=== PATIENT | female | born 1935 | race Caucasian/White ===

== ENCOUNTER 2024-03-31 12:39 | Outpatient (CLI) | payer MEDICARE, SELFPAY ==
--- NOTE | ~2024-03-31 | XR_ITS ---
XR ankle RT min 3V Ordering provider: Sheryl Castañeda MD History: . MEDIAL RIGHT ANKLE PAIN WITH SWELLING FOR 3 WEEKS NO TRAUMA . Comparison: None. FINDINGS: BONES: Highly suggestive lucency in the distal fibula. Calcaneus patent. JOINT SPACES: Normal. SOFT TISSUES: Soft tissue swelling over the medial and lateral malleoli. IMPRESSION: Possible fracture in the distal fibula. Follow-up advised. Reviewed, dictated and finalized at location A.
== END 2024-03-31 12:40 | disposition home or self-care (01) ==
PROVIDERS: PCP Family Medicine; Visit Provider Family Medicine
DX: M25.571 Pain in right ankle and joints of right foot (principal)
CPT/HCPCS: 73610

== ENCOUNTER 2024-10-17 13:27 | Emergency (ER) | payer MEDICARE, SELFPAY ==
--- NOTE | ~2024-10-17 | XR_ITS ---
XR chest 1V portable Ordering provider: Dedrick Bhatt MD History: 88 years Female with . Fall . Comparison: None. FINDINGS: MEDIASTINUM: The cardiac silhouette is slightly enlarged. Soft tissue density is seen in the lower me diastinum most likely a sliding hiatus hernia is seen. Slightly congestive lalita. LUNGS: No infiltrates, effusions or pneumothorax. Bilateral interstitial thickening which may be due to lumbar fibrosis. Edema and infection is less likely. OTHER: No free air under the diaphragm. Levoscoliosis. IMPRESSION: No acute cardiopulmonary pathology. Sliding hiatus hernia. Reviewed, dictated and finalized at location A.
--- NOTE | ~2024-10-17 | CT_ITS ---
EXAMINATION: CT cervical spine wo con DATE: 10/17/2024 15:39 INDICATION: Neck pain post fall TECHNIQUE: Computed tomography (CT) of the cervical spine was performed without intravenous contrast. Automated exposure control and iterative reconstruction technique were employed. The dose-length pro duct was 250.76 mGy-cm. COMPARISON: None FINDINGS: 10 degrees cervicothoracic levocurvature and 8 degrees cervical dextrocurvature. Sagittal alignment i s normal. Moderate osteoarthritis at the atlantoaxial articulation. Vertebral body heights are normal . Schmorl's nodes along the inferior endplate of C6 and T1. No acute fracture. Mild disc height loss at C5-C6 through T4-T5. Severe uncovertebral osteoarthritis on the right at C6-C7, moderate uncoverte bral osteoarthritis on the left at C3-C4 with additional mild scattered uncovertebral osteoarthritis throughout the remainder of the cervical spine. There is multilevel severe cervical and upper thoraci c facet osteoarthritis. This includes 2 mild multilevel neural foraminal stenosis in the cervical and upper thoracic spine. Disc bulges contributing to mild central canal stenosis at C2-C3 and C3-C4. At herosclerotic calcific lesions at the bilateral carotid bulbs. 1.9 x 1.5 x 1.3 cm left submandibular effusion with high attenuation appear to layer posteriorly suggesting a complex cystic lesion with la yering blood, proteinaceous fluid or milk of calcium. Mosaic attenuation in the visualized upper lung s likely related to expiratory phase of imaging with mild atelectasis. IMPRESSION: 1. Mild cervical and upper thoracic spondylosis. No acute osseous abnormality. 2. Indeterminate 1.9 x 1.5 x 1.3 cm likely complex cystic left submandibular lesion which is of indet erminate etiology or significance. Could consider follow-up ultrasound for further evaluation. Reviewed, dictated and finalized at location A. IMPRESSION: 1. Mild cervical and upper thoracic spondylosis. No acute osseous abnormality. 2. Indeterminate 1.9 x 1.5 x 1.3 cm likely complex cystic left submandibular le becky which is of indeterminate etiology or significance. Could consider follow- up ultrasound for further evaluation.
--- NOTE | ~2024-10-17 | XR_ITS ---
EXAMINATION: XR clavicle LT DATE: 10/17/2024 14:34 INDICATION: Left clavicle pain post fall TECHNIQUE: AP and cephalad angled AP views of the left clavicle were obtained. COMPARISON: None. FINDINGS: Alignment is normal. No fracture. Moderate to severe osteoarthritis at the left acromioclavicular joshua nt. Visualized apices of the lungs are clear. Atherosclerotic calcifications at the aortic arch. IMPRESSION: 1. No acute osseous abnormality. Reviewed, dictated and finalized at location A.
--- NOTE | ~2024-10-17 | XR_ITS ---
AP view of the pelvis and AP and lateral views of the left hip Clinical history: Pain Findings: No acute fracture or dislocation is seen. Osseous alignment is anatomic. Bilateral hip and SI joint spaces are preserved. Soft tissues are unremarkable. Impression: No significant abnormality is seen. Reviewed, dictated and finalized at [facility]. Impression: No significant abnormality is seen.
--- NOTE | ~2024-10-17 | CT_ITS ---
Non-contrast Head CT History: Status post fall Technique: Axial non-contrast imaging of the brain was performed. Dose reduction technique was used on this scan by utilizing automated exposure control and iterative reconstruction technique. The dose -length product (DLP) was 605.33 mGy-cm. Findings: There is no evidence of intracranial hemorrhage, mass lesion, or acute infarct. Brain par enchyma appears normal. The ventricles and subarachnoid spaces are normal in size. The calvarium ap pears normal. The visualized paranasal sinuses and mastoid air cells are clear. Impression: No significant abnormality seen. Reviewed, dictated and finalized at location . Impression: No significant abnormality seen.
--- NOTE | ~2024-10-17 | CT_ITS ---
EXAMINATION: CT pelvis wo con DATE: 10/17/2024 15:39 INDICATION: Severe pelvic pain post fall TECHNIQUE: Computed tomography (CT) of the pelvis was performed without intravenous contrast. Automat ed exposure control and iterative reconstruction technique were employed.The dose-length product was 362.34 mGy-cm. COMPARISON: None FINDINGS: Severe lower lumbar spondylosis with mild lower lumbar levocurvature, 5 mm anterolisthesis L4 on L5 a nd 3 mm retrolisthesis L5 on S1. Bone alignment is otherwise normal. No acute fracture. Moderate bila teral hip osteoarthritis with posterior predominant nonuniform joint space narrowing. No hip joint ef fusions. Moderate osteoarthritis at the bilateral sacroiliac joints. There is stranding in the subcut aneous fat overlying the left greater trochanter consistent with a bone contusion. Chronic bilateral partial tears of the gluteus medius tendons with proximal retraction of the myotendinous junctions an d secondary moderate fatty atrophy of the chest is portions of mild fatty atrophy of the remaining mu sculature of the pelvis and visualized proximal thighs. There is a 10 x 3 x 2.7 cm submucosal lipoma in the ascending colon. Numerous scattered colonic diverticula without adjacent from trace stranding to suggest diverticulitis. Visualized lower pole the right kidney is unremarkable. Bladder is normal. The uterus is not identified and has likely been surgically resected. Small amount of nonspecific fr ee fluid in the deep pelvis. IMPRESSION: 1. No acute osseous abnormality. 2. Severe lower lumbar spondylosis and moderate bilateral hip and sacroiliac osteoarthritis. 3. Chronic partial tears of the bilateral gluteus medius tendons with moderate secondary fatty atroph y of both muscle bellies. 4. Extensive diverticulosis. 5. 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 Reviewed, dictated and finalized at location A. IMPRESSION: 1. No acute osseous abnormality. 2. Severe lower lumbar spondylosis and moderate bilateral hip and sacroiliac os teoarthritis. 3. Chronic partial tears of the bilateral gluteus medius tendons with moderate secondary fatty atrophy of both muscle bellies. 4. Extensive diverticulosis. 5. 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
--- OUTSIDE RECORDS SUMMARY | 2024-10-17 13:31 | XMS_ITS | Clinical Summary ---
Author Organization [facility] Address [address] [place] [address] Care Team Providers Care Taxi Truck Driver Name Role Phone Unavailable Primary Care Provider Unavailabl e Source Comments [facility],non-owned Affiliates and Associated Physician Practices is amultiple site organization consisting of ambulatory clinics and hospital sitesin [place], [place], [place] and [place]. This disclosure is being madepursuant to the Care Everywhere program and may not contain all information available regarding this patient. Last updated 18.[facility] [employer] Social History Tobacco Use Types Packs/Day Years Used Date Smoking Tobacco: Never Assessed Sex and Gender Information Value Date Recorded Sex Assigned at Not on file Gender Identity Not on file Sexual Orientation Not on file Plan of Treatment Health Maintenance Due Date Last Done Comments BONE DENSITY TESTING 1937 DTAP/TDAP/TD VACCINES (1 - Tdap) 1956 PNEUMOCOCCAL VACCINE 50+ (1 of 1 - PCV) 10/24/1987 ZOSTER VACCINE (1 of 2) 10/24/1987 Respiratory Syncytial Virus (RSV) Vaccine Pt: or over 60 yrs (1 - 1-dose 75+ series) 2012 COVID-19 VACCINE (2023-2 5 season) 2024 DEPRESSION SCREENING 07/09/2024 MEDICARE AWV CALENDAR YEAR 2024 INFLUENZA VACCINE (Season Ended) 2025 HEPATITIS B VACCINE Aged Out No longe r eligible based on patient's age to complete this topic HIB VACCINE Aged Out No longer eligi ble based on patient's age to complete this topic HPV VACCINE Aged Out No longer eligi ble based on patient's age to complete this topic MENINGOCOCCAL (Group B) VACC INE SHARED DECISION-MAKING Aged Out No longer eligibl e based on patient's age to complete this topic MENINGOCOCCAL GROUPS A/C/Y/W VACCINE Aged Out No longer eligible b ased on patient's age to complete this topic
--- OUTSIDE RECORDS SUMMARY | 2024-10-17 13:32 | XMS_ITS | Encounter Summary ---
Author Organization [facility] Address [facility] [place] [address] Care Team Providers Care Gang Worker Name Role Phone Brittney Levy [facility] Primary Care Provider + Encounter Details Date Type Department Care Team (Late st Contact Info) Description 02/20/2023 Prep for Procedure [facility], [facility] [address] [place], [place] [id number] Abdirahman Salas MD [address] [facility]. 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
--- OUTSIDE RECORDS SUMMARY | 2024-10-17 13:32 | XMS_ITS | Encounter Summary ---
Author Organization [facility] Address [address] [place] [address] Care Team Providers Care Paralegal Legal Secretary Name Role Phone Unavailable Primary Care Provider Unavailabl e Encounter Details Date Type Department Care Team (Late st Contact Info) Description 02/10/2020 Lab Requisition [facility] DermPath Lab [address] [facility] [place] [address] Nel Clement DO [address] [facility] [address]L [place] [address] Social History Tobacco Use Types Packs/Day Years Used Date Smoking Tobacco: Never Assessed Sex and Gender Information Value Date Recorded Sex Assigned at Not on file Gender Identity Not on file Sexual Orientation Not on file documented as of this encounter Plan of Treatment Not on file documented as of this encounter Procedures Procedure Name Priority Date/Time Associated Diagnosis Comments DERMATOPATHOLOGY Routine 02/09/2020 12:0 0 AM CDT documented in this encounter Results * DERMATOPATHOLOGY (02/09/2020 12:00 AM CDT) Case Report Dermatopathology Report Case: [id number] Authorizing Provider: Nel Clement DO Collected: 02/09/2020 12:00 AM Ordering Location: [facility] DermPath Lab Received: 02/10/2020 06:11 AM Pathologist: Kendal Hodge MD Specimens: A) - Skin, right back B) - Skin, left FH 0 4:05 PM CDT DERMATOPATHOLOGY LABORATORY Final Diagnosis Specimen A. SKIN, right back: SEBORRHEIC KERATOSIS, IRRITATED AND INFLAMED (L82.0) Specimen B. SKIN, left FH: BASAL CELL CARCINOMA, NODULAR TYPE (C44.319) (see microscopic description) 0 4:05 PM CDT DERMATOPATHOLOGY LABORATORY Clinical History A: SK R/O atypia B: IDN R/O BCC 0 4:05 PM T DERMATOPATHOLOGY LABORATORY Gross Description Specimen A: Received is one formalin filled container labeled with the patient's name and designated right back. The specimen consists of a shave biopsy measuring 7x5x1 mm. Jar 0. Specimen B: Received is one formalin filled container labeled with the patient's name and designated left FH. The specimen consists of a shave biopsy measuring 4x3x1 mm. Jar 0. 0 4:05 PM CDT DERMATOPATHOLOGY LABORATORY Microscopic Description Specimen A. SKIN, right back: Sections show acanthosis, papillomatosis, hyperkeratosis, and squamous eddies. There is a lymphohistiocytic infiltrate within the papillary dermis. Specimen B. SKIN, left FH: Within the dermis there are aggregates of basaloid cells with a high nuclear to cytoplasmic ratio and peripheral palisading. Additional deeper sections were obtained and reviewed. 0 4:05 PM T DERMATOPATHOLOGY LABORATORY Disclaimer An external and internal positive and negative controls are appropriate for the histochemical, immunohistochemical and immunofluorescence stain(s) in this case (if any), except where stated explicitly. The performance characteristics of the stain(s) cited in this report were developed and its performance characteristic determined by the Dermatopathology Laboratory at [facility], directed by Dr. Félix Mcgill. These tests need not be, and therefore are not, approved by the [place] Food and Drug Administration. The tests are used for clinical purposes. Billing Codes Specimen Charges Stain Charges 31453 [id number] 1 1 0 4:05 PM CDT DERMATOPATHOLOGY LABORATORY Embedded Images 0 4:05 PM CDT DERMATOPATHOLOGY LABORATORY Pathology/Cytology TISSUE SPECIMEN FROM SKIN / Unknown 02/09/2020 02/10/2020 6:11 AM CDT Miscellaneous samples (specimen) TISSUE SPECIMEN FROM SKIN / Unknown 02/09/2020 02/10/2020 6:11 AM CDT Nel Clement DO LAB - PATHOLOGY/C YTOLOGY ORDERABLES DERMATOPATHOLOGY LABORATORY [facility] - Department of Dermatology [facility] [address] [place] [address], [facility] [phone] documented in this encounter Visit Diagnoses Not on filedocumented in this encounter
--- OUTSIDE RECORDS SUMMARY | 2024-10-17 13:32 | XMS_ITS | Encounter Summary ---
Author Organization [facility] Address [facility] [place] [address] Care Team Providers Care Pigment Processor Name Role Phone Arabella Rojo MD Primary Care Provider [phone] Brittney Levy [facility] Primary Care Provider + Encounter Details Date Type Department Care Team (Late st Contact Info) Description 12/14/2018 Abstract [facility] CONVERSION [address] [place] [address] , Generic MD Ashok Social History Tobacco Use Types Packs/Day Years Used Date Smoking Tobacco: Never Assessed Comments Unknown Sex and Gender Information Value Date Recorded Sex Assigned at Not on file Legal Sex Female 10:22 PM OFFICE ASST Gender Identity Not on file Sexual Orientation Not on file documented as of this encounter Plan of Treatment Not on file documented as of this encounter Visit Diagnoses Not on filedocumented in this encounter Care Teams Pigment Processor Relationship Specialty Start Date End Date Arabella Rojo MD [address] [place] [address] PCP - General FAMILY PRACTICE 12/29/21 01/04/23 Brittney Levy, [facility] [address] [place] [address] PCP - General NURSE PRACTITIONER 01/05/23 documented as of this encounter
--- OUTSIDE RECORDS SUMMARY | 2024-10-17 13:32 | XMS_ITS | Clinical Summary ---
Author Organization [facility] Address [address] [place] [address] Care Team Providers Care Manager Deli Name Role Phone Brittney Levy [facility] Primary Care Provider + Allergies Active Allergy Reactions Criticality Noted Date Comments Codeine Hallucinations 01/05/2023 Sulfa Antibiotics Unknown 02/21/2023 Medications EQ ASPIRIN ADULT LOW DOSE 81 MG tablet Take 1 tablet (81 mg total) by mouth daily. 2 Active gabapentin (NEURONTIN) 600 MG tablet Take 1 tablet (600 mg total) by mouth daily. 3 Active multi vitamin/minerals (THERA-M ENHANCED) tablet Take 1 tablet by mouth daily. Active Multiple Vitamins-Minerals (EYE HEALTH + LUTEIN) Tab Active Carboxymethylcellu l-Glycerin (CLEAR EYES FOR DRY EYES) 1-0.25 % Solution Ac tive atorvastatin (LIPITOR) 40 MG tabletIndications: Mixed hyperlipidemia Take 1 tablet (40 mg total) by mouth nightly. 90 tablet 1 3 Active citalopram (CELEXA) 20 MG tabletIndications: Anxiety Take 1 tablet (20 mg total) by mouth daily. 90 tablet 1 3 Active levothyroxine (SYNTHROID) 75 MCG tabletIndications: Hypothyroidism, unspecified type Take 1 tablet (75 mcg total) by mouth before breakfast. 90 tablet 1 3 Active lisinopril-hydroCH LOROthiazide (ZESTORETIC) 10-12.5 MG tabletIndications: Essential (primary) hypertension take 1 tablet by mouth once daily in the morning for 90 days 90 tablet 1 3 Active omeprazole (PRILOSEC) 40 MG capsuleIndications :Gastroesophageal reflux disease without esophagitis Take 1 capsule (40 mg total) by mouth daily. 90 capsule 1 3 Active isosorbide mononitrate ER (IMDUR) 30 MG 24 hr tablet Take 1 tablet (30 mg total) by mouth daily. 3 Active triamcinolone (KENALOG) 0.1 % creamIndications:S kin lesion of left leg Apply topically 2 (two) times daily. 80 g 1 3 Active Active Problems Problem Noted Date Diagnosed Date Varicose veins of lower extremity with pain, rig ht 02/20/2023 Overview (02/20/2023): Added automatically from request for surgery [id number] Immunizations Name Administration Dates Next Due Fluzone High Dose - >Age 65 (Prefilled Syringe) 04/13/2020 Tdap (Generic) 02/22/2021 Family History Medical History Relation Comments No Known Problems Brother 1 drowned No Known Problems Brother 2 car wreck No Known Problems Daughter 1 Skin cancer Daughter 2 No Known Problems Daughter 3 fell asleep an d didnt wake up Hip fracture Daughter 4 Cancer Daughter 5 Heart Attack Father No Known Problems Mother Breast Cancer Sister 1 Melanoma Sister 2 Cancer Sister 3 No Known Problems Son Relation Status Comments Brother 1 Brother 2 Daughter 1 Alive Daughter 2 Alive Daughter 3 Daughter 4 Alive Daughter 5 Father Mother Sister 1 Sister 2 Sister 3 Son Alive Social History Tobacco Use Types Packs/Day Years Used Date Smoking Tobacco: Never Smokeless Tobacco: Never Tobacco Cessation:Counseling Given: No Alcohol Use Standard Drinks/Week Comments Never 0 (1 standard drink = 0.6 oz pur e alcohol) PHQ-2 Answer Date Recorded Patient Health Questionnaire-2 Score 0 02/23/2023 Comments No Sex and Gender Information Value Date Recorded Sex Assigned at Not on file 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 Gender Identity Not on file Sexual Orientation Not on file Last Filed Vital Signs Vital Sign Reading Time Taken Comments Blood Pressure 152/84 03/13/2023 10:41 AM CDT Pulse 56 02/23/2023 8:34 AM CDT Temperature 36.6 C (97.8 F) 02/23/2023 8:34 AM CDT Respiratory Rate 18 02/23/2023 8:34 AM CDT Oxygen Saturation 99% 02/23/2023 8:34 AM CDT Inhaled Oxygen Concentration - - Weight 71.3 kg (157 lb 3.2 oz) 02/23/2023 8:34 A M CDT Height 153.7 cm (5' 0.5 ) 02/23/2023 8:34 AM CDT Body Mass Index 30.2 02/23/2023 8:34 AM CDT Plan of Treatment Health Maintenance Due Date Last Done Comments Zoster Vaccines (1 of 2) 10/24/1987 Annual Medicare Wellness Visit 2002 Pneumococcal Vaccine: 65+ Ye ars (1 of 1 - PCV) 2002 RSV Immunization or 60+ Years (1 - 1-dose 75+ series) 2012 COVID-19 Vaccine (1 - 2023-2 5 season) 2024 PHQ-2 (Physician [place]) 07/09/2024 02/23/2023 DTaP, Tdap and Td Vaccines ( 2 - Td or Tdap) 02/22/2031 02/22/2021 Meningococcal B Vaccine Aged Out No l onger eligible based on patient's age to complete this topic Meningococcal Vaccine Aged Out No joseph levi eligible based on patient's age to complete this topic RSV Immunizations Under 20 Months Aged Out No longer eligible based on patient's age to complete this topic Insurance [facility] Care Teams Manager Deli Relationship Specialty Start Date End Date Brittney Levy, CIVIL DESIGNER-YURI [address] [address] PCP - General NURSE PRACTITIONER 01/05/23
[2024-10-17 13:43] VITALS: BP 168/72; PULSE 64; RESP 20; O2SAT 100
[2024-10-17 13:46] VITALS: PULSE 64; RESP 20; TEMP 36.6; O2SAT 100
--- OUTSIDE RECORDS SUMMARY | 2024-10-17 14:36 | XMS_ITS | Encounter Summary ---
Author Organization [facility] Address [facility] [place] [address] Care Team Providers Care Wood Milling Machine Tender Name Role Phone Arabella Rojo MD Primary Care Provider [phone] Brittney Levy [facility] Primary Care Provider + Encounter Details Date Type Department Care Team (Late st Contact Info) Description 12/14/2018 Abstract [facility] CONVERSION [address] [place] [address] , Generic MD Ashok Social History Tobacco Use Types Packs/Day Years Used Date Smoking Tobacco: Never Assessed Comments Unknown Sex and Gender Information Value Date Recorded Sex Assigned at Not on file 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
--- OUTSIDE RECORDS SUMMARY | 2024-10-17 14:36 | XMS_ITS | Encounter Summary ---
Author Organization [facility] Address [facility] [place] [address] Care Team Providers Care Photolettering Machine Operator Name Role Phone Brittney Levy [facility] Primary Care Provider + Encounter Details Date Type Department Care Team (Late st Contact Info) Description 02/20/2023 Prep for Procedure [facility] [address] [facility], [facility] [address] [place], [place] [id number] Abdirahman Salas MD Three [facility]. [facility] [address] [place], [place] [id number] Social History Tobacco Use Types Packs/Day Years Used Date Smoking Tobacco: Never Smokeless Tobacco: Never Alcohol Use Standard Drinks/Week Comments Never 0 (1 standard drink = 0.6 oz pur e alcohol) PHQ-2 Answer Date Recorded Patient Health Questionnaire-2 Score 0 02/23/2023 Comments No Sex and Gender Information Value Date Recorded Sex Assigned at Not on file Legal Sex Female 10:22 PM TELEPHONE SURVEYOR Gender Identity Not on file Sexual Orientation Not on file documented as of this encounter Plan of Treatment Not on file documented as of this encounter Visit Diagnoses Diagnosis Varicose veins of lower extremity with pain, right- Primary documented in this encounter Care Teams Photolettering Machine Operator Relationship Specialty Start Date End Date Brittney Levy, [facility] [address] [place] [address] PCP - General NURSE PRACTITIONER 01/05/23 documented as of this encounter
--- OUTSIDE RECORDS SUMMARY | 2024-10-17 14:36 | XMS_ITS | Encounter Summary ---
Author Organization [facility] Address [address] [facility] [place] [address] Care Team Providers Care Plate Glass Installer Helper Name Role Phone Unavailable Primary Care Provider Unavailabl e Encounter Details Date Type Department Care Team (Late st Contact Info) Description 02/10/2020 Lab Requisition [facility] DermPath Lab [address] [facility] [place] [address] Nel Clement DO [address] [facility] [address]L [place] [address] Social History Tobacco Use Types Packs/Day Years [...] AM CDT) Case Report Dermatopathology Report Case: [id number] Authorizing Provider: Nel Clement DO Collected: 02/09/2020 12:00 AM Ordering Location: [facility] DermPath Lab Received: 02/10/2020 06:11 AM Pathologist: [...] characteristic determined by the Dermatopathology Laboratory at [facility], directed by Dr. Félix Mcgill. These tests need not be, and therefore are not, approved by the [place] Food and Drug Administration. The tests are used for clinical purposes. Billing Codes Specimen Charges Stain Charges [id number] 1 1 0 4:05 PM CDT DERMATOPATHOLOGY LABORATORY Embedded Images 0 4:05 PM CDT DERMATOPATHOLOGY LABORATORY Pathology/Cytology TISSUE SPECIMEN FROM SKIN / Unknown 02/09/2020 02/10/2020 6:11 AM CDT Miscellaneous samples (specimen) TISSUE SPECIMEN FROM SKIN / Unknown 02/09/2020 02/10/2020 6:11 AM CDT Nel Clement DO LAB - PATHOLOGY/C YTOLOGY ORDERABLES DERMATOPATHOLOGY LABORATORY [facility] - Department of Dermatology [facility] [address] [facility] [place] [address], [facility] [phone] documented in this encounter Visit Diagnoses Not on filedocumented in this encounter
--- OUTSIDE RECORDS SUMMARY | 2024-10-17 14:36 | XMS_ITS | Clinical Summary ---
Author Organization [facility] Address [address] [place] [address] Care Team Providers Care Contract Administration Coordinator Name Role Phone Unavailable Primary Care Provider Unavailabl e Source Comments [facility],non-owned Affiliates and Associated Physician Practices is amultiple site organization consisting of ambulatory clinics and hospital sitesin [place], [place], [place] and [place]. This disclosure is being madepursuant to the Care Everywhere program and may not contain all information available regarding this patient. Last updated 18.[employer] Social History Tobacco Use Types Packs/Day Years [...]
--- OUTSIDE RECORDS SUMMARY | 2024-10-17 14:36 | XMS_ITS | Clinical Summary ---
Author Organization [facility] Address [address] [place] [address] Care Team Providers Care Line Repairer Name Role Phone Brittney Levy [facility] Primary Care Provider + Allergies Active [...] (02/20/2023): Added automatically from request for surgery [id number] Immunizations Name Administration Dates Next Due Fluzone [...] on file Legal Sex Female 10:22 PM HAND VIOLIN MAKER Gender Identity Not on file Sexual Orientation [...] - 2023-2 5 season) 2024 PHQ-2 (Physician [place]) 07/09/2024 02/23/2023 DTaP, Tdap and Td Vaccines [...] patient's age to complete this topic Insurance [facility] Care Teams Line Repairer Relationship Specialty Start Date End Date Brittney Levy, SPECIAL EQUIPMENT TECHNICIAN-YURI [address] [address] PCP - General NURSE PRACTITIONER 01/05/23
--- NOTE | 2024-10-17 16:26 | ED.GENADULT ---
HPI - General Adult General Chief complaint: Fall Stated complaint: Fall, injury to head, left shoulder and hip Time Seen by Provider: 10/17/24 14:32 History of Present Illness HPI narrative: This is 88-year-old female presenting after a ground level fall patient was trying to get out of her car while holding soda and her cane and fell forward hitting the left side of her head. She denies loss of consciousness. She denies use of blood thinners. She was able to get up with some help but is now having pain in her head neck left arm and left hip urine Related Data Home Medications ?Medication ?Instructions ?Recorded ?Confirmed ?Last Taken ?Type aspirin 81 mg tablet,delayed 81 mg PO DAILY 02/18/24 04/23/24 Unknown History release gabapentin 600 mg tablet 600 mg PO DAILY 02/18/24 04/23/24 Unknown History levothyroxine 25 mcg capsule 25 mcg PO DAILY 02/18/24 04/23/24 Unknown History lisinopril 10 mg tablet 10 mg PO DAILY 02/18/24 04/23/24 Unknown History omeprazole 20 mg capsule,delayed 20 mg PO DAILY 02/18/24 04/23/24 Unknown History release Allergies Allergy/AdvReac Type Severity Reaction Status Date / Time codeine AdvReac Severe Hallucinati Verified 10/17/24 13:29 ng Sulfa (Sulfonamide AdvReac Unknown Hives Verified 10/17/24 13:29 Antibiotics) [facility] Past Medical History Medical History ) Allergies Arthritis Constipation Cystocele with rectocele Frequent urination GERD (gastroesophageal reflux disease) Hearing loss History of skin cancer Osteoporosis Posterior tibial tendinitis of right lower extremity Skin cancer Swollen ankles Thyroid disorder Traumatic arthritis of right ankle Vision changes Surgical History Surgical History ) H/O rectocele repair H/O: hysterectomy History of anterior colporrhaphy History of colonoscopy History of endoscopy History of heart artery stent Family History Family History ) Father Heart disease Sibling Cancer Hypertension Sibling Heart disease Unknown No problems noted. Social History Social History ) Smoking status: Never smoker Second hand tobacco smoke exposure: No Alcohol intake: never Substance use: never Substance use type: does not use Do You Feel Safe in your Home?: Yes Lack of Transportation: No Lack of Food: Never True Current Housing: I Have Housing Concerned About Future Housing: No Difficulty Paying Gas/Electric Bills: No Difficulty Paying for Meds: No Currently Unemployed: No Occupation/Education: retired Gender identity (if verbalized by the patient): Female Sexual Orientation (if Verbalized by the Patient): Straight or Heterosexual Spiritual care concerns: No Agree to blood products: No Exam Narrative: APPEARANCE: No apparent distress. Head: atraumatic. EYES: EOMI, NOSE: Atraumatic NECK: Midline cervical tenderness, left paracervical muscle tenderness RESPIRATORY: No increased rate of breathing CTAB CARDIOVASCULAR: RRR, no peripheral edema, +2 pulses all extremities ABDOMINAL: Non-distended soft nontender MUSCULOSKELETAl: Tenderness palpation over the left clavicle without crepitus or deformity. Tenderness palpation over the left greater trochanter with pain on active and passive range of motion of the hip. NEURO: Alert. Cranial nerves 2-12 grossly intact. Sensation light touch, motor function cerebellar function intact for 4 extremities. Gait exam was normal. SKIN:: Warm, dry. Normal color PSYCHIATRIC: Normal affect Course Vital Signs Vital signs: Vital Signs Pulse Rate 64 10/17/24 13:43 Respiratory Rate 20 10/17/24 13:43 Blood Pressure 168/72 H 10/17/24 13:43 Pulse Oximetry 100 10/17/24 13:43 Temperature 97.9 F 10/17/24 13:46 Pulse Rate 64 10/17/24 13:46 Respiratory Rate 20 10/17/24 13:46 Blood Pressure 168/72 H 10/17/24 13:43 Pulse Oximetry 100 10/17/24 13:46 Oxygen Delivery Room Air 10/17/24 13:46 Medical Decision Making MDM Narrative Medical decision making narrative: -Course: A 8-year-old female presenting after ground level fall. CT imaging of the head, C-spine, and pelvis was unremarkable. X-rays negative for fracture. Patient was given pain medication and was able to ambulate around ED at her baseline. She will be discharged with pain medication and return precautions. -DDX includes but is not limited to: Hip fracture, clavicle fracture, intracranial hemorrhage, TBI Vital Signs Vital Signs: Vital Signs Pulse Rate 64 10/17/24 13:43 Respiratory Rate 20 10/17/24 13:43 Blood Pressure 168/72 H 10/17/24 13:43 Pulse Oximetry 100 10/17/24 13:43 Temperature 97.9 F 10/17/24 13:46 Pulse Rate 64 10/17/24 13:46 Respiratory Rate 20 10/17/24 13:46 Blood Pressure 168/72 H 10/17/24 13:43 Pulse Oximetry 100 10/17/24 13:46 Oxygen Delivery Room Air 10/17/24 13:46 Discharge Plan Discharge Clinical Impression: Fall Patient Disposition: Home Condition: Stable Instructions: Antibiotic Form, Fall Prevention for Older Adults (ED) Additional Instructions: Please use Tylenol for pain. Please return to ED if develops any new or worsening symptoms. Please practice fall prevention. Follow up with primary care physician for further management. Patient Language: Georgian Prescriptions: New acetaminophen 500 mg capsule 500 mg PO Q6H PRN (Reason: pain) Qty: 60 0RF No Action lisinopril 10 mg tablet 10 mg PO DAILY omeprazole 20 mg capsule,delayed release(DR/EC) 20 mg PO DAILY levothyroxine 25 mcg capsule 25 mcg PO DAILY gabapentin 600 mg tablet 600 mg PO DAILY aspirin 81 mg tablet,delayed release (DR/EC) 81 mg PO DAILY Follow-up/Referrals: Sheryl Castañeda MD [Primary Care Provider] - 1 Week (ED f/u. fall )
[2024-10-17 17:24] VITALS: BP 150/60; PULSE 61; RESP 18; TEMP 36.6; O2SAT 100
== END 2024-10-17 17:24 | disposition home or self-care (01) ==
PROVIDERS: Emergency Provider Emergency Medicine; PCP Family Medicine
DX: S09.90XA Unspecified injury of head, initial encounter (principal); S79.912A Unspecified injury of left hip, initial encounter; S49.92XA Unspecified injury of left shoulder and upper arm, initial encounter; S19.9XXA Unspecified injury of neck, initial encounter; E07.9 Disorder of thyroid, unspecified; K21.9 Gastro-esophageal reflux disease without esophagitis; M19.90 Unspecified osteoarthritis, unspecified site; M81.0 Age-related osteoporosis without current pathological fracture; Z95.5 Presence of coronary angioplasty implant and graft; Z85.828 Personal history of other malignant neoplasm of skin; Z90.710 Acquired absence of both cervix and uterus; M47.812 Spondylosis without myelopathy or radiculopathy, cervical region; M47.814 Spondylosis without myelopathy or radiculopathy, thoracic region; K11.6 Mucocele of salivary gland; W17.89XA Other fall from one level to another, initial encounter
CPT/HCPCS: 70450; 71045; 72125; 72192; 73000; 73502; 99284

== ENCOUNTER 2024-11-13 20:59 | Inpatient (IN) | payer MEDICARE, SELFPAY ==
--- NOTE | ~2024-11-13 | CT_ITS ---
CLINICAL INDICATION: Rectal bleeding COMPARISON: Reference is made to a CT examination of the pelvis dated 10/17/2024 TECHNIQUE: Computed tomography angiography (CTA) of the abdomen and pelvis was performed with 100 mL Omnipaque-350 intravenous contrast timed to evaluate the abdominal aorta and mesenteric vasculature. Coronal maximum intensity projection 3D-reconstructions were created by the technologist. The dose-le ngth product (DLP) was 952 mGy-cm. Automated exposure control and iterative reconstruction technique were employed. FINDINGS/OBSERVATIONS: Visualized lower thorax: Trace bibasilar atelectasis. The remainder of the lungs are clear. The heart is enlarged, without pericardial effusion. Large hiatal hernia is present. Liver: Punctate calcifications identified within the hepatic parenchyma, suggesting prior granulomato us disease. The remainder of the liver demonstrates otherwise homogeneous enhancement and is not enlarged. Gallbladder and biliary system: The gallbladder is only minimally distended, with multiple calcified stones and is otherwise unremark able. Pancreas: The pancreas enhances homogeneously without ductal dilatation. Spleen: Punctate calcifications identified within the splenic parenchyma, suggesting prior granulomat ous disease. The remainder of the spleen otherwise enhances homogeneously and is not enlarged. Kidneys: The bilateral kidneys enhance symmetrically without hydronephrosis or renal calculi. Adrenal glands: Unremarkable. Gastrointestinal tract: Redemonstration of a submucosal lipoma within the ascending colon. Colonic diverticulosis is identified without surrounding inflammatory change. Appendix: The appendix is not definitively visualized. However, no pericecal inflammatory change is identified suggest the presence of acute appendicitis. Vasculature: Densely calcified atherosclerotic disease. The celiac axis is patent demonstrating conventional anatomy. The superior mesenteric artery is also patent, without filling defect or aneurysmal dilatation. The inferior mesenteric artery is also patent, without a filling defect or significant stenosis. Lymph nodes: No pathologically enlarged or morphologically suspicious lymph nodes within the retroperitoneum or at the root of the mesentery. Pelvic structures: The bladder is only minimally distended, and otherwise unremarkable. The uterus is either surgically absent or markedly atrophic. Body wall and musculoskeletal: Age appropriate degenerative disease within the lumbosacral spine. IMPRESSION: No contrast extravasation to suggest acute hemorrhage. No filling defect within the mesenteric vasculature. Colonic diverticulosis without surrounding inflammatory change. Findings suggesting prior granulomatous disease. Reviewed, dictated and finalized at location A.
--- NOTE | ~2024-11-13 | NM_ITS ---
EXAMINATION: NM GI bleeding DATE: 11/15/2024 12:18 INDICATION: Lower gastrointestinal bleed COMPARISON: CT dated 11/23/2024 TECHNIQUE: 21.8 mCi Tc 99m in vitro labeled red cells administered intravenously. Scintigraphic imag es of the abdomen were obtained through one hour. FINDINGS: There is a J-shaped configuration of bowel activity respiratory apparent on the 55 minute i mage and increased on the subsequent 60 minute image. This corresponds in location and configuration to the transverse colon on the prior CT. The origin of the bleed appears to localize to a focal regio n of wall thickening at the proximal transverse colon. IMPRESSION: 1. Active gastrointestinal bleed which appears to originate at the site of focal wall thickening at the proximal transverse colon on prior CT. This could be due to a focal colitis, diverticulitis or ma lignancy and would recommend colonoscopy for further evaluation. Reviewed, dictated and finalized at location A. IMPRESSION: 1. Active gastrointestinal bleed which appears to originate at the site of foc al wall thickening at the proximal transverse colon on prior CT. This could be due to a focal colitis, diverticulitis or malignancy and would recommend colono scopy for further evaluation.
--- OUTSIDE RECORDS SUMMARY | 2024-11-13 21:00 | XMS_ITS | Encounter Summary ---
Author Organization [facility] Address [address] [place] [address] Care Team Providers Care Fruit Tester Name Role Phone Unavailable Primary Care Provider Unavailabl e Encounter Details Date Type Department Care Team (Late st Contact Info) Description 02/10/2020 Lab Requisition [facility] [address] [place] [address] Nel Clement DO [address] [facility] [address] [place] [address] Social History Tobacco Use Types Packs/Day Years Used Date Smoking Tobacco: Never Assessed Comments Unknown Sex and Gender Information Value Date Recorded Sex Assigned at Not on file Legal Sex Female 11:06 AM CDT Gender Identity Not on file Sexual Orientation Not on file documented as of this encounter Plan of Treatment Not on file documented as of this encounter Procedures Procedure Name Priority Date/Time Associated Diagnosis Comments DERMATOPATHOLOGY Routine 02/09/2020 12:0 0 AM CDT documented in this encounter Results * DERMATOPATHOLOGY (02/09/2020 12:00 AM CDT) Case Report Dermatopathology Report Case: [id number] Authorizing Provider: Nel Clement DO Collected: 02/09/2020 12:00 AM Ordering Location: [facility] Received: 02/10/2020 06:11 AM Pathologist: Kendal Hodge MD Specimens: A) - Skin, right back B) - Skin, left FH 0 4:05 PM CDT DERMATOPATHOLOGY LABORATORY Final Diagnosis Specimen A. SKIN, right back: SEBORRHEIC KERATOSIS, IRRITATED AND INFLAMED (L82.0) Specimen B. SKIN, left FH: BASAL CELL CARCINOMA, NODULAR TYPE (C44.319) (see microscopic description) 0 4:05 PM T DERMATOPATHOLOGY LABORATORY Clinical History A: SK R/O atypia B: IDN R/O BCC 0 4:05 PM CDT DERMATOPATHOLOGY LABORATORY Gross Description Specimen A: Received [...] 4x3x1 mm. Jar 0. 0 4:05 PM T DERMATOPATHOLOGY LABORATORY Microscopic Description Specimen A. SKIN, right back: Sections show acanthosis, papillomatosis, hyperkeratosis, and squamous eddies. There is a lymphohistiocytic infiltrate within the papillary dermis. Specimen B. SKIN, left FH: Within the dermis there are aggregates of basaloid cells with a high nuclear to cytoplasmic ratio and peripheral palisading. Additional deeper sections were obtained and reviewed. 0 4:05 PM CDT DERMATOPATHOLOGY LABORATORY Disclaimer An external and internal positive and negative controls are appropriate for the histochemical, immunohistochemical and immunofluorescence stain(s) in this case (if any), except where stated explicitly. The performance characteristics of the stain(s) cited in this report were developed and its performance characteristic determined by the Dermatopathology Laboratory at [facility], directed by Dr. Félix Mcgill. These tests need not be, and therefore are not, approved by the [place] Food and Drug Administration. The tests are used for clinical purposes. Billing Codes Specimen Charges Stain Charges 59343 62050 1 1 0 4:05 PM CDT DERMATOPATHOLOGY LABORATORY Embedded Images 0 4:05 PM CDT DERMATOPATHOLOGY LABORATORY Pathology/Cytology TISSUE SPECIMEN FROM SKIN / Unknown 02/09/2020 02/10/2020 6:11 AM CDT Miscellaneous samples (specimen) TISSUE SPECIMEN FROM SKIN / Unknown 02/09/2020 02/10/2020 6:11 AM CDT Nel Clement DO LAB - PATHOLOGY/CYTOLOGY ORDERABLES Final Result DERMATOPATHOLOGY LABORATORY [facility] - Department of Dermatology [facility]/[address] [phone] documented in this encounter Visit Diagnoses Not on filedocumented in this encounter
--- OUTSIDE RECORDS SUMMARY | 2024-11-13 21:00 | XMS_ITS | Clinical Summary ---
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 Gender Identity Not on file Sexual Orientation [...] Health Maintenance Due Date Last Done Comments Pneumococcal Vaccine: 50+ Ye ars (1 of 1 - PCV) 10/24/1987 Zoster Vaccines (1 of 2) 10/24/1987 Annual Medicare Wellness Visit 2002 RSV Immunization or 60+ Years (1 - 1-dose 75+ series) 2012 COVID-19 Vaccine ( - 2023-2 5 season) 2024 PHQ-2 (Physician [place] [employer] [place]) 07/09/2024 02/23/2023 DTaP, Tdap and Td Vaccines [...] patient's age to complete this topic Insurance [facility] Care Teams Clinical Business Manager Relationship Specialty Start Date End Date Brittney Levy, SYSTEMS [employer] [address] [address] PCP - General NURSE PRACTITIONER 01/05/23
--- OUTSIDE RECORDS SUMMARY | 2024-11-13 21:00 | XMS_ITS | Encounter Summary ---
Author Organization [facility] Address [facility] [place] [address] Care Team Providers Care Public Safety Dispatcher Name Role Phone Arabella Rojo MD Primary Care Provider [phone] Brittney Levy [facility] Primary Care Provider + Encounter Details Date Type Department Care Team (Late st Contact Info) Description 12/14/2018 Abstract [facility] CONVERSION [address] [place] [address] , Generic MD Ashok Social History Tobacco Use Types Packs/Day Years Used Date Smoking Tobacco: Never Assessed Comments Unknown Sex and Gender Information Value Date Recorded Sex Assigned at Not on file 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
--- OUTSIDE RECORDS SUMMARY | 2024-11-13 21:00 | XMS_ITS | Encounter Summary ---
Author Organization [facility] Address [facility] [place] [address] Care Team Providers Care Sales Training Representative Name Role Phone Brittney Levy [facility] Primary Care Provider + Encounter Details Date Type Department Care Team (Late st Contact Info) Description 02/20/2023 Prep for Procedure [facility], [facility] [address] [place], [place] [phone] Abdirahman Salas MD [facility]. 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 Question Answer Date of Assessment Author Status Little interest or pleasure in doing things Not at all 02/23/2023 8:34 AM PINOT Jalyn Goodson Active Feeling down, depressed, or hopeless Not at all 02/23/2023 8:34 AM PINOT Jalyn Goodson Active Patient Health Questionnaire-2 Score 0 02/23/2023 8:34 AM PINOT Jalyn Goodson A ctive documented as of this encounter Plan of Treatment Not on file documented as of this encounter Visit Diagnoses Diagnosis Varicose veins of lower extremity with pain, right- Primary documented in this encounter Care Teams Sales Training Representative Relationship Specialty Start Date End Date Brittney Levy, WOODWORKING MACHINE FEEDER- [address] [address] PCP - General NURSE PRACTITIONER 01/05/23 documented as of this encounter
--- OUTSIDE RECORDS SUMMARY | 2024-11-13 21:00 | XMS_ITS | Clinical Summary ---
Author Organization [facility] Address [address] [place] [address] Care Team Providers Care Dye Weigher Name Role Phone Unavailable Primary Care Provider Unavailabl e Source Comments [facility],non-owned Affiliates and Associated Physician Practices is amultiple site organization consisting of ambulatory clinics and hospital sitesin [place], [place], [place] and [place]. This disclosure is being madepursuant to the Care Everywhere program and may not contain all information available regarding this patient. Last updated 18.[facility] Fresh ! Social History Tobacco Use Types Packs/Day Years [...] - 1-dose 75+ series) 2012 COVID-19 VACCINE ( - 2023-2 5 season) 2024 DEPRESSION SCREENING 07/09/2024 INFLUENZA VACCINE (Season Ended) 2025 HEPATITIS B [...] patient's age to complete this topic Insurance [employer] MANAGED MEDICARE ADV
[2024-11-13 21:07] VITALS: BP 93/46; PULSE 57; RESP 20; TEMP 36.9; O2SAT 99
[2024-11-13 21:27] LABS: Basophils Percent Auto 0.2 % (0.2-1.2); Eosinophils Absolute Auto 0.1 K/mm3 (0-0.3); Eosinophils Percent Auto 0.9 % (0-4.4); Hematocrit 23.8 % (37.0-47.0); Hemoglobin 7.2 g/dL (12.0-15.0); Immature Granulocyte Absolute 0.04 K/mm3 (0.00-0.031); Immature Granulocyte Percent A 0.5 % (0-0.5); Lymphocytes Absolute Auto 1.39 K/mm3 (0.9-3.2); Lymphocytes Percent Auto 15.9 % (18.3-44.2); Mean Corpuscular HGB Conc 30.3 g/dl (32-36); Mean Corpuscular Hemoglobin 23.8 pg (26-34); Mean Corpuscular Volume 78.8 fl (80-100); Mean Platelet Volume 10.5 fl (7.4-10.4); Monocytes Absolute Auto 0.5 K/mm3 (0.1-0.6); Monocytes Percent Auto 5.3 % (2.6-8.5); Neutrophils Absolute Auto 6.8 K/mm3 (1.3-6.7); Neutrophils Percent Auto 77.2 % (45.5-73.1); Platelet Count Result 187 k/mm3 (150-375); Red Blood Count 3.02 M/mm3 (4.2-5.4); Red Cell Distribution Width 20.4 % (11.5-14.5); White Blood Count 8.8 K/mm3 (4.5-10.0)
[2024-11-13 21:37] LABS: Alanine Aminotransferase 16 U/L (6-35); Albumin Level 3.2 g/dL (3.5-5.1); Alkaline Phosphatase 78 U/L (38-126); Anion Gap 6 mmol/L (4-12); Aspartate Amino Transferase 23 U/L (14-36); Bilirubin,Total 0.2 mg/dL (0.2-1.3); Blood Urea Nitrogen 34 mg/dL (7-17); Calcium 8.3 mg/dL (8.4-10.2); Carbon Dioxide 23 mmol/L (22-30); Chloride 104 mmol/L (98-107); Estimated Glomerular Filt Rate 46; Glucose 174 mg/dL (65-110); Potassium 3.8 mmol/L (3.4-5.0); Sodium 133 mmol/L (137-145)
[2024-11-13 21:43] LABS: Prothrombin Time 13.8 Seconds (11.1-14.7)
[2024-11-13 21:44] LABS: Partial Thromboplastin Time 33.5 Seconds (22.3-36.8)
--- OUTSIDE RECORDS SUMMARY | 2024-11-13 22:28 | XMS_ITS | Encounter Summary ---
Author Organization [facility] Address [address] [facility] [place] [address] Care Team Providers Care Marketing Financial Analyst Name Role Phone Unavailable Primary Care Provider Unavailabl e Encounter Details Date Type Department Care Team (Late st Contact Info) Description 02/10/2020 Lab Requisition [facility] Lab [address] [facility] [place] [address] Nel Clement DO [address] [facility] [address] [place] [address] Social History Tobacco Use Types Packs/Day Years [...] AM CDT) Case Report Dermatopathology Report Case: [id number] Authorizing Provider: Nel Clement DO Collected: 02/09/2020 [...] characteristic determined by the Dermatopathology Laboratory at [facility], directed by Dr. Félix Mcgill. These tests need not be, and therefore are not, approved by the [place] Food and Drug Administration. The tests are used for clinical purposes. Billing Codes Specimen Charges Stain Charges [id number] 1 1 0 4:05 PM CDT DERMATOPATHOLOGY LABORATORY Embedded Images 0 4:05 PM CDT DERMATOPATHOLOGY LABORATORY Pathology/Cytology TISSUE SPECIMEN FROM SKIN / Unknown 02/09/2020 02/10/2020 6:11 AM CDT Miscellaneous samples (specimen) TISSUE SPECIMEN FROM SKIN / Unknown 02/09/2020 02/10/2020 6:11 AM CDT Nel Clement DO LAB - PATHOLOGY/CYTOLOGY ORDERABLES Final Result DERMATOPATHOLOGY LABORATORY [facility] - Department of Dermatology [facility]/[address] [phone] documented in this encounter Visit Diagnoses Not on filedocumented in this encounter
--- OUTSIDE RECORDS SUMMARY | 2024-11-13 22:28 | XMS_ITS | Clinical Summary ---
Author Organization [facility] Address [address] [place] [address] Care Team Providers Care Needle Molder Name Role Phone Unavailable Primary Care Provider Unavailabl e Source Comments [facility],non-owned Affiliates and Associated Physician Practices is amultiple site organization consisting of ambulatory clinics and hospital sitesin [place], [place], [place] and [place]. This disclosure is being madepursuant to the Care Everywhere program and may not contain all information available regarding this patient. Last updated 18.[facility] [place] Social History Tobacco Use Types Packs/Day Years [...]
--- OUTSIDE RECORDS SUMMARY | 2024-11-13 22:28 | XMS_ITS | Encounter Summary ---
Author Organization [facility] Address [facility] [place] [address] Care Team Providers Care Electrolysis Needle Operator Name Role Phone Arabella Rojo MD Primary Care Provider [phone] Brittney Levy [facility] Primary Care Provider + Encounter Details Date Type Department Care Team (Late st Contact Info) Description 12/14/2018 Abstract [facility] CONVERSION [address] [place] [address] , Generic MD Ashok Social History Tobacco Use Types Packs/Day Years Used Date Smoking Tobacco: Never Assessed Comments Unknown Sex and Gender Information Value Date Recorded Sex Assigned at Not on file 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
--- OUTSIDE RECORDS SUMMARY | 2024-11-13 22:28 | XMS_ITS | Encounter Summary ---
Author Organization [facility] Address [facility] [place] [address] Care Team Providers Care Baker Paint Name Role Phone Brittney Levy [facility] Primary Care Provider + Encounter Details Date Type Department Care Team (Late st Contact Info) Description 02/20/2023 Prep for Procedure [facility] [address] [place], [place] [id number] Abdirahman Salas MD [facility]. 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
--- OUTSIDE RECORDS SUMMARY | 2024-11-13 22:28 | XMS_ITS | Clinical Summary ---
Author Organization [facility] Address [address] [place] [address] Care Team Providers Care Assortment Planner Name Role Phone Brittney Levy 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
[2024-11-13] MEDS: SODIUM CHLORIDE 0.9% IV 1,000 ML 999 ML IV CONT (23:05)
[2024-11-13 23:31] VITALS: BP 100/54; PULSE 79; RESP 16; O2SAT 100
--- NOTE | 2024-11-13 23:36 | ED.GIBLEED ---
HPI - GI Bleed General Chief complaint: GI Bleed Stated complaint: rectal bleeding, weakness, low bp Time Seen by Provider: 11/13/24 21:59 Source: patient Mode of arrival: ambulatory Limitations: no limitations History of Present Illness HPI Narrative: 89-year-old with a history of diverticulitis, GI bleed presents to the ER with a complains of having maroon color stool since this morning. Patient states that she had 3 such episodes since this morning has occasional abdominal cramping, she denies being lightheaded she is not on any anticoagulant. Patient states that she had a similar episode years ago when she was in [place]. complaint: gross hematochezia Onset (ago): day(s) (1) Pain Consistency: intermittent Severity: moderate Relieving factors: none Exacerbating factors: none Context: history of GI bleed Associated symptoms: denies other symptoms Related Data Home Medications ?Medication ?Instructions ?Recorded ?Confirmed ?Last Taken ?Type aspirin 81 mg tablet,delayed 81 mg PO DAILY 02/18/24 11/03/24 Unknown History release gabapentin 600 mg tablet 600 mg PO DAILY 02/18/24 11/03/24 Unknown History levothyroxine 25 mcg capsule 25 mcg PO DAILY 02/18/24 11/03/24 Unknown History lisinopril 10 mg tablet 10 mg PO DAILY 02/18/24 11/03/24 Unknown History omeprazole 20 mg capsule,delayed 20 mg PO DAILY 02/18/24 11/03/24 Unknown History release Allergies Allergy/AdvReac Type Severity Reaction Status Date / Time codeine AdvReac Severe Hallucinati Verified 10/28/24 08:51 ng Sulfa (Sulfonamide AdvReac Unknown Hives Verified 10/28/24 08:51 Antibiotics) Review of Systems Review of Systems: All systems reviewed & are unremarkable except as noted in HPI and below Constitutional: Constitutional: Reports no additional constitutional complaints Eyes: Eyes: Reports no additional eye complaints ENT: Reports system reviewed and no additional complaints, except as documented Cardiovascular: Cardiovascular: Reports no additional cardiovascular complaints Respiratory: Respiratory: Reports no additional respiratory complaints Gastrointestinal: Gastrointestinal: Reports as per HPI Genitourinary: Genitourinary: Reports no additional female genitourinary complaints Musculoskeletal: Musculoskeletal: Reports no additional musculoskeletal complaints Integumentary/Breasts: Skin/Breast: Reports system reviewed and no additional complaints, except as docu Neurologic: Reports system reviewed and no additional complaints, except as documented Endocrine: Endocrine: Reports no additional endocrine complaints PMFSH Past Medical History Medical History Hypertension History of skin cancer Frequent urination Constipation Hearing loss Vision changes Traumatic arthritis of right ankle Posterior tibial tendinitis of right lower extremity Swollen ankles Cystocele with rectocele Thyroid disorder Osteoporosis GERD (gastroesophageal reflux disease) Skin cancer Arthritis Allergies Surgical History Surgical History H/O rectocele repair History of anterior colporrhaphy History of colonoscopy History of endoscopy History of heart artery stent H/O: hysterectomy Family History Family History Father Heart disease Sibling Cancer Hypertension Sibling Heart disease Unknown No problems noted. Mother Patient's mother is , Onset Age: 99 Father Family history of coronary artery disease Social History Social History Smoking status: Never smoker Second hand tobacco smoke exposure: No Alcohol intake: never Substance use: never Substance use type: does not use Do You Feel Safe in your Home?: Yes Lack of Transportation: No Lack of Food: Never True Current Housing: I Have Housing Concerned About Future Housing: No Difficulty Paying Gas/Electric Bills: No Difficulty Paying for Meds: No Currently Unemployed: No Occupation/Education: retired Gender identity (if verbalized by the patient): Female Sexual Orientation (if Verbalized by the Patient): Straight or Heterosexual Spiritual care concerns: No Agree to blood products: No Exam Narrative: GENERAL: Well-appearing, well-nourished, and in no acute distress. HEAD: Normocephalic, atraumatic. EYES: PERRLA and EOMI. ENT: Nares clear, no rhinorrhea or epistaxis. Mucous membranes moist. NECK: Supple. CHEST: Clear to auscultation. No respiratory distress. HEART: Regular rate and rhythm. No murmur heard. Normal peripheral pulses. ABDOMEN: Soft, nontender, nondistended, normal active bowel sounds. Rectum No active bleed EXTREMITIES: Normal range of motion. No edema. SKIN: Warm, dry, no rash. NEURO: No focal deficits. Alert and oriented x3. PSYCH: Normal mood and affect. Course Course Emergency Course: Informed patient about her lab work. She had no further episodes of rectal bleeding while she is here in the ER. Vital Signs Vital signs: Vital Signs Temperature 36.9 C 11/13/24 21:07 Pulse Rate 57 L 11/13/24 21:07 Respiratory Rate 20 11/13/24 21:07 Blood Pressure 93/46 L 11/13/24 21:07 Pulse Oximetry 99 11/13/24 21:07 Oxygen Delivery Room Air 11/13/24 21:07 Temperature 36.9 C 11/13/24 21:07 Pulse Rate 67 11/14/24 00:36 Respiratory Rate 16 11/14/24 00:36 Blood Pressure 104/65 11/14/24 00:36 Pulse Oximetry 97 11/14/24 00:36 Oxygen Delivery Room Air 11/13/24 21:07 MDM - GI Bleed MDM Narrative Medical decision making narrative: 89-year-old with a history of diverticulosis had 3 episodes maroon-colored stools this morning however no active bleeding at this time do lab work , CTA abd and pelvis , she is Hypotensive will start IV fluids ,if HB is low will transfuse. Differential Diagnosis Differential diagnosis: Likely hemorrhoids, Lower gastrointestinal hemorrhage and anal fissure Medical Records Attestation: I reviewed the patient's medical records. Lab Data Attestation: I reviewed the patient's lab results. 11/13/24 21:17 11/13/24 21:17 Labs: Lab Results 11/13/24 11/13/24 Range/Units 21:17 22:09 WBC 8.8 (4.5-10.0) K/mm3 RBC 3.02 L (4.2-5.4) M/mm3 Hgb 7.2 L (12.0-15.0) g/dL Hct 23.8 L (37.0-47.0) % MCV 78.8 L (80-100) fl MCH 23.8 L (26-34) pg MCHC 30.3 L (32-36) g/dl RDW 20.4 H (11.5-14.5) % Plt Count 187 (150-375) k/mm3 MPV 10.5 H (7.4-10.4) fl Immature Gran % (Auto) 0.5 (0-0.5) % Neut % (Auto) 77.2 H (45.5-73.1) % Lymph % (Auto) 15.9 L (18.3-44.2) % [place] % (Auto) 5.3 (2.6-8.5) % Eos % (Auto) 0.9 (0-4.4) % Baso % (Auto) 0.2 (0.2-1.2) % Lymph # (Auto) 1.39 (0.9-3.2) K/mm3 [place] # (Auto) 0.5 (0.1-0.6) K/mm3 Eos # (Auto) 0.1 (0-0.3) K/mm3 Baso # (Auto) 0.0 (0.0-0.1) K/mm3 Abs Immat Gran (auto) 0.04 H (0.00-0.031) K/mm3 Absolute Neuts (auto) 6.8 H (1.3-6.7) K/mm3 Absolute Nucleated RBC 0.000 (0.0-0.012) K/mm3 Nucleated RBC % 0.0 (0.0-0.2) % PT 13.8 (11.1-14.7) Seconds INR 1.0 APTT 33.5 (22.3-36.8) Seconds Sodium 133 L (137-145) mmol/L Potassium 3.8 (3.4-5.0) mmol/L Chloride 104 (98-107) mmol/L Carbon Dioxide 23 (22-30) mmol/L Anion Gap 6 (4-12) mmol/L BUN 34 H (7-17) mg/dL Creatinine 1.11 H (0.7-1.0) mg/dL Estim Creat Clear Calc Not Reportable Estimated GFR 46 L (59 - ) Glucose 174 H (65-110) mg/dL Calcium 8.3 L (8.4-10.2) mg/dL Total Bilirubin 0.2 (0.2-1.3) mg/dL AST 23 (14-36) U/L ALT 16 (6-35) U/L Alkaline Phosphatase 78 (38-126) U/L Total Protein 6.0 L (6.3-8.2) g/dL Albumin 3.2 L (3.5-5.1) g/dL Blood Type O Positive Antibody Screen Positive Antibody Identification Pending Antigen Identification Pending ZANA, IgG Interpret Neg ZANA, Poly Interpret Positive ZANA, Complement Interp Pending Imaging Data Radiologist's impression: ITS Impressions Abdomen/Pelvis CTA 11/13/24 23:55 IMPRESSION: No contrast extravasation to suggest acute hemorrhage. No filling defect within the mesenteric vasculature. Colonic diverticulosis without surrounding inflammatory change. Findings suggesting prior granulomatous disease. Critical Care Time Critical Care Time Critical Care Time: Yes Total Critical Care Time: 45 Discharge Plan Discharge Clinical Impression: GI (gastrointestinal hemorrhage) Qualifiers: GI bleed type/associated pathology: unspecified gastrointestinal hemorrhage type Qualified Code(s): K92.2 - Gastrointestinal hemorrhage, unspecified Patient Disposition: Still a Patient Condition: Stable Patient Language: Macanese Prescriptions: No Action lisinopril 10 mg tablet 10 mg PO DAILY omeprazole 20 mg capsule,delayed release(DR/EC) 20 mg PO DAILY levothyroxine 25 mcg capsule 25 mcg PO DAILY gabapentin 600 mg tablet 600 mg PO DAILY aspirin 81 mg tablet,delayed release (DR/EC) 81 mg PO DAILY meloxicam 15 mg tablet 15 mg PO DAILY Qty: 10 0RF acetaminophen 500 mg capsule 500 mg PO Q6H PRN (Reason: pain) Qty: 60 0RF (DME) Light weight walker-darvin walker See Rx Instructions .Route .MEDSUPPLY Qty: 1 0RF Rx Instructions: As directed daily Follow-up/Referrals: Sheryl Castañeda MD [Primary Care Provider] - Time of Disposition: 01:49
[2024-11-14] VITALS (33 sets, daily range): BP systolic 92–146; BP diastolic 35–65; PULSE 59–84; RESP 13–24; TEMP 36–37; O2SAT 95–100; BMI 28.8
--- NOTE | 2024-11-14 00:08 | PC.NURSE ---
[phone] norris - contact number
[2024-11-14] MEDS: SODIUM CHLORIDE 0.9% IV 1,000 ML 999 ML IV CONT (00:09)
[2024-11-14] MEDS: SODIUM CHLORIDE 0.9% IV 1,000 ML 125 ML IV CONT ×2 (02:23→12:28)
--- NOTE | 2024-11-14 04:09 | ADMGEN ---
This patient, Crystal Mcmahan, was admitted to IMU Room 204-01 at 0345. Patient/family oriented to hospital policies and general routines including ID bracelet, bed and alarms, visiting hours, pain management, procedures, bathroom and other care routines, personal items, smoking policy, room service/diet, and visiting hours. Information on how to activate the Rapid Response Team has been discussed. Patient/Family are encouraged to report perceived risks to care and to ask questions if they do not understand what they are told or what they should do.
--- NOTE | 2024-11-14 06:02 | PC.NURSE ---
[address] Lamonte PARISI aware that blood transfusion is delayed due to antibodies. Will call if patient becomes hemodynamically unstable, altered, or has large bloody output.
[2024-11-14 06:05] LABS: Anion Gap 5 mmol/L (4-12); Blood Urea Nitrogen 33 mg/dL (7-17); Calcium 7.6 mg/dL (8.4-10.2); Carbon Dioxide 21 mmol/L (22-30); Chloride 110 mmol/L (98-107); Estimated Glomerular Filt Rate > 60; Glucose 112 mg/dL (65-110); Potassium 3.7 mmol/L (3.4-5.0); Sodium 136 mmol/L (137-145)
--- NOTE | 2024-11-14 07:15 | PC.NURSE ---
Dr Goddard contacted for 3 small bloody stool with clots immediately following one another. Stat H&H ordered.
--- NOTE | 2024-11-14 07:41 | PC.NURSE ---
Spoke with son and Marco. Both aware of plan of care and room number.
--- NOTE | 2024-11-14 07:50 | PM.IMHP ---
H&P: HPI History of Present Illness Date/Time: 11/14/24 07:50 Chief Complaint: GI bleed Narrative: 89-year-old female with a past medical history of diverticulitis, hypertension, hearing loss, urinary incontinence, constipation, GERD presented to the ED due to GI bleed. As per ED notes the patient complains of maroon stool since yesterday morning which is accompanied by occasional abdominal cramping. Home medication review indicates no evidence of blood thinner. Patient had the similar episode year ago when she was living in [place]. Pertinent ED labs: WBC 8.8, hemoglobin 7.2, hematocrit 23.8, platelet 187, sodium 136, potassium 3.7, chloride 110, carbon dioxide 21, BUN 33, creatinine 0.8, glucose 112 Abdomen/pelvis CTA:No contrast extravasation to suggest acute hemorrhage. No filling defect within the mesenteric vasculature. Colonic diverticulosis without surrounding inflammatory change. Findings suggesting prior granulomatous disease. Patient is admitted in the setting of GI bleed. Pending GI evaluation. Continue monitoring H&H Q 8 hours. Patient hemoglobin dropped to 5.4. Patient has antibodies and advised nursing team to explained the benefits and risk of transfusion and if the patient accepts the risk will transfuse PRBC.Patient had a similar episode last June when she was in [place] and underwent Endoscopy and Colonoscopy and no significant finding other than polyps. Review of Systems Review of Systems: All systems reviewed & are unremarkable except as noted in HPI and below Constitutional: Constitutional: Reports no additional constitutional complaints Eyes: Eyes: Reports no additional eye complaints ENT: Reports system reviewed and no additional complaints, except as documented Cardiovascular: Cardiovascular: Reports no additional cardiovascular complaints Respiratory: Respiratory: Reports no additional respiratory complaints Gastrointestinal: Gastrointestinal: Reports as per HPI Genitourinary: Genitourinary: Reports no additional female genitourinary complaints Musculoskeletal: Musculoskeletal: Reports no additional musculoskeletal complaints Integumentary/Breasts: Skin/Breast: Reports system reviewed and no additional complaints, except as docu Neurologic: Reports system reviewed and no additional complaints, except as documented Endocrine: Endocrine: Reports no additional endocrine complaints [facility] Past Medical History Medical History Hypertension History of skin cancer Frequent urination Constipation Hearing loss Vision changes Traumatic arthritis of right ankle Posterior tibial tendinitis of right lower extremity Swollen ankles Cystocele with rectocele Thyroid disorder Osteoporosis GERD (gastroesophageal reflux disease) Skin cancer Arthritis Allergies Surgical History Surgical History H/O rectocele repair History of anterior colporrhaphy History of colonoscopy History of endoscopy History of heart artery stent H/O: hysterectomy Family History Family History Father Heart disease Sibling Cancer Hypertension Sibling Heart disease Unknown No problems noted. Mother Patient's mother is , Onset Age: 99 Father Family history of coronary artery disease Social History Social History Smoking status: Never smoker Second hand tobacco smoke exposure: Yes Alcohol intake: never Substance use: never Substance use type: does not use Do You Feel Safe in your Home?: Yes Lack of Transportation: No Lack of Food: Never True Current Housing: I Have Housing Concerned About Future Housing: No Difficulty Paying Gas/Electric Bills: No Difficulty Paying for Meds: No Currently Unemployed: No Education: Trade/Vocational Certificate Difficulty w/ Childcare or Family Care: No Occupation/Education: retired Gender identity (if verbalized by the patient): Female Sexual Orientation (if Verbalized by the Patient): Straight or Heterosexual Spiritual care concerns: No Agree to blood products: No Meds Home Medications and Allergies Home Medications ?Medication ?Instructions ?Recorded ?Confirmed ?Type gabapentin 600 mg tablet 600 mg PO HS 02/18/24 11/14/24 History levothyroxine 25 mcg capsule 75 mcg PO DAILY 02/18/24 11/14/24 History omeprazole 20 mg capsule,delayed 40 mg PO DAILY 02/18/24 11/14/24 History release acetaminophen 500 mg capsule 500 mg PO Q6H PRN pain #60 caps 10/17/24 11/14/24 Rx Light weight walker-darvin walker #1 ea 10/29/24 11/14/24 Rx atorvastatin 40 mg tablet 40 mg PO HS 11/14/24 11/14/24 History citalopram 20 mg tablet 10 mg PO QPM 11/14/24 11/14/24 History docusate sodium 50 mg capsule 100 mg PO BID 11/14/24 11/14/24 History (Stool Softener) lisinopril 10 1 tablet PO DAILY 11/14/24 11/14/24 History mg-hydrochlorothiazide 12.5 mg tablet synokrmy-jlvrpue-pmyn-lutein tablet 1 tablet PO DAILY 11/14/24 11/14/24 History nitroglycerin 0.3 mg sublingual 0.3 mg sublingual Q5-15M PRN chest 11/14/24 11/14/24 History tablet pain Allergies Allergy/AdvReac Type Severity Reaction Status Date / Time codeine AdvReac Severe Hallucinati Verified 11/14/24 14:36 ng Sulfa (Sulfonamide AdvReac Unknown Hives Verified 11/14/24 14:36 Antibiotics) Vital Signs Vital Signs - 24 hr 11/13/24 21:07 11/13/24 23:31 11/14/24 00:36 Temperature 98.5 F Pulse Rate 57 L 79 67 Respiratory Rate 20 16 16 Blood Pressure 93/46 L 100/54 L 104/65 Pulse Oximetry 99 100 97 Oxygen Delivery Room Air 11/14/24 02:24 11/14/24 02:27 11/14/24 02:28 Temperature Pulse Rate 66 66 Respiratory Rate 13 Blood Pressure 97/49 L Pulse Oximetry 99 100 Oxygen Delivery Room Air 11/14/24 03:29 11/14/24 03:45 11/14/24 04:00 Temperature 97.9 F Pulse Rate 65 61 Respiratory Rate 19 18 Blood Pressure 94/56 L 113/51 L Pulse Oximetry 97 100 Oxygen Delivery Room Air 11/14/24 04:00 11/14/24 06:00 Temperature Pulse Rate 59 L 63 Respiratory Rate Blood Pressure Pulse Oximetry Oxygen Delivery Exam Narrative: GENERAL: Well-appearing, well-nourished, and in no acute distress. HEAD: Normocephalic, atraumatic. EYES: PERRLA and EOMI. ENT: Nares clear, no rhinorrhea or epistaxis. Mucous membranes moist. NECK: Supple. CHEST: Clear to auscultation. No respiratory distress. HEART: Regular rate and rhythm. No murmur heard. Normal peripheral pulses. ABDOMEN: Soft, nontender, nondistended, normal active bowel sounds. Rectum No active bleed EXTREMITIES: Normal range of motion. No edema. SKIN: Warm, dry, no rash. NEURO: No focal deficits. Alert and oriented x3. PSYCH: Normal mood and affect. H&P: Results Labs Labs: Short CBC 11/13/24 Range/Units 21:17 WBC 8.8 (4.5-10.0) K/mm3 Hgb 7.2 L (12.0-15.0) g/dL Hct 23.8 L (37.0-47.0) % Plt Count 187 (150-375) k/mm3 BMP 11/13/24 11/14/24 21:17 05:38 Sodium 133 L 136 L Potassium 3.8 3.7 Chloride 104 110 H Carbon Dioxide 23 21 L BUN 34 H 33 H Creatinine 1.11 H 0.86 Glucose 174 H 112 H Calcium 8.3 L 7.6 L Liver Function 11/13/24 Range/Units 21:17 Total Bilirubin 0.2 (0.2-1.3) mg/dL AST 23 (14-36) U/L ALT 16 (6-35) U/L Alkaline Phosphatase 78 (38-126) U/L Albumin 3.2 L (3.5-5.1) g/dL Assessment and Plan Assessment and plan (1) Depression: Code(s): F32.A - Depression, unspecified Status: Acute (2) Hypertension: Code(s): I10 - Essential (primary) hypertension Status: Acute (3) CAD (coronary artery disease): Code(s): I25.10 - Atherosclerotic heart disease of [place] coronary artery without angina pectoris Status: Acute (4) Hypothyroidism: Code(s): E03.9 - Hypothyroidism, unspecified Status: Acute (5) GERD (gastroesophageal reflux disease): Code(s): K21.9 - Gastro-esophageal reflux disease without esophagitis Status: Acute (6) GI (gastrointestinal hemorrhage): Qualifiers: GI bleed type/associated pathology: unspecified gastrointestinal hemorrhage type Qualified Code(s): K92.2 - Gastrointestinal hemorrhage, unspecified Code(s): K92.2 - Gastrointestinal hemorrhage, unspecified Status: Acute Plan GI bleed Continue monitor H&H S/P 2 U PRBC Transfuse if hemoglobin if symptomatic As per patient underwent Endoscopy and Colonoscopy in June 2024 and no significant finding other than polyps. Pending GI evaluation Admit on tele CTA abdomen/pelvis: No contrast extravasation to suggest acute hemorrhage. No filling defect within the mesenteric vasculature. Colonic diverticulosis without surrounding inflammatory change. Findings suggesting prior granulomatous disease. Hypothyroidism Continue levothyroxine Hypertension Hold home med lisinopril/hydrochlorothiazide Depression Continue citalopram Quality VTE Prophylaxis VTE prophylaxis: mechanical ordered Hospitalist MIPS Advance Care Plan I have confirmed that the patient's Advanced Care Plan is present, code status is documented, or surrogate decision maker is listed in patient medical record.: Yes Medication Reconciliation I have utilized all available resources to obtain, update and review the patients current medications (includes all prescriptions, OTC, herbals, cannabis, and nutritional supplements).: Yes
[2024-11-14 07:53] LABS: Hemoglobin 5.4 g/dL (12.0-15.0)
[2024-11-14] MEDS: PANTOPRAZOLE SODIUM IV 40 MG VIAL IV PUSH (08:07)
[2024-11-14] MEDS: SODIUM CHLORIDE 0.9% IV 250 ML 30 ML IV CONT ×2 (08:08→12:27)
--- NOTE | 2024-11-14 08:10 | P.CONGI_ITS ---
Assessment and Plan Assessment and plan (1) GI (gastrointestinal hemorrhage): Qualifiers: GI bleed type/associated pathology: unspecified gastrointestinal hemorrhage type Qualified Code(s): K92.2 - Gastrointestinal hemorrhage, unspecified Code(s): K92.2 - Gastrointestinal hemorrhage, unspecified Status: Acute (2) ABLA (acute blood loss anemia): Code(s): D62 - Acute posthemorrhagic anemia Status: Acute Plan 1. Hematochezia/acute blood loss anemia: Per patient she had a colonoscopy performed earlier this year in [place], results unknown. Family history negative for CRC or IBD. on admission HGB 7.2, HCT 24, MCV 78, platelets 187, INR 1.0. Labs tissue today show HGB 5.4 and HCT 18. sodium 136, potassium 3.7, calcium 7.6. Patient is currently receiving 1 unit of PRBCs with 3 total units ordered. Vital signs show BP 92/40 with pulse 65. But she states that the colonoscopy was performed for similar complaints of GI bleeding. Patient was previously on meloxicam and baby aspirin which she states she discontinued approximately a year ago. She states that a.m. around 230 she started having bright red blood per rectum states she had 3 episodes before admission. She states that she had bright red blood per rectum this morning without a bowel movement nurse stating that there was clots noted. She has had no food or drink over the past day. Prior to admission she was having 1-2 bowel movements daily with the use of stool softeners. DDX: Diverticular bleed versus hemorrhoid versus polyp versus AVM versus neoplasm. * The risk and benefit of colonoscopy reviewed with the patient and she verbalized understanding and agrees to proceed with colonoscopy. Risk including holes in the bowel that could require bladder surgery, infection, reaction to medicine, or were discussed. * NPO diet * Colonoscopy today with Dr. Pizano * Further recommendations to follow endoscopy Thank you very much for allowing me to share in the care of this very nice patient. This report may have been done utilizing a voice recognition system. Attempts have been made to correct errors. However, there may be uncorrected grammatical, spelling, and recognition errors present. GI Consult Note Consult date/time: 11/14/24 08:10 Reason for consult: Lower GI bleed HPI: Crystal Amber Mcmahan is a 89 year old female history of CAD, stents, hysterectomy, history of diverticulitis, HTN, history of skin cancer, history of cystocele and rectocele status post rectocele repair repair, arthritis, and GERD. She presented to the ER yesterday with complaints of maroon-colored stools. GI has been consulted for lower GI bleed. Patient states that on morning around 2:00 a.m. she started having bright red blood per rectum stating that she had approximately 3 episodes. She states that this morning she had bright red blood per rectum without bowel movement. Per nurse there was clots noted in the blood. Prior to admission patient was on omeprazole 40 mg daily and states that reflux is well controlled. She denies any abdominal pain, nausea, vomiting, bloating, odynophagia, dysphagia, reflux, regurgitation, early satiety, appetite or weight loss. With the use of stool softener she is typically having 1-2 formed on urgent bowel movements daily. Denies chronic diarrhea, constipation, or melena. She was previously on meloxicam and aspirin which she states she has not taken for over a year. Family history negative for CRC or IBD. She is a nondrinker nonsmoker and denies marijuana use. ENDOSCOPY HISTORY: EGD: Denies prior EGD history COLONOSCOPY: per patient's last colonoscopy performed earlier this year in [place] to investigate similar GI bleeding. Patient states that they found a lot . Endoscopy records not available at time of visit LABS AND STOOL STUDIES: Labs 11/14/2024: HGB 5.4, HCT 18 Sodium 136, potassium 3.7, BUN 33, creatinine 0.86, calcium 7.6 Labs 11/13/2024: WBCs 9, HGB 7.2, HCT 24, MCV 79, platelets 187, INR 1.0 Sodium 133, potassium 3.8, BUN 34, creatinine 1.11, GFR 46, calcium 8.3 Total bilirubin 0.2, AST 23, ALT 16, alkaline phosphatase 78, albumin 3.2 IMAGING: CTA abd/pelvis w/contrast 11/13/2024: IMPRESSION: No contrast extravasation to suggest acute hemorrhage. No filling defect within the mesenteric vasculature. Colonic diverticulosis without surrounding inflammatory change. Findings suggesting prior granulomatous disease. CT pelvis 10/17/2024: IMPRESSION: 1. No acute osseous abnormality. 2. Severe lower lumbar spondylosis and moderate bilateral hip and sacroiliac osteoarthritis. 3. Chronic partial tears of the bilateral gluteus medius tendons with moderate secondary fatty atrophy of both muscle bellies. 4. Extensive diverticulosis. 5. 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 Review of Systems 2 Constitutional: Constitutional: Reports as per HPI ENT: Reports as per HPI Cardiovascular: Cardiovascular: Reports as per HPI, Denies chest pain and Denies dyspnea Respiratory: Respiratory: Denies cough and Denies dyspnea Gastrointestinal: Gastrointestinal: Reports as per HPI Musculoskeletal: Musculoskeletal: Reports as per HPI Integumentary/Breasts: Skin/Breast: Reports as per HPI Psychiatric: Psychiatric: Reports as per HPI Endocrine: Endocrine: Reports no additional endocrine complaints Hematologic/Lymphatic: Hematologic/Lymphatic: Reports no additional hematologic/lymphatic complaints [facility] Past Medical History Medical History Hypertension History of skin cancer Frequent urination Constipation Hearing loss Vision changes Traumatic arthritis of right ankle Posterior tibial tendinitis of right lower extremity Swollen ankles Cystocele with rectocele Thyroid disorder Osteoporosis GERD (gastroesophageal reflux disease) Skin cancer Arthritis Allergies Surgical History Surgical History H/O rectocele repair History of anterior colporrhaphy History of colonoscopy History of endoscopy History of heart artery stent H/O: hysterectomy Family History Family History Father Heart disease Sibling Cancer Hypertension Sibling Heart disease Unknown No problems noted. Mother Patient's mother is , Onset Age: 99 Father Family history of coronary artery disease Social History Social History Smoking status: Never smoker Second hand tobacco smoke exposure: Yes Alcohol intake: never Substance use: never Substance use type: does not use Do You Feel Safe in your Home?: Yes Lack of Transportation: No Lack of Food: Never True Current Housing: I Have Housing Concerned About Future Housing: No Difficulty Paying Gas/Electric Bills: No Difficulty Paying for Meds: No Currently Unemployed: No Education: Trade/Vocational Certificate Difficulty w/ Childcare or Family Care: No Occupation/Education: retired Gender identity (if verbalized by the patient): Female Sexual Orientation (if Verbalized by the Patient): Straight or Heterosexual Spiritual care concerns: No Agree to blood products: No Meds Home Medications and Allergies Home Medications ?Medication ?Instructions ?Recorded ?Confirmed ?Type gabapentin 600 mg tablet 600 mg PO DAILY 02/18/24 11/14/24 History levothyroxine 25 mcg capsule 75 mcg PO DAILY 02/18/24 11/14/24 History omeprazole 20 mg capsule,delayed 40 mg PO DAILY 02/18/24 11/14/24 History release acetaminophen 500 mg capsule 500 mg PO Q6H PRN pain #60 caps 10/17/24 11/14/24 Rx Light weight walker-darvin walker #1 ea 10/29/24 11/14/24 Rx atorvastatin 40 mg tablet 40 mg PO HS 11/14/24 11/14/24 History citalopram 20 mg tablet 10 mg PO QPM 11/14/24 11/14/24 History docusate sodium 50 mg capsule 100 mg PO BID 11/14/24 11/14/24 History (Stool Softener) lisinopril 10 1 tablet PO DAILY 11/14/24 11/14/24 History mg-hydrochlorothiazide 12.5 mg tablet tgicbziv-hgxhgxq-wpmu-lutein tablet 1 tablet PO DAILY 11/14/24 11/14/24 History nitroglycerin 0.3 mg sublingual 0.3 mg sublingual Q5-15M PRN chest 11/14/24 11/14/24 History tablet pain Allergies Allergy/AdvReac Type Severity Reaction Status Date / Time codeine AdvReac Severe Hallucinati Verified 10/28/24 08:51 ng Sulfa (Sulfonamide AdvReac Unknown Hives Verified 10/28/24 08:51 Antibiotics) Vital Signs Vital Signs - 24 hr 11/13/24 21:07 11/13/24 23:31 11/14/24 00:36 Temperature 98.5 F Pulse Rate 57 L 79 67 Respiratory Rate 20 16 16 Blood Pressure 93/46 L 100/54 L 104/65 Pulse Oximetry 99 100 97 Oxygen Delivery Room Air 11/14/24 02:24 11/14/24 02:27 11/14/24 02:28 Temperature Pulse Rate 66 66 Respiratory Rate 13 Blood Pressure 97/49 L Pulse Oximetry 99 100 Oxygen Delivery Room Air 11/14/24 03:29 11/14/24 03:45 11/14/24 04:00 Temperature 97.9 F Pulse Rate 65 61 Respiratory Rate 19 18 Blood Pressure 94/56 L 113/51 L Pulse Oximetry 97 100 Oxygen Delivery Room Air 11/14/24 04:00 11/14/24 06:00 Temperature Pulse Rate 59 L 63 Respiratory Rate Blood Pressure Pulse Oximetry Oxygen Delivery Exam 2 Const: General: cooperative, healthy appearing, comfortable, no acute distress and well developed Orientation/consciousness: oriented to person, oriented to place, oriented to time and patient oriented x3 HENMT: Head: normal to inspection, normocephalic and atraumatic Mouth: Yes Normal oral and palatal mucosa present and Yes moist mucous membranes Eyes: General: appearance normal, both eyes and all related structures C onjunctivae: conjunctivae normal Sclera: sclerae normal Pupils: Equal, round and reactive pupils present Neck: Neck: normal visual inspection Chest: Chest palpation & inspection: normal inspection of the chest Resp: Effort & Inspection: normal respiratory effort and able to speak in complete sentences Auscultation: clear to auscultation bilaterally Cardio: Jugular venous distension: no JVD Rate: regular rate Rhythm: r egular rhythm Heart sounds: S1 normal heart sound present and S2 normal heart sound present GI: Inspection: normal to inspection GI Palp: Yes Soft to palpation and Yes No hepatosplenomegaly present Auscultation: normal bowel sounds Rectal Exam: deferred Skin: General skin exam: normal color and no rashes or lesions noted Neuro: General: oriented to person, oriented to place, oriented to time and patient oriented x3 Cranial nerves: Yes Equal, round and reactive pupils present Speech: normal speech Extrem: General: normal to inspection and no clubbing, cyanosis or edema Psych: Appearance: grossly normal and well kempt Affect: normal affect Results Labs 11/14/24 07:35 11/14/24 05:38 Labs: Short CBC 11/13/24 11/14/24 Range/Units 21:17 07:35 WBC 8.8 (4.5-10.0) K/mm3 Hgb 7.2 L 5.4 L* (12.0-15.0) g/dL Hct 23.8 L 18.0 L* (37.0-47.0) % Plt Count 187 (150-375) k/mm3 BMP 11/13/24 11/14/24 21:17 05:38 Sodium 133 L 136 L Potassium 3.8 3.7 Chloride 104 110 H Carbon Dioxide 23 21 L BUN 34 H 33 H Creatinine 1.11 H 0.86 Glucose 174 H 112 H Calcium 8.3 L 7.6 L Liver Function 11/13/24 Range/Units 21:17 Total Bilirubin 0.2 (0.2-1.3) mg/dL AST 23 (14-36) U/L ALT 16 (6-35) U/L Alkaline Phosphatase 78 (38-126) U/L Albumin 3.2 L (3.5-5.1) g/dL
[2024-11-14] MEDS: LEVOTHYROXINE SODIUM 75 MCG TABLET PO (09:05)
[2024-11-14] MEDS: BISACODYL 5 MG TABLET EC PO (10:07)
[2024-11-14] MEDS: MAGNESIUM CITRATE 300 ML BTL PO (10:11)
[2024-11-14] MEDS: ACETAMINOPHEN 325 MG TABLET 650 MG PO (10:26)
[2024-11-14 11:32] LABS: Hematocrit 21.1 % (37.0-47.0)
[2024-11-14 11:40] LABS: Hemoglobin 6.6 g/dL (12.0-15.0)
[2024-11-14] MEDS: LACTATED RINGERS 1,000 ML 150 ML IV CONT (14:41)
--- NOTE | 2024-11-14 14:42 | P.PNAN_ITS ---
Anes - Initial Pre Proc Eval Procedure: Operation Date: 11/14/24 16:30 Proposed Procedures p Colonoscopy - Miguel Angel Quinonez MD Date/Time: 11/14/24 14:42 Surgeon: Bernadine Goddard DO Pre Op Diagnosis: Lower GI Bleed Patient Data Age: 89 Gender: F Height: 1.47 m Weight: 62.7 kg Last Vital Signs Temp 96.8 F L 11/14/24 14:39 Pulse 65 11/14/24 14:39 Resp 18 11/14/24 14:39 BP 128/46 L 11/14/24 14:39 Pulse Ox 100 11/14/24 14:39 O2 Del Method Room Air 11/14/24 14:39 Allergies Allergy/AdvReac Type Severity Reaction Status Date / Time codeine AdvReac Severe Hallucinati Verified 11/14/24 14:36 ng Sulfa (Sulfonamide AdvReac Unknown Hives Verified 11/14/24 14:36 Antibiotics) Home Medications ?Medication ?Instructions ?Recorded ?Confirmed ?Type gabapentin 600 mg tablet 600 mg PO HS 02/18/24 11/14/24 History levothyroxine 25 mcg capsule 75 mcg PO DAILY 02/18/24 11/14/24 History omeprazole 20 mg capsule,delayed 40 mg PO DAILY 02/18/24 11/14/24 History release acetaminophen 500 mg capsule 500 mg PO Q6H PRN pain #60 caps 10/17/24 11/14/24 Rx Light weight walker-darvin walker #1 ea 10/29/24 11/14/24 Rx atorvastatin 40 mg tablet 40 mg PO HS 11/14/24 11/14/24 History citalopram 20 mg tablet 10 mg PO QPM 11/14/24 11/14/24 History docusate sodium 50 mg capsule 100 mg PO BID 11/14/24 11/14/24 History (Stool Softener) lisinopril 10 1 tablet PO DAILY 11/14/24 11/14/24 History mg-hydrochlorothiazide 12.5 mg tablet jmtkzbdy-fsbmfsa-xlwf-lutein tablet 1 tablet PO DAILY 11/14/24 11/14/24 History nitroglycerin 0.3 mg sublingual 0.3 mg sublingual Q5-15M PRN chest 11/14/24 11/14/24 History tablet pain Laboratory Tests 0511/13/24 11/14/24 21:17 22:09 05:38 WBC 8.8 K/mm3 (4.5-10.0) RBC 3.02 L M/mm3 (4.2-5.4) Hgb 7.2 L g/dL (12.0-15.0) Hct 23.8 L % (37.0-47.0) MCV 78.8 L fl (80-100) MCH 23.8 L pg (26-34) MCHC 30.3 L g/dl (32-36) RDW 20.4 H % (11.5-14.5) Plt Count 187 k/mm3 (150-375) MPV 10.5 H fl (7.4-10.4) Immature Gran % (Auto) 0.5 % (0-0.5) Neut % (Auto) 77.2 H % (45.5-73.1) Lymph % (Auto) 15.9 L % (18.3-44.2) Allen % (Auto) 5.3 % (2.6-8.5) Eos % (Auto) 0.9 % (0-4.4) Baso % (Auto) 0.2 % (0.2-1.2) Lymph # (Auto) 1.39 K/mm3 (0.9-3.2) Allen # (Auto) 0.5 K/mm3 (0.1-0.6) Eos # (Auto) 0.1 K/mm3 (0-0.3) Baso # (Auto) 0.0 K/mm3 (0.0-0.1) Abs Immat Gran (auto) 0.04 H K/mm3 (0.00-0.031) Absolute Neuts (auto) 6.8 H K/mm3 (1.3-6.7) Absolute Nucleated RBC 0.000 K/mm3 (0.0-0.012) Nucleated RBC % 0.0 % (0.0-0.2) PT 13.8 Seconds (11.1-14.7) INR 1.0 APTT 33.5 Seconds (22.3-36.8) Sodium 133 L mmol/L 136 L mmol/L (137-145) (137-145) Potassium 3.8 mmol/L 3.7 mmol/L (3.4-5.0) (3.4-5.0) Chloride 104 mmol/L 110 H mmol/L (98-107) (98-107) Carbon Dioxide 23 mmol/L 21 L mmol/L (22-30) (22-30) Anion Gap 6 mmol/L 5 mmol/L (4-12) (4-12) BUN 34 H mg/dL 33 H mg/dL (7-17) (7-17) Creatinine 1.11 H mg/dL 0.86 mg/dL (0.7-1.0) (0.7-1.0) Estim Creat Clear Calc Not Reportable Not Reportable Estimated GFR 46 L > 60 (59 - ) (59 - ) Glucose 174 H mg/dL 112 H mg/dL (65-110) (65-110) Calcium 8.3 L mg/dL 7.6 L mg/dL (8.4-10.2) (8.4-10.2) Total Bilirubin 0.2 mg/dL (0.2-1.3) AST 23 U/L (14-36) ALT 16 U/L (6-35) Alkaline Phosphatase 78 U/L (38-126) Total Protein 6.0 L g/dL (6.3-8.2) Albumin 3.2 L g/dL (3.5-5.1) Blood Type O Positive Antibody Screen Positive Antibody Identification Anti-Ruiz A Antigen Identification Ruiz A Antigen - NEGATIVE ZANA, IgG Interpret Neg ZANA, Poly Interpret Positive ZANA, Complement Interp Negative Enhanced Crossmatch See Detail 11/14/24 11/14/24 07:35 11:23 WBC RBC Hgb 5.4 L* g/dL 6.6 L* g/dL (12.0-15.0) (12.0-15.0) Hct 18.0 L* % 21.1 L % (37.0-47.0) (37.0-47.0) MCV MCH MCHC RDW Plt Count MPV Immature Gran % (Auto) Neut % (Auto) Lymph % (Auto) Allen % (Auto) Eos % (Auto) Baso % (Auto) Lymph # (Auto) Allen # (Auto) Eos # (Auto) Baso # (Auto) Abs Immat Gran (auto) Absolute Neuts (auto) Absolute Nucleated RBC Nucleated RBC % PT INR APTT Sodium Potassium Chloride Carbon Dioxide Anion Gap BUN Creatinine Estim Creat Clear Calc Estimated GFR Glucose Calcium Total Bilirubin AST ALT Alkaline Phosphatase Total Protein Albumin Blood Type Antibody Screen Antibody Identification Antigen Identification ZANA, IgG Interpret ZANA, Poly Interpret ZANA, Complement Interp Enhanced Crossmatch Patient hx anesthesia problems: none Family hx anesthesia problems: none Results Review: All pre-operative results and documents have been reviewed as part of the pre- operative evaluation. [facility] Past Medical History Medical History Hypertension History of skin cancer Frequent urination Constipation Hearing loss Vision changes Traumatic arthritis of right ankle Posterior tibial tendinitis of right lower extremity Swollen ankles Cystocele with rectocele Thyroid disorder Osteoporosis GERD (gastroesophageal reflux disease) Skin cancer Arthritis Allergies Surgical History Surgical History H/O rectocele repair History of anterior colporrhaphy History of colonoscopy History of endoscopy History of heart artery stent H/O: hysterectomy Family History Family History Father Heart disease Sibling Cancer Hypertension Sibling Heart disease Unknown No problems noted. Mother Patient's mother is , Onset Age: 99 Father Family history of coronary artery disease Social History Social History Smoking status: Never smoker Second hand tobacco smoke exposure: Yes Alcohol intake: never Substance use: never Substance use type: does not use Do You Feel Safe in your Home?: Yes Lack of Transportation: No Lack of Food: Never True Current Housing: I Have Housing Concerned About Future Housing: No Difficulty Paying Gas/Electric Bills: No Difficulty Paying for Meds: No Currently Unemployed: No Education: Trade/Vocational Certificate Difficulty w/ Childcare or Family Care: No Occupation/Education: retired Gender identity (if verbalized by the patient): Female Sexual Orientation (if Verbalized by the Patient): Straight or Heterosexual Spiritual care concerns: No Agree to blood products: No Anes - Eval Final PreProcedure Day of Procedure 11/14/24 14:42 Patient weight: normal Heart: regular rate and rhythm Lungs: clear to auscultation Airway: Mallampati scale class III Neurological: alert and oriented Last oral intake: >/= 8 hours ASA classification: IV Emergent: no Anesthetic plan: proceed Anesthesia type and monitoring: general GIVS and standard monitoring Results Review: All pre-operative results and documents have been reviewed as part of the pre- operative evaluation. Informed Consent: The patient's anesthetic plan and its attendant risks and benefits were discussed with the patient/family/POA. Questions were solicited and answers provided to the satisfaction of the patient/family/POA.
--- NOTE | 2024-11-14 14:51 | PC.NURSE ---
to GI lab vi stretcher for colonoscopy- accompanied by RN and spouse
[2024-11-14 16:58] LABS: Hematocrit 25.8 % (37.0-47.0); Hemoglobin 8.1 g/dL (12.0-15.0)
--- NOTE | 2024-11-14 17:27 | PC.NURSE ---
2530- returned to room post procedure - alert / oriented - denies pain, VSS- monitor SR
[2024-11-14] MEDS: CITALOPRAM HYDROBROMIDE 10 MG TABLET PO (18:09)
[2024-11-14] MEDS: ATORVASTATIN 40 MG TABLET PO (20:19)
[2024-11-14] MEDS: GABAPENTIN 300 MG CAPSULE 600 MG PO (20:20)
[2024-11-15] VITALS (19 sets, daily range): BP systolic 99–122; BP diastolic 40–58; PULSE 58–86; RESP 12–24; TEMP 36.7–37.1; O2SAT 91–100
[2024-11-15 04:23] LABS: Mean Corpuscular HGB Conc 31.1 g/dl (32-36); Mean Corpuscular Hemoglobin 25.6 pg (26-34); Mean Corpuscular Volume 82.1 fl (80-100); Mean Platelet Volume 11.9 fl (7.4-10.4); Platelet Count Result 123 k/mm3 (150-375); Red Blood Count 2.23 M/mm3 (4.2-5.4); Red Cell Distribution Width 19.2 % (11.5-14.5); White Blood Count 9.4 K/mm3 (4.5-10.0)
[2024-11-15 04:26] LABS: Hemoglobin 5.7 g/dL (12.0-15.0)
[2024-11-15 04:27] LABS: Hematocrit 18.3 % (37.0-47.0)
[2024-11-15 04:34] LABS: Alanine Aminotransferase 14 U/L (6-35); Albumin Level 2.1 g/dL (3.5-5.1); Alkaline Phosphatase 53 U/L (38-126); Anion Gap 4 mmol/L (4-12); Aspartate Amino Transferase 21 U/L (14-36); Bilirubin,Total 0.1 mg/dL (0.2-1.3); Blood Urea Nitrogen 41 mg/dL (7-17); Calcium 7.4 mg/dL (8.4-10.2); Carbon Dioxide 21 mmol/L (22-30); Chloride 111 mmol/L (98-107); Estimated Glomerular Filt Rate 60; Glucose 114 mg/dL (65-110); Potassium 3.9 mmol/L (3.4-5.0); Sodium 136 mmol/L (137-145)
[2024-11-15] MEDS: LEVOTHYROXINE SODIUM 75 MCG TABLET PO (06:20)
[2024-11-15] MEDS: SODIUM CHLORIDE 0.9% IV 250 ML 50 ML (06:26)
[2024-11-15] MEDS: TUBING, BLOOD PLUM PUMP TUBING 1 EACH XX ×2 (06:26→09:27)
[2024-11-15 09:03] LABS: Immature Reticulocyte Fraction 20.9 % (3.0-15.9); Reticulocyte Hemoglobin Conten 27.1 pg (28.2-36.6); Reticulocyte Percent 2.08 % (0.7-4.3); Reticulocytes Absolute 0.05 10^6/uL (0.02-0.10)
[2024-11-15 09:09] LABS: Iron 41 ug/dL (37-170)
[2024-11-15 09:18] LABS: Percent Iron Saturation 16 % (20-50)
[2024-11-15] MEDS: PANTOPRAZOLE SODIUM IV 40 MG VIAL IV PUSH (09:27)
[2024-11-15 09:45] LABS: Ferritin 8.47 ng/mL (11.1-264)
[2024-11-15 10:16] LABS: Lactate Dehydrogenase 118 U/L (120-246)
[2024-11-15 10:27] LABS: Transferrin 169 mg/dL (206-381)
[2024-11-15 11:26] LABS: Folic Acid > 20.0 ng/mL (2.76->20)
--- NOTE | 2024-11-15 11:33 | WPDGIPROGNO ---
Progress Note: A&P Assessment and Plan (1) LGI bleed: Code(s): K92.2 - Gastrointestinal hemorrhage, unspecified Status: Acute Assessment and Plan: noted more bleeding could be from either diverticular disease or linear ulcer near polyp in cecum will get RBC GI bleeding scan surgery to evaluate patient if more bleeding another alternative is to transfer patient for consideration of IR embolization to find source of bleeding (2) Hematochezia: Code(s): K92.1 - Melena Status: Acute Assessment and Plan: keep hgb>7, more blood transfusion (3) ABLA (acute blood loss anemia): Code(s): D62 - Acute posthemorrhagic anemia Status: Acute (4) Colon, diverticulosis: Code(s): K57.30 - Diverticulosis of large intestine without perforation or abscess without bleeding Status: Acute (5) Polyp, colonic: Code(s): K63.5 - Polyp of colon Status: Acute Subjective Date/time seen: 11/15/24 11:33 Interval history: colonoscopy yesterday with evidence of recent bleeding, noted several diverticula but could not find culprit, also noted linear ulcer in cecum near large polyp- could not tell for sure which was source of bleeding- polyp not removed in setting of significant LGIB and did not want to cause potential risk of more bleeding after polypectomy noted more hematochezia this morning and required more blood transfusion Review of Systems Review of Systems: All systems reviewed & are unremarkable except as noted in HPI and below Exam Const: General: comfortable and no acute distress HENMT: Face/Nose/Sinus: Normal nares present Eyes: General: appearance normal, both eyes and all related structures Neck: Neck: supple Resp: Auscultation: clear to auscultation bilaterally Cardio: Rate: regular rate Rhythm: regular rhythm GI: Inspection: non-distended GI Palp: Yes Soft to palpation and No Tenderness to palpation present (GI) Auscultation: normal bowel sounds Skin: Other: pale Neuro: Speech: normal speech Motor exam (neuro): 5/5 motor strength present throughout Extrem: General: normal to inspection Psych: Mental Status: mental status grossly normal Objective Data Vital Signs Vital Signs: Vital Signs - 24 hr 11/14/24 11:48 11/14/24 12:00 11/14/24 12:30 Temperature 98.4 F 98.1 F Pulse Rate 65 69 72 Respiratory Rate 18 20 Blood Pressure 102/39 L 113/45 L Pulse Oximetry 97 100 Oxygen Delivery 11/14/24 12:51 11/14/24 12:51 11/14/24 13:51 Temperature 97.8 F 97.8 F 98.4 F Pulse Rate 69 69 71 Respiratory Rate 20 20 20 Blood Pressure 107/39 L 107/39 L 109/56 L Pulse Oximetry 100 100 99 Oxygen Delivery 11/14/24 14:00 11/14/24 14:39 11/14/24 14:51 Temperature 96.8 F L 96.9 F L Pulse Rate 72 65 66 Respiratory Rate 18 18 Blood Pressure 128/46 L 126/47 L Pulse Oximetry 100 100 Oxygen Delivery Room Air 11/14/24 15:05 11/14/24 15:58 11/14/24 16:08 Temperature 97.0 F L Pulse Rate 69 70 64 Respiratory Rate 18 24 H 14 Blood Pressure 120/44 L 130/54 L 128/48 L Pulse Oximetry 100 100 100 Oxygen Delivery Room Air Room Air 11/14/24 16:18 11/14/24 16:35 11/14/24 16:45 Temperature 98.1 F Pulse Rate 65 66 66 Respiratory Rate 20 20 Blood Pressure 134/60 146/46 H Pulse Oximetry 100 Oxygen Delivery Room Air 11/14/24 18:00 11/14/24 19:46 11/14/24 20:00 Temperature 97.6 F Pulse Rate 70 80 Respiratory Rate 18 Blood Pressure 110/50 L Pulse Oximetry 98 Oxygen Delivery Room Air 11/14/24 20:00 11/14/24 22:17 11/14/24 23:20 Temperature 98.6 F Pulse Rate 82 84 82 Respiratory Rate 18 Blood Pressure 108/49 L Pulse Oximetry 95 Oxygen Delivery 11/15/24 00:00 11/15/24 00:00 11/15/24 02:00 Temperature Pulse Rate 81 86 Respiratory Rate Blood Pressure Pulse Oximetry Oxygen Delivery Room Air 11/15/24 04:00 11/15/24 04:00 11/15/24 05:07 Temperature 98.2 F Pulse Rate 76 58 L Respiratory Rate 16 Blood Pressure 112/42 L Pulse Oximetry 98 Oxygen Delivery Room Air 11/15/24 05:08 11/15/24 05:23 11/15/24 06:00 Temperature 98.2 F 98.3 F Pulse Rate 58 L 80 75 Respiratory Rate 16 16 Blood Pressure 112/42 L 119/40 L Pulse Oximetry 98 100 Oxygen Delivery 11/15/24 06:23 11/15/24 07:23 11/15/24 07:26 Temperature 98.4 F 98.4 F 98.4 F Pulse Rate 80 73 73 Respiratory Rate 18 12 12 Blood Pressure 120/42 L 99/46 L 99/46 L Pulse Oximetry 98 97 97 Oxygen Delivery 11/15/24 09:17 11/15/24 09:33 11/15/24 09:39 Temperature 98.4 F 98.2 F 98.3 F Pulse Rate 72 74 75 Respiratory Rate 16 16 16 Blood Pressure 118/42 L 122/44 L 121/41 L Pulse Oximetry 94 94 95 Oxygen Delivery 11/15/24 09:39 11/15/24 10:39 Temperature 98.1 F Pulse Rate 71 Respiratory Rate 16 Blood Pressure 116/42 L Pulse Oximetry 95 100 Oxygen Delivery Room Air Intake/Output Intake/Output: Intake & Output 11/12/24 11/13/24 11/14/24 11/15/24 23:59 23:59 23:59 23:59 Intake Total 1000 3142.1 550 Output Total 0 225 Balance 1000 3142.1 325 Meds/Results Medications: Active Medications Generic Name Dose Route Start Last Admin Trade Name Freq PRN Reason Stop Dose Admin Acetaminophen 500 mg 11/14/24 07:56 Acetaminophen 500 Mg Tablet PO Q6H PRN pain Atorvastatin Calcium 40 mg 11/14/24 21:00 11/14/24 20:19 Atorvastatin 40 Mg Tablet PO 40 mg HS LISA Administration Citalopram Hydrobromide 10 mg 11/14/24 18:00 11/14/24 18:09 Citalopram Hydrobromide 10 Mg Tablet PO 10 mg QPM LISA Administration Gabapentin 600 mg 11/14/24 21:00 11/14/24 20:20 Gabapentin 300 Mg Capsule PO 600 mg HS LISA Administration Levothyroxine Sodium 75 mcg 11/14/24 08:10 11/15/24 06:20 Levothyroxine Sodium 75 Mcg Tablet PO 75 mcg DAILY@0630 LISA Administration Nitroglycerin 0.4 mg 11/14/24 08:11 Nitroglycerin Sl 0.4 Mg Tablet SUBLINGUAL Q5MIN PRN Chest Pain Ondansetron HCl 4 mg 11/14/24 01:50 Ondansetron Inj 4 Mg/2 Ml Vial IV PUSH Q4H PRN Nausea Pantoprazole Sodium 40 mg 11/14/24 09:00 11/15/24 09:27 Pantoprazole Sodium Iv 40 Mg Vial IV PUSH 40 mg QAM LISA Administration Radiology Results: ITS Impressions Abdomen/Pelvis CTA 11/13/24 23:55 IMPRESSION: No contrast extravasation to suggest acute hemorrhage. No filling defect within the mesenteric vasculature. Colonic diverticulosis without surrounding inflammatory change. Findings suggesting prior granulomatous disease. Labs Labs: Laboratory Results - last 24 hr 11/13/24 11/14/24 11/14/24 22:09 11:23 16:53 WBC RBC Hgb 6.6 L* 8.1 L Hct 21.1 L 25.8 L MCV MCH MCHC RDW Plt Count MPV Absolute Retic Percent Retic Immature Retic Fraction Retic Hgb Content Sodium Potassium Chloride Carbon Dioxide Anion Gap BUN Creatinine Estim Creat Clear Calc Estimated GFR Glucose Calcium Iron TIBC % Saturation Transferrin Ferritin Total Bilirubin Direct Bilirubin AST ALT Alkaline Phosphatase Lactate Dehydrogenase Total Protein Albumin Vitamin B12 Folate TSH (Reflex) Blood Type O Positive Antibody Screen Positive Antibody Identification Anti-Ruiz A Antigen Identification Ruiz A Antigen - NEGATIVE ZANA, IgG Interpret Neg ZANA, Poly Interpret Positive ZANA, Complement Interp Negative Enhanced Crossmatch See Detail 11/15/24 11/15/24 03:43 03:46 WBC 9.4 RBC 2.23 L Hgb 5.7 L* Hct 18.3 L* MCV 82.1 MCH 25.6 L D MCHC 31.1 L RDW 19.2 H Plt Count 123 L MPV 11.9 H Absolute Retic 0.05 Percent Retic 2.08 Immature Retic Fraction 20.9 H Retic Hgb Content 27.1 L Sodium 136 L Potassium 3.9 Chloride 111 H Carbon Dioxide 21 L Anion Gap 4 BUN 41 H Creatinine 0.89 Estim Creat Clear Calc Not Reportable Estimated GFR 60 Glucose 114 H Calcium 7.4 L Iron 41 TIBC 264 % Saturation 16 L Transferrin 169 L Ferritin 8.47 L Total Bilirubin 0.1 L Direct Bilirubin 0.0 AST 21 ALT 14 Alkaline Phosphatase 53 Lactate Dehydrogenase 118 L Total Protein 4.0 L Albumin 2.1 L Vitamin B12 887.0 Folate > 20.0 H TSH (Reflex) 0.890 Blood Type Antibody Screen Antibody Identification Antigen Identification ZANA, IgG Interpret Not Performed ZANA, Poly Interpret Negative ZANA, Complement Interp Not Performed Enhanced Crossmatch
--- NOTE | 2024-11-15 13:04 | P.CONGS_ITS ---
Assessment and Plan Assessment and plan (1) LGI bleed: Code(s): K92.2 - Gastrointestinal hemorrhage, unspecified Status: Acute Assessment and Plan: Patient transfused today for continued bleeding, tagged scan suggestive of bleed in transverse colon, discussed with patient in full detail regarding emergent surgical procedure including subtotal colectomy verses IR procedure of coil embolization, they would prefer embolization at this point, we will transfer to a tertiary care facility with IR capabilities for embolization History of Present Illness Consult details Consult date: 11/15/24 Reason for consult: other (Lower GI bleed) Requesting physician: Miguel Angel Quinonez MD Narrative: The patient is an 89-year-old female that presented to the hospital with lower GI bleed. The patient has had continued bleeding and has received a total of 4 units so far. The patient did have colonoscopy yesterday and they were unable to identify the area of bleeding. The patient was noted to have diverticular disease throughout the entirety of her colon. She was also noted to have an ulcer and polyp in her cecal area. She continued to have bleeding overnight and has gotten 2 units today. Tagged red blood cell scan shows some bleeding in the transverse colon today. Review of Systems 2 Review of Systems: All systems reviewed & are unremarkable except as noted in HPI and below PMFSH Past Medical History Medical History Polyp, colonic Colon, diverticulosis Hematochezia LGI bleed Hypertension History of skin cancer Frequent urination Constipation Hearing loss Vision changes Traumatic arthritis of right ankle Posterior tibial tendinitis of right lower extremity Swollen ankles Cystocele with rectocele Thyroid disorder Osteoporosis GERD (gastroesophageal reflux disease) Skin cancer Arthritis Allergies Surgical History Surgical History H/O rectocele repair History of anterior colporrhaphy History of colonoscopy History of endoscopy History of heart artery stent H/O: hysterectomy Family History Family History Father Heart disease Sibling Cancer Hypertension Sibling Heart disease Unknown No problems noted. Mother Patient's mother is , Onset Age: 99 Father Family history of coronary artery disease Social History Social History Smoking status: Never smoker Second hand tobacco smoke exposure: Yes Alcohol intake: never Substance use: never Substance use type: does not use Do You Feel Safe in your Home?: Yes Lack of Transportation: No Lack of Food: Never True Current Housing: I Have Housing Concerned About Future Housing: No Difficulty Paying Gas/Electric Bills: No Difficulty Paying for Meds: No Currently Unemployed: No Education: Trade/Vocational Certificate Difficulty w/ Childcare or Family Care: No Occupation/Education: retired Gender identity (if verbalized by the patient): Female Sexual Orientation (if Verbalized by the Patient): Straight or Heterosexual Spiritual care concerns: No Agree to blood products: No Meds Home Medications and Allergies Home Medications ?Medication ?Instructions ?Recorded ?Confirmed ?Type gabapentin 600 mg tablet 600 mg PO HS 02/18/24 11/14/24 History levothyroxine 25 mcg capsule 75 mcg PO DAILY 02/18/24 11/14/24 History omeprazole 20 mg capsule,delayed 40 mg PO DAILY 02/18/24 11/14/24 History release acetaminophen 500 mg capsule 500 mg PO Q6H PRN pain #60 caps 10/17/24 11/14/24 Rx Light weight walker-darvin walker #1 ea 10/29/24 11/14/24 Rx atorvastatin 40 mg tablet 40 mg PO HS 11/14/24 11/14/24 History citalopram 20 mg tablet 10 mg PO QPM 11/14/24 11/14/24 History docusate sodium 50 mg capsule 100 mg PO BID 11/14/24 11/14/24 History (Stool Softener) lisinopril 10 1 tablet PO DAILY 11/14/24 11/14/24 History mg-hydrochlorothiazide 12.5 mg tablet cwbfdlga-uocbena-rrog-lutein tablet 1 tablet PO DAILY 11/14/24 11/14/24 History nitroglycerin 0.3 mg sublingual 0.3 mg sublingual Q5-15M PRN chest 11/14/24 11/14/24 History tablet pain Allergies Allergy/AdvReac Type Severity Reaction Status Date / Time codeine AdvReac Severe Hallucinati Verified 11/14/24 14:36 ng Sulfa (Sulfonamide AdvReac Unknown Hives Verified 11/14/24 14:36 Antibiotics) Vital Signs Vital Signs - 24 hr 11/14/24 13:51 11/14/24 14:00 11/14/24 14:39 Temperature 36.9 C 36.0 C L Pulse Rate 71 72 65 Respiratory Rate 20 18 Blood Pressure 109/56 L 128/46 L Pulse Oximetry 99 100 Oxygen Delivery Room Air 11/14/24 14:51 11/14/24 15:05 11/14/24 15:58 Temperature 36.1 C L 36.1 C L Pulse Rate 66 69 70 Respiratory Rate 18 18 24 H Blood Pressure 126/47 L 120/44 L 130/54 L Pulse Oximetry 100 100 100 Oxygen Delivery Room Air 11/14/24 16:08 11/14/24 16:18 11/14/24 16:35 Temperature 36.7 C Pulse Rate 64 65 66 Respiratory Rate 14 20 20 Blood Pressure 128/48 L 134/60 146/46 H Pulse Oximetry 100 100 Oxygen Delivery Room Air Room Air 11/14/24 16:45 11/14/24 18:00 11/14/24 19:46 Temperature 36.4 C Pulse Rate 66 70 80 Respiratory Rate 18 Blood Pressure 110/50 L Pulse Oximetry 98 Oxygen Delivery 11/14/24 20:00 11/14/24 20:00 11/14/24 22:17 Temperature Pulse Rate 82 84 Respiratory Rate Blood Pressure Pulse Oximetry Oxygen Delivery Room Air 11/14/24 23:20 11/15/24 00:00 11/15/24 00:00 Temperature 37.0 C Pulse Rate 82 81 Respiratory Rate 18 Blood Pressure 108/49 L Pulse Oximetry 95 Oxygen Delivery Room Air 11/15/24 02:00 11/15/24 04:00 11/15/24 04:00 Temperature Pulse Rate 86 76 Respiratory Rate Blood Pressure Pulse Oximetry Oxygen Delivery Room Air 11/15/24 05:07 11/15/24 05:08 11/15/24 05:23 Temperature 36.8 C 36.8 C 36.8 C Pulse Rate 58 L 58 L 80 Respiratory Rate 16 16 16 Blood Pressure 112/42 L 112/42 L 119/40 L Pulse Oximetry 98 98 100 Oxygen Delivery 11/15/24 06:00 11/15/24 06:23 11/15/24 07:23 Temperature 36.9 C 36.9 C Pulse Rate 75 80 73 Respiratory Rate 18 12 Blood Pressure 120/42 L 99/46 L Pulse Oximetry 98 97 Oxygen Delivery 11/15/24 07:26 11/15/24 09:17 11/15/24 09:33 Temperature 36.9 C 36.9 C 36.8 C Pulse Rate 73 72 74 Respiratory Rate 12 16 16 Blood Pressure 99/46 L 118/42 L 122/44 L Pulse Oximetry 97 94 94 Oxygen Delivery 11/15/24 09:39 11/15/24 09:39 11/15/24 10:39 Temperature 36.8 C 36.7 C Pulse Rate 75 71 Respiratory Rate 16 16 Blood Pressure 121/41 L 116/42 L Pulse Oximetry 95 95 100 Oxygen Delivery Room Air 11/15/24 12:00 Temperature 36.9 C Pulse Rate 78 Respiratory Rate 18 Blood Pressure 116/58 L Pulse Oximetry 96 Oxygen Delivery Exam 2 Const: General: cooperative, comfortable and no acute distress HENMT: Head: normal to inspection, normocephalic and atraumatic Eyes: General: appearance normal, both eyes and all related structures Neck: Neck: normal visual inspection, full ROM and no lymphadenopathy Resp: Auscultation: clear to auscultation bilaterally Cardio: Rate: regular rate Rhythm: regular rhythm GI: Inspection: normal to inspection GI Palp: No abdominal tenderness and Yes Soft to palpation Skin: General skin exam: normal color and no rashes or lesions noted Neuro: General: patient oriented x3 and CN's II-XI intact bilaterally Extrem: General: normal to inspection and full ROM Results Labs 11/15/24 03:46 11/15/24 03:46 Labs: Abnormal lab results 11/13/24 11/14/24 11/15/24 Range/Units 22:09 16:53 03:43 RBC (4.2-5.4) M/mm3 Hgb 8.1 L (12.0-15.0) g/dL Hct 25.8 L (37.0-47.0) % MCH (26-34) pg MCHC (32-36) g/dl RDW (11.5-14.5) % Plt Count (150-375) k/mm3 MPV (7.4-10.4) fl Immature Retic Fraction 20.9 H (3.0-15.9) % Retic Hgb Content 27.1 L (28.2-36.6) pg Sodium (137-145) mmol/L Chloride (98-107) mmol/L Carbon Dioxide (22-30) mmol/L BUN (7-17) mg/dL Glucose (65-110) mg/dL Calcium (8.4-10.2) mg/dL % Saturation 16 L (20-50) % Transferrin 169 L (206-381) mg/dL Ferritin 8.47 L (11.1-264) ng/mL Total Bilirubin (0.2-1.3) mg/dL Lactate Dehydrogenase 118 L (120-246) U/L Total Protein (6.3-8.2) g/dL Albumin (3.5-5.1) g/dL Folate > 20.0 H (2.76->20) ng/mL Enhanced Crossmatch See Detail 11/15/24 Range/Units 03:46 RBC 2.23 L (4.2-5.4) M/mm3 Hgb 5.7 L* (12.0-15.0) g/dL Hct 18.3 L* (37.0-47.0) % MCH 25.6 L D (26-34) pg MCHC 31.1 L (32-36) g/dl RDW 19.2 H (11.5-14.5) % Plt Count 123 L (150-375) k/mm3 MPV 11.9 H (7.4-10.4) fl Immature Retic Fraction (3.0-15.9) % Retic Hgb Content (28.2-36.6) pg Sodium 136 L (137-145) mmol/L Chloride 111 H (98-107) mmol/L Carbon Dioxide 21 L (22-30) mmol/L BUN 41 H (7-17) mg/dL Glucose 114 H (65-110) mg/dL Calcium 7.4 L (8.4-10.2) mg/dL % Saturation (20-50) % Transferrin (206-381) mg/dL Ferritin (11.1-264) ng/mL Total Bilirubin 0.1 L (0.2-1.3) mg/dL Lactate Dehydrogenase (120-246) U/L Total Protein 4.0 L (6.3-8.2) g/dL Albumin 2.1 L (3.5-5.1) g/dL Folate (2.76->20) ng/mL Enhanced Crossmatch Diabetes panel 11/15/24 Range/Units 03:46 Sodium 136 L (137-145) mmol/L Potassium 3.9 (3.4-5.0) mmol/L Chloride 111 H (98-107) mmol/L Carbon Dioxide 21 L (22-30) mmol/L BUN 41 H (7-17) mg/dL Creatinine 0.89 (0.7-1.0) mg/dL Glucose 114 H (65-110) mg/dL Calcium 7.4 L (8.4-10.2) mg/dL AST 21 (14-36) U/L ALT 14 (6-35) U/L Alkaline Phosphatase 53 (38-126) U/L Total Protein 4.0 L (6.3-8.2) g/dL Albumin 2.1 L (3.5-5.1) g/dL Calcium panel 11/15/24 Range/Units 03:46 Calcium 7.4 L (8.4-10.2) mg/dL Albumin 2.1 L (3.5-5.1) g/dL Pituitary panel 11/15/24 Range/Units 03:46 Sodium 136 L (137-145) mmol/L Potassium 3.9 (3.4-5.0) mmol/L Chloride 111 H (98-107) mmol/L Carbon Dioxide 21 L (22-30) mmol/L BUN 41 H (7-17) mg/dL Creatinine 0.89 (0.7-1.0) mg/dL Glucose 114 H (65-110) mg/dL Calcium 7.4 L (8.4-10.2) mg/dL Adrenal panel 11/15/24 Range/Units 03:46 Sodium 136 L (137-145) mmol/L Potassium 3.9 (3.4-5.0) mmol/L Chloride 111 H (98-107) mmol/L Carbon Dioxide 21 L (22-30) mmol/L BUN 41 H (7-17) mg/dL Creatinine 0.89 (0.7-1.0) mg/dL Glucose 114 H (65-110) mg/dL Calcium 7.4 L (8.4-10.2) mg/dL Total Bilirubin 0.1 L (0.2-1.3) mg/dL AST 21 (14-36) U/L ALT 14 (6-35) U/L Alkaline Phosphatase 53 (38-126) U/L Total Protein 4.0 L (6.3-8.2) g/dL Albumin 2.1 L (3.5-5.1) g/dL All other labs normal. Imaging Abdomen CT scan report/results: report reviewed and image reviewed Additional studies: Colonoscopy and tagged red blood cell scan reviewed
[2024-11-15 13:20] LABS: Hematocrit 27.5 % (37.0-47.0); Hemoglobin 8.6 g/dL (12.0-15.0)
--- NOTE | 2024-11-15 15:37 | PM.IMPN ---
Progress Note: A&P Assessment and Plan (1) Depression: Code(s): F32.A - Depression, unspecified Status: Acute (2) Hypertension: Code(s): I10 - Essential (primary) hypertension Status: Acute (3) CAD (coronary artery disease): Code(s): I25.10 - Atherosclerotic heart disease of [place] coronary artery without angina pectoris Status: Acute (4) Hypothyroidism: Code(s): E03.9 - Hypothyroidism, unspecified Status: Acute (5) GERD (gastroesophageal reflux disease): Code(s): K21.9 - Gastro-esophageal reflux disease without esophagitis Status: Acute (6) GI (gastrointestinal hemorrhage): Qualifiers: GI bleed type/associated pathology: unspecified gastrointestinal hemorrhage type Qualified Code(s): K92.2 - Gastrointestinal hemorrhage, unspecified Code(s): K92.2 - Gastrointestinal hemorrhage, unspecified Status: Acute Plan GI bleed Continue monitor H&H S/P 4 U PRBC Transfuse if hemoglobin if symptomatic As per patient underwent Endoscopy and Colonoscopy in June 2024 and no significant finding other than polyps. Patient underwent Colonoscopy on 11/14/2024: Diverticulosis without perforation or abscess without bleeding, colonic polyps, colonic ulcer, luminal colonic blood. As per GI unable to find the culprit but noted several diverticula throughout the colon and noted large polyp in the cecum with a linear ulcer, that could tab in source of bleeding On 11/15/2024 patient hemoglobin again to dropped to 5.7 and transfused 2 units Performed tagged RBC scan which shows active gastrointestinal bleed which appears to was Kristi at the site of focal wall thickening at the proximal transverse colon on prior CT. This could be due to focal colitis, diverticulitis or malignancy and would recommend colonoscopy for further evaluation Surgery offered subtotal colectomy verses IR procedure of coil embolization Patient opted IR procedure of coil embolization Patient is accepted at [facility] Admit on tele CTA abdomen/pelvis: No contrast extravasation to suggest acute hemorrhage. No filling defect within the mesenteric vasculature. Colonic diverticulosis without surrounding inflammatory change. Findings suggesting prior granulomatous disease. Hypothyroidism Continue levothyroxine Hypertension Hold home med lisinopril/hydrochlorothiazide Depression Continue citalopram Subjective Date/time seen: 11/15/24 15:37 Interval history: Patient is accepted at [facility] by .Patient transfused today for continued bleeding, tagged scan suggestive of bleed in transverse colon, surgery discussed with patient in full detail regarding emergent surgical procedure including subtotal colectomy verses IR procedure of coil embolization, they would prefer embolization at this point. Patient confirmed that she wanted IR procedure of coil embolization and not colectomy. Review of Systems Review of Systems: All systems reviewed & are unremarkable except as noted in HPI and below Constitutional: Constitutional: Reports no additional constitutional complaints Eyes: Eyes: Reports no additional eye complaints ENT: Reports system reviewed and no additional complaints, except as documented Cardiovascular: Cardiovascular: Reports no additional cardiovascular complaints Respiratory: Respiratory: Reports no additional respiratory complaints Gastrointestinal: Gastrointestinal: Reports as per HPI Genitourinary: Genitourinary: Reports no additional female genitourinary complaints Musculoskeletal: Musculoskeletal: Reports no additional musculoskeletal complaints Integumentary/Breasts: Skin/Breast: Reports system reviewed and no additional complaints, except as docu Neurologic: Reports system reviewed and no additional complaints, except as documented Endocrine: Endocrine: Reports no additional endocrine complaints Exam Narrative: GENERAL: Well-appearing, well-nourished, and in no acute distress. HEAD: Normocephalic, atraumatic. EYES: PERRLA and EOMI. ENT: Nares clear, no rhinorrhea or epistaxis. Mucous membranes moist. NECK: Supple. CHEST: Clear to auscultation. No respiratory distress. HEART: Regular rate and rhythm. No murmur heard. Normal peripheral pulses. ABDOMEN: Soft, nontender, nondistended, normal active bowel sounds. Rectum No active bleed EXTREMITIES: Normal range of motion. No edema. SKIN: Warm, dry, no rash. NEURO: No focal deficits. Alert and oriented x3. PSYCH: Normal mood and affect. Objective Data Vital Signs Vital Signs: Vital Signs - 24 hr 11/14/24 15:58 11/14/24 16:08 11/14/24 16:18 Temperature Pulse Rate 70 64 65 Respiratory Rate 24 H 14 20 Blood Pressure 130/54 L 128/48 L 134/60 Pulse Oximetry 100 100 100 Oxygen Delivery Room Air Room Air Room Air 11/14/24 16:35 11/14/24 16:45 11/14/24 18:00 Temperature 98.1 F Pulse Rate 66 66 70 Respiratory Rate 20 Blood Pressure 146/46 H Pulse Oximetry Oxygen Delivery 11/14/24 19:46 11/14/24 20:00 11/14/24 20:00 Temperature 97.6 F Pulse Rate 80 82 Respiratory Rate 18 Blood Pressure 110/50 L Pulse Oximetry 98 Oxygen Delivery Room Air 11/14/24 22:17 11/14/24 23:20 11/15/24 00:00 Temperature 98.6 F Pulse Rate 84 82 Respiratory Rate 18 Blood Pressure 108/49 L Pulse Oximetry 95 Oxygen Delivery Room Air 11/15/24 00:00 11/15/24 02:00 11/15/24 04:00 Temperature Pulse Rate 81 86 Respiratory Rate Blood Pressure Pulse Oximetry Oxygen Delivery Room Air 11/15/24 04:00 11/15/24 05:07 11/15/24 05:08 Temperature 98.2 F 98.2 F Pulse Rate 76 58 L 58 L Respiratory Rate 16 16 Blood Pressure 112/42 L 112/42 L Pulse Oximetry 98 98 Oxygen Delivery 11/15/24 05:23 11/15/24 06:00 11/15/24 06:23 Temperature 98.3 F 98.4 F Pulse Rate 80 75 80 Respiratory Rate 16 18 Blood Pressure 119/40 L 120/42 L Pulse Oximetry 100 98 Oxygen Delivery 11/15/24 07:23 11/15/24 07:26 11/15/24 08:00 Temperature 98.4 F 98.4 F Pulse Rate 73 73 74 Respiratory Rate 12 12 Blood Pressure 99/46 L 99/46 L Pulse Oximetry 97 97 Oxygen Delivery 11/15/24 09:17 11/15/24 09:33 11/15/24 09:39 Temperature 98.4 F 98.2 F 98.3 F Pulse Rate 72 74 75 Respiratory Rate 16 16 16 Blood Pressure 118/42 L 122/44 L 121/41 L Pulse Oximetry 94 94 95 Oxygen Delivery 11/15/24 09:39 11/15/24 10:00 11/15/24 10:39 Temperature 98.1 F Pulse Rate 71 71 Respiratory Rate 16 Blood Pressure 116/42 L Pulse Oximetry 95 100 Oxygen Delivery Room Air 11/15/24 12:00 11/15/24 12:00 11/15/24 14:00 Temperature 98.4 F Pulse Rate 78 68 79 Respiratory Rate 18 Blood Pressure 116/58 L Pulse Oximetry 96 Oxygen Delivery Intake/Output Intake/Output: Intake & Output 11/12/24 11/13/24 11/14/2411/15/25 23:59 23:59 23:59 23:59 Intake Total 1000 3142.1 900 Output Total 0 225 Balance 1000 3142.1 675 Meds/Results Medications: Active Medications Generic Name Dose Route Start Last Admin Trade Name Freq PRN Reason Stop Dose Admin Acetaminophen 500 mg 11/14/24 07:56 Acetaminophen 500 Mg Tablet PO Q6H PRN pain Atorvastatin Calcium 40 mg 11/14/24 21:00 11/14/24 20:19 Atorvastatin 40 Mg Tablet PO 40 mg HS LISA Administration Citalopram Hydrobromide 10 mg 11/14/24 18:00 11/14/24 18:09 Citalopram Hydrobromide 10 Mg Tablet PO 10 mg QPM LISA Administration Gabapentin 600 mg 11/14/24 21:00 11/14/24 20:20 Gabapentin 300 Mg Capsule PO 600 mg HS LISA Administration Levothyroxine Sodium 75 mcg 11/14/24 08:10 11/15/24 06:20 Levothyroxine Sodium 75 Mcg Tablet PO 75 mcg DAILY@0630 LISA Administration Nitroglycerin 0.4 mg 11/14/24 08:11 Nitroglycerin Sl 0.4 Mg Tablet SUBLINGUAL Q5MIN PRN Chest Pain Ondansetron HCl 4 mg 11/14/24 01:50 Ondansetron Inj 4 Mg/2 Ml Vial IV PUSH Q4H PRN Nausea Pantoprazole Sodium 40 mg 11/14/24 09:00 11/15/24 09:27 Pantoprazole Sodium Iv 40 Mg Vial IV PUSH 40 mg QAM LISA Administration Radiology Results: ITS Impressions Abdomen/Pelvis CTA 11/13/24 23:55 IMPRESSION: No contrast extravasation to suggest acute hemorrhage. No filling defect within the mesenteric vasculature. Colonic diverticulosis without surrounding inflammatory change. Findings suggesting prior granulomatous disease. GI Bleed Scan Nuclear Medicine 11/15/24 12:29 IMPRESSION: 1. Active gastrointestinal bleed which appears to originate at the site of focal wall thickening at the proximal transverse colon on prior CT. This could be due to a focal colitis, diverticulitis or malignancy and would recommend colonoscopy for further evaluation. Labs Labs: Laboratory Results - last 24 hr 11/13/24 11/14/24 11/15/24 22:09 16:53 03:43 WBC RBC Hgb 8.1 L Hct 25.8 L MCV MCH MCHC RDW Plt Count MPV Absolute Retic 0.05 Percent Retic 2.08 Immature Retic Fraction 20.9 H Retic Hgb Content 27.1 L Sodium Potassium Chloride Carbon Dioxide Anion Gap BUN Creatinine Estim Creat Clear Calc Estimated GFR Glucose Calcium Iron 41 TIBC 264 % Saturation 16 L Transferrin 169 L Ferritin 8.47 L Total Bilirubin Direct Bilirubin 0.0 AST ALT Alkaline Phosphatase Lactate Dehydrogenase 118 L Total Protein Albumin Vitamin B12 887.0 Folate > 20.0 H TSH (Reflex) 0.890 Blood Type O Positive Antibody Screen Positive Antibody Identification Anti-Ruiz A Antigen Identification Ruiz A Antigen - NEGATIVE ZANA, IgG Interpret Neg Not Performed ZANA, Poly Interpret Positive Negative ZANA, Complement Interp Negative Not Performed Enhanced Crossmatch See Detail 11/15/24 11/15/24 03:46 13:16 WBC 9.4 RBC 2.23 L Hgb 5.7 L* 8.6 L Hct 18.3 L* 27.5 L MCV 82.1 MCH 25.6 L D MCHC 31.1 L RDW 19.2 H Plt Count 123 L MPV 11.9 H Absolute Retic Percent Retic Immature Retic Fraction Retic Hgb Content Sodium 136 L Potassium 3.9 Chloride 111 H Carbon Dioxide 21 L Anion Gap 4 BUN 41 H Creatinine 0.89 Estim Creat Clear Calc Not Reportable Estimated GFR 60 Glucose 114 H Calcium 7.4 L Iron TIBC % Saturation Transferrin Ferritin Total Bilirubin 0.1 L Direct Bilirubin AST 21 ALT 14 Alkaline Phosphatase 53 Lactate Dehydrogenase Total Protein 4.0 L Albumin 2.1 L Vitamin B12 Folate TSH (Reflex) Blood Type Antibody Screen Antibody Identification Antigen Identification ZANA, IgG Interpret ZANA, Poly Interpret ZANA, Complement Interp Enhanced Crossmatch Quality VTE Prophylaxis VTE prophylaxis: mechanical ordered Hospitalist MIPS Advance Care Plan I have confirmed that the patient's Advanced Care Plan is present, code status is documented, or surrogate decision maker is listed in patient medical record.: Yes Medication Reconciliation I have utilized all available resources to obtain, update and review the patients current medications (includes all prescriptions, OTC, herbals, cannabis, and nutritional supplements).: Yes
--- NOTE | 2024-11-15 15:54 | P.TS_ITS ---
Transfer Discharge Sum: Prov Provider Date of admission: 11/14/24 01:51 Primary care physician: Sheryl Castañeda MD Admitting clinician: Bernadine Goddard DO Consults: 11/14/24 01:52 Consult to Physician Routine Comment: Consulting Provider: Miguel Angel Quinonez Reason for consultation: lower Gi bleed Has provider been notified: Yes 11/14/24 16:23 Consult to Physician Routine Comment: Called exchange and notified them of consult Consulting Provider: Devika Jordan banquet server on call/MD group to consult: surgery Reason for consultation: large cecal polyp with ulcer, diverticulosis with LGIB Has provider been notified: Yes 11/15/24 07:57 Consult to Physician Routine Comment: Consulting Provider: banquet server on call/MD group to consult: Reason for consultation: Anemia Has provider been notified: No DS: Admitting Diagnosis Discharge Date 11/15/2024 Admitting Diagnosis GI bleed DS: Discharge Diagnosis Discharge Diagnosis (1) Depression: Code(s): F32.A - Depression, unspecified Status: Acute (2) Hypertension: Code(s): I10 - Essential (primary) hypertension Status: Acute (3) CAD (coronary artery disease): Code(s): I25.10 - Atherosclerotic heart disease of [place] coronary artery without angina pectoris Status: Acute (4) Hypothyroidism: Code(s): E03.9 - Hypothyroidism, unspecified Status: Acute (5) GERD (gastroesophageal reflux disease): Code(s): K21.9 - Gastro-esophageal reflux disease without esophagitis Status: Acute (6) GI (gastrointestinal hemorrhage): Qualifiers: GI bleed type/associated pathology: unspecified gastrointestinal hemorrhage type Qualified Code(s): K92.2 - Gastrointestinal hemorrhage, unspecified Code(s): K92.2 - Gastrointestinal hemorrhage, unspecified Status: Acute Plan Condition guarded during the transfer GI bleed Continue monitor H&H S/P 4 U PRBC Transfuse if hemoglobin if symptomatic As per patient underwent Endoscopy and Colonoscopy in June 2024 and no significant finding other than polyps. Patient underwent Colonoscopy on 11/14/2024: Diverticulosis without perforation or abscess without bleeding, colonic polyps, colonic ulcer, luminal colonic blood. As per GI unable to find the culprit but noted several diverticula throughout the colon and noted large polyp in the cecum with a linear ulcer, that could tab in source of bleeding On 11/15/2024 patient hemoglobin again to dropped to 5.7 and transfused 2 units Performed tagged RBC scan which shows active gastrointestinal bleed which appears to was Kristi at the site of focal wall thickening at the proximal transverse colon on prior CT. This could be due to focal colitis, divert iculitis or malignancy and would recommend colonoscopy for further evaluation Surgery offered subtotal colectomy verses IR procedure of coil embolization Patient opted IR procedure of coil embolization Patient is accepted at [facility] Admit on tele CTA abdomen/pelvis: No contrast extravasation to suggest acute hemorrhage. No filling defect within the mesenteric vasculature. Colonic diverticulosis without surrounding inflammatory change. Findings suggesting prior granulomatous disease. Hypothyroidism Continue levothyroxine Hypertension Hold home med lisinopril/hydrochlorothiazide Depression Continue citalopram Transfer Discharge Sum: Med Medications Active and Home Medications: Home Medications gabapentin 600 mg tablet 600 mg PO HS 02/18/24 [History Confirmed 11/14/24] levothyroxine 25 mcg capsule 75 mcg PO DAILY 02/18/24 [History Confirmed 11/14/24] omeprazole 20 mg capsule,delayed release 40 mg PO DAILY 02/18/24 [History Confirmed 11/14/24] acetaminophen 500 mg capsule 500 mg PO Q6H PRN pain #60 caps 10/17/24 [Rx Confirmed 11/14/24] Light weight walker-darvin walker #1 ea 10/29/24 [Rx Confirmed 11/14/24] atorvastatin 40 mg tablet 40 mg PO HS 11/14/24 [History Confirmed 11/14/24] citalopram 20 mg tablet 10 mg PO QPM 11/14/24 [History Confirmed 11/14/24] docusate sodium 50 mg capsule (Stool Softener) 100 mg PO BID 11/14/24 [History Confirmed 11/14/24] lisinopril 10 mg-hydrochlorothiazide 12.5 mg tablet 1 tablet PO DAILY 11/14/24 [History Confirmed 11/14/24] cesxzodl-vpeljig-moco-lutein tablet 1 tablet PO DAILY 11/14/24 [History Confirmed 11/14/24] nitroglycerin 0.3 mg sublingual tablet 0.3 mg sublingual Q5-15M PRN chest pain 11/14/24 [History Confirmed 11/14/24] Active Medications Acetaminophen (Acetaminophen 500 Mg Tablet) 500 mg PO Q6H PRN PRN Reason: pain Atorvastatin Calcium (Atorvastatin 40 Mg Tablet) 40 mg PO [facility] Last Admin: 11/14/24 20:19 Dose: 40 mg Citalopram Hydrobromide (Citalopram Hydrobromide 10 Mg Tablet) 10 mg PO QPM COUNTS INCLUDE 234 BEDS AT THE [facility] Last Admin: 11/14/24 18:09 Dose: 10 mg Gabapentin (Gabapentin 300 Mg Capsule) 600 mg PO [facility] Last Admin: 11/14/24 20:20 Dose: 600 mg Levothyroxine Sodium (Levothyroxine Sodium 75 Mcg Tablet) 75 mcg PO DAILY@0630 COUNTS INCLUDE 234 BEDS AT THE [facility] Last Admin: 11/15/24 06:20 Dose: 75 mcg Nitroglycerin (Nitroglycerin Sl 0.4 Mg Tablet) 0.4 mg SUBLINGUAL Q5MIN PRN PRN Reason: Chest Pain Ondansetron HCl (Ondansetron Inj 4 Mg/2 Ml Vial) 4 mg IV PUSH Q4H PRN PRN Reason: Nausea Pantoprazole Sodium (Pantoprazole Sodium Iv 40 Mg Vial) 40 mg IV PUSH QAM COUNTS INCLUDE 234 BEDS AT THE [facility] Last Admin: 11/15/24 09:27 Dose: 40 mg Transfer Discharge Sum: Hosp Hospital Course Hospital course: Crystal Mcmahan is a 89-year-old female with a past medical history of diverticulitis, hypertension, hearing loss, urinary incontinence, constipation, GERD presented to the ED due to GI bleed. As per ED notes the patient complains of maroon stool since yesterday morning which is accompanied by occasional abdominal cramping. Home medication review indicates no evidence of blood thinner. Patient had the similar episode year ago when she was living in [place]. Pertinent ED labs: WBC 8.8, hemoglobin 7.2, hematocrit 23.8, platelet 187, sodium 136, potassium 3.7, chloride 110, carbon dioxide 21, BUN 33, creatinine 0.8, glucose 112 Abdomen/pelvis CTA:No contrast extravasation to suggest acute hemorrhage. No filling defect within the mesenteric vasculature. Colonic diverticulosis without surrounding inflammatory change. Findings suggesting prior granulomatous disease. Patient is admitted in the setting of GI bleed. Pending GI evaluation. Continue monitoring H&H Q 8 hours. Patient hemoglobin dropped to 5.4. Patient has antibodies and advised nursing team to explained the benefits and risk of transfusion and if the patient accepts the risk will transfuse PRBC.Patient had a similar episode last June when she was in [place] and underwent Endoscopy and Colonoscopy and no significant finding other than polyps. On 11/14/2024 patient underwent colonoscopy which shows Diverticulosis without perforation or abscess without bleeding, colonic polyps, colonic ulcer, luminal colonic blood. (please refer to full report) On 11/15/2024 patient a hemoglobin is dropped to 5.7. Underwent tagged RBC scan which shows active gastrointestinal bleed which appears to was Kristi at the site of focal wall thickening at the proximal transverse colon on prior CT. This could be due to focal colitis, diverticulitis or malignancy and would recommend colonoscopy for further evaluation. Surgery evaluated the patient offered surgical procedure including subtotal colectomy versus IR procedure of called embolization. Patient preferred coil embolization and to be transferred to the tertiary care hospital.Patient is accepted at [facility] and accepting physician Time Spent with Patient Time attestation: Total time spent providing and/or coordinating transfer services: 45 minutes Exam Narrative: GENERAL: Well-appearing, well-nourished, and in no acute distress. HEAD: Normocephalic, atraumatic. EYES: PERRLA and EOMI. ENT: Nares clear, no rhinorrhea or epistaxis. Mucous membranes moist. NECK: Supple. CHEST: Clear to auscultation. No respiratory distress. HEART: Regular rate and rhythm. No murmur heard. Normal peripheral pulses. ABDOMEN: Soft, nontender, nondistended, normal active bowel sounds. Rectum No active bleed EXTREMITIES: Normal range of motion. No edema. SKIN: Warm, dry, no rash. NEURO: No focal deficits. Alert and oriented x3. PSYCH: Normal mood and affect. DS: Data Data Completed and Pending Labs on day of discharge: Labs from last 24 hours 11/15/24 11/15/24 11/15/24 13:16 03:46 03:43 WBC 9.4 RBC 2.23 L Hgb 8.6 L 5.7 L* Hct 27.5 L 18.3 L* MCV 82.1 MCH 25.6 L D MCHC 31.1 L RDW 19.2 H Plt Count 123 L MPV 11.9 H Absolute Retic 0.05 Percent Retic 2.08 Immature Retic Fraction 20.9 H Retic Hgb Content 27.1 L Haptoglobin Sodium 136 L Potassium 3.9 Chloride 111 H Carbon Dioxide 21 L Anion Gap 4 BUN 41 H Creatinine 0.89 Estim Creat Clear Calc Not Reportable Estimated GFR 60 Glucose 114 H Calcium 7.4 L Iron 41 TIBC 264 % Saturation 16 L Transferrin 169 L Karey Transferrin Receptr Ferritin 8.47 L Total Bilirubin 0.1 L Direct Bilirubin 0.0 AST 21 ALT 14 Alkaline Phosphatase 53 Lactate Dehydrogenase 118 L Total Protein 4.0 L Albumin 2.1 L Byktp-0-Afocqirvx Zehnh-4-Tghjumsbj Wgax-3-Odcojfeo Pqah-1-Zahbiaay Gamma Globulins PEP Interpretation Vitamin B12 887.0 Folate > 20.0 H TSH (Reflex) 0.890 Blood Type Antibody Screen Antibody Identification Antigen Identification ZANA, IgG Interpret Not Performed ZANA, Poly Interpret Negative ZANA, Complement Interp Not Performed Enhanced Crossmatch 11/14/24 11/14/24 11/13/24 16:53 05:38 22:09 WBC RBC Hgb 8.1 L Hct 25.8 L MCV MCH MCHC RDW Plt Count MPV Absolute Retic Percent Retic Immature Retic Fraction Retic Hgb Content Haptoglobin Pending Sodium Potassium Chloride Carbon Dioxide Anion Gap BUN Creatinine Estim Creat Clear Calc Estimated GFR Glucose Calcium Iron TIBC % Saturation Transferrin Karey Transferrin Receptr Pending Ferritin Total Bilirubin Direct Bilirubin AST ALT Alkaline Phosphatase Lactate Dehydrogenase Total Protein Pending Albumin Pending Dckhv-4-Pifoflfat Pending Tujsl-5-Upsdfmkqx Pending Omsd-4-Focydumz Pending Wnmq-9-Ikhjwyte Pending Gamma Globulins Pending PEP Interpretation Pending Vitamin B12 Folate TSH (Reflex) Blood Type O Positive Antibody Screen Positive Antibody Identification Anti-Ruiz A Antigen Identification Ruiz A Antigen - NEGATIVE ZANA, IgG Interpret Neg ZANA, Poly Interpret Positive ZANA, Complement Interp Negative Enhanced Crossmatch See Detail Imaging Radiologist's impression: ITS Impressions Abdomen/Pelvis CTA 11/13/24 23:55 IMPRESSION: No contrast extravasation to suggest acute hemorrhage. No filling defect within the mesenteric vasculature. Colonic diverticulosis without surrounding inflammatory change. Findings suggesting prior granulomatous disease. GI Bleed Scan Nuclear Medicine 11/15/24 12:29 IMPRESSION: 1. Active gastrointestinal bleed which appears to originate at the site of focal wall thickening at the proximal transverse colon on prior CT. This could be due to a focal colitis, diverticulitis or malignancy and would recommend colonoscopy for further evaluation. Additional Comments Additional comments: Condition guarded during transfer
[2024-11-16 06:08] LABS: Haptoglobin 136 mg/dL (43-212)
[2024-11-16 07:13] LABS: Protein, Total 4.1 g/dL (6.1-8.1)
[2024-11-17 17:43] LABS: Albumin 2.3 g/dL (3.8-4.8); Alpha 1 Globulin 0.2 g/dL (0.2-0.3); Alpha 2 Globulin 0.6 g/dL (0.5-0.9); Beta 1 Globulin 0.3 g/dL (0.4-0.6); Gamma Globulin 0.5 g/dL (0.8-1.7)
[2024-11-20 14:44] LABS: Soluble Transferrin Receptor 1.17 mg/L (0.76-1.76)
== END 2024-11-15 18:03 | disposition short-term general hospital (02) | DRG 378 ==
LOC: ANHED 23:40 → ANHIMU 11-14 06:23
PROVIDERS: Internal Medicine Gastroenterology; Preventive Medicine Aerospace Medicine; Admitting Provider Internal Medicine; Emergency Provider Family Medicine; PCP Family Medicine; Visit Provider General Practice
PROC: 0DJD8ZZ Inspection of Lower Intestinal Tract, Via Natural or Artificial Opening Endoscopic (ICD-10-PCS; CPT 45378; principal; 2024-11-14 16:30)
DX: K92.2 Gastrointestinal hemorrhage, unspecified (principal); D62 Acute posthemorrhagic anemia; K63.3 Ulcer of intestine; K57.30 Diverticulosis of large intestine without perforation or abscess without bleeding; K63.5 Polyp of colon; I10 Essential (primary) hypertension; I25.10 Atherosclerotic heart disease of native coronary artery without angina pectoris; E03.9 Hypothyroidism, unspecified; K21.9 Gastro-esophageal reflux disease without esophagitis; M12.571 Traumatic arthropathy, right ankle and foot; M81.0 Age-related osteoporosis without current pathological fracture; F32.A Depression, unspecified; T14.90XS Injury, unspecified, sequela; Z79.82 Long term (current) use of aspirin
CPT/HCPCS: 36415; 36430; 74174; 78278; 80048; 80053; 82248; 82607; 82728; 82746; 83010; 83540; 83550; 83615; 84155; 84165; 84238; 84443; 84466; 85014; 85018; 85025; 85027; 85046; 85610; 85730; 86850; 86860; 86870; 86880; 86900; 86901; 86902; 86905; 86922; 86971; 86972; 96361; 96374; 99285; A9270; A9560; J2003; J2371; J2470; J2704; J7030; J7050; J7120; P9016; Q9967

== ENCOUNTER 2025-01-03 14:56 | Inpatient (IN) | payer MEDICARE, SELFPAY ==
[2025-01-03] VITALS (7 sets, daily range): BP systolic 71–102; BP diastolic 41–59; PULSE 74–105; RESP 14–19; TEMP 36.5; O2SAT 98–100
--- NOTE | ~2025-01-03 | XR_ITS ---
Portable chest x-ray Comparison: 10/17/2024 Clinical History: Line placement Findings: Right IJ line present, tip in the right atrium. Lungs are clear. No consolidation, effusio n, or pneumothorax. Cardiomediastinal silhouette is stable. Bones and soft tissues are unremarkable. Impression: Right IJ line in place, as above. Clear lungs. No pneumothorax. Probable mild cardiomegaly. Reviewed, dictated and finalized at location M. Impression: Right IJ line in place, as above. Clear lungs. No pneumothorax. Probable mild cardiomegaly.
--- NOTE | ~2025-01-03 | CT_ITS ---
Non-contrast CT scan of the Abdomen and Pelvis Clinical indication: Pain Technique: 2.5 mm axial scans were obtained through the abdomen and pelvis without intravenous or or al contrast. Dose reduction technique was used on this scan by utilizing automated exposure control a nd iterative reconstruction technique. The dose-length product (DLP) was 416.64 mGy-cm. COMPARISON: 11/13/2024 Findings: Images through the lung bases are clear. Moderate hiatal hernia present. There is no evidence of renal or ureteral calculi. The kidneys and the ureters are nondilated. The liver, spleen, pancreas, and adrenals appear normal. Small gallstone present. There is no aortic aneurysm. There is no evidence of bowel obstruction. Status post extensive partial colectomy with right lower q uadrant ileostomy present. Images through the pelvis were performed. There is no evidence of ascites or lymphadenopathy. Urinary bladder unremarkable. Status post hysterectomy. No pelvic mass seen. No ascites. Impression: No acute abnormality evident. Cholelithiasis. Moderate hiatal hernia. 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 Reviewed, dictated and finalized at [facility]. Impression: No acute abnormality evident. Cholelithiasis. Moderate hiatal hernia. 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
--- NOTE | ~2025-01-03 | XR_ITS ---
XR hip BI 2V w AP pelvis Ordering provider: Yari Corley MD History: . hip pain, PT STATES NO INJURY . Comparison: None. FINDINGS: BONES: No acute fracture or dislocation. HIP JOINT SPACES: Mild to moderate osteoarthritic changes. SACROILIAC JOINT SPACES/LUMBAR SPINE: The sacroiliac joint spaces are normal. Mild degenerative valles es of the visualized lower lumbar spine. PUBIC SYMPHYSIS: Pubic symphysitis. SOFT TISSUES: Normal. IMPRESSION: No acute osseous abnormality of the bilateral hips and pelvis. Reviewed, dictated and finalized at location A.
--- NOTE | ~2025-01-03 | US_ITS ---
Renal-Bladder ultrasound Clinical History: Acute renal injury Technique: Real-time sonographic imaging of the kidneys and urinary bladder was performed. Findings: The right kidney measures 9.0 cm in length and the left kidney measures 9.5 cm. There is no hydronephrosis or renal calculus identified. Renal cortical echogenicity is within normal limits. No renal mass lesion is identified. The urinary bladder is partially distended, with Ruiz catheter in place. Impression: Unremarkable ultrasound of the kidneys and urinary bladder. Reviewed, dictated and finalized at location M. Impression: Unremarkable ultrasound of the kidneys and urinary bladder.
--- NOTE | 2025-01-03 21:17 | ED_ITS ---
HPI - Abdominal Pain General Chief Complaint: Abdominal Pain Stated Complaint: b/l hip pain Time Seen by Provider: 01/03/25 20:06 Source: patient and family Limitations: no limitations History of Present Illness HPI narrative: Patient presents initially complaining of bilateral hip pain at triage. Patient states that they her proximal bilateral legs however she points superior to her bilateral inguinal creases, at the mons pubis, the left greater than right. She states the pain is worse at night and has been going on for awhile. Patient states she has a history of diverticulitis complicated with a bleed that required her to be transferred to [facility]; now status post colostomy. She states the output has been occasionally thin liquid but usually if she eats rice or pasta it will thicken up a bit. Not on any anticoagulation. She also points to her left lower quadrant. She took Tylenol prior to arrival which helped the reported leg pain. Denies any paresthesias. No acute trauma. Patient states she fell at a restaurant on 09/16/2024 and had bruises for awhile but did not break anything but thinks it might be related. No N/V. Related Data Home Medications ?Medication ?Instructions ?Recorded ?Confirmed ?Last Taken ?Type gabapentin 600 mg tablet 600 mg PO HS 02/18/24 01/04/25 Unknown History levothyroxine 25 mcg capsule 75 mcg PO DAILY 02/18/24 01/04/25 Unknown History omeprazole 20 mg capsule,delayed 40 mg PO DAILY 02/18/24 01/04/25 Unknown History release atorvastatin 40 mg tablet 40 mg PO HS 11/14/24 01/04/25 Unknown History citalopram 20 mg tablet 10 mg PO QPM 11/14/24 01/04/25 Unknown History lisinopril 10 1 tablet PO DAILY 11/14/24 01/04/25 Unknown History mg-hydrochlorothiazide 12.5 mg tablet nkdsdnaj-xmvrhhk-bqxc-lutein tablet 1 tablet PO DAILY 11/14/24 01/04/25 Unknown History nitroglycerin 0.3 mg sublingual 0.3 mg sublingual Q5-15M PRN chest 11/14/24 01/04/25 Unknown History tablet pain Allergies Allergy/AdvReac Type Severity Reaction Status Date / Time codeine AdvReac Severe Hallucinati Verified 01/03/25 15:03 ng Sulfa (Sulfonamide AdvReac Unknown Hives Verified 01/03/25 15:03 Antibiotics) [facility] Past Medical History Medical History (Updated 01/05/25 @ 18:05 by Livia King MD) Hypothyroidism Gastroesophageal reflux disease Polyp, colonic Colon, diverticulosis Hypertension Hearing loss Cystocele with rectocele Osteoporosis Skin cancer Arthritis Allergies Surgical History Surgical History (Updated 01/04/25 @ 05:21 by Anika Zamudio PA-C) History of partial colectomy (11/2024) with colostomy for lower GI bleed related to colonic ulcer History of repair of rectocele History of hysterectomy History of anterior colporrhaphy History of colonoscopy History of endoscopy History of heart artery stent Family History Family History Father Heart disease Sibling Cancer Hypertension Sibling Heart disease Unknown No problems noted. Mother Patient's mother is , Onset Age: 99 Father Family history of coronary artery disease Social History Social History (Updated 01/04/25 @ 05:22 by Anika Zamudio PA-C) Social History: Surrogate medical decision maker: Stephany Estrada, daughter. Code status: Full code. Smoking status: Never smoker Tobacco type: cigarettes Second hand tobacco smoke exposure: Yes Alcohol intake: never Substance use: never Substance use type: does not use Do You Feel Safe in your Home?: Yes Lack of Transportation: No Lack of Food: Never True Current Housing: I Have Housing Concerned About Future Housing: No Difficulty Paying Gas/Electric Bills: No Difficulty Paying for Meds: No Currently Unemployed: No Education: Trade/Vocational Certificate Difficulty w/ Childcare or Family Care: No Living arrangements: with family Occupation/Education: retired Spiritual care concerns: No Agree to blood products: No Exam 2 Narrative: GENERAL: well-nourished, and in no acute distress. HEAD: Normocephalic, atraumatic. EYES: Non injected, non icteric ENT: Nares clear, no rhinorrhea or epistaxis. Gross auditory acuity intact. NECK: Supple. No meningismus. CHEST: Speaking in full sentences. No respiratory distress. HEART: Regular rate and rhythm. . ABDOMEN: Soft, nondistended. No rigidity or guarding. Not peritoneal. Also pointing to LLQ but not TTP throughout including there. Ostomy in RLQ with appropriate no bloody appearing output and appropriate looking stoma. EXTREMITIES: Normal range of motion. No lower extremity edema. Pelvis: Stable to compression SKIN: Warm, dry, no rash. : Patient pointing to pelvis, superrior to bilateral inguinal creases along lateral mons pubis - no rash, ecchymosis, erythema NEURO: No focal deficits. Alert and oriented. Answering questions. Following commands. Normal speech without aphasia or dysarthria. PSYCH: Normal mood and affect. Procedures Central Line Placement Right IJ: Central Line Date: 01/04/25 Discussed w/ the patient/family/POA,the placement of a central venous catheter, including its clinical necessity/indication & associated potential risks, benifits and alternatives.: Yes The patient/family/POA understand(s) and acknowledge(s) the need to proceed with central venous catheter insertion as an important element of the patient's clinical management.: Yes Patient Placed on Monitor/Pulse Ox: Yes Max. Sterile Barrier Technique: Caps, large sterile sheet and hand hygiene Central Line Prep: 2% chlorhexidine scrub and sterile drapes applied Technique: US-Guided Local Anesthetic: lidocaine 1% Amount of anesthesia used (mL): 2 Ultrasound Used for Placement: Yes Central Line Lumen Inserted: triple Post Procedure: sutured in place, good blood return, all ports aspirated, flushed, capped and sterile dressing applied Post Procedure X-Ray: no pneumothorax seen Patient Tolerated Procedure: well and no complications Course Vital Signs Vital signs: Vital Signs Temperature 97.7 F 01/03/25 15:01 Pulse Rate 79 01/03/25 15:01 Respiratory Rate 16 01/03/25 15:01 Blood Pressure 102/57 L 01/03/25 15:01 Pulse Oximetry 100 01/03/25 15:01 Oxygen Delivery Room Air 01/03/25 15:01 Temperature 99.5 F 01/05/25 16:00 Pulse Rate 70 01/05/25 16:00 Respiratory Rate 12 01/05/25 16:00 Blood Pressure 127/60 01/05/25 16:00 Pulse Oximetry 96 01/05/25 16:00 Oxygen Delivery Room Air 01/05/25 08:00 MDM - Abdominal Pain MDM Narrative Medical decision making narrative: Patient presents with was initially reported to be bilateral hip/leg pain. She points along her pelvis and into her left lower quadrant. History of diverticulitis complicated by bleed and colostomy. In the emergency department she is afebrile with vital signs notable for mild hypotension, mean arterial pressure 72. WOrse on repeat though MAP 72. 1L IV fluids ordered. Acute renal failure given Cr nearly 3 today, 0.87 on previous (though 1.81 on 12/26 outpatient labs per review of EMR). 2nd L IV fluids ordered. Has a K of 6. Calcium gluconate and EKG ordered in addition to dextrose, renally dosed insulin (5U), bicarb pushes x3 given degree of acidosis, and high dose albuterol. Deferring Lasix given renal function and deferring Kayexalate given abdominal pain. Hyponatremia slightly worse from previous. Lactic acid normal. Normocytic anemia stable from previous. CT changed to without contrast due to renal function. 2nd L fluids ordered. Patient still complaining of pain. She lists an allergy of hallucinating to codeine. She does not know if she has ever received any other opiate therapy although she does not believe so. Will give 0.5 mg/kg (i.e. 3mg) morphine and observe carefully. With morphine, patient becomes hypotensive 70s/40s with MAP in the 50s. Advised additional 500cc fluids. Repeat BMP shows potassium has normalized. Kidney function remains poor although slightly improving. CT negative for acute surgical process as below. Patient remains hypotensive though mentating appropriately and otherwise with reassuring vital signs except for MAPs in the 50s-low 60s. Peripheral pressors are started after discussing with patient. In regards to her code status, she initially seems to indicate that she would not want to be a full code but then makes statesments indicating that she would want resuscitation attempted. Discussed with Dr Tarango; accepted to ICU. Discussed with procurement professional logistics hospitalist MANOJ Donaldson. Central catheter appears deep on my independent interpretation of chest x-ray but is read as in appropriate position on stat rad. Will keep it as it is but with low threshold to withdraw it a bit in the unit later this morning. Differential Diagnosis Differential diagnosis: Likely abdominal pain, calculus of kidney, diverticulitis and other (Urinary tract infection; fracture) Lab Data Attestation: I reviewed the patient's lab results. 01/05/25 11:27 01/05/25 05:48 Labs: Lab Results 01/03/25 01/03/25 01/03/25 Range/Units 21:34 21:39 22:42 WBC 5.4 (4.5-10.0) K/mm3 RBC 3.77 L (4.2-5.4) M/mm3 Hgb 10.2 L (12.0-15.0) g/dL Hct 33.4 L (37.0-47.0) % MCV 88.6 (80-100) fl MCH 27.1 (26-34) pg MCHC 30.5 L (32-36) g/dl RDW 16.0 H (11.5-14.5) % Plt Count 192 D (150-375) k/mm3 MPV 10.9 H (7.4-10.4) fl Immature Gran % (Auto) 0.6 H (0-0.5) % Neut % (Auto) 70.8 (45.5-73.1) % Lymph % (Auto) 19.6 (18.3-44.2) % [place] % (Auto) 7.5 (2.6-8.5) % Eos % (Auto) 1.1 (0-4.4) % Baso % (Auto) 0.4 (0.2-1.2) % Lymph # (Auto) 1.05 (0.9-3.2) K/mm3 [place] # (Auto) 0.4 (0.1-0.6) K/mm3 Eos # (Auto) 0.1 (0-0.3) K/mm3 Baso # (Auto) 0.0 (0.0-0.1) K/mm3 Abs Immat Gran (auto) 0.03 (0.00-0.031) K/mm3 Absolute Neuts (auto) 3.8 (1.3-6.7) K/mm3 Absolute Nucleated RBC 0.000 (0.0-0.012) K/mm3 Nucleated RBC % 0.0 (0.0-0.2) % PT 14.0 (11.1-14.7) Seconds INR 1.1 APTT 37.9 H (22.3-36.8) Seconds Sodium 129 L (137-145) mmol/L Potassium 6.0 H* (3.4-5.0) mmol/L Chloride 110 H (98-107) mmol/L Carbon Dioxide 7 L (22-30) mmol/L Anion Gap 12 (4-12) mmol/L BUN 56 H D (7-17) mg/dL Creatinine 2.69 H (0.7-1.0) mg/dL Estim Creat Clear Calc Not Reportable Estimated GFR 17 L (59 - ) Glucose 115 H (65-110) mg/dL POC Capillary Glucose 105 (65-105) mg/dl Lactic Acid 0.7 (0.7-2.0) mmol/L Calcium 10.1 (8.4-10.2) mg/dL Phosphorus (2.5-4.5) mg/dL Magnesium 2.4 H (1.6-2.3) mg/dL Total Bilirubin 0.3 (0.2-1.3) mg/dL AST 35 (14-36) U/L ALT 19 (6-35) U/L Alkaline Phosphatase 86 (38-126) U/L Total Creatine Kinase 53 (30-135) U/L Total Protein 7.5 (6.3-8.2) g/dL Albumin 4.0 (3.5-5.1) g/dL Lipase 229 (23-300) U/L TSH (Reflex) (0.465-4.68) uIU/mL Urine Color (Yellow) Urine Appearance (Clear) Urine pH (5.0-9.0) Ur Specific [place] (1.001-1.035) Urine Protein (Negative) mg/dL Urine Glucose (UA) (Negative) mg/dL Urine Ketones (Negative) mg/dL Ur Blood (Man) (Negative) Urine Nitrate (Negative) Urine Bilirubin (Negative) Urine Urobilinogen (<2.0) mg/dL Add Ur Microanalysis Leukocyte Esterase Rfl (Negative) RICKY/UL Urine RBC (0-2) /hpf Urine WBC (0-3) /hpf Ur Squamous Epith Cells (Few) /hpf Urine Bacteria /hpf Urine Casts Nasal MRSA (PCR) (NOT DETECTE) 01/03/25 01/03/25 01/03/25 Range/Units 22:45 23:19 23:59 WBC (4.5-10.0) K/mm3 RBC (4.2-5.4) M/mm3 Hgb (12.0-15.0) g/dL Hct (37.0-47.0) % MCV (80-100) fl MCH (26-34) pg MCHC (32-36) g/dl RDW (11.5-14.5) % Plt Count (150-375) k/mm3 MPV (7.4-10.4) fl Immature Gran % (Auto) (0-0.5) % Neut % (Auto) (45.5-73.1) % Lymph % (Auto) (18.3-44.2) % Motley % (Auto) (2.6-8.5) % Eos % (Auto) (0-4.4) % Baso % (Auto) (0.2-1.2) % Lymph # (Auto) (0.9-3.2) K/mm3 [place] # (Auto) (0.1-0.6) K/mm3 Eos # (Auto) (0-0.3) K/mm3 Baso # (Auto) (0.0-0.1) K/mm3 Abs Immat Gran (auto) (0.00-0.031) K/mm3 Absolute Neuts (auto) (1.3-6.7) K/mm3 Absolute Nucleated RBC (0.0-0.012) K/mm3 Nucleated RBC % (0.0-0.2) % PT (11.1-14.7) Seconds INR APTT (22.3-36.8) Seconds Sodium 134 L (137-145) mmol/L Potassium 3.8 (3.4-5.0) mmol/L Chloride 113 H (98-107) mmol/L Carbon Dioxide 13 L (22-30) mmol/L Anion Gap 8 (4-12) mmol/L BUN 52 H (7-17) mg/dL Creatinine 2.35 H (0.7-1.0) mg/dL Estim Creat Clear Calc Not Reportable Estimated GFR 20 L (59 - ) Glucose 78 (65-110) mg/dL POC Capillary Glucose 123 H (65-105) mg/dl Lactic Acid (0.7-2.0) mmol/L Calcium 9.2 (8.4-10.2) mg/dL Phosphorus (2.5-4.5) mg/dL Magnesium (1.6-2.3) mg/dL Total Bilirubin (0.2-1.3) mg/dL AST (14-36) U/L ALT (6-35) U/L Alkaline Phosphatase (38-126) U/L Total Creatine Kinase (30-135) U/L Total Protein (6.3-8.2) g/dL Albumin (3.5-5.1) g/dL Lipase (23-300) U/L TSH (Reflex) (0.465-4.68) uIU/mL Urine Color Yellow (Yellow) Urine Appearance Clear (Clear) Urine pH 5.0 (5.0-9.0) Ur Specific [place] 1.017 (1.001-1.035) Urine Protein Trace (Negative) mg/dL Urine Glucose (UA) Negative (Negative) mg/dL Urine Ketones Trace H (Negative) mg/dL Ur Blood (Man) Negative (Negative) Urine Nitrate Negative (Negative) Urine Bilirubin Negative (Negative) Urine Urobilinogen 0.2 (<2.0) mg/dL Add Ur Microanalysis Reviewed Leukocyte Esterase Rfl Negative (Negative) RICKY/UL Urine RBC 0-2 (0-2) /hpf Urine WBC 0-5 (0-3) /hpf Ur Squamous Epith Cells None seen (Few) /hpf Urine Bacteria None seen /hpf Urine Casts 6-10 Nasal MRSA (PCR) (NOT DETECTE) 01/04/25 01/04/25 Range/Units 00:36 05:39 WBC 7.5 (4.5-10.0) K/mm3 RBC 3.36 L (4.2-5.4) M/mm3 Hgb 9.0 L (12.0-15.0) g/dL Hct 29.3 L (37.0-47.0) % MCV 87.2 (80-100) fl MCH 26.8 (26-34) pg MCHC 30.7 L (32-36) g/dl RDW 15.9 H (11.5-14.5) % Plt Count 184 (150-375) k/mm3 MPV 10.7 H (7.4-10.4) fl Immature Gran % (Auto) (0-0.5) % Neut % (Auto) (45.5-73.1) % Lymph % (Auto) (18.3-44.2) % Motley % (Auto) (2.6-8.5) % Eos % (Auto) (0-4.4) % Baso % (Auto) (0.2-1.2) % Lymph # (Auto) (0.9-3.2) K/mm3 [place] # (Auto) (0.1-0.6) K/mm3 Eos # (Auto) (0-0.3) K/mm3 Baso # (Auto) (0.0-0.1) K/mm3 Abs Immat Gran (auto) (0.00-0.031) K/mm3 Absolute Neuts (auto) (1.3-6.7) K/mm3 Absolute Nucleated RBC (0.0-0.012) K/mm3 Nucleated RBC % (0.0-0.2) % PT (11.1-14.7) Seconds INR APTT (22.3-36.8) Seconds Sodium 135 L (137-145) mmol/L Potassium 4.2 (3.4-5.0) mmol/L Chloride 114 H (98-107) mmol/L Carbon Dioxide 12 L (22-30) mmol/L Anion Gap 9 (4-12) mmol/L BUN 49 H (7-17) mg/dL Creatinine 2.02 H (0.7-1.0) mg/dL Estim Creat Clear Calc Not Reportable Estimated GFR 23 L (59 - ) Glucose 151 H (65-110) mg/dL POC Capillary Glucose 102 (65-105) mg/dl Lactic Acid (0.7-2.0) mmol/L Calcium 9.2 (8.4-10.2) mg/dL Phosphorus 4.0 (2.5-4.5) mg/dL Magnesium 2.0 (1.6-2.3) mg/dL Total Bilirubin (0.2-1.3) mg/dL AST (14-36) U/L ALT (6-35) U/L Alkaline Phosphatase (38-126) U/L Total Creatine Kinase (30-135) U/L Total Protein (6.3-8.2) g/dL Albumin (3.5-5.1) g/dL Lipase (23-300) U/L TSH (Reflex) 1.650 (0.465-4.68) uIU/mL Urine Color (Yellow) Urine Appearance (Clear) Urine pH (5.0-9.0) Ur Specific [place] (1.001-1.035) Urine Protein (Negative) mg/dL Urine Glucose (UA) (Negative) mg/dL Urine Ketones (Negative) mg/dL Ur Blood (Man) (Negative) Urine Nitrate (Negative) Urine Bilirubin (Negative) Urine Urobilinogen (<2.0) mg/dL Add Ur Microanalysis Leukocyte Esterase Rfl (Negative) RICKY/UL Urine RBC (0-2) /hpf Urine WBC (0-3) /hpf Ur Squamous Epith Cells (Few) /hpf Urine Bacteria /hpf Urine Casts Nasal MRSA (PCR) Not detected (NOT DETECTE) ABG Data ABG results: 01/04/25 05:38 VBG pH 7.298 L VBG pCO2 31.5 L VBG pO2 47.2 H VBG HCO3 15.1 L O2 Delivery Device Room air O2 Liters/Min Not Reportable FiO2 21 Imaging Data Attestation: I personally reviewed and interpreted this imaging study as follows: My impression: Tip of central venous catheter does appear deep, in the right ventricle on my independent interpretation Radiologist's impression: ITS Impressions Abdomen/Pelvis CT 01/04/25 06:32 Impression: No acute abnormality evident. Cholelithiasis. Moderate hiatal hernia. 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 Chest X-Ray 01/04/25 06:58 Impression: Right IJ line in place, as above. Clear lungs. No pneumothorax. Probable mild cardiomegaly. Renal Ultrasound 01/04/25 11:29 Impression: Unremarkable ultrasound of the kidneys and urinary bladder. Hip/Pelvis X-Ray 01/05/25 14:23 IMPRESSION: No acute osseous abnormality of the bilateral hips and pelvis. CT Abd & Pelvis w/o Contrast Stat Rad: Comparison made with prior exam dated 11/13/2024. Mitral valve calcifications. Aortic valve calcification. Hiatal hernia. Postoperative changes partial colectomy with right lower quadrant colostomy. Diverticulosis without evidence of diverticulitis. No free air or intestinal obstruction. Cholelithiasis without evidence of acute cholecystitis. Calcified hepatic and splenic granuloma. CXR 1 view Stat Rad Post Procedure: Right-sided central venous catheter with its tip in the right atrium. No acute pulmonary pathology. Advanced degenerative changes of the right shoulder. Hiatal hernia has resolved since 10/17/2024. ECG Data EKG #1: Attestation: I personally reviewed and interpreted this ECG as follows: ECG completion date: 01/03/25 ECG completion time: 23:24 Interpretation: Normal sinus rhythm at a rate of 99 beats per minute. DE interval 176. QRS 93. QT/QTC 341/397. Good R-wave progression across the precordial leads. Baseline artifact but no obvious T-wave inversions are ST elevations or depressions. Discharge Plan Discharge Clinical Impression: Acute renal failure (ARF), Hyperkalemia, Hyponatremia, Normocytic anemia, Calcification of mitral valve, Aortic valve calcification, Bilateral lower abdominal pain, Hernia, hiatal, S/P partial colectomy, Colostomy in place, Diverticulosis, Cholelithiasis, Hypotension Patient Disposition: Still a Patient Condition: Serious
[2025-01-03] MEDS: SODIUM CHLORIDE 0.9% IV 1,000 ML 999 ML IV CONT ×2 (21:44→22:43)
[2025-01-03 21:46] LABS: Hematocrit 33.4 % (37.0-47.0); Hemoglobin 10.2 g/dL (12.0-15.0); Immature Granulocyte Percent A 0.6 % (0-0.5); Lymphocytes Absolute Auto 1.05 K/mm3 (0.9-3.2); Mean Corpuscular HGB Conc 30.5 g/dl (32-36); Mean Corpuscular Hemoglobin 27.1 pg (26-34); Mean Corpuscular Volume 88.6 fl (80-100); Nucleated Red Blood Cells Absolute Auto 0.000 K/mm3 (0.0-0.012); Nucleated Red Blood Cells Perc 0.0 % (0.0-0.2); Platelet Count Result 192 k/mm3 (150-375); Red Blood Count 3.77 M/mm3 (4.2-5.4); White Blood Count 5.4 K/mm3 (4.5-10.0)
[2025-01-03 21:55] LABS: Alanine Aminotransferase 19 U/L (6-35); Albumin Level 4.0 g/dL (3.5-5.1); Alkaline Phosphatase 86 U/L (38-126); Anion Gap 12 mmol/L (4-12); Aspartate Amino Transferase 35 U/L (14-36); Bilirubin,Total 0.3 mg/dL (0.2-1.3); Blood Urea Nitrogen 56 mg/dL (7-17); Calcium 10.1 mg/dL (8.4-10.2); Carbon Dioxide 7 mmol/L (22-30); Chloride 110 mmol/L (98-107); Estimated Glomerular Filt Rate 17; Glucose 115 mg/dL (65-110); Lipase 229 U/L (23-300); Potassium 6.0 mmol/L (3.4-5.0); Sodium 129 mmol/L (137-145); Total Protein 7.5 g/dL (6.3-8.2)
[2025-01-03 22:00] LABS: INR 1.1; Prothrombin Time 14.0 Seconds (11.1-14.7)
[2025-01-03 22:09] LABS: Partial Thromboplastin Time 37.9 Seconds (22.3-36.8)
--- NOTE | 2025-01-03 22:19 | ECG_ITS ---
Test Date: 2025-01-03 23:24:36 Measurements Intervals [place] Rate: 99 P: 71 [place]: 176 QRS: -1 QRSD: 93 T: 28 QT: 341 QTc: 439 Interpretive Statements SINUS RHYTHM EARLY PRECORDIAL R/S TRANSITION BASELINE ARTIFACT- I, II, III, AVR, AVL, AVF, V1, V4, V6 BORDERLINE ECG No previous ECG available for comparison Electronically Signed On 01-04-2025 07:56:52 CDT by Darion Ring D.O.
[2025-01-03 22:34] LABS: Magnesium 2.4 mg/dL (1.6-2.3)
[2025-01-03] MEDS: INSULIN HUMAN REGULAR (*BKC) 100 UNITS/ML IV PUSH (22:41)
[2025-01-03] MEDS: DEXTROSE 50% 25 GM/50 ML SYRINGE IV PUSH (22:44)
[2025-01-03] MEDS: CALCIUM GLUCONATE 1,000 MG/10 ML VIAL 1000 MG IV PUSH (22:44)
[2025-01-03] MEDS: SODIUM BICARBONATE 8.4% 50 MEQ/50 ML SYRINGE IV PUSH ×3 (22:44)
[2025-01-03] MEDS: ALBUTEROL SULFATE NEB 2.5 MG/3 ML INH 10 MG INHALATION (22:50)
[2025-01-03 22:58] LABS: Creatine Kinase 53 U/L (30-135)
[2025-01-03 23:09] LABS: Add Urine Microscopic? YES; Appearance Urine Clear (Clear); Glucose Urine UA Negative (Negative); Leukocyte Esterase Ur Negative LEU/UL (Negative); Need Manual Microscopic Reviewed; Nitrate Urine Negative (Negative); Specific Grav Ur 1.017 (1.001-1.035)
[2025-01-03] MEDS: MORPHINE SULFATE (*CRX) 2 MG/ML INJ 3 MG IV PUSH (23:23)
[2025-01-03] MEDS: SODIUM CHLORIDE 0.9% IV 500 ML 999 ML IV CONT (23:58)
[2025-01-04] VITALS (91 sets, daily range): BP systolic 69–149; BP diastolic 34–94; PULSE 71–112; RESP 10–24; TEMP 36.6–37.4; O2SAT 96–100; BMI 29.1
[2025-01-04 00:15] LABS: Anion Gap 8 mmol/L (4-12); Blood Urea Nitrogen 52 mg/dL (7-17); Calcium 9.2 mg/dL (8.4-10.2); Carbon Dioxide 13 mmol/L (22-30); Chloride 113 mmol/L (98-107); Estimated Glomerular Filt Rate 20; Glucose 78 mg/dL (65-110); Potassium 3.8 mmol/L (3.4-5.0); Sodium 134 mmol/L (137-145)
[2025-01-04] MEDS: SODIUM CHLORIDE 0.9% IV 500 ML 999 ML IV CONT (00:54)
[2025-01-04] MEDS: NOREPINEPHRINE 8 MG/D5W 250 ML 8 MG/250 ML BAG 9.38 MG IV CONT ×2 (01:35→12:46)
--- NOTE | 2025-01-04 03:10 | PC.NURSE ---
This RN took report from Corina BOWENS.
--- NOTE | 2025-01-04 04:00 | P.HP_ITS ---
H&P: HPI History of Present Illness Date/Time: 01/04/25 06:00 Chief Complaint: Abdominal pain. Narrative: This an 89-year-old female with history of coronary artery disease, hypertension, hypothyroidism, gastroesophageal reflux disease, diverticulitis, and bleeding colonic ulcer status post colectomy in November 2024 who presented to the emergency department via private vehicle with complaints of abdominal pain. She gives a several day history of lower abdominal pain and into the groin which she describes as cramping in nature. She has not noticed any significant aggravating or alleviating factors. It does not seem to be around her recent surgery or stoma. She has been taking acetaminophen which seems to help somewhat. It sounds as though she is more concerned that she continues to be very weak from her recent surgery. Her appetite has been poor with a significant decrease in oral intake. Her urine output has decreased. Stoma output has not been too significant. She has not noticed any blood in her stool. She denies fever, chills, sweats, chest pain, shortness of breath, cough, epigastric pain, bloating, belching, vomiting, melena, hematochezia, and dysuria. No syncope or near syncope. In the ED: Vital signs on arrival include a temperature of 97.7?, blood pressure 102/57, pulse 79, respiratory 16, SpO2 100% on room air. Labs were significant for a WBC count of 5.4, hemoglobin 10.2, platelet 192, sodium 129, potassium 6.0, chloride 110, carbon dioxide 7, anion gap 12, BUN 56, creatinine 2.69, glucose 115, lactic acid 0.7. Trace ketones on urinalysis. CT scan of the abdomen and pelvis did not show any acute findings. She received appropriate therapy for hyperkalemia, sodium bicarb, and 3L normal saline bolus. Her blood pressures unfortunately dropped despite the IV fluids and a central line was inserted and she was started on norepinephrine. She is being admitted to the ICU in this setting with refractory hypotension and acute kidney injury. Review of Systems Review of Systems: 12 systems were reviewed and are negativ e except for as per HPI. [facility] Past Medical History Medical History (Updated 01/04/25 @ 09:30 by Adelaide Tarango MD) Hypothyroidism Gastroesophageal reflux disease Polyp, colonic Colon, diverticulosis Hypertension Hearing loss Cystocele with rectocele Osteoporosis Skin cancer Arthritis Allergies Surgical History Surgical History (Updated 01/04/25 @ 05:21 by Anika Zamudio PA-C) History of partial colectomy (11/2024) with colostomy for lower GI bleed related to colonic ulcer History of repair of rectocele History of hysterectomy History of anterior colporrhaphy History of colonoscopy History of endoscopy History of heart artery stent Family History Family History Father Heart disease Sibling Cancer Hypertension Sibling Heart disease Unknown No problems noted. Mother Patient's mother is , Onset Age: 99 Father Family history of coronary artery disease Social History Social History (Updated 01/04/25 @ 05:22 by Anika Zamudio PA-C) Social History: Surrogate medical decision maker: Stephany Estrada, daughter. Code status: Full code. Smoking status: Never smoker Tobacco type: cigarettes Second hand tobacco smoke exposure: Yes Alcohol intake: never Substance use: never Substance use type: does not use Do You Feel Safe in your Home?: Yes Lack of Transportation: No Lack of Food: Never True Current Housing: I Have Housing Concerned About Future Housing: No Difficulty Paying Gas/Electric Bills: No Difficulty Paying for Meds: No Currently Unemployed: No Education: Trade/Vocational Certificate Difficulty w/ Childcare or Family Care: No Living arrangements: with family Occupation/Education: retired Spiritual care concerns: No Agree to blood products: No Meds Home Medications and Allergies Home Medications ?Medication ?Instructions ?Recorded ?Confirmed ?Type gabapentin 600 mg tablet 600 mg PO HS 02/18/24 01/04/25 History levothyroxine 25 mcg capsule 75 mcg PO DAILY 02/18/24 01/04/25 History omeprazole 20 mg capsule,delayed 40 mg PO DAILY 02/18/24 01/04/25 History release acetaminophen 500 mg capsule 500 mg PO Q6H PRN pain #60 caps 10/17/24 01/04/25 Rx atorvastatin 40 mg tablet 40 mg PO HS 11/14/24 01/04/25 History citalopram 20 mg tablet 10 mg PO QPM 11/14/24 01/04/25 History lisinopril 10 1 tablet PO DAILY 11/14/24 01/04/25 History mg-hydrochlorothiazide 12.5 mg tablet stdjkwuq-keenufd-aruf-lutein tablet 1 tablet PO DAILY 11/14/24 01/04/25 History nitroglycerin 0.3 mg sublingual 0.3 mg sublingual Q5-15M PRN chest 11/14/24 01/04/25 History tablet pain Light weight rollator #1 ea 12/16/24 01/04/25 Rx walker-davrin walker nystatin 100,000 unit/gram topical 1 applic topical BID #60 grams 12/23/24 01/04/25 Rx powder Allergies Allergy/AdvReac Type Severity Reaction Status Date / Time codeine AdvReac Severe Hallucinati Verified 01/03/25 15:03 ng Sulfa (Sulfonamide AdvReac Unknown Hives Verified 01/03/25 15:03 Antibiotics) Vital Signs Vital Signs - 24 hr 01/03/25 15:01 01/03/25 20:33 01/03/25 22:54 Temperature 97.7 F Pulse Rate 79 74 99 Respiratory Rate 16 16 19 Blood Pressure 102/57 L 92/59 L Pulse Oximetry 100 100 Oxygen Delivery Room Air 01/03/25 23:45 01/03/25 23:51 01/03/25 23:56 Temperature Pulse Rate 99 100 105 H Respiratory Rate 19 14 15 Blood Pressure 71/41 L Pulse Oximetry 100 98 Oxygen Delivery 01/03/25 23:59 01/04/25 00:00 01/04/25 00:01 Temperature Pulse Rate 101 H 100 101 H Respiratory Rate 14 14 15 Blood Pressure 76/41 L 76/47 L Pulse Oximetry 100 100 100 Oxygen Delivery 01/04/25 00:22 01/04/25 00:25 01/04/25 00:30 Temperature Pulse Rate 105 H 105 H 108 H Respiratory Rate 16 13 15 Blood Pressure 76/42 L 77/49 L Pulse Oximetry 100 100 99 Oxygen Delivery 01/04/25 00:31 01/04/25 00:35 01/04/25 00:38 Temperature Pulse Rate 108 H 104 H 101 H Respiratory Rate 16 16 13 Blood Pressure 84/40 L 78/35 L Pulse Oximetry 100 Oxygen Delivery 01/04/25 00:40 01/04/25 00:43 01/04/25 00:45 Temperature Pulse Rate 106 H 111 H 112 H Respiratory Rate 18 18 16 Blood Pressure 69/36 L 87/42 L 79/45 L Pulse Oximetry 100 100 100 Oxygen Delivery 01/04/25 00:46 01/04/25 00:50 01/04/25 00:51 Temperature Pulse Rate 109 H 108 H 107 H Respiratory Rate 13 14 14 Blood Pressure 74/41 L Pulse Oximetry 100 100 99 Oxygen Delivery 01/04/25 00:55 01/04/25 01:00 01/04/25 01:01 Temperature Pulse Rate 105 H 104 H 105 H Respiratory Rate 13 14 15 Blood Pressure 70/39 L 78/40 L Pulse Oximetry 97 96 98 Oxygen Delivery 01/04/25 01:05 01/04/25 01:10 01/04/25 01:15 Temperature Pulse Rate 104 H 105 H 107 H Respiratory Rate 14 15 17 Blood Pressure 75/41 L 86/49 L Pulse Oximetry 100 99 100 Oxygen Delivery 01/04/25 01:28 01/04/25 01:30 01/04/25 01:31 Temperature Pulse Rate 105 H 106 H 105 H Respiratory Rate 15 14 15 Blood Pressure 75/34 L 72/34 L Pulse Oximetry 100 97 100 Oxygen Delivery 01/04/25 01:35 01/04/25 01:35 01/04/25 01:40 Temperature Pulse Rate 106 H 106 H 107 H Respiratory Rate 19 Blood Pressure 76/43 L 76/43 L 76/53 L Pulse Oximetry 100 Oxygen Delivery 01/04/25 01:40 01/04/25 01:45 01/04/25 01:46 Temperature Pulse Rate 107 H 106 H 106 H Respiratory Rate 18 14 14 Blood Pressure 76/52 L 97/37 L Pulse Oximetry 100 100 100 Oxygen Delivery 01/04/25 01:50 01/04/25 01:50 01/04/25 01:55 Temperature Pulse Rate 103 H 106 H 102 H Respiratory Rate 19 16 Blood Pressure 93/39 L 93/39 L 111/45 L Pulse Oximetry 100 Oxygen Delivery 01/04/25 02:00 01/04/25 02:01 01/04/25 02:05 Temperature Pulse Rate 102 H 101 H 104 H Respiratory Rate 14 14 Blood Pressure 113/44 L 110/40 L Pulse Oximetry 100 100 Oxygen Delivery 01/04/25 02:05 01/04/25 02:06 01/04/25 02:10 Temperature Pulse Rate 101 H 102 H 104 H Respiratory Rate 15 17 17 Blood Pressure 110/40 L 111/43 L Pulse Oximetry 100 100 100 Oxygen Delivery 01/04/25 02:15 01/04/25 02:15 01/04/25 02:16 Temperature Pulse Rate 105 H 101 H 103 H Respiratory Rate 24 H 20 Blood Pressure 114/44 L 110/42 L Pulse Oximetry 100 100 Oxygen Delivery 01/04/25 02:20 01/04/25 02:25 01/04/25 02:30 Temperature Pulse Rate 105 H 103 H 104 H Respiratory Rate 19 19 20 Blood Pressure 115/46 L 119/41 L 115/47 L Pulse Oximetry 100 100 100 Oxygen Delivery 01/04/25 02:31 01/04/25 02:35 01/04/25 02:40 Temperature Pulse Rate 105 H 103 H 103 H Respiratory Rate 23 H 13 11 L Blood Pressure 115/50 L 108/49 L Pulse Oximetry 100 100 100 Oxygen Delivery 01/04/25 03:10 Temperature Pulse Rate 101 H Respiratory Rate Blood Pressure 111/44 L Pulse Oximetry 99 Oxygen Delivery Exam Narrative: General: Moderately ill-appearing elderly female in the semi-Donaldson position in bed. Weight: 65.4 kg. BMI: 29.1. HEENT: PERRL, EOMI. Sclera anicteric. Dry mucous membranes. Neck: Supple. Respiratory: Lungs are clear to auscultation bilaterally. Cardiovascular: Regular rate and rhythm with S1-S2. High-pitched systolic murmur at the apex. Gastrointestinal: Abdomen is soft, nontender, and nondistended with positive bowel sounds. Colostomy in the right side of the abdomen containing a small amount of soft, brown stool. No guarding or rebound tenderness. Skin: Warm and dry. Generalized pallor. Extremities: No cyanosis, clubbing, or edema. Radial and pedal pulses intact. Neurological: Alert. Cranial nerves grossly intact. Generalized weakness without gross focal findings. Psychiatric: Pleasant and cooperative with normal mood and affect. Judgment and insight intact. H&P: Results Labs Labs: Short CBC 01/03/25 Range/Units 21:39 WBC 5.4 (4.5-10.0) K/mm3 Hgb 10.2 L (12.0-15.0) g/dL Hct 33.4 L (37.0-47.0) % Plt Count 192 D (150-375) k/mm3 [facility] 01/03/25 01/03/25 21:39 23:59 Sodium 129 L 134 L Potassium 6.0 H* 3.8 Chloride 110 H 113 H Carbon Dioxide 7 L 13 L BUN 56 H D 52 H Creatinine 2.69 H 2.35 H Glucose 115 H 78 Calcium 10.1 9.2 Cardiac Enzymes 01/03/25 Range/Units 21:34 Total Creatine Kinase 53 (30-135) U/L Liver Function 01/03/25 Range/Units 21:39 Total Bilirubin 0.3 (0.2-1.3) mg/dL AST 35 (14-36) U/L ALT 19 (6-35) U/L Alkaline Phosphatase 86 (38-126) U/L Albumin 4.0 (3.5-5.1) g/dL Urine 01/03/25 Range/Units 22:45 Urine Color Yellow (Yellow) Urine Appearance Clear (Clear) Urine pH 5.0 (5.0-9.0) Ur Specific [place] 1.017 (1.001-1.035) Urine Protein Trace (Negative) mg/dL Urine Glucose (UA) Negative (Negative) mg/dL Impressions Abdomen/Pelvis CT 01/04/25 06:32 Impression: No acute abnormality evident. Cholelithiasis. Moderate hiatal hernia. 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 Chest X-Ray 01/04/25 06:58 Impression: Right IJ line in place, as above. Clear lungs. No pneumothorax. Probable mild cardiomegaly. Assessment and Plan Assessment and plan (1) Hypotension: Code(s): I95.9 - Hypotension, unspecified Status: Acute Assessment and Plan: Initial blood pressure on arrival was 102/57 but subsequent readings were consistently in the upper 60s to mid 80s systolic. This drop seemed to occur after she received morphine 3 mg IV for her pain. She was given a 3 L crystalloid bolus which had little effect. Central line was inserted and she has been started on norepinephrine. Wean vasopressors as tolerated. Noninvasive cardiac output monitoring indicates that she is fluid responsive and she does look profoundly dry on exam. Continue judicious IV fluid rehydration with close monitoring of volume status, renal function, and electrolytes. There are no signs or symptoms suggest underlying infection or sepsis thus no indication for antibiotics at this time. (2) Acute kidney injury: Code(s): N17.9 - Acute kidney failure, unspecified Status: Acute Assessment and Plan: The patient has an acute kidney injury with a creatinine of 2.69 (up from 0.89 about 6 weeks ago). Likely due to a combination of factors including hypovolemia from a significant decrease in oral intake and hypoperfusion from hypotension in the setting of ANDRE-inhibitor and thiazide diuretic use. Creatinine is improving with IV fluids. Hold lisinopril and hydrochlorothiazide for now. All medications will be renally dosed. Renal ultrasound has been ordered. (3) Metabolic acidosis: Code(s): E87.20 - Acidosis, unspecified Status: Acute Assessment and Plan: Metabolic acidosis is related to renal failure. Initial anion gap was 12 and serum carbon dioxide was 7. She received 3 amps of sodium bicarbonate at with with normalization of her anion gap and improvement in carbon dioxide to 13. She now appears to have a normal anion gap metabolic acidosis, possibly in part due to her ostomy though she denies high output. She has had at least 3 L of normal saline which could be contributing. (4) Abdominal pain: Code(s): R10.9 - Unspecified abdominal pain Status: Acute Assessment and Plan: Patient initially came in for diffuse lower abdominal pain of unclear etiology. May be related to postoperative changes. Workup thus far has been unrevealing with an unremarkable abdomen/pelvis CT and urinalysis. Symptoms have resolved with acetaminophen. She is afebrile with a normal WBC count and no signs of infection on imaging thus will monitor for now. (5) Anemia: Code(s): D64.9 - Anemia, unspecified Status: Acute Assessment and Plan: Hemoglobin and hematocrit are stable and actually improved compared to previous labs. Continue to monitor. Quality VTE Prophylaxis VTE prophylaxis: mechanical ordered If No VTE Prophylaxis Answer both mechanical and pharmacologic: Reason no pharmacologic proph: medical contraindication (recent GI bleed) The patient has been admitted under observation status. Hospitalist [facility] Advance Care Plan I have confirmed that the patient's Advanced Care Plan is present, code status is documented, or surrogate decision maker is listed in patient medical record.: Yes Medication Reconciliation I have utilized all available resources to obtain, update and review the patients current medications (includes all prescriptions, OTC, herbals, cannabis, and nutritional supplements).: Yes Critical Care Time Critical Care Time: Yes Total Critical Care Time: 60 Attestation: Due to a high probability of clinically significant, life threatening deterioration, the patient required my highest level of preparedness to intervene emergently and I personally spent this critical care time directly and personally managing the patient. This critical care time included obtaining a history; examining the patient; pulse oximetry; ordering and review of studies; arranging urgent treatment with development of a management plan; evaluation of patient's response to treatment; frequent reassessment; and discussions with other providers. It was exclusive of separately billable procedures and treating other patients and teaching time. Please see Assessment and Plan section and the rest of the note for further information on patient assessment and treatment.
--- NOTE | 2025-01-04 04:46 | ADMGEN ---
This patient, Crystal Mcmahan, was admitted to Intensive Care Unit-2 at 0430. Patient/family oriented to hospital policies and general routines including ID bracelet, bed and alarms, visiting hours, pain management, procedures, bathroom and other care routines, personal items, smoking policy, room service/diet, and visiting hours. Information on how to activate the Rapid Response Team has been discussed. Patient/Family are encouraged to report perceived risks to care and to ask questions if they do not understand what they are told or what they should do.
[2025-01-04 05:44] LABS: Fractional Inspired Oxygen 21 %; HCO3 VBG 15.1 mEq/l (24.0-30.0); PCO2 VBG 31.5 mmHg (42.0-48.0); PO2 VBG 47.2 mmHg (35.0-45.0); pH VBG 7.298 (7.300-7.400)
[2025-01-04 06:06] LABS: Hematocrit 29.3 % (37.0-47.0); Hemoglobin 9.0 g/dL (12.0-15.0); Mean Corpuscular HGB Conc 30.7 g/dl (32-36); Mean Corpuscular Hemoglobin 26.8 pg (26-34); Mean Corpuscular Volume 87.2 fl (80-100); Platelet Count Result 184 k/mm3 (150-375); Red Blood Count 3.36 M/mm3 (4.2-5.4); White Blood Count 7.5 K/mm3 (4.5-10.0)
[2025-01-04 06:21] LABS: Anion Gap 9 mmol/L (4-12); Blood Urea Nitrogen 49 mg/dL (7-17); Calcium 9.2 mg/dL (8.4-10.2); Carbon Dioxide 12 mmol/L (22-30); Chloride 114 mmol/L (98-107); Estimated Glomerular Filt Rate 23; Glucose 151 mg/dL (65-110); Magnesium 2.0 mg/dL (1.6-2.3); Potassium 4.2 mmol/L (3.4-5.0); Sodium 135 mmol/L (137-145)
[2025-01-04] MEDS: CENTRAL LINE FLUSH 10 ML IV PUSH ×3 (06:47→22:00)
[2025-01-04 06:51] LABS: Thyroid Stimulating Hormone Reflex 1.650 uIU/mL (0.465-4.68)
[2025-01-04 08:02] LABS: MRSA (PCR) NOT DETECTED (NOT DETECTE)
[2025-01-04] MEDS: SODIUM BICARBONATE 8.4% 150 MEQ in DEXTROSE 5% 1,000 ML 950 ML 75 MEQ IV CONT ×2 (08:46→23:07)
[2025-01-04 08:47] LABS: Fractional Inspired Oxygen 21 %; HCO3 VBG 15.7 mEq/l (24.0-30.0); PCO2 VBG 32.3 mmHg (42.0-48.0); PO2 VBG 45.3 mmHg (35.0-45.0); pH VBG 7.304 (7.300-7.400)
[2025-01-04] MEDS: ALBUMIN HUMAN 25% 25 GM/100 ML 100 ML IVPB ×4 (08:48→23:02)
[2025-01-04] MEDS: LEVOTHYROXINE SODIUM 75 MCG TABLET PO (08:52)
[2025-01-04] MEDS: MULTIVITAMINS /C LUTEIN (CENTRUM SILVER) TABLET *BKC 1 TAB PO (08:53)
[2025-01-04] MEDS: PANTOPRAZOLE 40 MG TABLET PO (08:53)
[2025-01-04] MEDS: metroNIDAZOLE 500 MG/ISO 100ML 500 MG/100 ML BAG 100 MG IVPB ×3 (08:55→23:11)
--- NOTE | 2025-01-04 09:07 | P.CONIN_ITS ---
Assessment and Plan Assessment and plan (1) Shock: Code(s): R57.9 - Shock, unspecified Status: Acute Assessment and Plan: Patient presented with abdominal pain, no nausea, vomiting. She also had acute kidney injury with hyperkalemia, dehydration likely due to continuous use of home medications losartan and hydrochlorothiazide -patient was found to be hypotensive in the ER -patient received 3 L IV fluid bolus -central line was inserted and patient started on Levophed, maintain MAP > 65 mmHg at all times for adequate end organ perfusion -will add albumin 25% q.6 hours x4 doses for intravascular volume expansion -check procalcitonin, CRP -01/04: started ceftriaxone and Flagyl since patient presented with abdominal pain -no CT evidence of any abnormality 01/04: CT abdomen and pelvis without contrast: No acute abnormality evident, cholelithiasis, moderate hiatal hernia, 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 (2) Hypotension: Code(s): I95.9 - Hypotension, unspecified Status: Acute Assessment and Plan: Hypotension could be related to dehydration, hypovolemia, metabolic acidosis -will obtain cultures -check echocardiogram (3) Acute kidney injury: Code(s): N17.9 - Acute kidney failure, unspecified Status: Acute Assessment and Plan: Patient presented with acute kidney injury and hyperkalemia -creatinine on admission was 2.69, (baseline creatinine 0.89, recently creatinine of 1.81 on 12/26/2024 on outpatient labs) -patient adequately fluid-resuscitated, -add albumin for intravascular volume expansion -check urine lytes and urine eosinophils -check renal ultrasound -hyperkalemia likely related to severe metabolic acidosis, initial potassium levels were 6.0 on admission, hyperkalemia was treated, repeat potassium this morning is 4.2, continue to monitor -started patient on bicarb infusion -nephrology to evaluate (4) Metabolic acidosis: Code(s): E87.20 - Acidosis, unspecified Status: Acute Assessment and Plan: severe non metabolic acidosis metabolic acidosis could be related to ileostomy. Though the patient stated she had decreased a ileostomy drainage -could be related to ileostomy, diarrhea if at all which patient denies, states she has low output in her ostomy bag -renal tubular acidosis is another possibility for non-anion gap metabolic acidosis -nephrology has been consulted (5) Abdominal pain: Code(s): R10.9 - Unspecified abdominal pain Status: Acute Assessment and Plan: The initial abdominal pain low could be related to severe metabolic acidosis -has resolved Plan DVT prophylaxis: Heparin subQ Stress ulcer prophylaxis: Protonix Nutrition: Full liquid diet Code Status: Full code Critical Care Time Spent: 48 minutes Due to a high probability of clinically significant, life threatening deterioration, the patient required my highest level of preparedness to intervene emergently and I personally spent this critical care time directly and personally managing the patient. This critical care time included obtaining a history; examining the patient; pulse oximetry; ordering and review of studies; arranging urgent treatment with development of a management plan; evaluation of patient's response to treatment; frequent reassessment; and discussions with other providers. It was exclusive of separately billable procedures and treating other patients and teaching time. Please see Assessment and Plan section and the rest of the note for further information on patient assessment and treatment This dictation may have been done utilizing a voice recognition system. Attempts have been made to correct errors. However, there may be uncorrected grammatical, spelling, and recognitions errors present. Care Consultant Consult Note Consult date: 01/04/25 Reason for consult: Hypotension, abdominal pain, shock requiring vasopressor, severe metabolic acidosis, acute kidney injury, hyperkalemia HPI: Crystal Mcmahan is a 89 year old female with past medical history of hypothyroidism, gastroesophageal reflux disease, colon polyp, diverticulosis status post partial colectomy with colostomy for lower GI bleed related to colonic ulcer, essential hypertension, hearing loss, cystocele with rectocele, osteoporosis, arthritis presented the ED 01/03/2025 with complains of abdominal pain. According to the records she complained of lower abdominal pain that radiated to the groin which she described as cramping in nature. She did not have any associated signs like nausea, vomiting, diarrhea. She has a right- sided colostomy which has been draining with brown stool. No aggravating or alleviating factors. She has been taking acetaminophen which somewhat helps her pain. Patient also complained of generalized weakness, decreased appetite with decrease in oral intake. Urine output has decreased. She has not noted any blood in her stools. Denies any fevers, chills, chest pain, shortness of breath, nausea vomiting. In the ER patient was found to have low blood pressures with systolic in the 70s after she was given morphine for abdominal pain. WBC count of 5.4, hemoglobin 10.2, platelets 192, sodium 129, potassium 6.0, CO2 7, anion gap 12, BUN 56, creatinine 2.69 (baseline creatinine of 0.6 creatinine baseline creatinine of 0.87 and 1.81 on 12/26/2024 on outpatient labs). Patient was treated for hyperkalemia with insulin, D50, bicarb pushes, albuterol. CT scan of the abdomen pelvis on admission did not show any acute findings. Chest x-ray was clear. Patient received 3 L of normal saline IV fluid bolus despite which her blood pressures remained low, central line was inserted and patient started epinephrine. 01/04/2025: Patient seen and examined the ICU this morning, is awake, alert, states he feels better, denies any nausea, vomiting, abdominal pain, shortness of breath, chest pain. No fevers or chills patient just feels weak, decreased appetite and oral intake. Has been taking her home medications despite not feeling well. CO2 remains low at 12, creatinine is trending down. Lactic acid 1.1 this morning he WBC 7.5, hemoglobin 9.0, platelets 184. Review of Systems 2 Review of Systems: All systems reviewed & are unremarkable except as noted in HPI and below PMFSH Past Medical History Medical History (Updated 01/04/25 @ 09:30 by Adelaide Tarango MD) Hypothyroidism Gastroesophageal reflux disease Polyp, colonic Colon, diverticulosis Hypertension Hearing loss Cystocele with rectocele Osteoporosis Skin cancer Arthritis Allergies Surgical History Surgical History (Updated 01/04/25 @ 05:21 by Anika Zamudio PA-C) History of partial colectomy (11/2024) with colostomy for lower GI bleed related to colonic ulcer History of repair of rectocele History of hysterectomy History of anterior colporrhaphy History of colonoscopy History of endoscopy History of heart artery stent Family History Family History Father Heart disease Sibling Cancer Hypertension Sibling Heart disease Unknown No problems noted. Mother Patient's mother is , Onset Age: 99 Father Family history of coronary artery disease Social History Social History (Updated 01/04/25 @ 05:22 by Anika G Gerling, PA-C) Social History: Surrogate medical decision maker: Stephany Estrada, daughter. Code status: Full code. Smoking status: Never smoker Tobacco type: cigarettes Second hand tobacco smoke exposure: Yes Alcohol intake: never Substance use: never Substance use type: does not use Do You Feel Safe in your Home?: Yes Lack of Transportation: No Lack of Food: Never True Current Housing: I Have Housing Concerned About Future Housing: No Difficulty Paying Gas/Electric Bills: No Difficulty Paying for Meds: No Currently Unemployed: No Education: Trade/Vocational Certificate Difficulty w/ Childcare or Family Care: No Living arrangements: with family Occupation/Education: retired Spiritual care concerns: No Agree to blood products: No Meds Home Medications and Allergies Home Medications ?Medication ?Instructions ?Recorded ?Confirmed ?Type gabapentin 600 mg tablet 600 mg PO HS 02/18/24 01/04/25 History levothyroxine 25 mcg capsule 75 mcg PO DAILY 02/18/24 01/04/25 History omeprazole 20 mg capsule,delayed 40 mg PO DAILY 02/18/24 01/04/25 History release acetaminophen 500 mg capsule 500 mg PO Q6H PRN pain #60 caps 10/17/24 01/04/25 Rx atorvastatin 40 mg tablet 40 mg PO HS 11/14/24 01/04/25 History citalopram 20 mg tablet 10 mg PO QPM 11/14/24 01/04/25 History lisinopril 10 1 tablet PO DAILY 11/14/24 01/04/25 History mg-hydrochlorothiazide 12.5 mg tablet okeskudc-bsegelv-wjjc-lutein tablet 1 tablet PO DAILY 11/14/24 01/04/25 History nitroglycerin 0.3 mg sublingual 0.3 mg sublingual Q5-15M PRN chest 11/14/24 01/04/25 History tablet pain Light weight rollator #1 ea 12/16/24 01/04/25 Rx walker-darvin walker nystatin 100,000 unit/gram topical 1 applic topical BID #60 grams 12/23/24 01/04/25 Rx powder Allergies Allergy/AdvReac Type Severity Reaction Status Date / Time codeine AdvReac Severe Hallucinati Verified 01/03/25 15:03 ng Sulfa (Sulfonamide AdvReac Unknown Hives Verified 01/03/25 15:03 Antibiotics) Vital Signs Vital Signs - 24 hr 01/03/25 15:01 01/03/25 20:33 01/03/25 22:54 Temperature 97.7 F Pulse Rate 79 74 99 Respiratory Rate 16 16 19 Blood Pressure 102/57 L 92/59 L Pulse Oximetry 100 100 Oxygen Delivery Room Air 01/03/25 23:45 01/03/25 23:51 01/03/25 23:56 Temperature Pulse Rate 99 100 105 H Respiratory Rate 19 14 15 Blood Pressure 71/41 L Pulse Oximetry 100 98 Oxygen Delivery 01/03/25 23:59 01/04/25 00:00 01/04/25 00:01 Temperature Pulse Rate 101 H 100 101 H Respiratory Rate 14 14 15 Blood Pressure 76/41 L 76/47 L Pulse Oximetry 100 100 100 Oxygen Delivery 01/04/25 00:22 01/04/25 00:25 01/04/25 00:30 Temperature Pulse Rate 105 H 105 H 108 H Respiratory Rate 16 13 15 Blood Pressure 76/42 L 77/49 L Pulse Oximetry 100 100 99 Oxygen Delivery 01/04/25 00:31 01/04/25 00:35 01/04/25 00:38 Temperature Pulse Rate 108 H 104 H 101 H Respiratory Rate 16 16 13 Blood Pressure 84/40 L 78/35 L Pulse Oximetry 100 Oxygen Delivery 01/04/25 00:40 01/04/25 00:43 01/04/25 00:45 Temperature Pulse Rate 106 H 111 H 112 H Respiratory Rate 18 18 16 Blood Pressure 69/36 L 87/42 L 79/45 L Pulse Oximetry 100 100 100 Oxygen Delivery 01/04/25 00:46 01/04/25 00:50 01/04/25 00:51 Temperature Pulse Rate 109 H 108 H 107 H Respiratory Rate 13 14 14 Blood Pressure 74/41 L Pulse Oximetry 100 100 99 Oxygen Delivery 01/04/25 00:55 01/04/25 01:00 01/04/25 01:01 Temperature Pulse Rate 105 H 104 H 105 H Respiratory Rate 13 14 15 Blood Pressure 70/39 L 78/40 L Pulse Oximetry 97 96 98 Oxygen Delivery 01/04/25 01:05 01/04/25 01:10 01/04/25 01:15 Temperature Pulse Rate 104 H 105 H 107 H Respiratory Rate 14 15 17 Blood Pressure 75/41 L 86/49 L Pulse Oximetry 100 99 100 Oxygen Delivery 01/04/25 01:28 01/04/25 01:30 01/04/25 01:31 Temperature Pulse Rate 105 H 106 H 105 H Respiratory Rate 15 14 15 Blood Pressure 75/34 L 72/34 L Pulse Oximetry 100 97 100 Oxygen Delivery 01/04/25 01:35 01/04/25 01:35 01/04/25 01:40 Temperature Pulse Rate 106 H 106 H 107 H Respiratory Rate 19 Blood Pressure 76/43 L 76/43 L 76/53 L Pulse Oximetry 100 Oxygen Delivery 01/04/25 01:40 01/04/25 01:45 01/04/25 01:46 Temperature Pulse Rate 107 H 106 H 106 H Respiratory Rate 18 14 14 Blood Pressure 76/52 L 97/37 L Pulse Oximetry 100 100 100 Oxygen Delivery 01/04/25 01:50 01/04/25 01:50 01/04/25 01:55 Temperature Pulse Rate 103 H 106 H 102 H Respiratory Rate 19 16 Blood Pressure 93/39 L 93/39 L 111/45 L Pulse Oximetry 100 Oxygen Delivery 01/04/25 02:00 01/04/25 02:01 01/04/25 02:05 Temperature Pulse Rate 102 H 101 H 104 H Respiratory Rate 14 14 Blood Pressure 113/44 L 110/40 L Pulse Oximetry 100 100 Oxygen Delivery 01/04/25 02:05 01/04/25 02:06 01/04/25 02:10 Temperature Pulse Rate 101 H 102 H 104 H Respiratory Rate 15 17 17 Blood Pressure 110/40 L 111/43 L Pulse Oximetry 100 100 100 Oxygen Delivery 01/04/25 02:15 01/04/25 02:15 01/04/25 02:16 Temperature Pulse Rate 105 H 101 H 103 H Respiratory Rate 24 H 20 Blood Pressure 114/44 L 110/42 L Pulse Oximetry 100 100 Oxygen Delivery 01/04/25 02:20 01/04/25 02:25 01/04/25 02:30 Temperature Pulse Rate 105 H 103 H 104 H Respiratory Rate 19 19 20 Blood Pressure 115/46 L 119/41 L 115/47 L Pulse Oximetry 100 100 100 Oxygen Delivery 01/04/25 02:31 01/04/25 02:35 01/04/25 02:40 Temperature Pulse Rate 105 H 103 H 103 H Respiratory Rate 23 H 13 11 L Blood Pressure 115/50 L 108/49 L Pulse Oximetry 100 100 100 Oxygen Delivery 01/04/25 02:45 01/04/25 03:00 01/04/25 03:05 Temperature Pulse Rate 102 H 100 100 Respiratory Rate 12 12 12 Blood Pressure 123/43 L 114/44 L 114/42 L Pulse Oximetry 100 100 100 Oxygen Delivery 01/04/25 03:10 01/04/25 03:10 01/04/25 03:15 Temperature Pulse Rate 101 H 101 H 99 Respiratory Rate 10 L 11 L Blood Pressure 111/44 L 111/44 L 110/43 L Pulse Oximetry 99 98 100 Oxygen Delivery 01/04/25 03:20 01/04/25 03:25 01/04/25 03:30 Temperature Pulse Rate 105 H 99 101 H Respiratory Rate 12 13 11 L Blood Pressure 106/40 L 99/41 L 110/42 L Pulse Oximetry 100 100 100 Oxygen Delivery 01/04/25 03:35 01/04/25 03:40 01/04/25 03:45 Temperature Pulse Rate 101 H 100 100 Respiratory Rate 12 10 L 12 Blood Pressure 107/42 L 108/41 L 108/41 L Pulse Oximetry 98 100 100 Oxygen Delivery 01/04/25 03:50 01/04/25 03:55 01/04/25 04:00 Temperature Pulse Rate 98 99 100 Respiratory Rate 11 L 11 L 13 Blood Pressure 108/40 L 105/40 L 102/44 L Pulse Oximetry 100 100 100 Oxygen Delivery 01/04/25 04:05 01/04/25 04:10 01/04/25 04:15 Temperature Pulse Rate 100 101 H 100 Respiratory Rate 11 L 12 12 Blood Pressure 112/41 L 110/42 L 114/43 L Pulse Oximetry 100 98 100 Oxygen Delivery 01/04/25 04:38 01/04/25 04:39 01/04/25 04:45 Temperature Pulse Rate 104 H 106 H Respiratory Rate 17 Blood Pressure 125/71 147/49 H 134/48 L Pulse Oximetry 97 Oxygen Delivery 01/04/25 05:00 01/04/25 05:15 01/04/25 05:32 Temperature Pulse Rate 105 H 99 Respiratory Rate 16 Blood Pressure 120/53 L 99/39 L Pulse Oximetry 97 98 Oxygen Delivery Room Air 01/04/25 05:45 01/04/25 06:00 01/04/25 06:00 Temperature Pulse Rate 97 97 Respiratory Rate 11 L Blood Pressure 107/41 L 114/44 L Pulse Oximetry 97 Oxygen Delivery 01/04/25 06:00 01/04/25 06:30 01/04/25 08:00 Temperature Pulse Rate 97 98 Respiratory Rate Blood Pressure 114/44 L 123/49 L 128/57 L Pulse Oximetry Oxygen Delivery 01/04/25 08:00 01/04/25 08:15 01/04/25 08:30 Temperature 97.9 F Pulse Rate 98 99 93 Respiratory Rate 17 Blood Pressure 121/70 143/64 H 126/52 L Pulse Oximetry 96 Oxygen Delivery 01/04/25 08:45 01/04/25 09:00 Temperature Pulse Rate 91 98 Respiratory Rate Blood Pressure 128/50 L 121/70 Pulse Oximetry Oxygen Delivery Exam 2 Narrative: General: Patient is alert, pleasant, hard of hearing, in no acute distress HEENT:? Pupils equal and reactive, sclera is clear, dry oral mucosa Neck:? Supple Respiratory:? Clear to auscultation bilaterally, decreased at bases, no wheezing Cardiac:? S1-S2 normal, regular rate and rhythm Abdomen:? Soft, nontender, nondistended, right ileostomy/colostomy in place with brown stool Extremities:? Trace edema, palpable pedal pulses Neuro:? Patient is awake, alert, oriented x3, hard of hearing but able to answer questions appropriately and follows simple commands. Skin:? Bruising noted Psych:? Depressed affect Results Labs 01/04/25 05:39 01/04/25 05:39 Labs: Short CBC 01/03/25 01/04/25 Range/Units 21:39 05:39 WBC 5.4 7.5 (4.5-10.0) K/mm3 Hgb 10.2 L 9.0 L (12.0-15.0) g/dL Hct 33.4 L 29.3 L (37.0-47.0) % Plt Count 192 D 184 (150-375) k/mm3 BMP 01/03/25 01/03/25 01/04/25 21:39 23:59 05:39 Sodium 129 L 134 L 135 L Potassium 6.0 H* 3.8 4.2 Chloride 110 H 113 H 114 H Carbon Dioxide 7 L 13 L 12 L BUN 56 H D 52 H 49 H Creatinine 2.69 H 2.35 H 2.02 H Glucose 115 H 78 151 H Calcium 10.1 9.2 9.2 Cardiac Enzymes 01/03/25 Range/Units 21:34 Total Creatine Kinase 53 (30-135) U/L Liver Function 01/03/25 Range/Units 21:39 Total Bilirubin 0.3 (0.2-1.3) mg/dL AST 35 (14-36) U/L ALT 19 (6-35) U/L Alkaline Phosphatase 86 (38-126) U/L Albumin 4.0 (3.5-5.1) g/dL Urine 01/03/25 Range/Units 22:45 Urine Color Yellow (Yellow) Urine Appearance Clear (Clear) Urine pH 5.0 (5.0-9.0) Ur Specific [place] 1.017 (1.001-1.035) Urine Protein Trace (Negative) mg/dL Urine Glucose (UA) Negative (Negative) mg/dL Quality VTE Prophylaxis VTE prophylaxis: pharmacologic ordered Hospitalist MIPS Advance Care Plan I have confirmed that the patient's Advanced Care Plan is present, code status is documented, or surrogate decision maker is listed in patient medical record.: Yes Medication Reconciliation I have utilized all available resources to obtain, update and review the patients current medications (includes all prescriptions, OTC, herbals, cannabis, and nutritional supplements).: Yes
--- NOTE | 2025-01-04 10:08 | P.PNNP_ITS ---
Progress Note: A&P Assessment and Plan (1) Acute kidney injury: Code(s): N17.9 - Acute kidney failure, unspecified Status: Acute Assessment and Plan: The patient has acute kidney injury. Her creatinine was normal in November. Her urinalysis is bland. CT scan showed normal kidneys without hydro The patient had somewhat voluminous liquid stools from her colostomy and was hardly drinking anything or eating anything in the last few days. In addition she was on hydrochlorothiazide blunting her kidneys ability to help prevent her dehydration. She was hypotensive on admission. Most likely the patient is dehydrated. She did receive IV fluids in the ER and since she has been in the ICU. And she continues to receive some IV fluids now. Her creatinine seems to improved over the last day or so The patient could have infection as well related to her abdominal pain. Infection can play a role in kidney disease as well. So she is on antibiotics. CT ruled out obstruction. Rhabdomyolysis is a possibility. CK is normal Other possibilities include glomerulonephritis or interstitial no for but I think these are less likely in this clinical scenario Will continue with IV fluids to help her dehydration. She is getting albumin as well to help with intravascular volume. Will check an albumin level again tomorrow. (2) Metabolic acidosis: Code(s): E87.20 - Acidosis, unspecified Status: Acute Assessment and Plan: The patient has a metabolic acidosis. Her anion gap last admission was around 6 and on admission it was 12. Her lactic acid level was normal. Perhaps she had an element of uremic poison related increase in anion gap but her gap has improved with fluids and improvement of renal function. The anion gap is not completely normal so she does have a small element of anion gap acidosis. The majority of the acidosis, however, is a normal anion gap metabolic acidosis. This is probably related to her liquid ostomy stool. In addition, her ammonia production might be low due to renal insufficiency. Hyperkalemia can blunt ammonia production as well contributing to non anion gap metabolic acidosis. Her hypotension and other aspects of her illness may make her hyper catabolic which can result in increase overall acid production. Her potassium has been corrected. She received several amps of sodium bicarbonate. She is getting a bicarbonate drip and her bicarbonate is improving. if the trend does not continue, we can give more amps of sodium bicarb. (3) Shock: Code(s): R57.9 - Shock, unspecified Status: Acute Assessment and Plan: Patient has hypovolemic shock. They are ruling out septic shock as well. Cultures are pending and she is on antibiotics. She is getting IV fluids (4) Gastroesophageal reflux disease: Code(s): K21.9 - Gastro-esophageal reflux disease without esophagitis Status: Acute Assessment and Plan: The patient is on pantoprazole (5) Colostomy in place: Code(s): Z93.3 - Colostomy status Status: Acute Assessment and Plan: Status post colectomy due to GI bleeding. She has had no more bleeding at home she said (6) Hyperkalemia: Code(s): E87.5 - Hyperkalemia Status: Acute Assessment and Plan: Potassium was high, likely due to losartan plus acidosis plus renal failure. Losartan has been held and the potassium is normal in a (7) Hyponatremia: Code(s): E87.1 - Hypo-osmolality and hyponatremia Status: Acute Assessment and Plan: Sodium level is mildly low. This is chronic. Possibly related to her hydrochlorothiazide. She should probably not start this again after discharge (8) Anemia: Code(s): D64.9 - Anemia, unspecified Status: Acute Assessment and Plan: Hemoglobin is up and down around 9-10. This is improved over last visit of course. (9) Hypertension: Code(s): I10 - Essential (primary) hypertension Status: Acute Assessment and Plan: Antihypertensives are on hold (10) CAD (coronary artery disease): Code(s): I25.10 - Atherosclerotic heart disease of [place] coronary artery without angina pectoris Status: Acute Assessment and Plan: No chest Subjective Date/time seen: 01/04/25 10:08 Interval history: Crystal is a very pleasant 89-year-old lady who has multiple medical problems including coronary artery disease, hypothyroidism, hypertension, recent GI bleed resulting in a colectomy and has a ileostomy, GERD, osteoporosis, skin cancer, arthritis. Back in November the patient came in with GI bleeding. Colonoscopy and EGD were negative. She continued to bleed and so a tagged red cell scan was done and this showed bleeding in the transverse colon. She was transferred to [facility]. He end up having to have a colectomy. Since discharge she has not done real well. She feels like she has not recovered very well. She has not been eating or drinking very much. In the last week she has been having more more abdominal discomfort. Mostly in the left and right lower quadrants. She hardly has eaten anything in the last few days. She has continued to take her medications, including losartan and hydrochlorothiazide. Her stool output has been consistent, liquid, and somewhat voluminous she says. Along with her belly pain she has not had any nausea or vomiting. She denies any bloody urine foamy urine kidney stones, or bladder infections. Review of Systems Constitutional: Constitutional: Reports no additional constitutional complaints Eyes: Eyes: Reports no additional eye complaints ENT: Reports system reviewed and no additional complaints, except as documented Cardiovascular: Cardiovascular: Reports no additional cardiovascular complaints Respiratory: Respiratory: Reports no additional respiratory complaints Gastrointestinal: Gastrointestinal: Reports no additional gastrointestinal complaints Genitourinary: Genitourinary: Reports no additional female genitourinary complaints Musculoskeletal: Musculoskeletal: Reports no additional musculoskeletal complaints Integumentary/Breasts: Skin/Breast: Reports system reviewed and no additional complaints, except as docu Neurologic: Reports system reviewed and no additional complaints, except as documented Psychiatric: Psychiatric: Reports no additional psychiatric complaints Endocrine: Endocrine: Reports no additional endocrine complaints Exam Narrative: Exam Narrative: Well developed well-nourished female in no acute distress Skin is warm and dry without rash Head normocephalic atraumatic Eyes normal sclerae and conjunctivae Mouth normal lips teeth and gums. Mucous membranes are mildly dry Neck no nodes no thyromegaly no carotid bruits Axillae no nodes Back no CVA tenderness Lungs symmetric and clear to auscultation and percussion Heart regular rate and rhythm without rub or gallop Abdomen bowel sounds positive soft nontender, no HSM, masses, or bruits. She has an ostomy. Extremities no cyanosis, clubbing, or edema Pulses 2+ equal in radial arteries Psychological not anxious or depressed Neuro alert and oriented x3 motor 5/5 cranial nerves 2-12 intact reflexes 2+ and equal in the biceps and patellar tendons cerebellar normal rapid alternating movements Objective Data Vital Signs Vital Signs: Vital Signs - 24 hr 01/03/25 15:01 01/03/25 20:33 01/03/25 22:54 Temperature 97.7 F Pulse Rate 79 74 99 Respiratory Rate 16 16 19 Blood Pressure 102/57 L 92/59 L Pulse Oximetry 100 100 Oxygen Delivery Room Air 01/03/25 23:45 01/03/25 23:51 01/03/25 23:56 Temperature Pulse Rate 99 100 105 H Respiratory Rate 19 14 15 Blood Pressure 71/41 L Pulse Oximetry 100 98 Oxygen Delivery 01/03/25 23:59 01/04/25 00:00 01/04/25 00:01 Temperature Pulse Rate 101 H 100 101 H Respiratory Rate 14 14 15 Blood Pressure 76/41 L 76/47 L Pulse Oximetry 100 100 100 Oxygen Delivery 01/04/25 00:22 01/04/25 00:25 01/04/25 00:30 Temperature Pulse Rate 105 H 105 H 108 H Respiratory Rate 16 13 15 Blood Pressure 76/42 L 77/49 L Pulse Oximetry 100 100 99 Oxygen Delivery 01/04/25 00:31 01/04/25 00:35 01/04/25 00:38 Temperature Pulse Rate 108 H 104 H 101 H Respiratory Rate 16 16 13 Blood Pressure 84/40 L 78/35 L Pulse Oximetry 100 Oxygen Delivery 01/04/25 00:40 01/04/25 00:43 01/04/25 00:45 Temperature Pulse Rate 106 H 111 H 112 H Respiratory Rate 18 18 16 Blood Pressure 69/36 L 87/42 L 79/45 L Pulse Oximetry 100 100 100 Oxygen Delivery 01/04/25 00:46 01/04/25 00:50 01/04/25 00:51 Temperature Pulse Rate 109 H 108 H 107 H Respiratory Rate 13 14 14 Blood Pressure 74/41 L Pulse Oximetry 100 100 99 Oxygen Delivery 01/04/25 00:55 01/04/25 01:00 01/04/25 01:01 Temperature Pulse Rate 105 H 104 H 105 H Respiratory Rate 13 14 15 Blood Pressure 70/39 L 78/40 L Pulse Oximetry 97 96 98 Oxygen Delivery 01/04/25 01:05 01/04/25 01:10 01/04/25 01:15 Temperature Pulse Rate 104 H 105 H 107 H Respiratory Rate 14 15 17 Blood Pressure 75/41 L 86/49 L Pulse Oximetry 100 99 100 Oxygen Delivery 01/04/25 01:28 01/04/25 01:30 01/04/25 01:31 Temperature Pulse Rate 105 H 106 H 105 H Respiratory Rate 15 14 15 Blood Pressure 75/34 L 72/34 L Pulse Oximetry 100 97 100 Oxygen Delivery 01/04/25 01:35 01/04/25 01:35 01/04/25 01:40 Temperature Pulse Rate 106 H 106 H 107 H Respiratory Rate 19 Blood Pressure 76/43 L 76/43 L 76/53 L Pulse Oximetry 100 Oxygen Delivery 01/04/25 01:40 01/04/25 01:45 01/04/25 01:46 Temperature Pulse Rate 107 H 106 H 106 H Respiratory Rate 18 14 14 Blood Pressure 76/52 L 97/37 L Pulse Oximetry 100 100 100 Oxygen Delivery 01/04/25 01:50 01/04/25 01:50 01/04/25 01:55 Temperature Pulse Rate 103 H 106 H 102 H Respiratory Rate 19 16 Blood Pressure 93/39 L 93/39 L 111/45 L Pulse Oximetry 100 Oxygen Delivery 01/04/25 02:00 01/04/25 02:01 01/04/25 02:05 Temperature Pulse Rate 102 H 101 H 104 H Respiratory Rate 14 14 Blood Pressure 113/44 L 110/40 L Pulse Oximetry 100 100 Oxygen Delivery 01/04/25 02:05 01/04/25 02:06 01/04/25 02:10 Temperature Pulse Rate 101 H 102 H 104 H Respiratory Rate 15 17 17 Blood Pressure 110/40 L 111/43 L Pulse Oximetry 100 100 100 Oxygen Delivery 01/04/25 02:15 01/04/25 02:15 01/04/25 02:16 Temperature Pulse Rate 105 H 101 H 103 H Respiratory Rate 24 H 20 Blood Pressure 114/44 L 110/42 L Pulse Oximetry 100 100 Oxygen Delivery 01/04/25 02:20 01/04/25 02:25 01/04/25 02:30 Temperature Pulse Rate 105 H 103 H 104 H Respiratory Rate 19 19 20 Blood Pressure 115/46 L 119/41 L 115/47 L Pulse Oximetry 100 100 100 Oxygen Delivery 01/04/25 02:31 01/04/25 02:35 01/04/25 02:40 Temperature Pulse Rate 105 H 103 H 103 H Respiratory Rate 23 H 13 11 L Blood Pressure 115/50 L 108/49 L Pulse Oximetry 100 100 100 Oxygen Delivery 01/04/25 02:45 01/04/25 03:00 01/04/25 03:05 Temperature Pulse Rate 102 H 100 100 Respiratory Rate 12 12 12 Blood Pressure 123/43 L 114/44 L 114/42 L Pulse Oximetry 100 100 100 Oxygen Delivery 01/04/25 03:10 01/04/25 03:10 01/04/25 03:15 Temperature Pulse Rate 101 H 101 H 99 Respiratory Rate 10 L 11 L Blood Pressure 111/44 L 111/44 L 110/43 L Pulse Oximetry 99 98 100 Oxygen Delivery 01/04/25 03:20 01/04/25 03:25 01/04/25 03:30 Temperature Pulse Rate 105 H 99 101 H Respiratory Rate 12 13 11 L Blood Pressure 106/40 L 99/41 L 110/42 L Pulse Oximetry 100 100 100 Oxygen Delivery 01/04/25 03:35 01/04/25 03:40 01/04/25 03:45 Temperature Pulse Rate 101 H 100 100 Respiratory Rate 12 10 L 12 Blood Pressure 107/42 L 108/41 L 108/41 L Pulse Oximetry 98 100 100 Oxygen Delivery 01/04/25 03:50 01/04/25 03:55 01/04/25 04:00 Temperature Pulse Rate 98 99 100 Respiratory Rate 11 L 11 L 13 Blood Pressure 108/40 L 105/40 L 102/44 L Pulse Oximetry 100 100 100 Oxygen Delivery 01/04/25 04:05 01/04/25 04:10 01/04/25 04:15 Temperature Pulse Rate 100 101 H 100 Respiratory Rate 11 L 12 12 Blood Pressure 112/41 L 110/42 L 114/43 L Pulse Oximetry 100 98 100 Oxygen Delivery 01/04/25 04:38 01/04/25 04:39 01/04/25 04:45 Temperature Pulse Rate 104 H 106 H Respiratory Rate 17 Blood Pressure 125/71 147/49 H 134/48 L Pulse Oximetry 97 Oxygen Delivery 01/04/25 05:00 01/04/25 05:15 01/04/25 05:32 Temperature Pulse Rate 105 H 99 Respiratory Rate 16 Blood Pressure 120/53 L 99/39 L Pulse Oximetry 97 98 Oxygen Delivery Room Air 01/04/25 05:45 01/04/25 06:00 01/04/25 06:00 Temperature Pulse Rate 97 97 Respiratory Rate 11 L Blood Pressure 107/41 L 114/44 L Pulse Oximetry 97 Oxygen Delivery 01/04/25 06:00 01/04/25 06:30 01/04/25 08:00 Temperature Pulse Rate 97 98 Respiratory Rate Blood Pressure 114/44 L 123/49 L 128/57 L Pulse Oximetry Oxygen Delivery 01/04/25 08:00 01/04/25 08:15 01/04/25 08:30 Temperature 97.9 F Pulse Rate 98 99 93 Respiratory Rate 17 Blood Pressure 121/70 143/64 H 126/52 L Pulse Oximetry 96 Oxygen Delivery 01/04/25 08:45 01/04/25 09:00 Temperature Pulse Rate 91 98 Respiratory Rate Blood Pressure 128/50 L 121/70 Pulse Oximetry Oxygen Delivery Intake/Output Intake/Output: Intake & Output 01/01/25 01/02/25 01/03/25 01/04/25 23:59 23:59 23:59 23:59 Intake Total 1999 1236.1 Output Total 200 Balance 1999 1036.1 Meds/Results Medications: Active Medications Generic Name Dose Route Start Last Admin Trade Name Freq PRN Reason Stop Dose Admin Acetaminophen 650 mg 01/04/25 03:26 Acetaminophen 325 Mg Tablet PO Q4H PRN Mild Pain (1-3) or Fever Atorvastatin Calcium 40 mg 01/04/25 21:00 Atorvastatin 40 Mg Tablet PO HS LISA Citalopram Hydrobromide 10 mg 01/04/25 18:00 Citalopram Hydrobromide 10 Mg Tablet PO QPM LISA Gabapentin 600 mg 01/04/25 21:00 Gabapentin 300 Mg Capsule PO HS [facility] Heparin Sodium (Porcine) 5,000 units 01/04/25 09:45 Heparin Sodium 5,000 Units/Ml Vial SUB-Q Q12HR LISA Norepinephrine Bitartrate 8 mg in 250 mls @ 18.75 mls/hr 01/04/25 01:15 01/04/25 09:00 Levophed 8 Mg/D5w 250 Ml IV CONT 10 mcg/min .[id number] LISA 18.75 mls/hr Titration Protocol 10 MCG/MIN Metronidazole 500 mg in 100 mls @ 100 mls/hr 01/04/25 08:00 01/04/25 08:55 Flagyl 500 Mg/Iso Soln 100 Ml IVPB 100 mls/hr Q8H LISA Administration Ceftriaxone Sodium 1 gm in 50 mls @ 100 mls/hr 01/04/25 09:00 01/04/25 08:55 Rocephin 1 Gm/Ns 50 Ml IVPB 100 mls/hr Q24H LISA Administration Sodium Bicarbonate 150 meq/ 1,100 mls @ 75 mls/hr 01/04/25 08:30 01/04/25 08:46 Dextrose IV CONT 01/04/25 21:49 75 mls/hr .[id number] LISA Administration Albumin Human 100 mls @ 60 mls/hr 01/04/25 07:23 01/04/25 08:48 Albutein IVPB 01/05/25 01:39 60 mls/hr Q6HR LISA Administration Levothyroxine Sodium 75 mcg 01/04/25 07:40 01/04/25 08:52 Levothyroxine Sodium 75 Mcg Tablet PO 75 mcg DAILY@0630 LISA Administration Miscellaneous Information 1 each 01/04/25 07:40 Nystatin Powsder In Subbed To Tolnaftate Powder. Tolnaftate Powder Is Not A Pharmacy Item. XX 01/05/25 07:39 DAILY LISA Multivitamins/Minerals 1 tab 01/04/25 09:00 01/04/25 08:53 Multivitamins /C Lutein (Centrum Silver) Tablet *Bkc PO 1 tab DAILY LISA Administration Ondansetron HCl 4 mg 01/04/25 03:26 Ondansetron Inj 4 Mg/2 Ml Vial IV PUSH Q4H PRN Nausea Pantoprazole Sodium 40 mg 01/04/25 09:00 01/04/25 08:53 Pantoprazole 40 Mg Tablet PO 40 mg QAM LISA Administration Perflutren Lipid Microsphere 0 ml 01/04/25 09:07 Perflutren Lipid Microspheres 1.5 Ml Vial Diluted To 10 Ml Total Volume IV PUSH 01/07/25 09:07 ONCE PRN adequate visualization Protocol Sodium Chloride 10 ml 01/04/25 06:00 01/04/25 06:47 Central Line Flush IV PUSH 10 ml Q8HR LISA Administration Sodium Chloride 20 ml 01/04/25 04:39 Central Line Flush IV PUSH PRN PRN after blood draws Radiology Results: ITS Impressions Abdomen/Pelvis CT 01/04/25 06:32 Impression: No acute abnormality evident. Cholelithiasis. Moderate hiatal hernia. 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 Chest X-Ray 01/04/25 06:58 Impression: Right IJ line in place, as above. Clear lungs. No pneumothorax. Probable mild cardiomegaly. Labs Labs: Laboratory Results - last 24 hr 01/03/25 01/03/25 01/03/25 21:34 21:39 22:42 WBC 5.4 RBC 3.77 L Hgb 10.2 L Hct 33.4 L MCV 88.6 MCH 27.1 MCHC 30.5 L RDW 16.0 H Plt Count 192 D MPV 10.9 H Immature Gran % (Auto) 0.6 H Neut % (Auto) 70.8 Lymph % (Auto) 19.6 [place] % (Auto) 7.5 Eos % (Auto) 1.1 Baso % (Auto) 0.4 Lymph # (Auto) 1.05 [place] # (Auto) 0.4 Eos # (Auto) 0.1 Baso # (Auto) 0.0 Abs Immat Gran (auto) 0.03 Absolute Neuts (auto) 3.8 Absolute Nucleated RBC 0.000 Nucleated RBC % 0.0 PT 14.0 INR 1.1 APTT 37.9 H VBG pH VBG pCO2 VBG pO2 VBG HCO3 O2 Delivery Device O2 Liters/Min FiO2 Sodium 129 L Potassium 6.0 H* Chloride 110 H Carbon Dioxide 7 L Anion Gap 12 BUN 56 H D Creatinine 2.69 H Estim Creat Clear Calc Not Reportable Estimated GFR 17 L Glucose 115 H POC Capillary Glucose 105 Lactic Acid 0.7 Calcium 10.1 Phosphorus Magnesium 2.4 H Total Bilirubin 0.3 AST 35 ALT 19 Alkaline Phosphatase 86 Total Creatine Kinase 53 Total Protein 7.5 Albumin 4.0 Lipase 229 TSH (Reflex) Urine Color Urine Appearance Urine pH Ur Specific [place] Urine Protein Urine Glucose (UA) Urine Ketones Ur Blood (Man) Urine Nitrate Urine Bilirubin Urine Urobilinogen Add Ur Microanalysis Leukocyte Esterase Rfl Urine RBC Urine WBC Ur Squamous Epith Cells Urine Bacteria Urine Casts Nasal MRSA (PCR) 01/03/25 01/03/25 01/03/25 22:45 23:19 23:59 WBC RBC Hgb Hct MCV MCH MCHC RDW Plt Count MPV Immature Gran % (Auto) Neut % (Auto) Lymph % (Auto) [place] % (Auto) Eos % (Auto) Baso % (Auto) Lymph # (Auto) [place] # (Auto) Eos # (Auto) Baso # (Auto) Abs Immat Gran (auto) Absolute Neuts (auto) Absolute Nucleated RBC Nucleated RBC % PT INR APTT VBG pH VBG pCO2 VBG pO2 VBG HCO3 O2 Delivery Device O2 Liters/Min FiO2 Sodium 134 L Potassium 3.8 Chloride 113 H Carbon Dioxide 13 L Anion Gap 8 BUN 52 H Creatinine 2.35 H Estim Creat Clear Calc Not Reportable Estimated GFR 20 L Glucose 78 POC Capillary Glucose 123 H Lactic Acid Calcium 9.2 Phosphorus Magnesium Total Bilirubin AST ALT Alkaline Phosphatase Total Creatine Kinase Total Protein Albumin Lipase TSH (Reflex) Urine Color Yellow Urine Appearance Clear Urine pH 5.0 Ur Specific [place] 1.017 Urine Protein Trace Urine Glucose (UA) Negative Urine Ketones Trace H Ur Blood (Man) Negative Urine Nitrate Negative Urine Bilirubin Negative Urine Urobilinogen 0.2 Add Ur Microanalysis Reviewed Leukocyte Esterase Rfl Negative Urine RBC 0-2 Urine WBC 0-5 Ur Squamous Epith Cells None seen Urine Bacteria None seen Urine Casts 6-10 Nasal MRSA (PCR) 01/04/25 01/04/25 01/04/25 00:36 05:38 05:39 WBC 7.5 RBC 3.36 L Hgb 9.0 L Hct 29.3 L MCV 87.2 MCH 26.8 MCHC 30.7 L RDW 15.9 H Plt Count 184 MPV 10.7 H Immature Gran % (Auto) Neut % (Auto) Lymph % (Auto) [place] % (Auto) Eos % (Auto) Baso % (Auto) Lymph # (Auto) [place] # (Auto) Eos # (Auto) Baso # (Auto) Abs Immat Gran (auto) Absolute Neuts (auto) Absolute Nucleated RBC Nucleated RBC % PT INR APTT VBG pH 7.298 L VBG pCO2 31.5 L VBG pO2 47.2 H VBG HCO3 15.1 L O2 Delivery Device Room air O2 Liters/Min Not Reportable FiO2 21 Sodium 135 L Potassium 4.2 Chloride 114 H Carbon Dioxide 12 L Anion Gap 9 BUN 49 H Creatinine 2.02 H Estim Creat Clear Calc Not Reportable Estimated GFR 23 L Glucose 151 H POC Capillary Glucose 102 Lactic Acid Calcium 9.2 Phosphorus 4.0 Magnesium 2.0 Total Bilirubin AST ALT Alkaline Phosphatase Total Creatine Kinase Total Protein Albumin Lipase TSH (Reflex) 1.650 Urine Color Urine Appearance Urine pH Ur Specific [place] Urine Protein Urine Glucose (UA) Urine Ketones Ur Blood (Man) Urine Nitrate Urine Bilirubin Urine Urobilinogen Add Ur Microanalysis Leukocyte Esterase Rfl Urine RBC Urine WBC Ur Squamous Epith Cells Urine Bacteria Urine Casts Nasal MRSA (PCR) Not detected 01/04/25 01/04/25 08:33 08:44 WBC RBC Hgb Hct MCV MCH MCHC RDW Plt Count MPV Immature Gran % (Auto) Neut % (Auto) Lymph % (Auto) [place] % (Auto) Eos % (Auto) Baso % (Auto) Lymph # (Auto) [place] # (Auto) Eos # (Auto) Baso # (Auto) Abs Immat Gran (auto) Absolute Neuts (auto) Absolute Nucleated RBC Nucleated RBC % PT INR APTT VBG pH 7.304 VBG pCO2 32.3 L VBG pO2 45.3 H VBG HCO3 15.7 L O2 Delivery Device Not Reportable O2 Liters/Min Not Reportable FiO2 21 Sodium Potassium Chloride Carbon Dioxide Anion Gap BUN Creatinine Estim Creat Clear Calc Estimated GFR Glucose POC Capillary Glucose Lactic Acid 1.1 Calcium Phosphorus Magnesium Total Bilirubin AST ALT Alkaline Phosphatase Total Creatine Kinase Total Protein Albumin Lipase TSH (Reflex) Urine Color Urine Appearance Urine pH Ur Specific [place] Urine Protein Urine Glucose (UA) Urine Ketones Ur Blood (Man) Urine Nitrate Urine Bilirubin Urine Urobilinogen Add Ur Microanalysis Leukocyte Esterase Rfl Urine RBC Urine WBC Ur Squamous Epith Cells Urine Bacteria Urine Casts Nasal MRSA (PCR)
[2025-01-04] MEDS: ACETAMINOPHEN 325 MG TABLET 650 MG PO ×2 (10:16→16:45)
[2025-01-04 10:45] LABS: CRP < 0.5 mg/dL (<1.0); Creatine Kinase 341 U/L (30-135)
[2025-01-04 10:54] LABS: Urine Eos QC 2nd Tech Confirmed
[2025-01-04 11:04] LABS: Procalcitonin 0.1 ng/mL
[2025-01-04 17:22] LABS: Anion Gap 7 mmol/L (4-12); Blood Urea Nitrogen 44 mg/dL (7-17); Calcium 9.0 mg/dL (8.4-10.2); Carbon Dioxide 18 mmol/L (22-30); Chloride 109 mmol/L (98-107); Estimated Glomerular Filt Rate 34; Glucose 110 mg/dL (65-110); Potassium 4.5 mmol/L (3.4-5.0); Sodium 134 mmol/L (137-145)
[2025-01-04] MEDS: CITALOPRAM HYDROBROMIDE 10 MG TABLET PO (17:24)
[2025-01-04] MEDS: [UNRECOGNIZED DRUG - REMARK] 1 EACH XX (17:27)
[2025-01-04] MEDS: GABAPENTIN 300 MG CAPSULE 600 MG PO (20:42)
[2025-01-04] MEDS: ATORVASTATIN 40 MG TABLET PO (20:42)
[2025-01-05] VITALS (13 sets, daily range): BP systolic 104–140; BP diastolic 47–89; PULSE 67–76; RESP 12–21; TEMP 36.8–37.6; O2SAT 94–97
--- NOTE | 2025-01-05 | ECHO_ITS ---
Patient Info Name: Crystal Mcmahan Age: 89 years : 1935 Gender: Female Ht: 59 in Wt: 144 lbs BSA: 1.67 m2 HR: 73 bpm BP: 136 / 57 mmHg Technical Quality: Good Exam Date: 01/05/2025 8:53 AM Patient Status: I Admit Date: 01/04/2025 Exam Type: CA echo doppler color flow Complete two-dimensional, color flow and Doppler transthoracic echocardiogram is performed. Staff Referring Physician: Yari Corley Terminal System Operator: Carissa Rae Attending Provider: Adelaide Tarango MD Summary 1. Complete two-dimensional, color flow and Doppler transthoracic echocardiogram is performed. 2. Left ventricular chamber dimension is normal. 3. Left ventricular systolic function is normal, estimated at 60-65. 4. The left ventricular diastolic function is grade I diastolic dysfunction. 5. E/e' 15 is elevated. 6. Left atrial chamber dimension is moderately enlarged. 7. Right atrial chamber dimension is mildly enlarged. 8. There is moderate aortic valve sclerosis. 9. There is mild aortic valve regurgitation. 10. The mitral valve has a moderately calcified annulus. 11. There is mild mitral valve regurgitation. 12. There is mild tricuspid valve regurgitation. 13. Moderate pulmonary hypertension, estimated pulmonary arterial systolic pressure is 57 mmHg. 14. Dilated inferior vena cava with >50% collapse upon inspiration consistent with elevated right atrial pressure, 10 mmHg. Left Ventricle E/e' 15 is elevated. Left ventricular chamber dimension is normal. Left ventricular systolic function is normal, estimated at 60-65. The left ventricular diastolic function is grade I diastolic dysfunction. Right Ventricle Right ventricular chamber dimension is normal. Right ventricular systolic function is normal and with normal TAPSE 2.8 cm. Left Atria Left atrial chamber dimension is moderately enlarged. Right Atria Right atrial chamber dimension is mildly enlarged. Aortic Valve The aortic valve is trileaflet. There is moderate aortic valve sclerosis. There is no aortic valve stenosis. There is mild aortic valve regurgitation. Pulmonic Valve There is no pulmonic regurgitation. Mitral Valve The mitral valve has a moderately calcified annulus. There is no mitral valve stenosis. There is mild mitral valve regurgitation. Tricuspid Valve There is mild tricuspid valve regurgitation. Moderate pulmonary hypertension, estimated pulmonary arterial systolic pressure is 57 mmHg. Pericardium/Pleural There is no pericardial effusion. Inferior Vena Cava Dilated inferior vena cava with >50% collapse upon inspiration consistent with elevated right atrial pressure, 10 mmHg. Aorta The aortic root size at the sinus of Valsalva is normal. Left Ventricular Outflow Tract Name Value Normal LVOT 2D LVOT Diameter 1.5 cm Pulmonic Valve Name Value Normal PV Doppler PV Peak Velocity 166 cm/s PV Peak Gradient 11 mmHg Mitral Valve Name Value Normal MV Doppler MV Peak Gradient 11 mmHg MV Mean Gradient 4 mmHg MV Regurgitation Doppler MR Peak Gradient 128 mmHg MV Diastolic Function MV E Peak Velocity 136 cm/s MV A Peak Velocity 144 cm/s MV E/A 0.9 MV Decel Time (PW) 240 ms MV Annular TDI MV E/e' (Septal) 16.2 MV E/e' (Lateral) 15.3 MV E/e' (Average) 15.8 Tricuspid Valve Name Value Normal TV Regurgitation Doppler TR Peak Velocity 343 cm/s TR Peak Gradient 36 mmHg Estimated PAP/RSVP RA Pressure 10 mmHg <=5 PA Systolic Pressure 57 mmHg <36 RV Systolic Pressure 57 mmHg <36 TV Annular TDI TV Lateral Aurea s' Velocity 17.3 cm/s >=9.5 Aortic Valve Name Value Normal AV 2D/MM AV Area (Planimetry) 2.3 cm2 AV Doppler AV Peak Velocity 352 cm/s AV Peak Gradient 44 mmHg AV Mean Gradient 24 mmHg AV VTI 75 cm AV Regurgitation 2D LVOT Area 1.8 cm2 Ventricles Name Value Normal LV Dimensions 2D/MM IVS Diastolic Thickness (2D) 1.0 cm 0.6-1.0 LVID Diastole (2D) 4.7 cm 3.8-5.2 LVIW Diastolic Thickness (2D) 0.9 cm 0.6-0.9 LVID Systole (2D) 3.4 cm 2.2-3.5 LVOT Diameter 1.5 cm LV Mass (2D Cubed) 155.36 g 67.00-162.00 LV Mass Index (2D Cubed) 93 g/m2 43-95 Relative Wall Thickness (2D) 0.38 <=0.42 LV Fractional Shortening/Ejection Fraction 2D/MM LV Fractional Shortening (2D) 28 % 27-45 LV EF (2D Teichholz) 54 % LV Diastolic Volume (4C MOD) 99 ml LV EF (4C MOD) 70 % LV Diastolic Volume (2C MOD) 67 ml LV EF (2C MOD) 58 % LV Diastolic Volume (BP MOD) 82 ml 46-106 LV Diastolic Volume Index (BP MOD) 49 ml/m2 29-61 LV Systolic Volume (BP MOD) 29 ml 14-42 LV Systolic Volume Index (BP MOD) 18 ml/m2 8-24 LV EF (BP MOD) 64 % 54-74 LV Diastolic Length (4C) 8.2 cm LV Systolic Length (4C) 6.4 cm LV Stroke Volume (4C MOD) 70 ml Atria Name Value Normal LA Dimensions LA Volume (4C A-L) 60 ml LA Volume (BP A-L) 70 ml RA Dimensions RA Systolic Major Ary Length (4C) 5.0 cm 2.2-2.8 RA Area (4C) 18.1 cm2 <=18.0 Report Signatures
[2025-01-05 06:05] LABS: Hematocrit 22.5 % (37.0-47.0); Hemoglobin 7.1 g/dL (12.0-15.0); Immature Granulocyte Percent A 0.7 % (0-0.5); Lymphocytes Absolute Auto 0.60 K/mm3 (0.9-3.2); Mean Corpuscular HGB Conc 31.6 g/dl (32-36); Mean Corpuscular Hemoglobin 26.9 pg (26-34); Mean Corpuscular Volume 85.2 fl (80-100); Nucleated Red Blood Cells Absolute Auto 0.000 K/mm3 (0.0-0.012); Nucleated Red Blood Cells Perc 0.0 % (0.0-0.2); Platelet Count Result 112 k/mm3 (150-375); Red Blood Count 2.64 M/mm3 (4.2-5.4); White Blood Count 3.0 K/mm3 (4.5-10.0)
[2025-01-05] MEDS: LEVOTHYROXINE SODIUM 75 MCG TABLET PO (06:23)
[2025-01-05] MEDS: CENTRAL LINE FLUSH 10 ML IV PUSH ×2 (06:24→20:56)
[2025-01-05 06:46] LABS: Alanine Aminotransferase 13 U/L (6-35); Albumin Level 3.4 g/dL (3.5-5.1); Alkaline Phosphatase 43 U/L (38-126); Anion Gap 6 mmol/L (4-12); Aspartate Amino Transferase 32 U/L (14-36); Bilirubin,Total 0.5 mg/dL (0.2-1.3); Blood Urea Nitrogen 33 mg/dL (7-17); Calcium 8.7 mg/dL (8.4-10.2); Carbon Dioxide 23 mmol/L (22-30); Chloride 105 mmol/L (98-107); Estimated Glomerular Filt Rate 43; Glucose 95 mg/dL (65-110); Magnesium 1.7 mg/dL (1.6-2.3); Potassium 4.2 mmol/L (3.4-5.0); Sodium 134 mmol/L (137-145); Total Protein 5.6 g/dL (6.3-8.2)
[2025-01-05] MEDS: metroNIDAZOLE 500 MG/ISO 100ML 500 MG/100 ML BAG 100 MG IVPB ×3 (08:39→23:20)
[2025-01-05] MEDS: MAGNESIUM SULF 2 GM/WATER 50ML 2 GM/50 ML BAG IVPB (08:40)
[2025-01-05] MEDS: PANTOPRAZOLE 40 MG TABLET PO (08:41)
[2025-01-05] MEDS: MULTIVITAMINS /C LUTEIN (CENTRUM SILVER) TABLET *BKC 1 TAB PO (08:41)
--- NOTE | 2025-01-05 09:35 | WPDINTPN ---
Progress Note: A&P Assessment and Plan (1) Shock: Code(s): R57.9 - Shock, unspecified Status: Acute Assessment and Plan: RESOLVED Patient presented with abdominal pain, no nausea, vomiting. She also had acute kidney injury with hyperkalemia, dehydration likely due to continuous use of home medications losartan and hydrochlorothiazide -patient was found to be hypotensive in the ER -patient received 3 L IV fluid bolus -currently OFF pressors with adequate SBP and MAP -status post IV fluids, albumin -procalcitonin and CRP within normal limits -01/04: started ceftriaxone and Flagyl since patient presented with abdominal pain -CT abdomen and pelvis with no evidence of any abnormality - 01/04: CT abdomen and pelvis without contrast: No acute abnormality evident, cholelithiasis, moderate hiatal hernia, 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 (2) Hypotension: Code(s): I95.9 - Hypotension, unspecified Status: Acute Assessment and Plan: Hypotension could be related to dehydration, hypovolemia, metabolic acidosis -01/03/2025: Blood cultures are negative x2 so far -01/04/2025: Urine cultures are pending Echocardiogram has been ordered and pending (3) Acute kidney injury: Code(s): N17.9 - Acute kidney failure, unspecified Status: Acute Assessment and Plan: Patient presented with acute kidney injury and hyperkalemia -creatinine on admission was 2.69, (baseline creatinine 0.89, recently creatinine of 1.81 on 12/26/2024 on outpatient labs) -patient adequately fluid-resuscitated, -status post albumin for intravascular volume expansion -urine lytes revealed pre renal condition, urine eosinophils were negative, almost normal CK level -01/04: renal ultrasound: Did not show any hydronephrosis or renal calculus no mass lesion -hyperkalemia likely related to severe metabolic acidosis, initial potassium levels were 6.0 on admission, hyperkalemia was treated, -potassium within normal limits -status post bicarb infusion, metabolic acidosis has resolved -appreciate Nephrology evaluation and recommendation (4) Metabolic acidosis: Code(s): E87.20 - Acidosis, unspecified Status: Acute Assessment and Plan: severe non metabolic acidosis metabolic acidosis could be related to ileostomy. Though the patient stated she had decreased a ileostomy drainage -could be related to ileostomy, diarrhea if at all which patient denies, states she has low output in her ostomy bag -renal tubular acidosis is another possibility for non-anion gap metabolic acidosis -metabolic acidosis has resolved, likely related to diarrhea, hypovolemia (5) Abdominal pain: Code(s): R10.9 - Unspecified abdominal pain Status: Acute Assessment and Plan: The initial abdominal pain low could be related to severe metabolic acidosis -has resolved Plan DVT prophylaxis: Heparin subQ Stress ulcer prophylaxis: Protonix Nutrition: Heart healthy diet Code Status: Full code Critical Care Time Spent: 31 minutes Patient may transfer out of the ICU Due to a high probability of clinically significant, life threatening deterioration, the patient required my highest level of preparedness to intervene emergently and I personally spent this critical care time directly and personally managing the patient. This critical care time included obtaining a history; examining the patient; pulse oximetry; ordering and review of studies; arranging urgent treatment with development of a management plan; evaluation of patient's response to treatment; frequent reassessment; and discussions with other providers. It was exclusive of separately billable procedures and treating other patients and teaching time. Please see Assessment and Plan section and the rest of the note for further information on patient assessment and treatment This dictation may have been done utilizing a voice recognition system. Attempts have been made to correct errors. However, there may be uncorrected grammatical, spelling, and recognitions errors present. Subjective Date/time seen: 01/05/25 09:35 Interval history: Reason for consult: Abdominal pain, shock, requiring vasopressors, severe metabolic acidosis, acute kidney injury, hyperkalemia 01/05/2025: Patient seen and examined the ICU. Is awake, alert, oriented x3, states he feels much better. Off vasopressors, urine output has been adequate, creatinine has significantly improved. Patient is hemodynamically stable, denies any shortness of breath, chest pain, abdominal pain, nausea, vomiting. Metabolic acidosis has resolved Review of Systems Review of Systems: All systems reviewed & are unremarkable except as noted in HPI and below Exam Narrative: General: Patient is alert, pleasant, hard of hearing, in no acute distress HEENT:? Pupils equal and reactive, sclera is clear, dry oral mucosa Neck:? Supple Respiratory:? Clear to auscultation bilaterally, decreased at bases, no wheezing Cardiac:? S1-S2 normal, regular rate and rhythm Abdomen:? Soft, nontender, nondistended, right ileostomy/colostomy in place with brown stool Extremities:? Trace edema, palpable pedal pulses Neuro:? Patient is awake, alert, oriented x3, hard of hearing but able to answer questions appropriately and follows simple commands. Skin:? Bruising noted Psych:? Normal mentation and affect Objective Data Vital Signs Vital Signs: Vital Signs - 24 hr 01/04/25 10:00 01/04/25 10:00 01/04/25 10:15 Temperature 98.1 F Pulse Rate 98 98 98 Respiratory Rate 17 Blood Pressure 115/55 L 117/57 L Pulse Oximetry 97 Oxygen Delivery 01/04/25 10:30 01/04/25 11:02 01/04/25 12:00 Temperature Pulse Rate 96 Respiratory Rate Blood Pressure 125/58 L 108/56 L Pulse Oximetry 98 Oxygen Delivery Room Air 01/04/25 12:00 01/04/25 12:00 01/04/25 12:46 Temperature 98.3 F Pulse Rate 90 92 91 Respiratory Rate 16 Blood Pressure 117/94 H 69/46 L Pulse Oximetry 98 Oxygen Delivery 01/04/25 13:00 01/04/25 14:00 01/04/25 14:00 Temperature 98.3 F Pulse Rate 89 89 89 Respiratory Rate 10 L Blood Pressure 104/61 128/49 L 128/49 L Pulse Oximetry 96 Oxygen Delivery 01/04/25 14:00 01/04/25 15:15 01/04/25 16:00 Temperature Pulse Rate 89 86 Respiratory Rate Blood Pressure 123/54 L Pulse Oximetry 96 Oxygen Delivery Room Air 01/04/25 16:00 01/04/25 16:00 01/04/25 16:45 Temperature 98.4 F Pulse Rate 81 84 93 Respiratory Rate 11 L Blood Pressure 115/51 L 149/63 H Pulse Oximetry 96 Oxygen Delivery 01/04/25 18:00 01/04/25 18:00 01/04/25 18:00 Temperature 98.9 F Pulse Rate 89 89 89 Respiratory Rate 15 Blood Pressure 111/76 111/76 Pulse Oximetry 98 Oxygen Delivery 01/04/25 19:27 01/04/25 20:00 01/04/25 20:00 Temperature 99.3 F Pulse Rate 81 78 78 Respiratory Rate 14 Blood Pressure 97/49 L 100/45 L 100/45 L Pulse Oximetry 97 Oxygen Delivery 01/04/25 20:00 01/04/25 20:15 01/04/25 20:30 Temperature Pulse Rate 76 78 Respiratory Rate Blood Pressure 107/47 L Pulse Oximetry 96 Oxygen Delivery Room Air 01/04/25 22:00 01/04/25 22:00 01/04/25 22:00 Temperature 99 F Pulse Rate 76 76 76 Respiratory Rate 13 Blood Pressure 129/56 L 129/56 L Pulse Oximetry 96 Oxygen Delivery 01/04/25 23:22 01/05/25 00:00 01/05/25 00:00 Temperature 98.9 F Pulse Rate 71 72 73 Respiratory Rate 12 Blood Pressure 125/50 L 123/55 L 123/55 L Pulse Oximetry 96 Oxygen Delivery 01/05/25 00:00 01/05/25 00:00 01/05/25 00:30 Temperature Pulse Rate 75 69 Respiratory Rate Blood Pressure 104/48 L Pulse Oximetry 96 Oxygen Delivery Room Air 01/05/25 01:00 01/05/25 02:00 01/05/25 02:00 Temperature 98.9 F Pulse Rate 69 70 70 Respiratory Rate 13 Blood Pressure 111/47 L 116/50 L Pulse Oximetry 96 Oxygen Delivery 01/05/25 02:00 01/05/25 03:30 01/05/25 04:00 Temperature Pulse Rate 70 71 67 Respiratory Rate Blood Pressure 116/50 L 124/51 L 118/55 L Pulse Oximetry Oxygen Delivery 01/05/25 04:00 01/05/25 04:00 01/05/25 04:20 Temperature 98.7 F Pulse Rate 67 67 Respiratory Rate 12 Blood Pressure 118/55 L Pulse Oximetry 96 96 Oxygen Delivery Room Air 01/05/25 06:00 01/05/25 06:00 01/05/25 06:00 Temperature 98.3 F Pulse Rate 73 73 73 Respiratory Rate 13 Blood Pressure 136/57 L 136/57 L Pulse Oximetry 96 Oxygen Delivery 01/05/25 08:00 01/05/25 08:00 01/05/25 08:00 Temperature 98.5 F Pulse Rate 75 75 75 Respiratory Rate 21 H 21 H Blood Pressure 140/63 Pulse Oximetry 97 97 Oxygen Delivery Room Air Intake/Output Intake/Output: Intake & Output 01/02/25 01/03/25 01/04/25 01/05/25 23:59 23:59 23:59 23:59 Intake Total 1999 3566.6 1044.9 Output Total 1125 950 Balance 1999 2441.6 94.9 Meds/Results Medications: Active Medications Generic Name Dose Route Start Last Admin Trade Name Freq PRN Reason Stop Dose Admin Acetaminophen 650 mg 01/04/25 03:26 01/04/25 16:45 Acetaminophen 325 Mg Tablet PO 650 mg Q4H PRN Administration Mild Pain (1-3) or Fever Atorvastatin Calcium 40 mg 01/04/25 21:00 01/04/25 20:42 Atorvastatin 40 Mg Tablet PO 40 mg HS LISA Administration Citalopram Hydrobromide 10 mg 01/04/25 18:00 01/04/25 17:24 Citalopram Hydrobromide 10 Mg Tablet PO 10 mg QPM LISA Administration Gabapentin 600 mg 01/04/25 21:00 01/04/25 20:42 Gabapentin 300 Mg Capsule PO 600 mg HS LISA Administration Heparin Sodium (Porcine) 5,000 units 01/04/25 09:45 01/05/25 08:41 Heparin Sodium 5,000 Units/Ml Vial SUB-Q 5,000 units Q12HR LISA Administration Norepinephrine Bitartrate 8 mg in 250 mls @ 0 mls/hr 01/04/25 01:15 01/05/25 06:00 Levophed 8 Mg/D5w 250 Ml IV CONT 0 mcg/min .Q0M LISA 0 mls/hr Titration Protocol 0 MCG/MIN Metronidazole 500 mg in 100 mls @ 100 mls/hr 01/04/25 08:00 01/05/25 08:39 Flagyl 500 Mg/Iso Soln 100 Ml IVPB 100 mls/hr Q8H LISA Administration Ceftriaxone Sodium 1 gm in 50 mls @ 100 mls/hr 01/04/25 09:00 01/05/25 08:40 Rocephin 1 Gm/Ns 50 Ml IVPB 100 mls/hr Q24H LISA Administration Levothyroxine Sodium 75 mcg 01/04/25 07:40 01/05/25 06:23 Levothyroxine Sodium 75 Mcg Tablet PO 75 mcg DAILY@0630 LISA Administration Multivitamins/Minerals 1 tab 01/04/25 09:00 01/05/25 08:41 Multivitamins /C Lutein (Centrum Silver) Tablet *Bkc PO 1 tab DAILY LISA Administration Ondansetron HCl 4 mg 01/04/25 03:26 Ondansetron Inj 4 Mg/2 Ml Vial IV PUSH Q4H PRN Nausea Pantoprazole Sodium 40 mg 01/04/25 09:00 01/05/25 08:41 Pantoprazole 40 Mg Tablet PO 40 mg QAM LISA Administration Perflutren Lipid Microsphere 0 ml 01/04/25 09:07 Perflutren Lipid Microspheres 1.5 Ml Vial Diluted To 10 Ml Total Volume IV PUSH 01/07/25 09:07 ONCE PRN adequate visualization Protocol Sodium Chloride 10 ml 01/04/25 06:00 01/05/25 06:24 Central Line Flush IV PUSH 10 ml Q8HR LISA Administration Sodium Chloride 20 ml 01/04/25 04:39 Central Line Flush IV PUSH PRN PRN after blood draws Radiology Results: ITS Impressions Abdomen/Pelvis CT 01/04/25 06:32 Impression: No acute abnormality evident. Cholelithiasis. Moderate hiatal hernia. 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 Chest X-Ray 01/04/25 06:58 Impression: Right IJ line in place, as above. Clear lungs. No pneumothorax. Probable mild cardiomegaly. Renal Ultrasound 01/04/25 11:29 Impression: Unremarkable ultrasound of the kidneys and urinary bladder. Labs Labs: Laboratory Results - last 24 hr 01/04/25 01/04/25 01/04/25 08:34 10:25 16:43 WBC RBC Hgb Hct MCV MCH MCHC RDW Plt Count MPV Immature Gran % (Auto) Neut % (Auto) Lymph % (Auto) [place] % (Auto) Eos % (Auto) Baso % (Auto) Lymph # (Auto) [place] # (Auto) Eos # (Auto) Baso # (Auto) Abs Immat Gran (auto) Absolute Neuts (auto) Absolute Nucleated RBC Nucleated RBC % Sodium 134 L Potassium 4.5 Chloride 109 H Carbon Dioxide 18 L Anion Gap 7 BUN 44 H Creatinine 1.46 H Estim Creat Clear Calc Not Reportable Estimated GFR 34 L Glucose 110 Lactic Acid Calcium 9.0 Phosphorus Magnesium Total Bilirubin AST ALT Alkaline Phosphatase Total Creatine Kinase 341 H C-Reactive Protein < 0.5 Total Protein Albumin Procalcitonin 0.1 Urine Eosinophils None seen Ur Random Sodium 12 Ur Random Potassium 52.9 Urine Creatinine 167.1 06/30/25 05:48 WBC 3.0 L RBC 2.64 L Hgb 7.1 L Hct 22.5 L MCV 85.2 MCH 26.9 MCHC 31.6 L RDW 16.0 H Plt Count 112 L MPV 10.4 Immature Gran % (Auto) 0.7 H Neut % (Auto) 67.2 Lymph % (Auto) 19.9 [place] % (Auto) 9.3 H Eos % (Auto) 2.6 Baso % (Auto) 0.3 Lymph # (Auto) 0.60 L [place] # (Auto) 0.3 Eos # (Auto) 0.1 Baso # (Auto) 0.0 Abs Immat Gran (auto) 0.02 Absolute Neuts (auto) 2.0 Absolute Nucleated RBC 0.000 Nucleated RBC % 0.0 Sodium 134 L Potassium 4.2 Chloride 105 Carbon Dioxide 23 Anion Gap 6 BUN 33 H D Creatinine 1.19 H Estim Creat Clear Calc Not Reportable Estimated GFR 43 L Glucose 95 Lactic Acid < 0.5 L Calcium 8.7 Phosphorus 3.3 Magnesium 1.7 Total Bilirubin 0.5 AST 32 ALT 13 Alkaline Phosphatase 43 Total Creatine Kinase C-Reactive Protein Total Protein 5.6 L Albumin 3.4 L Procalcitonin Urine Eosinophils Ur Random Sodium Ur Random Potassium Urine Creatinine Quality VTE Prophylaxis VTE prophylaxis: pharmacologic ordered
--- NOTE | 2025-01-05 10:10 | P.PNNP_ITS ---
Progress Note: A&P Assessment and Plan (1) Acute kidney injury: Code(s): N17.9 - Acute kidney failure, unspecified Status: Acute Assessment and Plan: * as noted on admission * however, improvement noted to date * evaluation to date noted: * bland urine sediment * CT scan with normal kidneys without hydronephrosis * CPK is normal * urine eosinophils negative * urine electrolytes prerenal * suspect etiology is multifactorial: * poor oral intake * diarrhea/liquid stools * HCTZ use * hemodynamics instability/shock * infection/early sepsis(?) * continue supportive therapy * follow trend of repeat labs and UOP (2) Shock: Code(s): R57.9 - Shock, unspecified Status: Acute Assessment and Plan: * resolved * wean off vasopressor therapy * s/p IVFs and IV albumin * imaging to date noted (negative) * CRP and procalcitonin normal (arguing against infection) * follow trend of hemodynamics (3) Metabolic acidosis: Code(s): E87.20 - Acidosis, unspecified Status: Acute Assessment and Plan: * due to combo of ileostomy, diarreha, and MICHELLE/ARF * resolved at this time with interventions to date * follow trend (4) Hyperkalemia: Code(s): E87.5 - Hyperkalemia Status: Acute Assessment and Plan: * due to MICHELLE, losartan use, and acidosis * losartan on hold * normalized at this time (5) Hyponatremia: Code(s): E87.1 - Hypo-osmolality and hyponatremia Status: Acute Assessment and Plan: * improvement noted * likely due to MICHELLE and HCTZ use * continue to hold HCTZ * follow trend of sodium (6) Anemia: Code(s): D64.9 - Anemia, unspecified Status: Acute Assessment and Plan: * due to MICHELLE and acute illness * follow trend of H/H Will continue to follow. L Subjective Date/time seen: 01/05/25 10:10 Interval history: Follow-up for acute kidney injury/acute renal failure. Chart reviewed -- assuming care from Dr. Henry; renal function/creatinine continues to improve with ongoing therapy/interventions; off vasopressor therapy with adequate urine output noted as well; stable hemodynamics noted; no other acute issues/complaints voiced at the time of my visit. Exam 2 Narrative: General: elderly but WD/WN female in NAD Heart: normal S1 and S2; no rub Lungs: clear anteriorly; decreased at bases Abdomen: soft, nontender, nondistended, positive bowel sounds; + colostom ybag Extremities: no cyanosis or clubbing; trace edema Skin: warm and dry Objective Data Vital Signs Vital Signs: Vital Signs Temp Pulse Resp BP Pulse Ox O2 Del Method 01/05/25 10:00 74 01/05/25 10:00 98.7 F 74 14 122/58 L 96 01/05/25 08:00 75 01/05/25 08:00 75 21 H 97 Room Air 01/05/25 08:00 98.5 F 75 21 H 140/63 97 01/05/25 06:00 73 136/57 L 01/05/25 06:00 98.3 F 73 13 136/57 L 96 01/05/25 06:00 73 01/05/25 04:20 96 Room Air 01/05/25 04:00 98.7 F 67 12 118/55 L 96 01/05/25 04:00 67 01/05/25 04:00 67 118/55 L 01/05/25 03:30 71 124/51 L 01/05/25 02:00 70 116/50 L 01/05/25 02:00 98.9 F 70 13 116/50 L 96 01/05/25 02:00 70 01/05/25 01:00 69 111/47 L 01/05/25 00:30 69 104/48 L 01/05/25 00:00 96 Room Air 01/05/25 00:00 75 01/05/25 00:00 98.9 F 73 12 123/55 L 96 01/05/25 00:00 72 123/55 L 01/04/25 23:22 71 125/50 L 01/04/25 22:00 76 01/04/25 22:00 99 F 76 13 129/56 L 96 01/04/25 22:00 76 129/56 L 01/04/25 20:30 96 Room Air 01/04/25 20:15 78 107/47 L 01/04/25 20:00 76 01/04/25 20:00 99.3 F 78 14 100/45 L 97 01/04/25 20:00 78 100/45 L 01/04/25 19:27 81 97/49 L 01/04/25 18:00 89 06/29/25 18:00 89 111/76 01/04/25 18:00 98.9 F 89 15 111/76 98 01/04/25 16:45 93 149/63 H 01/04/25 16:00 84 01/04/25 16:00 98.4 F 81 11 L 115/51 L 96 01/04/25 16:00 96 Room Air 01/04/25 15:15 86 123/54 L 01/04/25 14:00 89 01/04/25 14:00 89 128/49 L 01/04/25 14:00 98.3 F 89 10 L 128/49 L 96 Intake/Output Intake/Output: Intake & Output 01/02/25 01/03/25 01/04/25 01/05/25 23:59 23:59 23:59 23:59 Intake Total 1999 3566.6 1284.9 Output Total 1125 950 Balance 1999 2441.6 334.9 Meds/Results Medications: Active Medications Generic Name Dose Route Start Last Admin Trade Name Freq PRN Reason Stop Dose Admin Acetaminophen 650 mg 01/04/25 03:26 01/04/25 16:45 Acetaminophen 325 Mg Tablet PO 650 mg Q4H PRN Administration Mild Pain (1-3) or Fever Atorvastatin Calcium 40 mg 01/04/25 21:00 01/04/25 20:42 Atorvastatin 40 Mg Tablet PO 40 mg HS LISA Administration Citalopram Hydrobromide 10 mg 01/04/25 18:00 01/04/25 17:24 Citalopram Hydrobromide 10 Mg Tablet PO 10 mg QPM LISA Administration Gabapentin 600 mg 01/04/25 21:00 01/04/25 20:42 Gabapentin 300 Mg Capsule PO 600 mg HS LISA Administration Heparin Sodium (Porcine) 5,000 units 01/04/25 09:45 01/05/25 08:41 Heparin Sodium 5,000 Units/Ml Vial SUB-Q 5,000 units Q12HR LISA Administration Metronidazole 500 mg in 100 mls @ 100 mls/hr 01/04/25 08:00 01/05/25 08:39 Flagyl 500 Mg/Iso Soln 100 Ml IVPB 01/07/25 00:59 100 mls/hr Q8H LISA Administration Ceftriaxone Sodium 1 gm in 50 mls @ 100 mls/hr 01/04/25 09:00 01/05/25 08:40 Rocephin 1 Gm/Ns 50 Ml IVPB 01/06/25 09:29 100 mls/hr Q24H LISA Administration Levothyroxine Sodium 75 mcg 01/04/25 07:40 01/05/25 06:23 Levothyroxine Sodium 75 Mcg Tablet PO 75 mcg DAILY@0630 LISA Administration Multivitamins/Minerals 1 tab 01/04/25 09:00 01/05/25 08:41 Multivitamins /C Lutein (Centrum Silver) Tablet *Bkc PO 1 tab DAILY LISA Administration Ondansetron HCl 4 mg 01/04/25 03:26 Ondansetron Inj 4 Mg/2 Ml Vial IV PUSH Q4H PRN Nausea Pantoprazole Sodium 40 mg 01/04/25 09:00 01/05/25 08:41 Pantoprazole 40 Mg Tablet PO 40 mg QAM LISA Administration Perflutren Lipid Microsphere 0 ml 01/04/25 09:07 Perflutren Lipid Microspheres 1.5 Ml Vial Diluted To 10 Ml Total Volume IV PUSH 01/07/25 09:07 ONCE PRN adequate visualization Protocol Sodium Chloride 10 ml 01/04/25 06:00 01/05/25 06:24 Central Line Flush IV PUSH 10 ml Q8HR LISA Administration Sodium Chloride 20 ml 01/04/25 04:39 Central Line Flush IV PUSH PRN PRN after blood draws Radiology Results: ITS Impressions Abdomen/Pelvis CT 01/04/25 06:32 Impression: No acute abnormality evident. Cholelithiasis. Moderate hiatal hernia. 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 Chest X-Ray 01/04/25 06:58 Impression: Right IJ line in place, as above. Clear lungs. No pneumothorax. Probable mild cardiomegaly. Renal Ultrasound 01/04/25 11:29 Impression: Unremarkable ultrasound of the kidneys and urinary bladder. Labs Labs: Laboratory Tests 01/05/25 11:27 01/05/25 05:48 Lactic Acid < 0.5 L Calcium 8.7 Phosphorus 3.3 Magnesium 1.7 Total Bilirubin 0.5 AST 32 ALT 13 Alkaline Phosphatase 43 Total Protein 5.6 L Albumin 3.4 L Microbiology 01/03/25 22:20 Blood Blood Culture - Preliminary 01/03/25 21:39 Blood Blood Culture - Preliminary
[2025-01-05 11:35] LABS: Hematocrit 23.8 % (37.0-47.0); Hemoglobin 7.5 g/dL (12.0-15.0); Immature Granulocyte Percent A 0.4 % (0-0.5); Immature Platelet Fraction Pct 3.1 % (0.9-11.2); Lymphocytes Absolute Auto 0.77 K/mm3 (0.9-3.2); Mean Corpuscular HGB Conc 31.5 g/dl (32-36); Mean Corpuscular Hemoglobin 26.6 pg (26-34); Mean Corpuscular Volume 84.4 fl (80-100); Nucleated Red Blood Cells Absolute Auto 0.000 K/mm3 (0.0-0.012); Nucleated Red Blood Cells Perc 0.0 % (0.0-0.2); Platelet Count Result 118 k/mm3 (150-375); Red Blood Count 2.82 M/mm3 (4.2-5.4); White Blood Count 4.5 K/mm3 (4.5-10.0)
[2025-01-05 12:02] LABS: Iron 56 ug/dL (37-170)
[2025-01-05 12:12] LABS: Percent Iron Saturation 25 % (20-50)
[2025-01-05 12:40] LABS: Ferritin 25.80 ng/mL (11.1-264)
[2025-01-05 13:16] LABS: IFOB Positive Control Positive; Immunochemical Fecal Occult Bl Negative (N)
[2025-01-05 13:28] LABS: Chloride Rand Ur 50 mmol/L (32-290); Chloride/Creatinine Rand Ur 31 (38-318)
--- NOTE | 2025-01-05 14:38 | P.PNIM_ITS ---
Progress Note: A&P Assessment and Plan (1) Shock: Code(s): R57.9 - Shock, unspecified Status: Acute Assessment and Plan: RESOLVED Patient presented with abdominal pain, no nausea, vomiting. She also had acute kidney injury with hyperkalemia, dehydration likely due to continuous use of home medications losartan and hydrochlorothiazide -patient was found to be hypotensive in the ER -patient received 3 L IV fluid bolus -currently OFF pressors with adequate SBP and MAP -status post IV fluids, albumin -procalcitonin and CRP within normal limits -01/04: started ceftriaxone and Flagyl since patient presented with abdominal pain -CT abdomen and pelvis with no evidence of any abnormality -hypotension likely from morphine administered in the ER for lower extremities Cultures negative so far (2) Hypotension: Code(s): I95.9 - Hypotension, unspecified Status: Acute Assessment and Plan: Hypotension could be related to dehydration, hypovolemia, metabolic acidosis -01/03/2025: Blood cultures are negative x2 so far -01/04/2025: Urine cultures are pending ECHo showed Normal EF with grade I diastolic function (3) Acute kidney injury: Code(s): N17.9 - Acute kidney failure, unspecified Status: Acute Assessment and Plan: Patient presented with acute kidney injury and hyperkalemia -creatinine on admission was 2.69, (baseline creatinine 0.89, recently creatinine of 1.81 on 12/26/2024 on outpatient labs) likely from ehydration resolving Cr 1.19 today, from 2.69 CT AP no acute significant findings (4) Metabolic acidosis: Code(s): E87.20 - Acidosis, unspecified Status: Acute Assessment and Plan: severe non metabolic acidosis metabolic acidosis could be related to ileostomy. Though the patient stated she had decreased a ileostomy drainage -could be related to ileostomy, diarrhea if at all which patient denies, states she has low output in her ostomy bag -renal tubular acidosis is another possibility for non-anion gap metabolic acidosis -metabolic acidosis has resolved, likely related to diarrhea, hypovolemia (5) Abdominal pain: Code(s): R10.9 - Unspecified abdominal pain Status: Acute Assessment and Plan: The initial abdominal pain low could be related to severe metabolic acidosis -has resolved Plan DVT prophylaxis: Heparin subQ Stress ulcer prophylaxis: Protonix Nutrition: Heart healthy diet Code Status: Full code PT/OT consulted for discharge disposition Subjective Date/time seen: 01/05/25 14:38 Interval history: Comfortable at bedside noted her lower extremities have resolved Review of Systems Review of Systems: 12 systems were reviewed and are negativ e except for as per HPI. All systems reviewed & are unremarkable except as noted in HPI and below Exam Narrative: General: Patient is alert, pleasant, hard of hearing, in no acute distress HEENT:? Pupils equal and reactive, sclera is clear, dry oral mucosa Neck:? Supple Respiratory:? Clear to auscultation bilaterally, decreased at bases, no wheezing Cardiac:? S1-S2 normal, regular rate and rhythm Abdomen:? Soft, nontender, nondistended, right ileostomy/colostomy in place with brown stool Extremities:? Trace edema, palpable pedal pulses Neuro:? Patient is awake, alert, oriented x3, hard of hearing but able to answer questions appropriately and follows simple commands. Skin:? Bruising noted Psych:? Normal mentation and affect Objective Data Vital Signs Vital Signs: Vital Signs - 24 hr 01/04/25 15:15 01/04/25 16:00 01/04/25 16:00 Temperature 98.4 F Pulse Rate 86 81 Respiratory Rate 11 L Blood Pressure 123/54 L 115/51 L Pulse Oximetry 96 96 Oxygen Delivery Room Air 01/04/25 16:00 01/04/25 16:45 01/04/25 18:00 Temperature 98.9 F Pulse Rate 84 93 89 Respiratory Rate 15 Blood Pressure 149/63 H 111/76 Pulse Oximetry 98 Oxygen Delivery 01/04/25 18:00 01/04/25 18:00 01/04/25 19:27 Temperature Pulse Rate 89 89 81 Respiratory Rate Blood Pressure 111/76 97/49 L Pulse Oximetry Oxygen Delivery 01/04/25 20:00 01/04/25 20:00 01/04/25 20:00 Temperature 99.3 F Pulse Rate 78 78 76 Respiratory Rate 14 Blood Pressure 100/45 L 100/45 L Pulse Oximetry 97 Oxygen Delivery 01/04/25 20:15 01/04/25 20:30 01/04/25 22:00 Temperature Pulse Rate 78 76 Respiratory Rate Blood Pressure 107/47 L 129/56 L Pulse Oximetry 96 Oxygen Delivery Room Air 01/04/25 22:00 01/04/25 22:00 01/04/25 23:22 Temperature 99 F Pulse Rate 76 76 71 Respiratory Rate 13 Blood Pressure 129/56 L 125/50 L Pulse Oximetry 96 Oxygen Delivery 01/05/25 00:00 01/05/25 00:00 01/05/25 00:00 Temperature 98.9 F Pulse Rate 72 73 75 Respiratory Rate 12 Blood Pressure 123/55 L 123/55 L Pulse Oximetry 96 Oxygen Delivery 01/05/25 00:00 01/05/25 00:30 01/05/25 01:00 Temperature Pulse Rate 69 69 Respiratory Rate Blood Pressure 104/48 L 111/47 L Pulse Oximetry 96 Oxygen Delivery Room Air 01/05/25 02:00 01/05/25 02:00 01/05/25 02:00 Temperature 98.9 F Pulse Rate 70 70 70 Respiratory Rate 13 Blood Pressure 116/50 L 116/50 L Pulse Oximetry 96 Oxygen Delivery 01/05/25 03:30 01/05/25 04:00 01/05/25 04:00 Temperature Pulse Rate 71 67 67 Respiratory Rate Blood Pressure 124/51 L 118/55 L Pulse Oximetry Oxygen Delivery 01/05/25 04:00 01/05/25 04:20 01/05/25 06:00 Temperature 98.7 F Pulse Rate 67 73 Respiratory Rate 12 Blood Pressure 118/55 L Pulse Oximetry 96 96 Oxygen Delivery Room Air 01/05/25 06:00 01/05/25 06:00 01/05/25 08:00 Temperature 98.3 F 98.5 F Pulse Rate 73 73 75 Respiratory Rate 13 21 H Blood Pressure 136/57 L 136/57 L 140/63 Pulse Oximetry 96 97 Oxygen Delivery 01/05/25 08:00 01/05/25 08:00 01/05/25 10:00 Temperature 98.7 F Pulse Rate 75 75 74 Respiratory Rate 21 H 14 Blood Pressure 122/58 L Pulse Oximetry 97 96 Oxygen Delivery Room Air 01/05/25 10:00 Temperature Pulse Rate 74 Respiratory Rate Blood Pressure Pulse Oximetry Oxygen Delivery Intake/Output Intake/Output: Intake & Output 01/02/25 01/03/25 01/04/25 01/05/25 23:59 23:59 23:59 23:59 Intake Total 1999 3566.6 1284.9 Output Total 1125 950 Balance 1999 2441.6 334.9 Meds/Results Medications: Active Medications Generic Name Dose Route Start Last Admin Trade Name Freq PRN Reason Stop Dose Admin Acetaminophen 650 mg 01/04/25 03:26 01/04/25 16:45 Acetaminophen 325 Mg Tablet PO 650 mg Q4H PRN Administration Mild Pain (1-3) or Fever Atorvastatin Calcium 40 mg 01/04/25 21:00 01/04/25 20:42 Atorvastatin 40 Mg Tablet PO 40 mg HS LISA Administration Citalopram Hydrobromide 10 mg 01/04/25 18:00 01/04/25 17:24 Citalopram Hydrobromide 10 Mg Tablet PO 10 mg QPM LISA Administration Gabapentin 600 mg 01/04/25 21:00 01/04/25 20:42 Gabapentin 300 Mg Capsule PO 600 mg HS LISA Administration Heparin Sodium (Porcine) 5,000 units 01/04/25 09:45 01/05/25 08:41 Heparin Sodium 5,000 Units/Ml Vial SUB-Q 5,000 units Q12HR LISA Administration Metronidazole 500 mg in 100 mls @ 100 mls/hr 01/04/25 08:00 01/05/25 08:39 Flagyl 500 Mg/Iso Soln 100 Ml IVPB 01/07/25 00:59 100 mls/hr Q8H LISA Administration Ceftriaxone Sodium 1 gm in 50 mls @ 100 mls/hr 01/04/25 09:00 01/05/25 08:40 Rocephin 1 Gm/Ns 50 Ml IVPB 01/06/25 09:29 100 mls/hr Q24H LISA Administration Levothyroxine Sodium 75 mcg 01/04/25 07:40 01/05/25 06:23 Levothyroxine Sodium 75 Mcg Tablet PO 75 mcg DAILY@0630 LISA Administration Multivitamins/Minerals 1 tab 01/04/25 09:00 01/05/25 08:41 Multivitamins /C Lutein (Centrum Silver) Tablet *Bkc PO 1 tab DAILY LISA Administration Ondansetron HCl 4 mg 01/04/25 03:26 Ondansetron Inj 4 Mg/2 Ml Vial IV PUSH Q4H PRN Nausea Pantoprazole Sodium 40 mg 01/04/25 09:00 01/05/25 08:41 Pantoprazole 40 Mg Tablet PO 40 mg QAM LISA Administration Perflutren Lipid Microsphere 0 ml 01/04/25 09:07 Perflutren Lipid Microspheres 1.5 Ml Vial Diluted To 10 Ml Total Volume IV PUSH 01/07/25 09:07 ONCE PRN adequate visualization Protocol Sodium Chloride 10 ml 01/04/25 06:00 01/05/25 06:24 Central Line Flush IV PUSH 10 ml Q8HR LISA Administration Sodium Chloride 20 ml 01/04/25 04:39 Central Line Flush IV PUSH PRN PRN after blood draws Radiology Results: ITS Impressions Abdomen/Pelvis CT 01/04/25 06:32 Impression: No acute abnormality evident. Cholelithiasis. Moderate hiatal hernia. 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 Chest X-Ray 01/04/25 06:58 Impression: Right IJ line in place, as above. Clear lungs. No pneumothorax. Probable mild cardiomegaly. Renal Ultrasound 01/04/25 11:29 Impression: Unremarkable ultrasound of the kidneys and urinary bladder. Hip/Pelvis X-Ray 01/05/25 14:23 IMPRESSION: No acute osseous abnormality of the bilateral hips and pelvis. Labs Labs: Laboratory Results - last 24 hr 01/04/25 01/04/25 01/05/25 08:34 16:43 05:48 WBC 3.0 L RBC 2.64 L Hgb 7.1 L Hct 22.5 L MCV 85.2 MCH 26.9 MCHC 31.6 L RDW 16.0 H Plt Count 112 L MPV 10.4 Immature Gran % (Auto) 0.7 H Neut % (Auto) 67.2 Lymph % (Auto) 19.9 Morgan % (Auto) 9.3 H Eos % (Auto) 2.6 Baso % (Auto) 0.3 Lymph # (Auto) 0.60 L Morgan # (Auto) 0.3 Eos # (Auto) 0.1 Baso # (Auto) 0.0 Abs Immat Gran (auto) 0.02 Absolute Neuts (auto) 2.0 Absolute Nucleated RBC 0.000 Nucleated RBC % 0.0 % Immature Plt Fraction Sodium 134 L 134 L Potassium 4.5 4.2 Chloride 109 H 105 Carbon Dioxide 18 L 23 Anion Gap 7 6 BUN 44 H 33 H D Creatinine 1.46 H 1.19 H Estim Creat Clear Calc Not Reportable Not Reportable Estimated GFR 34 L 43 L Glucose 110 95 Lactic Acid < 0.5 L Calcium 9.0 8.7 Phosphorus 3.3 Magnesium 1.7 Iron TIBC % Saturation Ferritin Total Bilirubin 0.5 AST 32 ALT 13 Alkaline Phosphatase 43 Total Protein 5.6 L Albumin 3.4 L Ur Random Creatinine 162 Ur Random Chloride 50 U Random Chloride/Creat 31 L Stl Occult Blood (IFOB) 01/05/25 01/05/25 11:27 12:53 WBC 4.5 RBC 2.82 L Hgb 7.5 L Hct 23.8 L MCV 84.4 MCH 26.6 MCHC 31.5 L RDW 16.0 H Plt Count 118 L MPV 10.7 H Immature Gran % (Auto) 0.4 Neut % (Auto) 74.1 H Lymph % (Auto) 17.1 L Morgan % (Auto) 6.7 Eos % (Auto) 1.3 Baso % (Auto) 0.4 Lymph # (Auto) 0.77 L Morgan # (Auto) 0.3 Eos # (Auto) 0.1 Baso # (Auto) 0.0 Abs Immat Gran (auto) 0.02 Absolute Neuts (auto) 3.3 Absolute Nucleated RBC 0.000 Nucleated RBC % 0.0 % Immature Plt Fraction 3.1 Sodium Potassium Chloride Carbon Dioxide Anion Gap BUN Creatinine Estim Creat Clear Calc Estimated GFR Glucose Lactic Acid Calcium Phosphorus Magnesium Iron 56 TIBC 220 L % Saturation 25 Ferritin 25.80 Total Bilirubin AST ALT Alkaline Phosphatase Total Protein Albumin Ur Random Creatinine Ur Random Chloride U Random Chloride/Creat Stl Occult Blood (IFOB) Negative Quality VTE Prophylaxis VTE prophylaxis: pharmacologic ordered
[2025-01-05] MEDS: CITALOPRAM HYDROBROMIDE 10 MG TABLET PO (17:17)
[2025-01-05] MEDS: IRON SUCROSE COMPLEX 400 MG, IRON SUCROSE COMPLEX 100 MG in SODIUM CHLORIDE 0.9% IV 250 ML 78.57 MG IVPB (17:17)
[2025-01-05] MEDS: GABAPENTIN 300 MG CAPSULE 600 MG PO (20:55)
[2025-01-05] MEDS: ATORVASTATIN 40 MG TABLET PO (20:55)
--- NOTE | 2025-01-06 00:32 | PC.NURSE ---
Pt transferred from ICU-2 to 2nd Medical Room 259 with appropriate belongings and documentation. Report received from KWAN Schmidt in ICU.
--- NOTE | 2025-01-06 00:40 | PC.NURSE ---
This patient, Crystal Mcmahan, was transferred to [facility] on 01/06/25 at 0035. Personal belongings sent with patient. Report given to KWAN Villar. Appropriate documentation sent with patient.
[2025-01-06] MEDS: ACETAMINOPHEN 325 MG TABLET 650 MG PO ×3 (01:33→09:01)
[2025-01-06] MEDS: LEVOTHYROXINE SODIUM 75 MCG TABLET PO (05:29)
[2025-01-06] MEDS: CENTRAL LINE FLUSH 10 ML IV PUSH ×3 (05:29→20:45)
[2025-01-06] MEDS: CENTRAL LINE FLUSH 20 ML IV PUSH (05:29)
[2025-01-06 05:31] VITALS: BP 116/50; PULSE 65; RESP 18; TEMP 36.6; O2SAT 99
[2025-01-06 06:00] LABS: Hematocrit 24.2 % (37.0-47.0); Hemoglobin 7.6 g/dL (12.0-15.0); Immature Granulocyte Percent A 0.4 % (0-0.5); Immature Platelet Fraction Pct 3.7 % (0.9-11.2); Lymphocytes Absolute Auto 0.64 K/mm3 (0.9-3.2); Mean Corpuscular HGB Conc 31.4 g/dl (32-36); Mean Corpuscular Hemoglobin 26.8 pg (26-34); Mean Corpuscular Volume 85.2 fl (80-100); Nucleated Red Blood Cells Absolute Auto 0.000 K/mm3 (0.0-0.012); Nucleated Red Blood Cells Perc 0.0 % (0.0-0.2); Platelet Count Result 118 k/mm3 (150-375); Red Blood Count 2.84 M/mm3 (4.2-5.4); White Blood Count 4.7 K/mm3 (4.5-10.0)
[2025-01-06 06:24] LABS: Anion Gap 2 mmol/L (4-12); Blood Urea Nitrogen 23 mg/dL (7-17); Calcium 8.8 mg/dL (8.4-10.2); Carbon Dioxide 24 mmol/L (22-30); Chloride 104 mmol/L (98-107); Estimated Glomerular Filt Rate 58; Glucose 93 mg/dL (65-110); Magnesium 1.9 mg/dL (1.6-2.3); Potassium 4.1 mmol/L (3.4-5.0); Sodium 130 mmol/L (137-145)
[2025-01-06] MEDS: metroNIDAZOLE 500 MG/ISO 100ML 500 MG/100 ML BAG 100 MG IVPB ×2 (08:39→23:11)
[2025-01-06] MEDS: MULTIVITAMINS /C LUTEIN (CENTRUM SILVER) TABLET *BKC 1 TAB PO (08:44)
[2025-01-06] MEDS: PANTOPRAZOLE 40 MG TABLET PO (08:44)
--- NOTE | 2025-01-06 09:04 | P.PNIM_ITS ---
Progress Note: A&P Assessment and Plan (1) Shock: Code(s): R57.9 - Shock, unspecified Status: Acute Assessment and Plan: RESOLVED Patient presented with abdominal pain, no nausea, vomiting. She also had acute kidney injury with hyperkalemia, dehydration likely due to continuous use of home medications losartan and hydrochlorothiazide -patient was found to be hypotensive in the ER. Received 3 L IV fluid bolus. Likely related to morphine administered in ER. -status post IV fluids, albumin. Currently OFF pressors with adequate SBP and MAP -procalcitonin and CRP within normal limits -WBC WNL. UA and CXR unremarkable. Blood Cultures NGTD -CT abdomen and pelvis with no evidence of any abnormality 01/04: started ceftriaxone and Flagyl since patient presented with abdominal pain to cover abdominal infection. Course to be completed 01/07. -Echo: LVEF 60-65% with grade I diastolic dysfunction, mod pulmonary HTN. (2) Acute kidney injury: Code(s): N17.9 - Acute kidney failure, unspecified Status: Acute Assessment and Plan: Patient presented with acute kidney injury and hyperkalemia Creatinine on admission was 2.69, (baseline creatinine 0.89, recently creatinine of 1.81 on 12/26/2024 on outpatient labs) Likely due to a combination of factors including hypovolemia from a significant decrease in oral intake and hypoperfusion from hypotension in the setting of ANDRE-inhibitor and thiazide diuretic use. CT abdomen/pelvis: No evidence of renal or ureteral calculi. The kidneys and the ureters are nondilated. Renal US unremarkable - Hold lisinopril and hydrochlorothiazide, blood pressures remain stable - All medications will be renally dosed. - Monitor I/O 01/06: BUN/Cr WNL. UOP WNL. (3) Metabolic acidosis: Code(s): E87.20 - Acidosis, unspecified Status: Acute Assessment and Plan: severe non metabolic acidosis metabolic acidosis could be related to ileostomy. Though the patient stated she had decreased ileostomy drainage. Renal tubular acidosis is another possibility for non-anion gap metabolic acidosis Metabolic acidosis has resolved, likely related to diarrhea, hypovolemia (4) Abdominal pain: Code(s): R10.9 - Unspecified abdominal pain Status: Acute Assessment and Plan: The initial abdominal pain could be related to severe metabolic acidosis 01/04: started ceftriaxone and Flagyl since patient presented with abdominal pain to cover abdominal infection. Course to be completed 01/07. Has intermittent left lower quadrant abdominal discomfort. Denies nausea/vomiting and has good stool output per bag. Relieved with Tylenol. Continue to monitor. Time Spent With Patient Time with patient: 25 - 35 minutes Subjective Date/time seen: 01/06/25 09:04 Interval history: 89-year-old female with history of coronary artery disease, hypertension, h ypothyroidism, gastroesophageal reflux disease, diverticulitis, and bleeding colonic ulcer status post colectomy in November 2024 who presented to the emergency department via private vehicle with complaints of abdominal pain. Patient is pleasant sitting up comfortably in bed with at bedside. During assessment patient is also on phone with her daughters. Patient continues to endorse intermittent left lower quadrant abdominal pain. She denies any associated nausea/vomiting and is tolerating her diet well. She also has good stool output put her back. The pain is relieved with Tylenol. She has no other complaints denying chest pain, palpitations, and shortness of breath. Review of Systems Review of Systems: All systems reviewed & are unremarkable except as noted in HPI and below Exam Narrative: AF HR 65 RR 18 SpO2 99 BP 116/50 General: female in no acute respiratory distress who is nontoxic appearing, sitting up in bed. HEENT: Normocephalic. Atraumatic. Extraocular movement intact. Sclera clear and anicteric. No facial asymmetry. Chest: Lungs are clear to auscultation bilaterally. No wheezes or crackles. CV: Heart was regular rate and rhythm. S1-S2. No murmurs, gallops, or rubs. Abd: Abdomen was soft. Nontender. Nondistended. Positive bowel sounds. Ileostomy. Ext: No clubbing, cyanosis, or edema. DP pulses bilaterally. Neuro: Patient is alert. Speech is clear. Objective Data Vital Signs Vital Signs: Vital Signs - 24 hr 01/05/25 10:01/05/25 10:01/05/25 16:00 Temperature 98.7 F 99.5 F Pulse Rate 74 74 70 Respiratory Rate 14 12 Blood Pressure 122/58 L 127/60 Pulse Oximetry 96 96 Oxygen Delivery Fraction of Inspired Oxygen 01/05/25 20:00 01/05/25 20:30 01/05/25 23:19 Temperature 99.7 F H Pulse Rate 76 70 Respiratory Rate 20 16 Blood Pressure 124/89 Pulse Oximetry 97 94 Oxygen Delivery Room Air Room Air Fraction of Inspired Oxygen 21 01/06/25 00:50 01/06/25 05:31 Temperature 98 F Pulse Rate 65 Respiratory Rate 18 Blood Pressure 116/50 L Pulse Oximetry 99 Oxygen Delivery Room Air Fraction of Inspired Oxygen Intake/Output Intake/Output: Intake & Output 01/03/25 01/04/25 01/05/25 01/06/25 23:59 23:59 23:59 23:59 Intake Total 1999 3566.6 2374.9 300 Output Total 5 1999 650 Balance 1999 2441.6 374.9 -350 Meds/Results Medications: Active Medications Generic Name Dose Route Start Last Admin Trade Name Freq PRN Reason Stop Dose Admin Acetaminophen 650 mg 01/04/25 03:26 01/06/25 09:01 Acetaminophen 325 Mg Tablet PO 650 mg Q4H PRN Administration Mild Pain (1-3) or Fever Atorvastatin Calcium 40 mg 01/04/25 21:00 01/05/25 20:55 Atorvastatin 40 Mg Tablet PO 40 mg HS LISA Administration Citalopram Hydrobromide 10 mg 01/04/25 18:00 01/05/25 17:17 Citalopram Hydrobromide 10 Mg Tablet PO 10 mg QPM LISA Administration Gabapentin 600 mg 01/04/25 21:00 01/05/25 20:55 Gabapentin 300 Mg Capsule PO 600 mg HS LISA Administration Heparin Sodium (Porcine) 5,000 units 01/04/25 09:45 01/06/25 08:46 Heparin Sodium 5,000 Units/Ml Vial SUB-Q 5,000 units Q12HR LISA Administration Metronidazole 500 mg in 100 mls @ 100 mls/hr 01/04/25 08:00 01/06/25 08:39 Flagyl 500 Mg/Iso Soln 100 Ml IVPB 01/07/25 00:59 100 mls/hr Q8H LISA Administration Ceftriaxone Sodium 1 gm in 50 mls @ 100 mls/hr 01/04/25 09:00 01/05/25 08:40 Rocephin 1 Gm/Ns 50 Ml IVPB 01/06/25 09:29 100 mls/hr Q24H LISA Administration Levothyroxine Sodium 75 mcg 01/04/25 07:40 01/06/25 05:29 Levothyroxine Sodium 75 Mcg Tablet PO 75 mcg DAILY@0630 LISA Administration Multivitamins/Minerals 1 tab 01/04/25 09:00 01/06/25 08:44 Multivitamins /C Lutein (Centrum Silver) Tablet *Bkc PO 1 tab DAILY LISA Administration Ondansetron HCl 4 mg 01/04/25 03:26 Ondansetron Inj 4 Mg/2 Ml Vial IV PUSH Q4H PRN Nausea Pantoprazole Sodium 40 mg 01/04/25 09:00 01/06/25 08:44 Pantoprazole 40 Mg Tablet PO 40 mg QAM LISA Administration Perflutren Lipid Microsphere 0 ml 01/04/25 09:07 Perflutren Lipid Microspheres 1.5 Ml Vial Diluted To 10 Ml Total Volume IV PUSH 01/07/25 09:07 ONCE PRN adequate visualization Protocol Sodium Chloride 10 ml 01/04/25 06:00 01/06/25 05:29 Central Line Flush IV PUSH 10 ml Q8HR LISA Administration Sodium Chloride 20 ml 01/04/25 04:39 01/06/25 05:29 Central Line Flush IV PUSH 20 ml PRN PRN Administration after blood draws Radiology Results: ITS Impressions Abdomen/Pelvis CT 01/04/25 06:32 Impression: No acute abnormality evident. Cholelithiasis. Moderate hiatal hernia. 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 Chest X-Ray 01/04/25 06:58 Impression: Right IJ line in place, as above. Clear lungs. No pneumothorax. Probable mild cardiomegaly. Renal Ultrasound 01/04/25 11:29 Impression: Unremarkable ultrasound of the kidneys and urinary bladder. Hip/Pelvis X-Ray 01/05/25 14:23 IMPRESSION: No acute osseous abnormality of the bilateral hips and pelvis. Labs Labs: Laboratory Results - last 24 hr 01/04/25 01/05/25 01/05/25 08:34 11:27 12:53 WBC 4.5 RBC 2.82 L Hgb 7.5 L Hct 23.8 L MCV 84.4 MCH 26.6 MCHC 31.5 L RDW 16.0 H Plt Count 118 L MPV 10.7 H Immature Gran % (Auto) 0.4 Neut % (Auto) 74.1 H Lymph % (Auto) 17.1 L [place] % (Auto) 6.7 Eos % (Auto) 1.3 Baso % (Auto) 0.4 Lymph # (Auto) 0.77 L [place] # (Auto) 0.3 Eos # (Auto) 0.1 Baso # (Auto) 0.0 Abs Immat Gran (auto) 0.02 Absolute Neuts (auto) 3.3 Absolute Nucleated RBC 0.000 Nucleated RBC % 0.0 % Immature Plt Fraction 3.1 Sodium Potassium Chloride Carbon Dioxide Anion Gap BUN Creatinine Estim Creat Clear Calc Estimated GFR Glucose Calcium Phosphorus Magnesium Iron 56 TIBC 220 L % Saturation 25 Ferritin 25.80 Ur Random Creatinine 162 Ur Random Chloride 50 U Random Chloride/Creat 31 L Stl Occult Blood (IFOB) Negative 01/06/25 05:38 WBC 4.7 RBC 2.84 L Hgb 7.6 L Hct 24.2 L MCV 85.2 MCH 26.8 MCHC 31.4 L RDW 16.0 H Plt Count 118 L MPV 11.1 H Immature Gran % (Auto) 0.4 Neut % (Auto) 75.4 H Lymph % (Auto) 13.6 L [place] % (Auto) 7.2 Eos % (Auto) 3.0 Baso % (Auto) 0.4 Lymph # (Auto) 0.64 L [place] # (Auto) 0.3 Eos # (Auto) 0.1 Baso # (Auto) 0.0 Abs Immat Gran (auto) 0.02 Absolute Neuts (auto) 3.6 Absolute Nucleated RBC 0.000 Nucleated RBC % 0.0 % Immature Plt Fraction 3.7 Sodium 130 L Potassium 4.1 Chloride 104 Carbon Dioxide 24 Anion Gap 2 L BUN 23 H D Creatinine 0.91 Estim Creat Clear Calc Not Reportable Estimated GFR 58 L Glucose 93 Calcium 8.8 Phosphorus 3.1 Magnesium 1.9 Iron TIBC % Saturation Ferritin Ur Random Creatinine Ur Random Chloride U Random Chloride/Creat Stl Occult Blood (IFOB) Quality VTE Prophylaxis VTE prophylaxis: pharmacologic ordered
--- NOTE | 2025-01-06 10:45 | P.PNNP_ITS ---
Progress Note: A&P Assessment and Plan (1) Acute kidney injury: Code(s): N17.9 - Acute kidney failure, unspecified Status: Acute Assessment and Plan: * resolved * as noted on admission * evaluation to date noted: * bland urine sediment * CT scan with normal kidneys without hydronephrosis * CPK is normal * urine eosinophils negative * urine electrolytes prerenal * suspect etiology is multifactorial: * poor oral intake * diarrhea/liquid stools * HCTZ use * hemodynamics instability/shock * infection/early sepsis(?) * continue supportive therapy * follow trend of repeat labs and UOP (2) Shock: Code(s): R57.9 - Shock, unspecified Status: Acute Assessment and Plan: * resolved * wean off vasopressor therapy * s/p IVFs and IV albumin * imaging to date noted (negative) * CRP and procalcitonin normal (arguing against infection) * follow trend of hemodynamics (3) Metabolic acidosis: Code(s): E87.20 - Acidosis, unspecified Status: Acute Assessment and Plan: * due to combo of ileostomy, diarreha, and MICHELLE/ARF * resolved at this time with interventions to date * follow trend (4) Hyperkalemia: Code(s): E87.5 - Hyperkalemia Status: Acute Assessment and Plan: * due to MICHELLE, losartan use, and acidosis * losartan on hold * normalized at this time (5) Hyponatremia: Code(s): E87.1 - Hypo-osmolality and hyponatremia Status: Acute Assessment and Plan: * improvement noted * likely due to MICHELLE and HCTZ use * continue to hold HCTZ * follow trend of sodium (6) Anemia: Code(s): D64.9 - Anemia, unspecified Status: Acute Assessment and Plan: * due to MICHELLE and acute illness * follow trend of H/H Nothing much else to add from renal perspective -- will continue to follow from a distance. L Subjective Date/time seen: 01/06/25 10:45 Interval history: Follow-up for acute kidney injury/acute renal failure. Renal function/creatinine is back to baseline (MICHELLE/ARF has resolved); still has on/off issues with LLQ pain but seems to be tolerating oral intake reasonably well; abdominal pain seems to respond to tylenol; no other acute issues/events overnight or earlier this morning. Exam 2 Narrative: General: elderly but WD/WN female in NAD Heart: normal S1 and S2; no rub Lungs: clear anteriorly; decreased at bases Abdomen: soft, nontender, nondistended, positive bowel sounds; + colostomy bag Extremities: no cyanosis or clubbing; trace edema Skin: warm and intact Objective Data Vital Signs Vital Signs: Vital Signs Temp Pulse Resp BP Pulse Ox O2 Del Method FiO2 01/06/25 10:27 Room Air 01/06/25 05:31 98 F 65 18 116/50 L 99 01/06/25 00:50 Room Air 01/05/25 23:19 99.7 F H 70 16 124/89 94 01/05/25 20:30 Room Air 01/05/25 20:00 76 20 97 Room Air 21 01/05/25 16:00 99.5 F 70 12 127/60 96 Intake/Output Intake/Output: Intake & Output 01/03/25 01/04/25 01/05/25 01/06/25 23:59 23:59 23:59 23:59 Intake Total 1999 3566.6 2424.9 450 Output Total 1124 1999 650 Balance 1999 2441.6 424.9 -200 Meds/Results Medications: Active Medications Generic Name Dose Route Start Last Admin Trade Name Freq PRN Reason Stop Dose Admin Acetaminophen 650 mg 01/04/25 03:26 01/06/25 09:01 Acetaminophen 325 Mg Tablet PO 650 mg Q4H PRN Administration Mild Pain (1-3) or Fever Atorvastatin Calcium 40 mg 01/04/25 21:00 01/05/25 20:55 Atorvastatin 40 Mg Tablet PO 40 mg HS LISA Administration Citalopram Hydrobromide 10 mg 01/04/25 18:00 01/05/25 17:17 Citalopram Hydrobromide 10 Mg Tablet PO 10 mg QPM LISA Administration Gabapentin 600 mg 01/04/25 21:00 01/05/25 20:55 Gabapentin 300 Mg Capsule PO 600 mg HS LISA Administration Heparin Sodium (Porcine) 5,000 units 01/04/25 09:45 01/06/25 08:46 Heparin Sodium 5,000 Units/Ml Vial SUB-Q 5,000 units Q12HR LISA Administration Metronidazole 500 mg in 100 mls @ 100 mls/hr 01/04/25 08:00 01/06/25 09:40 Flagyl 500 Mg/Iso Soln 100 Ml IVPB 01/07/25 00:59 Infused Q8H LISA Infusion Levothyroxine Sodium 75 mcg 01/04/25 07:40 01/06/25 05:29 Levothyroxine Sodium 75 Mcg Tablet PO 75 mcg DAILY@0630 LISA Administration Multivitamins/Minerals 1 tab 01/04/25 09:00 01/06/25 08:44 Multivitamins /C Lutein (Centrum Silver) Tablet *Bkc PO 1 tab DAILY LISA Administration Ondansetron HCl 4 mg 01/04/25 03:26 Ondansetron Inj 4 Mg/2 Ml Vial IV PUSH Q4H PRN Nausea Pantoprazole Sodium 40 mg 01/04/25 09:00 01/06/25 08:44 Pantoprazole 40 Mg Tablet PO 40 mg QAM LISA Administration Perflutren Lipid Microsphere 0 ml 01/04/25 09:07 Perflutren Lipid Microspheres 1.5 Ml Vial Diluted To 10 Ml Total Volume IV PUSH 01/07/25 09:07 ONCE PRN adequate visualization Protocol Sodium Chloride 10 ml 01/04/25 06:00 01/06/25 05:29 Central Line Flush IV PUSH 10 ml Q8HR LISA Administration Sodium Chloride 20 ml 01/04/25 04:39 01/06/25 05:29 Central Line Flush IV PUSH 20 ml PRN PRN Administration after blood draws Radiology Results: ITS Impressions Abdomen/Pelvis CT 01/04/25 06:32 Impression: No acute abnormality evident. Cholelithiasis. Moderate hiatal hernia. 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 Chest X-Ray 01/04/25 06:58 Impression: Right IJ line in place, as above. Clear lungs. No pneumothorax. Probable mild cardiomegaly. Renal Ultrasound 01/04/25 11:29 Impression: Unremarkable ultrasound of the kidneys and urinary bladder. Hip/Pelvis X-Ray 01/05/25 14:23 IMPRESSION: No acute osseous abnormality of the bilateral hips and pelvis. Labs Labs: Laboratory Tests 01/06/25 05:38 01/06/25 05:38 Calcium 8.8 Phosphorus 3.1 Magnesium 1.9 Microbiology 01/04/25 08:34 Urine Catheterized Urine Culture - Final
[2025-01-06 14:00] VITALS: BP 119/49; PULSE 66; RESP 18; TEMP 36.7; O2SAT 100
[2025-01-06] MEDS: metroNIDAZOLE 500 MG/ISO 100ML 500 MG/100 ML BAG 10 MG IVPB (16:03)
[2025-01-06] MEDS: CITALOPRAM HYDROBROMIDE 10 MG TABLET PO (17:18)
[2025-01-06 20:26] VITALS: BP 129/56; PULSE 71; RESP 17; TEMP 36.8; O2SAT 100
[2025-01-06] MEDS: GABAPENTIN 300 MG CAPSULE 600 MG PO (20:45)
[2025-01-06] MEDS: ATORVASTATIN 40 MG TABLET PO (20:45)
[2025-01-06 22:49] VITALS: O2SAT 100
[2025-01-07 05:50] VITALS: BP 127/53; PULSE 66; RESP 17; TEMP 36.7; O2SAT 99
[2025-01-07] MEDS: LEVOTHYROXINE SODIUM 75 MCG TABLET PO (05:51)
[2025-01-07] MEDS: CENTRAL LINE FLUSH 10 ML IV PUSH (05:52)
[2025-01-07] MEDS: LIDOCAINE 5% PATCH 1 PATCH TRANSDERM (08:35)
[2025-01-07] MEDS: MULTIVITAMINS /C LUTEIN (CENTRUM SILVER) TABLET *BKC 1 TAB PO (08:35)
[2025-01-07] MEDS: PANTOPRAZOLE 40 MG TABLET PO (08:35)
--- NOTE | 2025-01-07 10:50 | PM.DS ---
DS: Admitting Diagnosis Discharge Date 01/07 Admitting Diagnosis hypotension, abd pain DS: Discharge Diagnosis Discharge Diagnosis (1) Shock: Code(s): R57.9 - Shock, unspecified Status: Acute (2) Acute kidney injury: Code(s): N17.9 - Acute kidney failure, unspecified Status: Acute (3) Metabolic acidosis: Code(s): E87.20 - Acidosis, unspecified Status: Acute (4) Abdominal pain: Code(s): R10.9 - Unspecified abdominal pain Status: Acute DS: Summary Hospital Course Hospital Course: 89-year-old female with history of coronary artery disease, hypertension, hypothyroidism, gastroesophageal reflux disease, diverticulitis, and bleeding colonic ulcer status post colectomy in November 2024 who presented to the emergency department via private vehicle with complaints of abdominal pain. Several problems were addressed during hospitalization. #Shock Patient presented with abdominal pain, no nausea, vomiting. She also had acute kidney injury with hyperkalemia, dehydration likely due to continuous use of home medications losartan and hydrochlorothiazide -patient was found to be hypotensive in the ER. Received 3 L IV fluid bolus, albumin. She was admitted to ICU. -procalcitonin and CRP within normal limits -WBC WNL. UA and CXR unremarkable. Blood Cultures NGTD -CT abdomen and pelvis with no evidence of any abnormality 01/04: started ceftriaxone and Flagyl since patient presented with abdominal pain to cover abdominal infection. Course to be completed 01/07. COMPLETED ANTIBIOTICS. -Echo: LVEF 60-65% with grade I diastolic dysfunction, mod pulmonary HTN. CBC, CMP IS ORDERED TO BE COMPLETED WITHIN A WEEK AFTER DISCHARGE. Mild hyponatremia. Monitoring NA-ordered recheck after discharge. (130 on 01/07- 129-134 baseline) #MICHELLE Patient presented with acute kidney injury and hyperkalemia Creatinine on admission was 2.69, (baseline creatinine 0.89, recently creatinine of 1.81 on 12/26/2024 on outpatient labs) Likely due to a combination of factors including hypovolemia from a significant decrease in oral intake and hypoperfusion from hypotension in the setting of ANDRE-inhibitor and thiazide diuretic use. CT abdomen/pelvis: No evidence of renal or ureteral calculi. The kidneys and the ureters are nondilated. Renal US unremarkable - Hold lisinopril and hydrochlorothiazide, blood pressures remain stable- will continue to hold after discharge. Instructed to monitor blood pressure and keep log, bring log to PCP for review. # abd pain The initial abdominal pain could be related to severe metabolic acidosis 01/04: started ceftriaxone and Flagyl since patient presented with abdominal pain to cover abdominal infection. Course to be completed 01/07. Completed today. No abd pain, no n/v/d. Status at Discharge Functional status at discharge: independent ambulation Overall status at discharge: patient is progressing back to baseline Time Spent with Patient Time attestation: Total time spent providing and/or coordinating discharge services: Time spent: Greater than 30 minutes Exam Narrative: General: female in no acute respiratory distress who is nontoxic appearing, sitting up in bed. HEENT: Normocephalic. Atraumatic. Extraocular movement intact. Sclera clear and anicteric. No facial asymmetry. Chest: Lungs are clear to auscultation bilaterally. No wheezes or crackles. CV: Heart was regular rate and rhythm. S1-S2. No murmurs, gallops, or rubs. Abd: Abdomen was soft. Nontender. Nondistended. Positive bowel sounds. Ileostomy. Ext: No clubbing, cyanosis, or edema. DP pulses bilaterally. Neuro: Patient is alert. Speech is clear. Const: General: comfortable DS: Data Data Completed and Pending Labs on day of discharge: Preliminary micro results at discharge 01/03/25 22:20 Blood Culture - Preliminary Blood 01/03/25 21:39 Blood Culture - Preliminary Blood Discharge Plan Discharge Attending physician on discharge: Henry Lambert Consulting providers: Adelaide Tarango; Nitesh Henry Discharging Clinician: Lotus Sevilla Patient Disposition: Home with Home Health Service Activity: november shower Diet: heart healthy Discharge Instructions: Care Coordination: Patient to have [facility] for PT/OT eval and treat, and usp. Their phone number is [phone] if you have any questions; they will contact you to schedule their first visit. RN please fax discharge instructions to [phone]. You were admitted for sepsis and low blood pressure. We were holding your HCTZ and lisinopril and your BP was stable. Continue to hold it amd monitor your BP in am and keep log. Bring it to your PCP for review. Your pcp will instruct you if you should restart it or not. CBC and cmp ordered for you to complete within a week after discharge. PLease do ti prior to your alyson with you doctor. Patient Instructions: Antibiotic Form Patient Language: Nepali Stand Alone Forms: General Discharge Information Follow-up/Referrals: Sheryl Castañeda MD [Primary Care Provider] - 2 Weeks Discharge Medications: Continued omeprazole 20 mg capsule,delayed release(DR/EC) 40 mg PO DAILY levothyroxine 25 mcg capsule 75 mcg PO DAILY gabapentin 600 mg tablet 600 mg PO HS acetaminophen 500 mg capsule 500 mg PO Q6H PRN (Reason: pain) Qty: 60 0RF atorvastatin 40 mg tablet 40 mg PO HS citalopram 20 mg tablet 10 mg PO QPM lisinopril-hydrochlorothiazide 10-12.5 mg tablet 1 tablet PO DAILY [id number] Tablet 1 tablet PO DAILY nitroglycerin 0.3 mg tablet, sublingual 0.3 mg sublingual Q5-15M PRN (Reason: chest pain) Rx Instructions: do not exceed 3 doses per episode (DME) Light weight rollator walker-darvin walker See Rx Instructions .Route .MEDSUPPLY Qty: 1 0RF Rx Instructions: As directed daily nystatin 100,000 unit/gram powder 1 applic topical BID Qty: 60 1RF Date of admission: 01/04/25 08:15 Primary Care Provider: Sheryl Castañeda Admitting Provider: Robi Haney Attending physician on admission: Vanesa Colbert Condition: Stable Quality VTE Prophylaxis VTE prophylaxis: pharmacologic ordered Hospitalist MIPS Heart Failure (Exclusion) Patient has history of Heart Transplant or Left Ventricular Assistive Device?: No IF YES, STOP HERE Heart Failure (Qualifier) Patient has current or prior documentation of LVEF less than or equal to 40%, or mod/servere depressed LVSF?: No IF NO, STOP HERE
== END 2025-01-07 15:25 | disposition home health service (06) | DRG 683 ==
LOC: ANHED 20:24 → ANHICU 01-04 03:43 → ANH2MED 01-06 00:42
PROVIDERS: Internal Medicine; Internal Medicine Nephrology; Physician Assistant; Admitting Provider Internal Medicine; Emergency Provider Student in an Organized Health Care Education/Training Program; PCP Family Medicine; Visit Provider Nurse Practitioner
DX: N17.9 Acute kidney failure, unspecified (principal); E87.1 Hypo-osmolality and hyponatremia; R57.9 Shock, unspecified; E87.20 Acidosis, unspecified; E87.5 Hyperkalemia; E03.9 Hypothyroidism, unspecified; E86.0 Dehydration; H91.90 Unspecified hearing loss, unspecified ear; I25.10 Atherosclerotic heart disease of native coronary artery without angina pectoris; I10 Essential (primary) hypertension; K57.30 Diverticulosis of large intestine without perforation or abscess without bleeding; K21.9 Gastro-esophageal reflux disease without esophagitis; M81.0 Age-related osteoporosis without current pathological fracture; M19.90 Unspecified osteoarthritis, unspecified site; Z93.3 Colostomy status; Z85.828 Personal history of other malignant neoplasm of skin; Z90.49 Acquired absence of other specified parts of digestive tract; Z95.5 Presence of coronary angioplasty implant and graft
CPT/HCPCS: 36415; 73521; 74176; 76775; 80048; 80053; 81001; 82274; 82436; 82550; 82570; 82728; 82803; 82948; 83540; 83550; 83605; 83690; 83735; 84100; 84133; 84145; 84300; 84443; 85025; 85027; 85055; 85610; 85730; 85999; 86140; 87040; 87086; 87641; 93005; 93306; 94640; 96361; 96365; 96367; 96374; 96375; 97110; 97161; 97165; 97530; 97535; 99285; A9270; C1751; G0378; J0612; J0696; J1644; J1756; J1815; J1836; J2270; J3475; J7030; J7040; J7050; J7070; P9047

== ENCOUNTER 2025-01-20 12:52 | Outpatient (CLI) | payer MEDICARE, SELFPAY ==
--- OUTSIDE RECORDS SUMMARY | 2025-01-20 13:01 | XMS_ITS | Clinical Summary ---
Author Organization [facility] Address [address] [place] [address] Care Team Providers Care Staking Technician Name Role Phone Brittney Levy [facility] Primary Care Provider + Allergies Active Allergy [...] (02/20/2023): Added automatically from request for surgery [id number] Encounters Date Type Department Care Team Description 01/15/2025 10:12 AM CDT - 01/15/2025 11:59 PM CDT Hospital Encounter [facility] [address] [place] [address] Sheryl Castañeda MD Discharge Disposition: Home or Self Care (Routine Discharge) 01/15/2025 Orders Only [facility] [address] [place] [address] Sheryl Castañeda MD 01/08/2025 Scan [facility] Scanned, [facility] 12/31/2024 Scan [facility] Scanned, [facility] 12/22/2024 Scan [facility] Scanned, [facility] 12/15/2024 Scan [facility] Scanned, [facility] from Last 3 Months Immunizations Immunization Administration Dates Next Due Fluzone [...] on file 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 Gender Identity Not on file Sexual Orientation [...] A M CDT Height 153.7 cm (5' 0.5) 02/23/2023 8:34 AM CDT Body Mass Index [...] - 2023-2 5 season) 2024 PHQ-2 (Physician [place]) 07/09/2024 02/23/2023 DTaP, Tdap and Td Vaccines [...] on patient's age to complete this topic Procedures Procedure Name Priority Date/Time Associated Diagnosis Comments CBC W/DIFF AUTOMATED Routine 01/15/2025 10:13 AM CDT Hypotension, unspecified BASIC METABOLIC PANEL Routine 01/15/2025 10:13 AM CDT Hypotension, unspecified from Last 3 Months Results * (ABNORMAL) BASIC METABOLIC PANEL (01/15/2025 10:13 AM CDT) [facility] GLUCOSE 84 70 - 99 MG/DL 01/15/2025 10:41 AM CDT [facility] BUN 20(H) 7 - 18 MG/DL 01/15/2025 10:41 AM CDT [facility] CREATININE S/P/B 0.92 0.50 - 1.20 MG/DL 01/15/2025 10:41 AM CDT [facility] SODIUM S/P/B 132(L) 136 - 145 MMOL/L 01/15/2025 10:41 AM CDT [facility] POTASSIUM S/P/B 5.0 3.5 - 5.1 MMOL/L 01/15/2025 10:41 AM CDT [facility] CHLORIDE S/P/B 104 100 - 108 MMOL/L 01/15/2025 10:41 AM CDT [facility] CO2 18.5(L) 21.0 - 32.0 MMOL/L 01/15/2025 10:41 AM CDT [facility] CALCIUM S/P/B 9.2 8.5 - 10.1 MG/DL 01/15/2025 10:41 AM CDT [facility] ANION GAP 9.5 5.0 - 15.0 MMOL/L 01/15/2025 10:41 AM CDT [facility] BUN CREATININE RATIO 21.7 6 - 26 01/15/2025 10:41 AM CDT [facility] GFR ESTIMATE 60(L) >90 ML/MIN/1.7 3 M2 01/15/2025 10:41 AM CDT [facility] Comment: NOTE: eGFR is not calculated for patients <18 years of age. This is an estimated GFR calculation using the new CKD EPI creatinine equation without race and so does not require a correction factor for race. This estimated GFR should not be used for calculating drug doses. 01/15/2025 10:1 3 AM CDT us Sheryl Castañeda MD LABORATORY Final Result [facility] [address] [place] [address], * (ABNORMAL) CBC W/DIFF AUTOMATED (01/15/2025 10:13 AM CDT) WBC 3.57(L) 4.50 - 11.00 x10'3/uL 01/15/2025 11:08 AM CDT [facility] RBC 3.36(L) 4.00 - 5.20 x10'6/uL 01/15/2025 11:08 AM CDT [facility] HGB 9.1(L) 12.0 - 16.0 G/DL 01/15/2025 11:08 AM CDT [facility] HCT 28.1(L) 38.0 - 48.0 % 01/15/2025 11:08 AM CDT [facility] MCV 83.6 80.0 - 100.0 FL 01/15/2025 11:08 AM CDT [facility] MCH 27.1 26.0 - 34.0 PG 01/15/2025 11:08 AM CDT [facility] MCHC 32.4 31.0 - 37.0 G/DL 01/15/2025 11:08 AM CDT [facility] RDW 16.5(H) 11.6 - 14.8 % 01/15/2025 11:08 AM CDT [facility] PLT 212 130 - 400 x10'3/uL 01/15/2025 11:08 AM CDT [facility] MPV 11.7 7.0 - 12.0 FL 01/15/2025 11:08 AM CDT [facility] CBC COMMENT AUTOMATED RBC MORPHOLOGY AND PLATELET EVALUATION NORMAL 01/15/2025 11:08 AM CDT [facility] NEUTROPHILS % 67.5 40.0 - 74.0 % 01/15/2025 11:08 AM CDT [facility] LYMPHOCYTES % 21.8 14.0 - 46.0 % 01/15/2025 11:08 AM CDT [facility] MONOCYTES % 7.6 4.0 - 13.0 % 01/15/2025 11:08 AM CDT [facility] EOSINOPHILS 2.2 0.0 - 7.0 % 01/15/2025 11:08 AM CDT [facility] BASOPHILS 0.3 0.0 - 3.0 % 01/15/2025 11:08 AM CDT [facility] IMMATURE GRANS % 0.6(H) 0.0 - 0.43 % 01/15/2025 11:08 AM CDT [facility] NRBC % 0.0 % 01/15/2025 11:08 AM CDT [facility] ABS. NEUTROPHILS TOTAL 2.41 1.69 - 7.81 x10'3/uL 01/15/2025 11:08 AM CDT [facility] ABS. LYMPHOCYTES 0.78 0.21 - 5.42 x10'3/uL 01/15/2025 11:08 AM CDT [facility] ABS. MONOCYTES 0.27 0.04 - 1.37 x10'3/uL 01/15/2025 11:08 AM CDT [facility] ABS. EOSINOPHILS 0.08 0.00 - 0.68 x10'3/uL 01/15/2025 11:08 AM CDT [facility] ABS. BASOPHILS 0.01 0.00 - 0.08 x10'3/uL 01/15/2025 11:08 AM CDT [facility] ABS. IMMATURE GRANULOCYTES 0.02 0.00 - 0.06 x10'3/uL 01/15/2025 11:08 AM CDT [facility] ABS. NUCLEATED RBC'S 0.00 0.00 - 0.01 x10'3/uL 01/15/2025 11:08 AM CDT [facility] 01/15/2025 10:1 3 AM CDT us Sheryl Castañeda MD LABORATORY Final Result [facility] [address] [place] [address], [place] from Last 3 Months Insurance [id number] Care Teams Staking Technician Relationship Specialty Start Date End Date Brittney Levy, [employer] [address] [place] [address] PCP - General NURSE PRACTITIONER 01/05/23
--- OUTSIDE RECORDS SUMMARY | 2025-01-20 13:01 | XMS_ITS | Encounter Summary ---
Author Organization [facility] Address [address] [place] [address] Care Team Providers Care Production Wood Craftsman Name Role Phone Brittney Levy [employer] HELPER-NETWORK OPERATIONS CENTER ENGINEER Primary Care Provider Encounter Details Date Type Department Care Team (Late Contact Info) Description 02/10/2020 Lab Requisition [facility] [address] [facility] [place] [address] Nel Clement, [address] [facility] [address] [place] [address] Social History Tobacco Use Types Packs/Day Years Used Date Smoking Tobacco: Never Assessed Comments Unknown Sex and Gender Information Value Date Recorded Sex Assigned at Not on file Legal Sex Female 11:06 AM CDT Gender Identity Not on file Sexual Orientation Not on file documented as of this encounter Plan of Treatment Upcoming Encounters Date Type Department Care Team (Late Contact Info) Description 02/11/2025 11:00 AM CDT Office Visit [facility] - Surgery [address], [address] [place] [address] Ranjeet Grant MD [address] [place] [address] [place] [address] documented as of this encounter Procedures Procedure Name Priority Date/Time Associated Diagnosis Comments DERMATOPATHOLOGY Routine 02/09/2020 12:0 0 AM CDT documented in this encounter Results * DERMATOPATHOLOGY (02/09/2020 12:00 AM CDT) Case Report Dermatopathology Report Case: [id number] Authorizing Provider: Nel Clement DO Collected: 02/09/2020 [...] description) 0 4:05 PM CDT DERMATOPATHOLOGY LABORATORY at 1605 CDT Clinical History A: SK R/O atypia B: [...] characteristic determined by the Dermatopathology Laboratory at [facility], directed by Dr. Félix Mcgill. These tests need not be, and therefore are not, approved by the [place] Food and Drug Administration. The tests are used for clinical purposes. Billing Codes Specimen Charges Stain Charges [id number] [id number] 1 1 0 4:05 PM CDT DERMATOPATHOLOGY LABORATORY Embedded Images 0 4:05 PM CDT DERMATOPATHOLOGY LABORATORY Pathology/Cytology TISSUE SPECIMEN FROM SKIN / Unknown 02/09/2020 02/10/2020 6:11 AM CDT Miscellaneous samples (specimen) TISSUE SPECIMEN FROM SKIN / Unknown 02/09/2020 02/10/2020 6:11 AM CDT Nel Clement DO LAB - PATHOLOGY/CYTOLOGY ORDERABLES Final Result DERMATOPATHOLOGY LABORATORY [facility] - Department of Dermatology Manager [employer]ing [place]/[address] [phone] documented in this encounter Visit Diagnoses Not on filedocumented in this encounter Additional Health Concerns Infection Onset Date Last Indicated Resolved Time COVID-19 Under Investigation 11/26/2024 11/26/2024 11/26/2024 6:36 PM CDT documented as of this encounter Care Teams Production Wood Craftsman Relationship Specialty Start Date End Date Brittney Levy, [employer] HELPER-NETWORK OPERATIONS CENTER ENGINEER [address], [address] [place] [address] PCP - General Nurse Practitioner 11/17/24 documented as of this encounter
--- OUTSIDE RECORDS SUMMARY | 2025-01-20 13:01 | XMS_ITS | Clinical Summary ---
Author Organization [facility] Address [address] [place] [address] Care Team Providers Care Skates Operator Name Role Phone Brittney Levy APRN-HISTORIC SITE ADMINISTRATOR Primary Care Provider Source Comments [facility],non-[facility]iliates and Associated Physician Practices is amultiple site organization consisting of ambulatory clinics and hospital sitesin [place], [place], [place] and [place]. This disclosure is being madepursuant to the Care Everywhere program and may not contain all information available regarding this patient. Last updated 18.[facility] [employer] Allergies Active Allergy Reactions Criticality Noted Date Comments Codeine Psychiatric Medium 01/05/2023 Oxycodone Itching Medium 11/18/2024 Sulfa Antibiotics Unknown 02/21/2023 Medications * Be aware that medications may not be up to date on this document. Alwaysverify current medications with the patient. gabapentin (Neurontin) 600 MG tablet Take 1 (one) tablet by mouth once daily Active levothyroxine (Synthroid) 75 MCG tablet Take 1 (one) tablet by mouth daily before breakfast Active omeprazole (PriLOSEC) 20 MG capsule Take 1 (one) capsule by mouth daily before breakfast Active acetaminophen (Tylenol) 500 MG tablet Take 1 (one) tablet by mouth every 4 hours as needed for Fever or Pain Maximum allowable Acetaminophen amount = 4 Grams (4000 mg) / 24 hours. Active atorvastatin (Lipitor) 40 MG tablet Take 1 (one) tablet by mouth at bedtime Active citalopram (CeleXA) 20 MG tablet Take 1 (one) tablet by mouth once daily Active docusate sodium (Colace) 50 MG capsule Take 1 (one) capsule by mouth once daily Active lisinopril-hydr oCHLOROthiazide (Prinzide; Zestoretic) 10-12.5 MG tablet Take 1 (one) tablet by mouth once daily Active multivitamin w/IRON (Poly-Vi-Karey W/Iron) 11 MG/ML oral solution Take by mouth once daily Commonly known as POLY--KAREY with IRON Active nitroGLYCERIN (Nitrostat) 0.3 MG tablet Dissolve 1 (one) tablet under the tongue every 5 minutes as needed for Angina Active isosorbide mononitrate CR 24hr (Imdur) 30 MG tablet Take 1 (one) tablet by mouth once daily Active meloxicam (Mobic) 15 MG tablet Take 1 (one) tablet by mouth once daily Active Active Problems Problem Noted Date Diagnosed Date Postoperative state 01/14/2025 Gastrointestinal hemorrhage, unspecified gastrointestinal hemorrhage type 11/15/2024 Encounters Date Type Department Care Team Description 01/14/2025 11:00 AM CDT Office Visit [facility] - Surgery [address] [place] [address], [address] [place] [address] Ranjeet Grant MD Postoperative state (Primary Dx) 01/14/2025 Travel 12/10/2024 10:20 AM CDT Clinical Support [facility] Surgery [address] [place] [address], [address] [place] [address] Surgery follow-up 11/17/2024 4:20 AM CDT Anesthesia Event [facility] - Perioperative Surgery [address] [place] [address] Krystyna Bray MD 11/17/2024 4:05 AM CDT - 11/17/2024 6:10 AM CDT Surgery [facility] - Perioperative Surgery [address] [place] [address] Ranjeet Grant MD SUBTOTAL CHOLECTOMY , ILEOSTOMY 11/17/2024 3:28 AM CDT Anesthesia Event [facility] Imaging Services - CT Scan [address] [place] [address] Krystyna Bray MD Essary, Kristen L, [employer] MILL SET UP OPERATOR-PHYSICAL SCIENCE TEACHER 11/16/2024 Travel 11/15/2024 7:06 PM CDT - 11/27/2024 11:50 AM CDT Hospital Encounter [facility] [address] [address] [place] [address] Mir Collins MD Thekekara, Joel, MD Ramgopal, MD Fredy Cruz, MD Kirk Díaz Olujoke, MD Muthyala, Usha R, MD Kamat, MD Maranda Hospitalist Discharge Disposition: Longterm Facility from Last 3 Months Social History Tobacco Use Types Packs/Day Years Used Date Smoking Tobacco: Never Smokeless Tobacco: Never Tobacco Cessation:Counseling Given: Not Answered Alcohol Use Standard Drinks/Week Comments Never 0 (1 standard drink = 0.6 oz pur e alcohol) AUDIT-C Answer Date Recorded Q1: How often do you have a drink containing alcohol? Never 11/15/2024 Q2: How many drinks containi ng alcohol do you have on a typical day when you are drinking? Patient does not drink Q3: How often do you have si x or more drinks on one occasion? Never 11/15/2024 Overall Financial Resource Strain (CARDIA) Answe r Date Recorded How hard is it for you to pa y for the very basics like food, housing, medical care, and heating? Not hard at all 11/15/2024 [facility] [place] [facility] - Occupational Stress Questionnaire Answer Date Recorded Do you feel stress - tense, restless, nervous, or anxious, or unable to sleep at night because your mind is troubled all the time - these days? Not at all 11/15/2024 Hunger Vital Sign Answer Date Recorded Within the past 12 months, y ou worried that your food would run out before you got the money to buy more. Never true 11/16/19 25 Within the past 12 months, t he food you bought just didn't last and you didn't have money to get more. Never true 11/15/2024 PRAPARE - Transportation Answer Date Re corded In the past 12 months, has l ack of transportation kept you from medical appointments or from getting medications? No 11/06 In the past 12 months, has l ack of transportation kept you from meetings, work, or from getting things needed for daily living? No 11/15/2024 Housing Stability Vital Sign Answer Cullen e Recorded In the last 12 months, was t here a time when you were not able to pay the mortgage or rent on time? No 11/15/2024 In the past 12 months, how m any times have you moved where you were living? 1 11/15/2024 At any time in the past 12 m [facility], were you homeless or living in a jail (including now)? No 11/15/2024 Comments Unknown Sex and Gender Information Value Date Recorded Sex Assigned at Not on file Legal Sex Female 11:06 AM CDT Gender Identity Not on file Sexual Orientation Not on file Last Filed Vital Signs Vital Sign Reading Time Taken Comments Blood Pressure 165/81 11/27/2024 7:55 AM CDT Pulse 75 11/27/2024 7:55 AM CDT Temperature 36.5 C (97.7 F) 11/27/2024 7:55 AM CDT Respiratory Rate 18 11/27/2024 7:55 AM CDT Oxygen Saturation 99% 11/27/2024 7:55 AM CDT Inhaled Oxygen Concentration 21% 11/19/2024 1 0:30 PM CDT Weight 83.5 kg (184 lb) 11/27/2024 4:00 AM CDT Height 147.3 cm (4' 10) 11/17/2024 4:10 AM CDT Body Mass Index 38.46 11/17/2024 4:10 AM CDT Plan of Treatment Upcoming Encounters Date Type Department Care Team (Late st Contact Info) Description 02/11/2025 11:00 AM CDT Office Visit [facility] - Surgery [address], [address] [place] [address] Ranjeet Grant MD [address] [place] [address] [place] [id number] Health Maintenance Due Date Last Done Comments BONE DENSITY TESTING 1935 DTAP/TDAP/TD VACCINES (1 - Tdap) 1956 PNEUMOCOCCAL VACCINE 50+ (1 of 1 - PCV) 10/24/1987 ZOSTER VACCINE (1 of 2) 10/24/1987 Respiratory Syncytial Virus (RSV) Vaccine Pt: or over 60 yrs (1 - 1-dose 75+ series) 2012 COVID-19 VACCINE (1 - 2023-2 5 season) 2024 DEPRESSION SCREENING 07/09/2024 MEDICARE AWV CALENDAR YEAR 2024 INFLUENZA VACCINE (#1) 2025 4, 04/13/2020 HEPATITIS B VACCINE Aged Out No longe r eligible based on patient's age to complete this topic HIB VACCINE Aged Out No longer eligi ble based on patient's age to complete this topic HPV VACCINE Aged Out No longer eligi ble based on patient's age to complete this topic MENINGOCOCCAL (Group B) VACCINE SHARED DECISION-MAKING Aged Out No longer eligible based on patient's age to complete this topic MENINGOCOCCAL GROUPS A/C/Y/W VACCINE Aged Out No longer eligible b ased on patient's age to complete this topic Procedures Procedure Name Priority Date/Time Associated Diagnosis Comments CARDIAC RHYTHM STRIP ORDER 11/28/2024 10:20 PM CDT APHERESIS/TRANSFUSION ORDER 11/28/2024 10:20 PM CDT SARS-COV-2 (COVID-19) RAPID Routine 11/26/2024 5:55 PM CDT BASIC METABOLIC PANEL (CALCIUM TOTAL) AM Draw 11/25/2024 3:14 AM CDT BASIC METABOLIC PANEL (CALCIUM TOTAL) AM Draw 11/23/2024 2:31 AM CDT CBC W AUTO DIFFERENTIAL AM Draw 11/23/2024 2:31 AM CDT GLUCOSE - POINT OF CARE Routine 11/22/2024 11:19 PM CDT GLUCOSE - POINT OF CARE Routine 11/22/2024 4:53 PM CDT GLUCOSE - POINT OF CARE Routine 11/22/2024 11:34 AM CDT GLUCOSE - POINT OF CARE Routine 11/22/2024 5:55 AM CDT BASIC METABOLIC PANEL (CALCIUM TOTAL) AM Draw 11/22/2024 4:50 AM CDT CBC W AUTO DIFFERENTIAL AM Draw 11/22/2024 4:50 AM CDT GLUCOSE - POINT OF CARE Routine 11/22/2024 12:12 AM CDT GLUCOSE - POINT OF CARE Routine 11/21/2024 5:42 PM CDT HGB HCT PANEL Routine 11/21/2024 2:15 PM CDT GLUCOSE - POINT OF CARE Routine 11/21/2024 12:33 PM CDT GLUCOSE - POINT OF CARE Routine 11/21/2024 5:57 AM CDT PHOSPHORUS BLOOD Routine 11/21/2024 5:12 AM CDT MAGNESIUM BLOOD Routine 11/21/2024 5:12 AM CDT COMPREHENSIVE METABOLIC PANEL AM Draw 11/21/2024 5:12 AM CDT CBC W AUTO DIFFERENTIAL AM Draw 11/21/2024 5:12 AM CDT GLUCOSE - POINT OF CARE Routine 11/20/2024 11:43 PM CDT HGB HCT PANEL Routine 11/20/2024 9:54 PM CDT GLUCOSE - POINT OF CARE Routine 11/20/2024 6:54 PM CDT HGB HCT PANEL Routine 11/20/2024 12:52 PM CDT GLUCOSE - POINT OF CARE Routine 11/20/2024 12:18 PM CDT GLUCOSE - POINT OF CARE Routine 11/20/2024 5:59 AM CDT PT-INR AM Draw 11/20/2024 3:24 AM CDT Gastrointestinal hemorrhage, unspecified gastrointestinal hemorrhage type PHOSPHORUS BLOOD Routine 11/20/2024 3:24 AM CDT MAGNESIUM BLOOD Routine 11/20/2024 3:24 AM CDT COMPREHENSIVE METABOLIC PANEL AM Draw 11/20/2024 3:24 AM CDT CBC W AUTO DIFFERENTIAL AM Draw 11/20/2024 3:24 AM CDT GLUCOSE - POINT OF CARE Routine 11/20/2024 12:11 AM CDT TRANSFUSE RED BLOOD CELL LEUKOREDUCED UNIT(S) Routine 11/19/2024 8:04 PM CDT GLUCOSE - POINT OF CARE Routine 11/19/2024 6:23 PM CDT XR CHEST 1VW PORTABLE Routine 11/19/2024 5:57 PM CDT Gastrointestinal hemorrhage, unspecified gastrointestinal hemorrhage type CT ANGIO ABD PELVIS GI BLEED Routine 11/19/2024 5:55 PM CDT Gastrointestinal hemorrhage, unspecified gastrointestinal hemorrhage type CBC W AUTO DIFFERENTIAL STAT 11/19/2024 4:45 PM CDT GLUCOSE - POINT OF CARE Routine 11/19/2024 12:55 PM CDT HGB HCT PANEL Routine 11/19/2024 12:53 PM CDT PHOSPHORUS BLOOD Routine 11/19/2024 4:10 AM CDT MAGNESIUM BLOOD Routine 11/19/2024 4:10 AM CDT COMPREHENSIVE METABOLIC PANEL AM Draw 11/19/2024 4:10 AM CDT CBC W AUTO DIFFERENTIAL AM Draw 11/19/2024 4:10 AM CDT GLUCOSE - POINT OF CARE Routine 11/19/2024 12:44 AM CDT HGB HCT PANEL Routine 11/18/2024 9:35 PM CDT GLUCOSE - POINT OF CARE Routine 11/18/2024 6:00 PM CDT HGB HCT PANEL Routine 11/18/2024 1:06 PM CDT GLUCOSE - POINT OF CARE Routine 11/18/2024 11:33 AM CDT GLUCOSE - POINT OF CARE Routine 11/18/2024 5:07 AM CDT SLIDE SCAN HEMATOLOGY AM Draw 11/18/2024 4:58 AM CDT HEMOGLOBIN A1C Routine 11/18/2024 4:58 AM CDT PHOSPHORUS BLOOD Routine 11/18/2024 4:58 AM CDT MAGNESIUM BLOOD Routine 11/18/2024 4:58 AM CDT COMPREHENSIVE METABOLIC PANEL AM Draw 11/18/2024 4:58 AM CDT CBC W AUTO DIFFERENTIAL AM Draw 11/18/2024 4:58 AM CDT GLUCOSE - POINT OF CARE Routine 11/18/2024 12:19 AM CDT HGB HCT PANEL Routine 11/17/2024 9:12 PM CDT GLUCOSE - POINT OF CARE Routine 11/17/2024 6:21 PM CDT BASIC METABOLIC PANEL (CALCIUM TOTAL) Routine 11/17/2024 2:22 PM CDT HGB HCT PANEL Routine 11/17/2024 2:22 PM CDT GLUCOSE - POINT OF CARE Routine 11/17/2024 12:47 PM CDT PATHOLOGY TISSUE EXAM (STL) Routine 11/17/2024 5:46 AM CDT Diagnosis unknown TRANSFUSE PLATELET PHERESIS UNIT(S) STAT 11/17/2024 4:58 AM CDT TRANSFUSE CRYOPRECIPITATE UNIT(S) STAT 11/17/2024 4:56 AM CDT ENDOTRACHEAL TUBE NOTE Routine 4:50 AM CDT TRANSFUSE FRESH FROZEN PLASMA UNIT(S) STAT 11/17/2024 4:47 AM CDT TRANSFUSE FRESH FROZEN PLASMA UNIT(S) Routine 11/17/2024 4:39 AM CDT [place] EXPLORATORY OF ABDOMEN 11/17/2024 4:06 AM CDT XR CHEST POST PROCEDURE STAT 11/17/2024 4:00 AM CDT Gastrointestinal hemorrhage, unspecified gastrointestinal hemorrhage type TRANSFUSE FRESH FROZEN PLASMA UNIT(S) STAT 11/17/2024 3:53 AM CDT TRANSFUSE RED BLOOD CELL LEUKOREDUCED UNIT(S) STAT 11/17/2024 3:35 AM CDT CALCIUM IONIZED BLOOD STAT 11/17/2024 3:31 AM CDT BLOOD GASES ARTERIAL STAT 11/17/2024 3:31 AM CDT PTT STAT 11/17/2024 3:31 AM CDT PT-INR STAT 11/17/2024 3:31 AM CDT PHOSPHORUS BLOOD STAT 11/17/2024 3:31 AM CDT MAGNESIUM BLOOD STAT 11/17/2024 3:31 AM CDT LACTIC ACID BLOOD STAT 11/17/2024 3:3 1 AM CDT COMPREHENSIVE METABOLIC PANEL STAT 11/17/2024 3:31 AM CDT CBC W AUTO DIFFERENTIAL STAT 11/17/2024 3:31 AM CDT TRANSFUSE RED BLOOD CELL LEUKOREDUCED UNIT(S) STAT 11/17/2024 3:21 AM CDT TRANSFUSE RED BLOOD CELL LEUKOREDUCED UNIT(S) STAT 11/17/2024 3:[address] ANGIO ABDOMEN PELVIS STAT 11/17/2024 2:45 AM CDT Gastrointestinal hemorrhage, unspecified gastrointestinal hemorrhage type TRANSFUSE RED BLOOD CELL LEUKOREDUCED UNIT(S) Routine 11/17/2024 2:03 AM CDT PREPARE RBC LEUKOREDUCED UNIT STAT 11/17/2024 1:59 AM CDT PREPARE RBC LEUKOREDUCED UNIT Routine 11/17/2024 1:59 AM CDT PREPARE CRYOPRECIPITATE UNIT(S) STAT 11/17/2024 1:59 AM CDT PREPARE PLATELET PHERESIS UNIT(S) STAT 11/17/2024 1:59 AM CDT PREPARE FFP UNIT(S) STAT 11/17/2024 1 :59 AM CDT FIBRINOGEN ACTIVITY STAT 11/17/2024 1 :59 AM CDT D-DIMER STAT 11/17/2024 1:59 AM CDT PTT STAT 11/17/2024 1:59 AM CDT PT-INR STAT 11/17/2024 1:59 AM CDT BASIC METABOLIC PANEL (CALCIUM TOTAL) STAT 11/17/2024 1:59 AM CDT LACTIC ACID BLOOD STAT 11/17/2024 1:5 9 AM CDT CBC W AUTO DIFFERENTIAL STAT 11/17/2024 1:59 AM CDT IR VISCERAL ANGIO Routine 11/17/2024 12: 13 AM CDT Gastrointestinal hemorrhage, unspecified gastrointestinal hemorrhage type CT ANGIO ABDOMEN PELVIS STAT 11/16/2024 9:50 PM CDT Gastrointestinal hemorrhage, unspecified gastrointestinal hemorrhage type TRANSFUSE RED BLOOD CELL LEUKOREDUCED UNIT(S) STAT 11/16/2024 9:44 PM CDT CBC W AUTO DIFFERENTIAL STAT 11/16/2024 8:44 PM CDT HGB HCT PANEL Routine 11/16/2024 11:34 AM CDT TRANSFUSE RED BLOOD CELL LEUKOREDUCED UNIT(S) STAT 11/16/2024 9:50 AM CDT BLOOD TYPE VERIFICATION Routine 11/16/2024 3:21 AM CDT PREPARE RBC LEUKOREDUCED UNIT STAT 11/16/2024 3:21 AM CDT PREPARE RBC LEUKOREDUCED UNIT STAT 11/16/2024 3:21 AM CDT PREPARE FFP UNIT(S) Routine 11/16/2024 3 :21 AM CDT PREPARE RBC LEUKOREDUCED UNIT Routine 11/16/2024 3:21 AM CDT FYA ANTIGEN TYPING (SOFTBANK BB) Routine 11/16/2024 3:21 AM CDT PREPARE RBC LEUKOREDUCED UNIT STAT 11/16/2024 3:21 AM CDT ANTIBODY IDENTIFICATION Routine 11/16/2024 3:21 AM CDT TYPE + SCREEN PANEL STAT 11/16/2024 3 :21 AM CDT CBC W/O DIFFERENTIAL Routine 11/16/2024 3:21 AM CDT BASIC METABOLIC PANEL (CALCIUM TOTAL) Routine 11/16/2024 3:21 AM CDT BLOOD TYPE VERIFICATION Routine 11/15/2024 8:52 PM CDT PT-INR STAT 11/15/2024 8:52 PM CDT CBC W/O DIFFERENTIAL STAT 11/15/2024 8:52 PM CDT COMPREHENSIVE METABOLIC PANEL STAT 11/15/2024 8:52 PM CDT from Last 3 Months Results * CARDIAC RHYTHM STRIP ORDER (11/28/2024 10:20 PM CDT) Narrative 11/28/2024 10:20 PM CDT Ordered by an unspecified provider. us Scanned Document CARDIAC SERVICES ORDERABLES Jesus tamie Result - Final * APHERESIS/TRANSFUSION ORDER (11/28/2024 10:20 PM CDT) Narrative 11/28/2024 10:20 PM CDT Ordered by an unspecified provider. us Scanned Document NURSING - VITAL SIGNS AND ASSES SMENT Final Result * SARS-COV-2 (COVID-19) RAPID (11/26/2024 5:55 PM CDT) COVID-19 PCR Not detected Not detected 11/27/19 6:36 PM CDT [facility] Microbiology SPECIMEN FROM NASOPHARYNGEAL STRUCTURE / Unknown Collection / Unknown 11/26/2024 5:55 PM CDT 11/26/2024 6:03 PM CDT Narrative [facility] - 11/26/2024 6:36 PM CDT The CepSkulpt Xpert Xpress SARS-COV-2 has been authorized by the Food and Drug Administration (FDA) under an Emergency Use Authorization (EUA). This test has been validated in accordance with the FDA's guidance document Policy for Diagnostic Testing in Laboratories Certified to perform High Complexity Testing under CLIA prior to Emergency Use Authorization for Coronavirus Disease-2019 during the Public Health Emergency issued on September 06, 2019. FDA independent review of this validation is pending. This test is only authorized for the duration of the time the declaration that circumstances exist justifying the authorization of emergency use of in vitro diagnostic tests for detection of SARS-COV-2 virus and/or diagnosis of COVID-19 infection under 564(b) (1) of the Act. 21 U.S.C. 360bbb-3 (b) (1), unless the authorization is terminated or revoked sooner. Fact Sheets for this EUA assay are available upon request. us Maranda Koenig MD LAB - MICROBIOLOGY ORDERABLES Fi nal Result [facility] [address] [place] [address] * (ABNORMAL) BASIC METABOLIC PANEL (CALCIUM TOTAL) (11/25/2024 3:14 AM CDT) Only the most recent of6 resultswithin the time period is included. Glucose 81 70 - 99 mg/dL 11/25/2024 4:40 AM CDT [facility] Sodium 136 136 - 145 mmol/L 11/25/2024 4:40 AM CDT [facility] Potassium 3.4(L) 3.5 - 5.1 mmol/L 11/25/2024 4:40 AM CDT [facility] Chloride 107 98 - 107 mmol/L 11/25/2024 4:40 AM CDT [facility] CO2 20(L) 22 - 29 mmol/L 11/25/2024 4:40 AM CDT [facility] Calcium 7.9(L) 8.4 - 10.4 mg/dL 11/25/2024 4:40 AM CDT [facility] Anion Gap 9 6 - 16 mmol/L 11/25/2024 4:40 AM CDT [facility] BUN 8 7 - 26 mg/dL 11/25/2024 4:40 AM CDT [facility] Creatinine 0.57 0.57 - 1.11 mg/dL 11/25/2024 4:40 AM CDT [facility] eGFR by CKD-EPI 88(L) >=90 mL/min/1.7 3 m2 11/25/2024 4:40 AM CDT [facility] Blood BLOOD SPECIMEN / Unknown Venipuncture / Unknown 11/25/2024 3:14 AM CDT 11/25/2024 4:01 AM CDT us Mounika Fregoso MD LAB - CHEMISTRY ORDERABLES Fi nal Result [facility] [address] [place] [address] * (ABNORMAL) CBC W AUTO DIFFERENTIAL (11/23/2024 2:31 AM CDT) Only the most recent of10 resultswithin the time period is included. WBC 8.5 4.0 - 10.7 x10E9/L 11/23/2024 2:50 AM CDT [facility] RBC Count 3.05(L) 3.90 - 5.20 x10E12/L 11/23/2024 2:50 AM CDT [facility] Hemoglobin 8.6(L) 11.9 - 15.8 g/dL 11/23/2024 2:50 AM CDT [facility] Hematocrit 26.0(L) 34.8 - 46.1 % 11/23/2024 2:50 AM CDT [facility] MCV 85.2 80.0 - 98.0 fL 11/23/2024 2:50 AM CDT [facility] MCH 28.2 26.7 - 33.6 pg 11/23/2024 2:50 AM CDT [facility] MCHC 33.1 31.7 - 36.3 g/dL 11/23/2024 2:50 AM CDT [facility] RDW-CV 17.0(H) 11.3 - 14.8 % 11/23/2024 2:50 AM CDT [facility] Platelet Count 233 150 - 420 x10E9/L 11/23/2024 2:50 AM CDT [facility] MPV 10.8 7.8 - 11.4 fL 11/23/2024 2:50 AM CDT [facility] Neutrophil % 79.6(H) 41.0 - 74.0 % 11/23/2024 2:50 AM CDT [facility] Lymphocyte % 10.2(L) 17.0 - 47.0 % 11/23/2024 2:50 AM CDT [facility] Monocyte % 6.9 3.0 - 11.0 % 11/23/2024 2:50 AM CDT [facility] Eosinophil % 1.5 0.0 - 7.0 % 11/23/2024 2:50 AM CDT [facility] Basophil % 0.2 0.0 - 1.6 % 11/23/2024 2:50 AM CDT [facility] Immature Granulocytes % 1.6(H) 0.0 - 1.0 % 11/23/2024 2:50 AM CDT [facility] Neutrophil Absolute 6.75 1.60 - 7.50 x10E9/L 11/23/2024 2:50 AM CDT [facility] Lymphocyte Absolute 0.87(L) 1.00 - 4.40 x10E9/L 11/23/2024 2:50 AM CDT [facility] Monocyte Absolute 0.59 0.15 - 1.00 x10E9/L 11/23/2024 2:50 AM CDT [facility] Eosinophil Absolute 0.13 0.00 - 0.60 x10E9/L 11/23/2024 2:50 AM CDT [facility] Basophil Absolute 0.02 0.00 - 0.13 x10E9/L 11/23/2024 2:50 AM CDT [facility] Blood BLOOD SPECIMEN / Unknown Venipuncture / Unknown 11/23/2024 2:31 AM CDT 11/23/2024 2:47 AM CDT us Mounika Fregoso MD LAB - HEMATOLOGY ORDERABLES F inal Result [facility] [address] [place] [address] * GLUCOSE - POINT OF CARE (11/22/2024 11:19 PM CDT) Only the most recent of22 resultswithin the time period is included. Glucose WB/POC 98 70 - 99 mg/dL 11/22/2024 11:30 PM CDT [facility] Specimen Type Cap Fingerstick 2024 11:30 PM CDT [facility] Blood BLOOD SPECIMEN / Unknown 11/22/2024 11:19 PM CDT 11/22/2024 11:30 PM CDT Mounika Fregoso MD LAB - POINT OF CARE ORDERABLE S Final Result Performing Organization Address City/[facility]/ZIP Co de Phone Number [facility] [id number] [place] [address] * (ABNORMAL) HGB HCT PANEL (11/21/2024 2:15 PM CDT) Only the most recent of9 resultswithin the time period is included. Pathologist [facility] Hemoglobin 9.9(L) 11.9 - 15.8 g/dL 11/21/2024 3:39 PM CDT [facility] Hematocrit 33.5(L) 34.8 - 46.1 % 11/21/2024 3:39 PM CDT [facility] Blood BLOOD SPECIMEN / Unknown Venipuncture / Unknown 11/21/2024 2:15 PM CDT 11/21/2024 2:50 PM CDT Shobha Luna MD LAB - HEMATOLOGY ELIZABETH VILLANUEVA Final Result [facility] [address] [place] [address] * (ABNORMAL) COMPREHENSIVE METABOLIC PANEL (11/21/2024 5:12 AM CDT) Only the most recent of6 resultswithin the time period is included. Glucose 90 70 - 99 mg/dL 11/21/2024 5:44 AM CDT [facility] Sodium 137 136 - 145 mmol/L 11/21/2024 5:44 AM CDT [facility] Potassium 4.2 3.5 - 5.1 mmol/L 11/21/2024 5:44 AM CDT [facility] Chloride 114(H) 98 - 107 mmol/L 11/21/2024 5:44 AM CDT [facility] CO2 17(L) 22 - 29 mmol/L 11/21/2024 5:44 AM CDT [facility] Calcium 7.8(L) 8.4 - 10.4 mg/dL 11/21/2024 5:44 AM CDT [facility] Anion Gap 6 6 - 16 mmol/L 11/21/2024 5:44 AM CDT [facility] BUN 12 7 - 26 mg/dL 11/21/2024 5:44 AM CDT [facility] Creatinine 0.52(L) 0.57 - 1.11 mg/dL 11/21/2024 5:44 AM CDT [facility] Alkaline Phosphatase 46 40 - 150 U/L 11/21/2024 5:44 AM CDT [facility] ALT 22 6 - 57 U/L 11/21/2024 5:44 AM CDT [facility] AST 28 10 - 48 U/L 11/21/2024 5:44 AM CDT [facility] Protein Total 4.0(L) 6.4 - 8.3 gm/dL 11/21/2024 5:44 AM CDT [facility] Albumin 1.8(L) 3.4 - 5.0 gm/dL 11/21/2024 5:44 AM CDT [facility] Bilirubin Total 0.4 0.2 - 1.2 mg/dL 11/21/2024 5:44 AM CDT [facility] eGFR by CKD-EPI 90 >=90 mL/min/1.7 3 m2 11/21/2024 5:44 AM T [facility] Blood BLOOD SPECIMEN / Unknown Venipuncture / Unknown 11/21/2024 5:12 AM CDT 11/21/2024 5:18 AM CDT us Wilder Daniel MD LAB - CHEMISTRY ORDERABLES Fin al Result [facility] [id number] [place] [address] * PHOSPHORUS BLOOD (11/21/2024 5:12 AM CDT) Only the most recent of5 resultswithin the time period is included. Phosphorus 3.1 2.5 - 4.5 mg/dL 11/21/2024 5:42 AM CDT [facility] Blood BLOOD SPECIMEN / Unknown Venipuncture / Unknown 11/21/2024 5:12 AM CDT 11/21/2024 5:18 AM CDT Wilder Daniel MD LAB - CHEMISTRY ORDERABLES Fin al Result Performing Organization Address [facility] de Phone Number [facility] [address] [place] [id number] * MAGNESIUM BLOOD (11/21/2024 5:12 AM CDT) Only the most recent of5 resultswithin the time period is included. Magnesium 1.6 1.6 - 2.6 mg/dL 11/21/2024 5:42 AM CDT [facility] Blood BLOOD SPECIMEN / Unknown Venipuncture / Unknown 11/21/2024 5:12 AM CDT 11/21/2024 5:18 AM CDT Wilder Daniel MD LAB - CHEMISTRY ORDERABLES Fin al Result Performing Organization Address [facility] de Phone Number [facility] [id number] [place] [id number] * (ABNORMAL) PT-INR (11/20/2024 3:24 AM CDT) Only the most recent of4 resultswithin the time period is included. PT 15.7(H) 12.1 - 14.8 sec 11/20/2024 3:40 AM CDT [facility] INR 1.2(H) 0.9 - 1.1 11/20/2024 3:40 AM CDT [facility] Blood BLOOD SPECIMEN / Unknown Venipuncture / Unknown 11/20/2024 3:24 AM CDT 11/20/2024 3:27 AM CDT Narrative [facility] - 11/20/2024 3:40 AM CDT Conventional Warfarin Anticoagulant Therapy: INR Reference Range: 2.0-3.0 Intensive Warfarin Anticoagulant Therapy: INR Reference Range: 2.5-3.5 Ranjeet Grant MD LAB - COAGULATION ORDERABLES F inal Result [facility] [address] [place] [address] * TRANSFUSE RED BLOOD CELL LEUKOREDUCED UNIT(S) (11/19/2024 10:50 PM CDT) Mounika Fregoso MD NURSING - BLOOD PROD TRANSFUS ION Final Result * XR CHEST 1VW PORTABLE (11/19/2024 5:57 PM CDT) Anatomical Region Laterality Modality Chest Computed Radiogr aphy 11/20/2024 9:08 AM CDT Narrative 11/20/2024 9:09 AM CDT XR CHEST 1VW PORTABLE INDICATION: K92.2: Gastrointestinal hemorrhage, unspecified. COMPARISON: November 17, 2024 FINDINGS: Thyromegaly is present. Lucency along the periphery of the right lower lobe likely a soft tissue nature rather than a pneumothorax isn't there does appear to be lung markings peripheral to this. A small right basilar pleural effusion may be present. A small left basal pleural effusion is presumed. Follow-up recommended. The thoracic aorta is atherosclerotic. > Interpreting Provider: Rupesh Roberson MD on 11/20/2024 9:09 AM Procedure Note Rupesh Roberson MD - 11/20/2024 XR CHEST 1VW PORTABLE INDICATION: K92.2: Gastrointestinal hemorrhage, unspecified. COMPARISON: November 17, 2024 FINDINGS: Thyromegaly is present. Lucency along the periphery of the right lowerlobe likely a soft tissue nature rather than a pneumothorax isn't there does appear to be lung markings peripheral to this. A small right basilar pleural effusion may be present. A small left basal pleural effusion is presumed. Follow-up recommended. The thoracic aorta is atherosclerotic. > Interpreting Provider: Rupesh Roberson MD on 11/20/2024 9:09 AM us Ranjeet Grant MD DIAGNOSTIC IMAGING ORDERABLES Final Result * CT ANGIO ABD PELVIS GI BLEED (11/19/2024 5:55 PM CDT) Anatomical Region Laterality Modality Abdomen, Pelvis Computed Tomogra phy 11/20/2024 10:5 9 AM CDT Impressions 11/20/2024 11:13 AM CDT Impression: 1.Postoperative changes from right-sided hemicolectomy with diverting right lower quadrant ileostomy. There is advanced sigmoid diverticulosis. No active contrast extravasation the bowel. 2.Advanced multifocal atherosclerosis of the aorta and its branch vessels. 3.Cardiomegaly with coronary atherosclerosis and trace pericardial effusion 4.Moderate volume right and small volume left-sided pleural effusions with adjacent compressive atelectasis 5.Small volume abdominopelvic ascites 6.Anasarca > Interpreting Provider: Augusto Freitas MD on 11/20/2024 11:13 AM Narrative 11/20/2024 11:13 AM CDT PROCEDURE: CT ANGIO ABD PELVIS GI BLEED, DATE/TIME OF EXAM: 11/19/2024 5:56 PM, LOCATION [facility] INDICATION: K92.2: Gastrointestinal hemorrhage, unspecified ADDITIONAL CLINICAL INFORMATION: Ordering Provider Reason For Exam: Technologist Note: Additional: COMPARISON: CT angiography abdomen pelvis from 11/17/[address] angiographic abdomen pelvis from 11/16/2024 TECHNIQUE: CT of the abdomen and pelvis was performed prior to and following the uneventful administration of 90 mL of Isovue 370 intravenous contrast according to an angiographic protocol. Three dimensional, multiplanar, and MIP postprocessing was performed by the technologist and sent to the workstation for review. Dose reduction techniques were utilized. Findings: Bulky multifocal atherosclerosis of the aorta and its branch vessels. No aortic dissection or aortic aneurysm is seen. 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 No active contrast extravasation is seen in the bowel. The heart is enlarged. There is coronary atherosclerosis. Trace pericardial effusion. Moderate volume right and small volume left-sided pleural effusions with adjacent compressive atelectasis. Liver is unremarkable. The gallbladder is unremarkable. The spleen, pancreas, and adrenal glands are unremarkable. The kidneys are unremarkable. Presumed bilateral renal cysts. No follow-up is recommended. Postoperative changes from exploratory laparotomy with partial colectomy. A diverting right lower quadrant ileostomy is noted. Advanced sigmoid diverticulosis. Small volume abdominopelvic ascites is new since the previous exam The bladder is decompressed. The uterus is absent. Scattered body wall edema. No acute osseous abnormalities. Multilevel degenerative changes of the spine. Procedure Note Augusto Freitas MD - 11/20/2024 PROCEDURE: CT ANGIO ABD PELVIS GI BLEED, DATE/TIME OF EXAM: 11/19/2024 5:56 PM, LOCATION [facility] INDICATION: K92.2: Gastrointestinal hemorrhage, unspecified ADDITIONAL CLINICAL INFORMATION: Ordering Provider Reason For Exam: Technologist Note: Additional: COMPARISON: CT angiography abdomen pelvis from 11/17/[address] angiographic abdomen pelvis from 11/16/2024 TECHNIQUE: CT of the abdomen and pelvis was performed prior to and following the uneventful administration of 90 mL of Isovue 370intravenous contrast according to an angiographic protocol. Three dimensional, multiplanar, and MIP postprocessing was performed by the technologistand sent to the workstation for review. Dose reduction techniques were utilized. Findings: Bulky multifocal atherosclerosis of the aorta and its branch vessels. No aortic dissection or aortic aneurysm is seen. 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 No active contrast extravasation is seen in the bowel. The heart is enlarged. There is coronary atherosclerosis. Tracepericardial effusion. Moderate volume right and small volume left-sided pleural effusions with adjacent compressive atelectasis. Liver is unremarkable.The gallbladder is unremarkable. The spleen, pancreas, and adrenal glandsare unremarkable. The kidneys are unremarkable. Presumed bilateral renal cysts. Nofollow-up is recommended. Postoperative changes from exploratory laparotomy with partial colectomy.A diverting right lower quadrant ileostomy is noted. Advanced sigmoid diverticulosis. Small volume abdominopelvic ascites is new since the previous exam The bladder is decompressed. The uterus is absent. Scattered body wall edema. No acute osseous abnormalities. Multilevel degenerative changes of the spine. Impression: 1.Postoperative changes from right-sided hemicolectomy with divertingright lower quadrant ileostomy. There is advanced sigmoid diverticulosis. No active contrast extravasation the bowel. 2.Advanced multifocal atherosclerosis of the aorta and its branchvessels. 3.Cardiomegaly with coronary atherosclerosis and trace pericardialeffusion 4.Moderate volume right and small volume left-sided pleural effusionswith adjacent compressive atelectasis 5.Small volume abdominopelvic ascites 6.Anasarca > Interpreting Provider: Augusto Freitas MD on 11/20/2024 11:13 AM Courtney Connolly [employer] M[employer] SET UP OPERATOR-HISTORIC SITE ADMINISTRATOR CT ORDERABLES Final R esult * HEMOGLOBIN A1C (11/18/2024 4:58 AM CDT) Hemoglobin A1c 5.4 <5.7 % 11/18/2024 6:01 AM CDT [facility] Estimated Average Glucose 108 mg/dL 11/18/2024 6:01 AM CDT [facility] Blood BLOOD SPECIMEN / Unknown Venipuncture / Unknown 11/18/2024 4:58 AM CDT 11/18/2024 5:07 AM CDT Narrative [facility] - 11/18/2024 6:01 AM CDT HbA1c Interpretation: Normal: < 5.7% Pre-diabetes: 5.7-6.4% Diabetes: Equal to or greater than 6.5% Test results diagnostic of diabetes should be repeated for confirmation. Treatment target values recommended by ADA and other clinical organizations should be used to evaluate metabolic control in patients. This test should not replace glucose testing for patients with Type 1 diabetes, pediatric patients, or women. Falsely low HbA1c results may be observed in patients with clinical conditions that shorten erythrocyte life span or decrease mean erythrocyte age such as the presence of unstable hemoglobin variants, elevated hemoglobin F level or other causes of hemolytic anemia. HbA1c may not accurately reflect glycemic control when clinical conditions that affect erythrocyte survival are present. Severe Iron deficiency anemia may yield falsely high results. Hemoglobin A1c assay should not be used to diagnose or monitor diabetes in patients with malignancy, recent blood transfusion, chronic kidney or liver disease. This method may yield falsely low results when hemoglobin (HbF) exceeds 5% in the specimen. The Jamil Alinity assay for the measurement of HbA1c is a National Glycohemoglobin Standardization Program (NGSP) certified method. us Wilder Daniel MD LAB - CHEMISTRY ORDERABLES Fin al Result Performing Organization Address City/[facility]/ZIP Co de Phone Number [facility] [address] [place] [address] * SLIDE SCAN HEMATOLOGY (11/18/2024 4:58 AM CDT) RBC Morphology REVIEWED 11/18/2024 5:48 AM CDT [facility] Blood BLOOD SPECIMEN / Unknown Venipuncture / Unknown 11/18/2024 4:58 AM CDT 11/18/2024 5:07 AM CDT us Carlos Hargrove MD LAB - HEMATOLOGY ORDERABLES Fi nal Result Performing Organization Address [facility] Co de Phone Number [facility] [address] [place] [address] * PATHOLOGY TISSUE EXAM (STL) (11/17/2024 5:46 AM CDT) Case Report Surgical Pathology Report Case: [id number] Authorizing Provider: Ranjeet Grant MD Collected: 11/17/2024 05:46 AM Ordering Location: [facility] 3 ICU Received: 11/17/2024 06:40 AM Pathologist: Kalin Amezcua MD Specimen: Intestine, LARGE INTESTINE 11/18/2024 12:10 PM CDT [facility] Final Diagnosis Large intestine, resection: -- Submucosal lipoma - cecum -- Diverticulosis containing fresh hemorrahge 11/18/2024 12:10 PM CDT [facility] at 1210 CDT Gross Description Received in formalin in a single container labeled Crystal Mcmahan, large intestine, is a right hemicolectomy specimen including terminal ileum (8 x 3 cm) with distended large intestine (115 x 11 cm). There is no appendix. The serosa and proximal margin of resection is unremarkable. The distal margin of resection is dusky purple-brown. Upon opening the specimen, there is a 10.3 x 5.8 x 3.9 cm smooth submucosal lipoma at the cecum. It is located approximately 12 cm from the proximal margin of resection and 102 cm from the distal margin of resection. The serosa of the entire length of the large intestine is dusky purple-brown, hemorrhagic. There is a large amount of blood within the large intestine. There are multiple diverticula scattered throughout the large intestine containing blood. Traffic Ii Manager sections are submitted as follows: A1 - proximal margin of resection; A2 - distal margin of resection; A3 through A6 - submucosal lipoma of cecum; A7 through A10 - multiple diverticula scattered throughout large intestine containing blood. CH/tc 11/18/2024 12:10 PM CDT [facility] Microscopic Description Microscopic examination substantiates the above cited diagnosis. MC 11/18/2024 12:10 PM CDT [facility] Disclaimer All histochemical and/or immunohistochemical results are interpreted with controls that demonstrate appropriate staining reactions before reporting results. Note on use of immunocytochemistry reagents: This test was developed and its performance characteristic determined by [facility], Department of Laboratory Medicine. It has not been cleared or approved by the U.S. Food and Drug Administration (FDA). The FDA has determined that such clearance or approval is not necessary. The test is used for clinical purpose. It should not be regarded as investigational or for research. This laboratory is certified to perform high complexity testing. The performance characteristics of the IHC/AMI assays have been validated on formalin-fixed paraffin embedded tissues only. The assays have not been validated on decalcified tissues. Results should be interpreted with caution. 11/18/2024 12:10 PM CDT [facility] Embedded Images 11/18/2024 12:10 PM CDT [facility] Pathology/Cytolo gy ENTIRE INTESTINE / Unknown 11/17/2024 5:46 AM CDT 11/17/2024 6:40 AM CDT us Ranjeet Grant MD LAB - PATHOLOGY/CYTOLOGY ORDER BENJAMIN Final Result [facility] [address] [place] [address] * TRANSFUSE PLATELET PHERESIS UNIT(S) (11/17/2024 4:58 AM CDT) Shobha Luna MD NURSING - BLOOD PROD TRANSFUSION Final Result * TRANSFUSE CRYOPRECIPITATE UNIT(S) (11/17/2024 4:56 AM CDT) Result [facility] Shobha Luna MD NURSING - BLOOD PROD TRANSFUSION Final Result * ETT LINE PERFORMABLE (11/17/2024 4:50 AM CDT) Narrative Shani Hermosillo APRN-CRNA - 11/17/2024 4:50 AM CDT Shani Hermosillo APRN-CRNA 11/17/2024 4:52 AM Endotracheal Tube Placement: Patient Location: OR. Intubation Event Date/Time: 11/17/2024 4:29 AM Procedure: intubation ([id number]) Procedure Section: Sedation: under general anesthesia. Indications for Airway Management: anesthesia Induction: rapid sequence and cricoid pressure Patient Position: sniffing Mask Ventilation: not attempted. Blade Type: Video (Slaughter) Blade Size: 3 Laryngoscopy View: grade 1 (full cords) Intubation Adjuncts: cricoid pressure, stylet and video laryngoscope Tube: endotracheal tube Placement: oral Tube type: cuff - inflated Tube Size (MM): 7 Depth of Insertion (CM): 19 Measured From: teeth Cuff volume (mL): 6 Cuff Inflated With: air Number of Attempts: 1. Placement Verified By: direct visualization, bilateral breath sounds, chest auscultation and CO2 monitor Tube secured with: adhesive tape. Dentition unchanged? Yes Difficult Airway? No. Procedure Start Time: 11/17/2024 4:29 AM. Staff Section Anesthesia Provider: Shani Hermosillo APRN-CRNA, Performed the procedure Additional Comments: Atraumatic RSI intubation- lips as preop. Edentulous.. Result [facility] Krystyna Bray MD GENERAL ANESTHESIA ORDERA BLES Final Result * TRANSFUSE FRESH FROZEN PLASMA UNIT(S) (11/17/2024 4:47 AM CDT) Result [facility] Shobha Luna MD NURSING - BLOOD PROD TRANSFUSION Final Result * TRANSFUSE FRESH FROZEN PLASMA UNIT(S) (11/17/2024 4:40 AM CDT) Result [facility] Jose Ramon Flores MD NURSING - BLOOD PROD TRANSFUSIO N Final Result * TRANSFUSE FRESH FROZEN PLASMA UNIT(S) (11/17/2024 4:23 AM CDT) us Shobha Luna MD NURSING - BLOOD PROD TRANSFUSION Final Result * XR CHEST POST CENTRAL LINE (11/17/2024 4:00 AM CDT) Anatomical Region Laterality Modality Chest Computed Radiogr aphy Impressions 11/17/2024 8:26 AM CDT IMPRESSION: No acute disease. > Interpreting Provider: Bari Hoyt MD on 11/17/2024 8:26 AM Narrative 11/17/2024 8:26 AM CDT PROCEDURE: XR CHEST 1VW PORTABLE DATE/TIME OF EXAM: 11/17/2024 4:01 AM CLINICAL INFORMATION: None relevant/not provided if blank. Indication: K92.2: Gastrointestinal hemorrhage, unspecified Additional History: FINDINGS: Lungs are clear. No pleural effusion or pneumothorax seen. Cardiac silhouette within normal limits. Right IJ central line terminates midright atrium. us Shobha Luna MD DIAGNOSTIC IMAGING OR DERABLES Edited Result - Final * TRANSFUSE RED BLOOD CELL LEUKOREDUCED UNIT(S) (11/17/2024 3:53 AM CDT) us Shobha Luna MD NURSING - BLOOD PROD TRANSFUSION Final Result * TRANSFUSE RED BLOOD CELL LEUKOREDUCED UNIT(S) (11/17/2024 3:38 AM CDT) us Shobha Luna MD NURSING - BLOOD PROD TRANSFUSION Final Result * (ABNORMAL) CALCIUM IONIZED BLOOD (11/17/2024 3:31 AM CDT) Calcium Ionized 1.09 mmol/L 11/17/2024 3:36 AM CDT [facility] pH 7.40 7.35 - 7.45 pH 11/17/2024 3:36 AM CDT [facility] Ionized Calcium pH Adjusted 1.09(L) 1.19 - 1.34 mmol/L 11/17/2024 3:36 AM CDT [facility] Blood BLOOD SPECIMEN / Unknown 11/17/2024 3:31 AM CDT 11/17/2024 3:31 AM CDT us Shobha Luna MD LAB - CHEMISTRY ORDER BENJAMIN Final Result Performing Organization Address [facility] de Phone Number [facility] [id number] [place] [address] * (ABNORMAL) BLOOD GASES ARTERIAL (11/17/2024 3:31 AM CDT) pH Arterial 7.42 7.35 - 7.45 pH 11/17/2024 3:33 AM CDT [facility] pO2 Arterial 117(H) 80 - 100 mmHg 11/17/2024 3:33 AM CDT [facility] pCO2 Arterial 24(L) 35 - 45 mmHg 11/17/2024 3:33 AM CDT [facility] HCO3 Arterial 15.6(L) 22.0 - 26.0 mmol/L 11/17/2024 3:33 AM CDT [facility] BE Arterial -7.0(L) -2.0 - 2.0 mmol/L 11/17/2024 3:33 AM CDT [facility] O2 Saturation Arterial 100 90 - 100 % 11/17/2024 3:33 AM CDT [facility] Luis Eduardo's Test NA 11/17/2024 3:33 AM CDT [facility] Sample Site Art Line 11/17/2024 3:33 AM CDT [facility] Blood, arterial ARTERIAL BLOOD SPECIMEN / Unknown 11/17/2024 3:31 AM CDT 11/17/2024 3:31 AM CDT Shobha Luna MD LAB - BLOOD GASES ORD ERABLES Final Result Performing Organization Address [facility] Co de Phone Number [facility] [id number] [place] [address] * PTT (11/17/2024 3:31 AM CDT) Only the most recent of2 resultswithin the time period is included. PTT 27.6 23.0 - 38.4 sec 11/17/2024 3:48 AM CDT [facility] Blood BLOOD SPECIMEN / Unknown Venipuncture / Unknown 11/17/2024 3:31 AM CDT 11/17/2024 3:36 AM CDT Narrative [facility] - 11/17/2024 3:48 AM CDT Heparin Therapeutic Range for PTT: 69.0 - 110.0 seconds. Shobha Luna MD LAB - COAGULATION ORD ERABLES Final Result Performing Organization Address [facility] Co de Phone Number [facility] [address] [place] [address] * LACTIC ACID BLOOD (11/17/2024 3:31 AM CDT) Only the most recent of2 resultswithin the time period is included. [facility] Signature Lactic Acid 1.9 <=2 mmol/L 11/17/2024 3:53 AM CDT [facility] Blood BLOOD SPECIMEN / Unknown Venipuncture / Unknown 11/17/2024 3:31 AM CDT 11/17/2024 3:36 AM CDT Shobha Luna MD LAB - CHEMISTRY ORDER BENJAMIN Final Result Performing Organization Address [facility] de Phone Number [facility] [address] [place] [address] * TRANSFUSE RED BLOOD CELL LEUKOREDUCED UNIT(S) (11/17/2024 3:21 AM CDT) Shobha Luna MD NURSING - BLOOD PROD TRANSFUSION Final Result * TRANSFUSE RED BLOOD CELL LEUKOREDUCED UNIT(S) (11/17/2024 3:09 AM CDT) Mir Collins MD NURSING - BLOOD PROD TRANSF USION Final Result * CT ANGIO ABDOMEN PELVIS (11/17/2024 2:45 AM CDT) Only the most recent of2 resultswithin the time period is included. Anatomical Region Laterality Modality Abdomen, Pelvis Computed Tomogra phy 11/17/2024 2:41 AM CDT Narrative 11/17/2024 2:[address] angiography of the abdomen and pelvis without and with contrast for GI Bleed. HISTORY: GI Bleed / Bloody Stools TECHNIQUE: All CT scans at [facility] are performed using dose optimization techniques as appropriate to include AEC and Adjustment of mA and/or kV according to patient size, exam type and indication ([facility] CQMS #436). Helical CT acquisition of abdomen and pelvis without and with intravenous iodinated contrast in the arterial phase. 3-D post processing including MIP images of the raw data was performed by technologist and saved to PACS and interpreted by Radiologist on an independent workstation. Contrast: Isovue (specific details in [facility] EMR) : approx. 80 ml. One or more of the following CT dose reduction techniques were utilized: *Automated exposure control (AEC) *Adjustment of mA and/or kV according to patient size -Use of iterative reconstruction technique -CT scan done according to ALARA or ALARA/IMAGE GENTLY. FINDINGS: Within the mid transverse colon just to the left of midline is a focus of contrast extravasation consistent with active GI bleeding. Findings discussed with Dr. Luna by Dr. Hoyt at 2:43 AM on November 17, 2024. Examination otherwise stable from earlier today. > Interpreting Provider: Bari Hoyt MD on 11/17/2024 2:47 AM Procedure Note Bari Hoyt MD - 11/17/2024 CT angiography of the abdomen and pelvis without and with contrast forGI Bleed. HISTORY: GI Bleed / Bloody Stools TECHNIQUE: All CT scans at [facility] are performed using dose optimization techniques as appropriate to include AEC and Adjustment of mA and/or kV according to patient size, exam type and indication ([facility] CQMS #436). Helical CT acquisition of abdomen and pelvis without and withintravenous iodinated contrast in the arterial phase. 3-D post processing including MIP images of the raw data was performedby technologist and saved to PACS and interpreted by Radiologist on an independent workstation. Contrast: Isovue (specific details in [facility] EMR) : approx. 80 ml. One or more of the following CT dose reduction techniques were utilized: *Automated exposure control (AEC) *Adjustment of mA and/or kV according to patient size -Use of iterative reconstruction technique -CT scan done according to ALARA or ALARA/IMAGE GENTLY. FINDINGS: Within the mid transverse colon just to the left of midline is a focusof contrast extravasation consistent with active GI bleeding. Findings discussed with Dr. Luna by Dr. Hoyt at 2:43 AM on November 17, 2024. Examination otherwise stable from earlier today. > Interpreting Provider: Bari Hoyt MD on 11/17/2024 2:47 AM Shobha Luna MD CT ORDERABLES Final Result * PREPARE (CROSSMATCH) RBC UNIT(S), 1 Units (11/17/2024 1:59 AM CDT) Only the most recent of6 resultswithin the time period is included. Unit Description AS1 LR PRBC [facility] ABO O [facility] Rh POS [facility] Product Number R02 [facility] Donor # [id number] [facility] Status transfused [facility] Product Code [id number] [facility] Blood Type Barcode 5100 [facility] Expiration Date [id number] D [facility] Blood Bank BLOOD SPECIMEN / Unknown 11/17/2024 1:59 AM CDT 11/17/2024 2:03 AM CDT Mounika Fregoso MD LAB - BLOOD BANK ORDERABLES F inal Result [facility] [address] [phone] * PREPARE CRYOPRECIPITATE UNIT (S), 1 Units (11/17/2024 1:59 AM CDT) Unit Description Thawed Cryp Clsd [facility] Unit ABO O [facility] Rh POS [facility] Product Number E3591 [facility] Donor # [id number] [facility] Unit Status transfused [facility] Product Code [id number] [facility] Blood Type Barcode 5100 [facility] Expiration Date [id number] D [facility] Blood Bank BLOOD SPECIMEN / Unknown 11/17/2024 1:59 AM CDT 11/17/2024 2:03 AM CDT Shobha Luna MD LAB - BLOOD BANK ELIZABETH VILLANUEVA Final Result Performing Organization Address City/[facility]/ZIP Co de Phone Number [facility] [address] [place], [place] [id number] [place] [address] * PREPARE PLATELET PHERESIS UNIT(S), 1 Units (11/17/2024 1:59 AM CDT) Unit Description LR PLT Phere B7 [facility] Unit ABO O [facility] Rh POS [facility] Product Number P28 [facility] Donor # [id number] [facility] Unit Status transfused [facility] Product Code [id number] [facility] Blood Type Barcode 5100 [facility] Expiration Date [id number] D [facility] Blood Bank BLOOD SPECIMEN / Unknown 11/17/2024 1:59 AM CDT 11/17/2024 2:03 AM CDT Shobha Luna MD LAB - BLOOD BANK ELIZABETH VILLANUEVA Final Result Performing Organization Address [facility] Co de Phone Number [facility] [address] [place] [address] * PREPARE FFP UNIT(S), 4 Units (11/17/2024 1:59 AM CDT) Only the most recent of2 resultswithin the time period is included. Unit Description Liquid Plasma [facility] Unit ABO A [facility] Unit Rh POS [facility] Product Number E2457 [facility] Donor # [id number] DP C BLOOD BANK Unit Status transfused [facility] B[facility] Product Code [id number] [facility] Blood Type Barcode 2620 [facility] Expiration Date [id number] D [facility] Unit Description Liquid Plasma [facility] Unit ABO A [facility] Unit Rh POS [facility] Product Number E2457 [facility] Unit Donor # [id number] DP C BLOOD BANK Unit Status transfused [facility] Product Code [id number] [facility] Blood Type Barcode 7930 [facility] Expiration Date D [facility] Unit Description Liquid Plasma [facility] B[facility] Unit ABO A [facility] Unit Rh POS DP BLOOD BANK Product Number E2457 DP BLOOD BANK Unit Donor # [id number] DP C BLOOD BANK Unit Status transfused [facility] B[facility] Product Code [id number] [facility] Blood Type Barcode 6200 [facility] Expiration Date [id number] D [facility] Blood Bank BLOOD SPECIMEN / Unknown 11/17/2024 1:59 AM CDT 11/17/2024 2:03 AM CDT Shobha Luna MD LAB - BLOOD BANK ORDE RABLES Final Result Performing Organization Address [facility] Co de Phone Number [facility] [address] [place], [place] [address] [phone] * (ABNORMAL) D-DIMER (11/17/2024 1:59 AM CDT) [facility] D-Dimer 2.97(H) 0.27 - 0.50 ug/mL FEU 11/17/2024 2:27 AM CDT [facility] Blood BLOOD SPECIMEN / Unknown Venipuncture / Unknown 11/17/2024 1:59 AM CDT 11/17/2024 2:03 AM CDT Narrative [facility] - 11/17/2024 2:27 AM CDT In the absence of clinical symptoms, a value less than or equal to 0.5 mcg/mL FEU significantly decreases the probability of PE/DVT (negative predictive value >95%). 1 mcg/ml FEU = 1 Fibrinogen Equivalent Unit (approximates 0.5 mcg/mL of D- dimer). Shobha Luna MD LAB - COAGULATION ORD ERABLES Final Result Performing Organization Address [facility] Co de Phone Number [facility] [address] [place] [address] * FIBRINOGEN ACTIVITY (11/17/2024 1:59 AM CDT) Pathologist [facility] Fibrinogen 225 200 - 400 mg/dL 11/17/2024 2:25 AM CDT [facility] Blood BLOOD SPECIMEN / Unknown Venipuncture / Unknown 11/17/2024 1:59 AM CDT 11/17/2024 2:03 AM CDT us Shobha Luna MD LAB - COAGULATION ORD ERABLES Final Result [facility] [address] [place] [address] * IR Visceral Angio (11/17/2024 12:13 AM CDT) Anatomical Region Laterality Modality Abdomen X-Ray Angiograph y 11/17/2024 9:01 AM CDT Impressions 11/18/2024 3:05 PM CDT Impression: No active GI bleeding identified. > Interpreting Provider: Bari Hoyt MD on 11/18/2024 3:05 PM Narrative 11/18/2024 3:05 PM CDT Procedure: 1. Ultrasound-guided access right common femoral artery. 2. Superior mesenteric arteriogram. 3. Superselective arteriogram right/middle colic artery. 4. Inferior mesenteric arteriogram. 5. Right common femoral arteriogram, preclosure device placement. 6. Insertion of a Mynx closure device. HISTORY: Active GI bleeding with acute blood loss anemia. Per outside hospital report bleeding suspected in the transverse colon. Images were not available for review. No active bleeding seen on the CT angiogram performed at our institution same day. Clerk General: Bari Hoyt M.D. Fluoroscopy time: 13.9 minutes. 197 images obtained and submitted. 320 [id number]. Procedure description and findings: Informed, written consent was obtained. The patient was brought to the procedure and placed supine. The right groin was prepped and draped in usual sterile fashion. Maximal sterile barrier was used which includes cap, and mask, and sterile gloves, and sterile gown, and a large sterile sheet, and hand hygiene, and 2% chlorhexidine for cutaneous antisepsis. Sterile ultrasound probe cover and gel used, if applicable. Ultrasound demonstrated a patent right common femoral artery. Under direct ultrasound guidance, permanent images saved to the patient's medical record, the common femoral artery was accessed with a micropuncture set. A wire was passed centrally under fluoroscopic guidance. A 5 Egyptian sheath was inserted. The catheter is advanced to the superior mesenteric artery and superior mesenteric arteriogram was performed. 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 The middle and right hepatic arteries have a common origin. No active bleeding was identified. Microcatheter was advanced coaxially into the right/middle hepatic artery and selective arteriogram performed, no active bleeding was seen. The catheter was withdrawn from the SMA and then used to select the inferior mesenteric artery. Inferior mesenteric arteriogram was performed. No active bleeding identified. All catheters and wires were removed. A right common femoral arteriogram was performed showing suitable access for placement of closure device. A Mynx closure device was deployed in the right groin achieving hemostasis. Procedure Note Bari Hoyt MD - 11/18/2024 Procedure: 1. Ultrasound-guided access right common femoral artery. 2. Superior mesenteric arteriogram. 3. Superselective arteriogram right/middle colic artery. 4. Inferior mesenteric arteriogram. 5. Right common femoral arteriogram, preclosure device placement. 6. Insertion of a Mynx closure device. HISTORY: Active GI bleeding with acute blood loss anemia. Per outside hospital report bleeding suspected in the transverse colon. Images werenot available for review. No active bleeding seen on the CT angiogramperformed at our institution same day. Clerk General: Bari Hoyt M.D. Fluoroscopy time: 13.9 minutes. 197 images obtained and submitted. [id number]. Procedure description and findings: Informed, written consent wasobtained. The patient was brought to the procedure and placed supine. The rightgroin was prepped and draped in usual sterile fashion. Maximal sterile barrier was used which includes cap, and mask, and sterile gloves, and sterile gown, and a large sterile sheet, and hand hygiene, and 2% chlorhexidinefor cutaneous antisepsis. Sterile ultrasound probe cover and gel used, if applicable. Ultrasound demonstrated a patent right common femoral artery. Underdirect ultrasound guidance, permanent images saved to the patient's medical record, the common femoral artery was accessed with a micropuncture set.A wire was passed centrally under fluoroscopic guidance. A 5 Egyptian sheath was inserted. The catheter is advanced to the superior mesenteric artery and superior mesenteric arteriogram was performed. 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 The middle and right hepatic arteries have acommon origin. No active bleeding was identified. Microcatheter was advanced coaxially into the right/middle hepaticartery and selective arteriogram performed, no active bleeding was seen. The catheter was withdrawn from the SMA and then used to select the inferior mesenteric artery. Inferior mesenteric arteriogram wasperformed. No active bleeding identified. All catheters and wires were removed. A right common femoral arteriogram was performed showing suitable access for placement of closure device. A Mynx closure device was deployed in the right groin achievinghemostasis. Impression: No active GI bleeding identified. > Interpreting Provider: Bari Hoyt MD on 11/18/2024 3:05 PM Bari Hoyt MD IR ORDERABLES Final Result * TRANSFUSE RED BLOOD CELL LEUKOREDUCED UNIT(S) (11/16/2024 11:04 PM CDT) Result [facility] Bill Marroquin MD NURSING - BLOOD PROD T RANSFUSION Final Result * TRANSFUSE RED BLOOD CELL LEUKOREDUCED UNIT(S) (11/16/2024 12:01 PM CDT) Bill Marroquin MD NURSING - BLOOD PROD T RANSFUSION Final Result * FYA ANTIGEN TYPING ([facility] BB) (11/16/2024 3:21 AM CDT) Fya Antigen NEG 11/16/2024 6:44 AM CDT [facility] Blood Bank BLOOD SPECIMEN / Unknown Venipuncture / Unknown 11/16/2024 3:21 AM CDT 11/16/2024 3:25 AM CDT Bill Marroquin MD LAB - BLOOD BANK ORDER BENJAMIN Final Result [facility] [address] [place] [id number], [facility] [phone] * BLOOD TYPE VERIFICATION (11/16/2024 3:21 AM CDT) Only the most recent of2 resultswithin the time period is included. ABO Rh O POS 11/17/2024 1:46 AM CDT [facility] Comment:Sample continuation, original sample QNS Blood Bank BLOOD SPECIMEN / Unknown Venipuncture / Unknown 11/16/2024 3:21 AM CDT 11/16/2024 3:25 AM CDT Bill Marroquin MD LAB - BLOOD BANK ORDER BENJAMIN Edited Result - Final Performing Organization Address City/[facility]/ZIP Co de Phone Number [facility] [address] [place] [address], [facility] [phone] * TYPE + SCREEN PANEL (11/16/2024 3:21 AM CDT) ABO Rh O POS 11/16/2024 4:29 AM CDT [facility] Comment:No history; collect retype. Antibody Screen POS 4:29 AM CDT [facility] Blood Bank BLOOD SPECIMEN / Unknown Venipuncture / Unknown 11/16/2024 3:21 AM CDT 11/16/2024 3:25 AM CDT Bill Marroquin MD LAB - BLOOD BANK ORDER BENJAMIN Final Result Performing Organization Address [facility] de Phone Number [facility] [address] [place] [address], [facility] [phone] * ANTIBODY IDENTIFICATION (11/16/2024 3:21 AM CDT) Antibody 1 POS, Anti-FyA 11/16/2024 5:38 AM CDT [facility] Blood Bank BLOOD SPECIMEN / Unknown Venipuncture / Unknown 11/16/2024 3:21 AM CDT 11/16/2024 3:25 AM CDT Bill Marroquin MD LAB - BLOOD BANK ORDER BENJAMIN Final Result Performing Organization Address [facility] Co de Phone Number [facility] [id number] [place] [address], [facility] [phone] * (ABNORMAL) CBC W/O DIFFERENTIAL (11/16/2024 3:21 AM CDT) Only the most recent of2 resultswithin the time period is included. WBC 5.9 4.0 - 10.7 x10E9/L 11/16/2024 3:36 AM CDT [facility] RBC Count 2.41(L) 3.90 - 5.20 x10E12/L 11/16/2024 3:36 AM CDT [facility] Hemoglobin 6.7(L) 11.9 - 15.8 g/dL 11/16/2024 3:36 AM CDT [facility] Hematocrit 20.1(L) 34.8 - 46.1 % 11/16/2024 3:36 AM CDT [facility] MCV 83.4 80.0 - 98.0 fL 11/16/2024 3:36 AM CDT [facility] MCH 27.8 26.7 - 33.6 pg 11/16/2024 3:36 AM CDT [facility] MCHC 33.3 31.7 - 36.3 g/dL 11/16/2024 3:36 AM CDT [facility] RDW-CV 18.7(H) 11.3 - 14.8 % 11/16/2024 3:36 AM CDT [facility] Platelet Count 93(L) 150 - 420 x10E9/L 11/16/2024 3:36 AM CDT [facility] MPV 11.3 7.8 - 11.4 fL 11/16/2024 3:36 AM CDT [facility] Blood BLOOD SPECIMEN / Unknown Venipuncture / Unknown 11/16/2024 3:21 AM CDT 11/16/2024 3:25 AM CDT us Bill Marroquin MD LAB - HEMATOLOGY ORDER BENJAMIN Final Result [facility] [address] [place] [address] from Last 3 Months Insurance [facility] MANAGED [id number] [facility] MANAGED MEDICARE ADV Advance Directives * Full Code (Latest Code Status on File) Date Activated Date Inactivated Comments 11/15/2024 8:07 PM 11/27/2024 12:56 PM Care Teams Skates Operator Relationship Specialty Start Date End Date Brittney Levy, CNC MILL SET UP OPERATOR-HISTORIC SITE ADMINISTRATOR [address] [facility], [address] [place] [address] PCP - General Nurse Practitioner 11/17/24
--- OUTSIDE RECORDS SUMMARY | 2025-01-20 13:01 | XMS_ITS | Encounter Summary ---
Author Organization [facility] Address [facility] [place] [address] Care Team Providers Care Portrait Photographer Name Role Phone Brittney Levy [facility] Primary Care Provider + Encounter Details Date Type Department Care Team (Late st Contact Info) Description 02/20/2023 Prep for Procedure [facility], [address] [place], [place] [id number] Abdirahman Salas MD [facility]. 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 Question Answer Date of Assessment Author Status Little interest or pleasure in doing things Not at all 02/23/2023 8:34 AM Jalyn Gilbert Active Feeling down, depressed, or hopeless Not at all 02/23/2023 8:34 AM PINOT Jalyn Goodson Active Patient Health Questionnaire-2 Score 0 02/23/2023 8:34 AM PINOT Jalyn Goodson A ctive documented as of this encounter Plan of Treatment Not on file documented as of this encounter Visit Diagnoses Diagnosis Varicose veins of lower extremity with pain, right- Primary documented in this encounter Care Teams Portrait Photographer Relationship Specialty Start Date End Date Brittney Levy, JACKAROO- [address] [address] PCP - General NURSE PRACTITIONER 01/05/23 documented as of this encounter
--- OUTSIDE RECORDS SUMMARY | 2025-01-20 13:01 | XMS_ITS | Encounter Summary ---
Author Organization [facility] Address [facility] [place] [address] Care Team Providers Care Residential Recycle Driver Name Role Phone Arabella Rojo MD Primary Care Provider [phone] Brittney Levy [facility] Primary Care Provider + Encounter Details Date Type Department Care Team (Late st Contact Info) Description 12/14/2018 Abstract [facility] CONVERSION [address] [place] [address] , Generic MD Ashok Social History Tobacco Use Types Packs/Day Years Used Date Smoking Tobacco: Never Assessed Comments Unknown Sex and Gender Information Value Date Recorded Sex Assigned at Not on file 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
[2025-01-20 13:52] LABS: Hematocrit 28.3 % (37.0-47.0); Hemoglobin 8.7 g/dL (12.0-15.0); Mean Corpuscular HGB Conc 30.7 g/dl (32-36); Mean Corpuscular Hemoglobin 26.9 pg (26-34); Mean Corpuscular Volume 87.6 fl (80-100); Platelet Count Result 233 k/mm3 (150-375); Red Blood Count 3.23 M/mm3 (4.2-5.4); White Blood Count 5.1 K/mm3 (4.5-10.0)
[2025-01-20 14:13] LABS: Anion Gap 8 mmol/L (4-12); Blood Urea Nitrogen 24 mg/dL (7-17); Calcium 9.6 mg/dL (8.4-10.2); Carbon Dioxide 14 mmol/L (22-30); Chloride 109 mmol/L (98-107); Estimated Glomerular Filt Rate 47; Glucose 95 mg/dL (65-110); Potassium 5.0 mmol/L (3.4-5.0); Sodium 131 mmol/L (137-145)
== END 2025-01-20 12:53 | disposition home or self-care (01) ==
PROVIDERS: PCP Family Medicine; Visit Provider Nurse Practitioner
DX: I95.9 Hypotension, unspecified (principal)
CPT/HCPCS: 36415; 80048; 85027

== ENCOUNTER 2025-03-05 08:33 | Outpatient (CLI) | payer MEDICARE, SELFPAY ==
--- OUTSIDE RECORDS SUMMARY | 2025-03-05 08:39 | XMS_ITS | Clinical Summary ---
Author Organization [facility] Address [address] [facility] [place] [address] Care Team Providers Care Powder Truck Driver Name Role Phone Brittney Levy CHING-MID LEVEL PROJECT MANAGER Primary Care Provider Source Comments [facility],non-owned Affiliates and Associated Physician Practices is amultiple site organization consisting of ambulatory clinics and hospital sitesin [place], [place], [place] and [place]. This disclosure is being madepursuant to the Care Everywhere program and may not contain all information available regarding this patient. Last updated 18.[facility] Allergies Active Allergy Reactions Criticality Noted Date [...] by mouth once daily Active multivitamin w/IRON (Poly-Vi-Jo Ann W/Iron) 11 MG/ML oral solution Take by mouth once daily Commonly known as POLY--JO ANN with IRON Active nitroGLYCERIN (Nitrostat) 0.3 MG [...] Encounters Date Type Department Care Team Description 02/11/2025 11:00 AM CDT Office Visit [facility] [address] [place] [address], [address] [address] Ranjeet Grant MD Postoperative state (Primary Dx) 02/11/2025 Travel 01/14/2025 11:00 AM CDT Office Visit [facility] [address] [place] [address], [address] [address] Ranjeet Grant MD Postoperative state (Primary Dx) 01/14/2025 Travel 12/10/2024 10:20 AM CDT Clinical Support [facility] [address] [place] [address], [address] [address] Surgery follow-up from Last 3 Months Social History Tobacco [...] and heating? Not hard at all 11/15/2024 [facility] - Occupational Stress Questionnaire Answer Date [...] any time in the past 12 m [facility], were you homeless or living in a alf (including now)? No 11/15/2024 Comments Unknown Sex [...] 21% 11/19/2024 1 0:30 PM CDT Weight 63.5 kg (140 lb) 02/11/2025 10:01 AM CDT Height 147.3 cm (4' 10) 02/11/2025 10:01 AM CDT Body Mass Index 29.26 02/11/2025 10:01 AM CDT Plan of Treatment Upcoming Encounters Date Type Department Care Team (Late st Contact Info) Description 03/11/2025 10:30 AM CDT Office Visit [facility] - Surgery [address] [facility] [place], [address] [place] [address] Ranjeet Grant MD [address] [place] [address] [place] [id number] Health Maintenance Due Date Last Done Comments [...] patient's age to complete this topic Insurance [facility] MANAGED MEDICARE ADV [facility] MANAGED MEDICARE ADV [place] [id number] Advance Directives * Full Code (Latest Code Status on File) Date Activated Date Inactivated Comments 11/15/2024 8:07 PM 11/27/2024 12:56 PM Care Teams Powder Truck Driver Relationship Specialty Start Date End Date Brittney Levy, BUSINESS MAIL ENTRY CLERK-MID LEVEL PROJECT MANAGER [address] [facility], [address] [place] [address] PCP - General Nurse Practitioner 11/17/24
--- OUTSIDE RECORDS SUMMARY | 2025-03-05 08:39 | XMS_ITS | Encounter Summary ---
Author Organization [facility] Address [address] [place] [address] Care Team Providers Care Application Assistant Name Role Phone Brittney Levy EDUCATIONAL ADVISOR-CNC OPERATOR PROGRAMMER Primary Care Provider Encounter Details Date Type Department Care Team (Late st Contact Info) Description 02/10/2020 Lab Requisition [facility] [address] [facility], [place] [address] Nel Clement DO [address] [facility] [address] [place] [address] Social History Tobacco Use Types Packs/Day Years [...] Description 03/11/2025 10:30 AM CDT Office Visit [facility] - Surgery [address] [facility] [address] [place] [phone] Ranjeet Grant MD [address] [facility] [address] [place] [address] [place] [address] documented as of this encounter Procedures Procedure Name Priority Date/Time Associated Diagnosis Comments DERMATOPATHOLOGY Routine 02/09/2020 12:0 0 AM CDT documented in this encounter Results * DERMATOPATHOLOGY (02/09/2020 12:00 AM CDT) Case Report Dermatopathology Report Case: [id number] Authorizing Provider: Nel Clement DO Collected: 02/09/2020 12:00 AM Ordering Location: [facility] Lab Received: 02/10/2020 06:11 AM Pathologist: [...] characteristic determined by the Dermatopathology Laboratory at [facility], directed by Dr. Félix Mcgill. These tests need not be, and therefore are not, approved by the [place] Food and Drug Administration. The tests are used for clinical purposes. Billing Codes Specimen Charges Stain Charges 33129 [id number] 1 1 0 4:05 PM CDT DER[facility]Y LABORATORY Embedded Images 0 4:05 PM CDT DERMATOPATHOLOGY LABORATORY Pathology/Cytology TISSUE SPECIMEN FROM SKIN / Unknown 02/09/2020 02/10/2020 6:11 AM CDT Miscellaneous samples (specimen) TISSUE SPECIMEN FROM SKIN / Unknown 02/09/2020 02/10/2020 6:11 AM CDT us Nel Clement DO LAB - PATHOLOGY/CYTOLOGY ORDERABLES Final Result Performing Organization Address City/State/[facility] Co de Phone Number DERMATOPATHOLOGY LABORATORY [facility] - Department of Dermatology Chemicals Fermentation Operator [place]/[address] [phone] documented in this encounter Visit Diagnoses Not on filedocumented in this encounter Additional Health Concerns Infection Onset Date Last Indicated Resolved Time COVID-19 Under Investigation 11/26/2024 11/26/2024 11/26/2024 6:36 PM CDT documented as of this encounter Care Teams Application Assistant Relationship Specialty Start Date End Date Brittney Levy, EDUCATIONAL ADVISOR-CNC OPERATOR PROGRAMMER [address] [facility], [address] [place] [address] PCP - General Nurse Practitioner 11/17/24 documented as of this encounter
[2025-03-05 09:42] LABS: Hematocrit 32.1 % (37.0-47.0); Hemoglobin 9.9 g/dL (12.0-15.0); Immature Granulocyte Percent A 0.5 % (0-0.5); Lymphocytes Absolute Auto 1.25 K/mm3 (0.9-3.2); Mean Corpuscular HGB Conc 30.8 g/dl (32-36); Mean Corpuscular Hemoglobin 27.0 pg (26-34); Mean Corpuscular Volume 87.5 fl (80-100); Nucleated Red Blood Cells Absolute Auto 0.000 K/mm3 (0.0-0.012); Nucleated Red Blood Cells Perc 0.0 % (0.0-0.2); Platelet Count Result 212 k/mm3 (150-375); Red Blood Count 3.67 M/mm3 (4.2-5.4); White Blood Count 6.0 K/mm3 (4.5-10.0)
[2025-03-05 10:05] LABS: Alanine Aminotransferase 46 U/L (6-35); Albumin Level 3.9 g/dL (3.5-5.1); Alkaline Phosphatase 122 U/L (38-126); Anion Gap 8 mmol/L (4-12); Aspartate Amino Transferase 55 U/L (14-36); Bilirubin,Total 0.3 mg/dL (0.2-1.3); Blood Urea Nitrogen 27 mg/dL (7-17); Calcium 9.6 mg/dL (8.4-10.2); Carbon Dioxide 17 mmol/L (22-30); Chloride 109 mmol/L (98-107); Cholesterol 136 mg/dL (0-200); Estimated Glomerular Filt Rate 47; Glucose 87 mg/dL (65-110); HDL Direct 74 mg/dL; Potassium 4.9 mmol/L (3.4-5.0); Sodium 134 mmol/L (137-145); Total Protein 7.3 g/dL (6.3-8.2); Triglycerides 78 mg/dL (<150)
[2025-03-05 10:22] LABS: Free T4 Free Thyroxine 1.19 ng/dL (0.78-2.19)
[2025-03-05 10:40] LABS: Thyroid Stimulating Hormone 2.940 uIU/mL (0.465-4.680)
== END 2025-03-05 08:34 | disposition home or self-care (01) ==
PROVIDERS: PCP Family Medicine; Visit Provider Student in an Organized Health Care Education/Training Program
DX: I25.10 Atherosclerotic heart disease of native coronary artery without angina pectoris (principal); I10 Essential (primary) hypertension; E03.9 Hypothyroidism, unspecified; E87.1 Hypo-osmolality and hyponatremia; D64.9 Anemia, unspecified
CPT/HCPCS: 36415; 80053; 80061; 84439; 84443; 85025

== ENCOUNTER 2025-03-20 08:54 | Outpatient (CLI) | payer MEDICARE, SELFPAY ==
--- OUTSIDE RECORDS SUMMARY | 2025-03-20 09:11 | XMS_ITS | Clinical Summary ---
Author Organization [facility] Address [address] [place] [address] Care Team Providers Care Doctor Of Dental Medicine Name Role Phone Brittney Levy CHING-TAPEMAN Primary Care Provider Source Comments [facility]non-owned Affiliates and Associated Physician Practices is amultiple site organization consisting of ambulatory clinics and hospital sitesin [place], [place], [place] and [place]. This disclosure is being madepursuant to the Care Everywhere program and may not contain all information available regarding this patient. Last updated 18.[facility] Allergies Active Allergy Reactions Criticality Noted Date [...] Encounters Date Type Department Care Team Description 03/11/2025 10:30 AM CDT Office Visit [facility] [address] [place] [address], [address] [phone] Ranjeet Grant MD Postoperative state (Primary Dx) 03/11/2025 Travel 02/11/2025 11:00 AM CDT Office Visit [address], [address] [address] Ranjeet Grant MD Postoperative state (Primary Dx) 02/11/2025 Travel 01/14/2025 11:00 AM CDT Office Visit [facility] Surgery [address] [place] [address], [address] [address] Ranjeet Grant MD Postoperative state (Primary Dx) 01/14/2025 Travel from Last 3 Months Social History Tobacco [...] and heating? Not hard at all 11/15/2024 [facility] - [facility] [...] any time in the past 12 m [facility], were you homeless or living in a retirement (including now)? No 11/15/2024 Comments Unknown Sex [...] PM CDT Weight 63.5 kg (140 lb) 03/11/2025 9:30 AM CDT Height 147.3 cm (4' 10) 03/11/2025 9:30 AM CDT Body Mass Index 29.26 03/11/2025 9:30 AM CDT Plan of Treatment Health Maintenance Due Date Last Done Comments BONE DENSITY TESTING 1937 DTAP/TDAP/TD VACCINES (1 - Tdap) 1956 PNEUMOCOCCAL VACCINE 50+ (1 of 1 - PCV) 10/24/1987 ZOSTER VACCINE (1 of 2) 10/24/1987 Respiratory Syncytial Virus (RSV) Vaccine Pt: or over 60 yrs (1 - 1-dose 75+ series) 2012 DEPRESSION SCREENING 07/09/2024 MEDICARE AWV CALENDAR YEAR 2024 COVID-19 VACCINE (1 - 2023-2 5 season) 2025 INFLUENZA VACCINE (#1) 2025 4, 04/13/2020 HEPATITIS [...] this topic Insurance [employer] MANAGED MEDICARE ADV Member Subscriber Plan / Payer (Ef fective 2020-Present) Name:Crystal Mcmahan Relation to Subscriber:Self Name:Crystal Mcmahan Payer ID:[id number] (NAIC) Type:Medicare-Managed Care Address: [place] [phone] [facility] MEDICARE ADV Advance Directives * Full Code (Latest Code Status on File) Date Activated Date Inactivated Comments 11/15/2024 8:07 PM 11/27/2024 12:56 PM Care Teams Doctor Of Dental Medicine Relationship Specialty Start Date End Date Brittney Levy, RIGHT OF WAY AGENT-TAPEMAN [address] [facility], [address] [place] [address] PCP - General Nurse Practitioner 11/17/24
--- OUTSIDE RECORDS SUMMARY | 2025-03-20 09:11 | XMS_ITS | Encounter Summary ---
Author Organization [facility] Address [address] [place] [address] Care Team Providers Care Welding Systems And Equipment Repairer Name Role Phone Brittney Levy DIRECTOR OF ADULT EPILEPSY-SYSTEM SAFETY ENGINEER Primary Care Provider Encounter Details Date Type Department Care Team (Late st Contact Info) Description 02/10/2020 Lab Requisition [facility] DermPath Lab [address] [place] [id number] Nel Clement DO [address] [facility] [address] [place] [address] Social History Tobacco Use Types Packs/Day Years [...] AM CDT) Case Report Dermatopathology Report Case: [id number] Authorizing Provider: Nel Clement DO Collected: 02/09/2020 12:00 AM Ordering Location: [facility] Care DermPath Lab Received: 02/10/2020 06:11 AM Pathologist: [...] characteristic determined by the Dermatopathology Laboratory at [facility], directed by Dr. Félix Mcgill. These tests need not be, and therefore are not, approved by the [place] Food and Drug Administration. The tests are used for clinical purposes. Billing Codes Specimen Charges Stain Charges 58842 [id number] 1 1 0 4:05 PM CDT DERMATOPATHOLOGY LABORATORY Embedded Images 0 4:05 PM CDT DERMATOPATHOLOGY LABORATORY Pathology/Cytology TISSUE SPECIMEN FROM SKIN / Unknown 02/09/2020 02/10/2020 6:11 AM CDT Miscellaneous samples (specimen) TISSUE SPECIMEN FROM SKIN / Unknown 02/09/2020 02/10/2020 6:11 AM CDT us Nel Clement DO LAB - PATHOLOGY/CYTOLOGY ORDERABLES Final Result DERMATOPATHOLOGY LABORATORY [facility] - Department of Dermatology Performance Instructor [place]/[address] [phone] documented in this encounter Visit Diagnoses Not on filedocumented in this encounter Additional Health Concerns Infection Onset Date Last Indicated Resolved Time COVID-19 Under Investigation 11/26/2024 11/26/2024 11/26/2024 6:36 PM CDT documented as of this encounter Care Teams Welding Systems And Equipment Repairer Relationship Specialty Start Date End Date Brittney Levy, DIRECTOR OF ADULT EPILEPSY-SYSTEM SAFETY ENGINEER [address] [facility] [facility], [address] [place] [address] PCP - General Nurse Practitioner 11/17/24 documented as of this encounter
[2025-03-20 09:43] LABS: Hematocrit 31.9 % (37.0-47.0); Hemoglobin 9.7 g/dL (12.0-15.0); Immature Granulocyte Percent A 0.6 % (0-0.5); Lymphocytes Absolute Auto 1.13 K/mm3 (0.9-3.2); Mean Corpuscular HGB Conc 30.4 g/dl (32-36); Mean Corpuscular Hemoglobin 27.0 pg (26-34); Mean Corpuscular Volume 88.9 fl (80-100); Nucleated Red Blood Cells Absolute Auto 0.000 K/mm3 (0.0-0.012); Nucleated Red Blood Cells Perc 0.0 % (0.0-0.2); Platelet Count Result 174 k/mm3 (150-375); Red Blood Count 3.59 M/mm3 (4.2-5.4); White Blood Count 5.4 K/mm3 (4.5-10.0)
[2025-03-20 09:51] LABS: Iron 56 ug/dL (37-170)
[2025-03-20 10:00] LABS: Alanine Aminotransferase 41 U/L (6-35); Albumin Level 4.0 g/dL (3.5-5.1); Alkaline Phosphatase 121 U/L (38-126); Anion Gap 8 mmol/L (4-12); Aspartate Amino Transferase 45 U/L (14-36); Bilirubin,Total 0.5 mg/dL (0.2-1.3); Blood Urea Nitrogen 28 mg/dL (7-17); Calcium 9.1 mg/dL (8.4-10.2); Carbon Dioxide 15 mmol/L (22-30); Chloride 108 mmol/L (98-107); Estimated Glomerular Filt Rate 50; Glucose 91 mg/dL (65-110); Potassium 4.7 mmol/L (3.4-5.0); Sodium 131 mmol/L (137-145); Total Protein 7.4 g/dL (6.3-8.2)
[2025-03-20 10:02] LABS: Percent Iron Saturation 18 % (20-50)
[2025-03-20 10:32] LABS: Ferritin 83.00 ng/mL (11.1-264)
== END 2025-03-20 08:55 | disposition home or self-care (01) ==
PROVIDERS: PCP Family Medicine; Visit Provider Student in an Organized Health Care Education/Training Program
DX: D64.9 Anemia, unspecified (principal); I10 Essential (primary) hypertension
CPT/HCPCS: 36415; 80053; 82728; 83540; 83550; 85025

== ENCOUNTER 2025-04-16 11:43 | Outpatient (CLI) | payer MEDICARE, SELFPAY ==
[2025-04-16 12:41] LABS: Hematocrit 30.6 % (37.0-47.0); Hemoglobin 9.5 g/dL (12.0-15.0); Immature Granulocyte Percent A 0.5 % (0-0.5); Lymphocytes Absolute Auto 1.26 K/mm3 (0.9-3.2); Mean Corpuscular HGB Conc 31.0 g/dl (32-36); Mean Corpuscular Hemoglobin 27.1 pg (26-34); Mean Corpuscular Volume 87.4 fl (80-100); Nucleated Red Blood Cells Absolute Auto 0.000 K/mm3 (0.0-0.012); Nucleated Red Blood Cells Perc 0.0 % (0.0-0.2); Platelet Count Result 176 k/mm3 (150-375); Red Blood Count 3.50 M/mm3 (4.2-5.4); White Blood Count 6.3 K/mm3 (4.5-10.0)
[2025-04-16 12:59] LABS: Iron 66 ug/dL (37-170)
[2025-04-16 13:08] LABS: Percent Iron Saturation 23 % (20-50)
[2025-04-16 13:40] LABS: Ferritin 91.60 ng/mL (11.1-264)
[2025-04-16 14:24] LABS: Alanine Aminotransferase 43 U/L (6-35); Albumin Level 3.8 g/dL (3.5-5.1); Alkaline Phosphatase 132 U/L (38-126); Anion Gap 5 mmol/L (4-12); Aspartate Amino Transferase 52 U/L (14-36); Bilirubin,Total 0.3 mg/dL (0.2-1.3); Blood Urea Nitrogen 21 mg/dL (7-17); Calcium 9.1 mg/dL (8.4-10.2); Carbon Dioxide 20 mmol/L (22-30); Chloride 106 mmol/L (98-107); Estimated Glomerular Filt Rate 46; Glucose 106 mg/dL (65-110); Potassium 5.1 mmol/L (3.4-5.0); Sodium 131 mmol/L (137-145); Total Protein 7.1 g/dL (6.3-8.2)
== END 2025-04-16 11:44 | disposition home or self-care (01) ==
LOC: ANHLAB 11:44
PROVIDERS: PCP Family Medicine Adolescent Medicine; Visit Provider Family Medicine
DX: D64.9 Anemia, unspecified (principal); I10 Essential (primary) hypertension
CPT/HCPCS: 36415; 80053; 82728; 83540; 83550; 85025